=== PATIENT | female | born 1965 | race Caucasian/White ===

== ENCOUNTER 2021-04-25 18:04 | Inpatient (IN) | payer MEDICARE, MEDICAID, SELFPAY ==
[2021-04-25] VITALS (8 sets, daily range): BP systolic 109–137; BP diastolic 58–84; PULSE 91–102; RESP 16–22; TEMP 36.6; O2SAT 91–99; BMI 26.5
--- NOTE | ~2021-04-25 | CT_ITS ---
EXAMINATION: CT CHEST, ABDOMEN AND PELVIS WITHOUT CONTRAST. CLINICAL INFORMATION: Distended abdomen COMPARISON: None TECHNIQUE: 5 mm thin axial and reformatted 3 mm thin sagittal coronal images of chest, abdomen and pelvis were obtained without contrast. DLP 299 FINDINGS: CHEST: There is breathing artifact throughout the lungs. Otherwise the lungs are well-expanded with patchy density left lower lobe lateral basal segment and dependent atelectasis superior segment right lower lobe likely atelectasis. There is groundglass attenuation in the anterior and lateral segments of the left upper lobe. There is no pleural effusion, thickening or pneumothorax. The thyroid lobes are symmetrical and normal. The central trachea and the bronchi are widely patent. The heart size is borderline normal. No pericardial effusion seen. Central trachea and bronchi are widely patent. No abnormal size mediastinal lymph nodes or mass seen. The axilla and chest wall appears unremarkable. ABDOMEN AND PELVIS: The liver is diffusely attenuated with a lobulated contour and moderate enlargement. Liver measures 21 seen in craniocaudad length. No intrahepatic ductal dilatation seen. No focal mass or mass effect. The spleen is unremarkable. The small perisplenic fluid collection. Visualized pancreas and bilateral adrenal glands are unremarkable. The gallbladder is contracted but appears unremarkable. Both kidneys are normal size, shape and position. No radiopaque renal calculi or hydronephrosis seen. There is scattered stool and gas seen in colon without distention. There is moderate ascites. No free air seen. The abdominal wall appears unremarkable. Imaging of pelvis reveals unremarkable nondistended urinary bladder. The uterus is anteverted and appears unremarkable. The abdominal aorta is normal caliber. No retroperitoneal lymph nodes or mass seen. Visualized bones are grossly unremarkable. CT/CT abdomen pelvis wo con IMPRESSION: Groundglass attenuation left upper lobe suspicious for infiltrative or inflammatory process. There is dependent right upper lobe superior segment and left lower lobe posterior basal segment atelectasis. Moderate cardiomegaly with diffuse hepatic steatosis and likely cirrhosis with underlying artery ascites. There is no bowel distention. No free air.
--- NOTE | ~2021-04-25 | US_ITS ---
EXAMINATION: US VENOUS ULTRASOUND WITH DOPPLER LOWER EXTREMITY, BILATERAL CLINICAL INFORMATION: Short of breath with lower extremity edema COMPARISON: None TECHNIQUE: Ultrasound of the deep veins is performed from the hip to the calf with compression sonography and color and pulse Doppler assessment. Spectral analysis with color-flow imaging is performed. FINDINGS: RIGHT: There is normal venous compression and respiratory variation and augmented flow. The visualized common femoral vein, superficial femoral vein, profunda femoral vein, popliteal vein, and the trifurcation region shows no evidence of deep venous thrombosis. There is no significant popliteal fossa cyst. LEFT: There is normal venous compression and respiratory variation and augmented flow. The visualized common femoral vein, superficial femoral vein, profunda femoral vein, popliteal vein, and the trifurcation region shows no evidence of deep venous thrombosis. There is no significant popliteal fossa cyst. If the patient's symptoms persist, followup ultrasound in 5 days 7 days might be of value to exclude proximal propagation from a non-visualized calf vein. US/US venous duplex LE BI IMPRESSION: No DVT demonstrated in the bilateral lower extremity.
--- NOTE | ~2021-04-25 | XR_ITS ---
EXAMINATION: CHEST 2 VIEWS CLINICAL INFORMATION: Chest pain . COMPARISON: 05/08/2016. TECHNIQUE: AP frontal and lateral views of the chest obtained FINDINGS: Patient is hypoexpanded and rotated to the right. Central vascular prominence likely related to the degree of hypoexpansion. No superimposed focal infiltrate, effusion, edema, or pneumothorax. Cardiac and mediastinal silhouette within normal limits for the degree of hypoexpansion and rotation. No acute bony abnormality. XR/XR chest 2V IMPRESSION: Hypoexpanded. No acute process otherwise.
--- NOTE | ~2021-04-25 | XR_ITS ---
EXAMINATION: BILATERAL ANKLE. CLINICAL INFORMATION: Trauma. Pain. COMPARISON: None TECHNIQUE: 3 views each ankle. FINDINGS: Left ankle: There is moderate bimalleolar soft tissue swelling. No visible acute fracture or dislocation seen. The ankle mortise and subtalar joints are normal. There is a small calcaneal heel enthesophyte. Right ankle: There is bimalleolar soft tissue swelling. No visible acute fracture or dislocation seen. The ankle mortise and subtalar joints are normal. There is a small calcaneal heel enthesophyte. XR/XR ankle LT min 3V IMPRESSION: Bimalleolar soft tissue swelling in both ankles. No visible acute fracture, dislocation or lytic process seen. There is a moderate size calcaneal heel enthesophytes in both ankles.
--- NOTE | ~2021-04-25 | US_ITS ---
EXAMINATION: ULTRASOUND-GUIDED PARACENTESIS. CLINICAL INFORMATION: New ascites. COMPARISON: CT chest, abdomen and pelvis without contrast 04/25/2021. TECHNIQUE: Following explaining ultrasound-guided paracentesis procedure, benefits and risk, a written consent was obtained. Patient was placed supine on ultrasound stretcher and preliminary ultrasound imaging was obtained through the abdomen. An optimal site with maximum fluid collection was selected along the right lower quadrant and marked. The marked site was cleaned and draped in usual sterile manner. 1% lidocaine was injected at puncture site. Through a small skin incision a 4 [place] Branch[employer]uteh catheter was advanced into right peritoneal space. After observing fluid return, stylet was withdrawn and catheter connected to vacuum bottle. After obtaining all fluid and observing no more fluid return, catheter was withdrawn and complete hemostasis achieved at puncture site. Sterile dressing applied postprocedure. Patient tolerated procedure extremely well. FINDINGS: On preliminary ultrasound imaging there is moderate fluid seen in the right lower quadrant. Approximately 800 mL of clear yellowish fluid was drained from the right lower quadrant. Part of this fluid was sent to lab as per referring physician's orders. US/US paracentesis abd w/image IMPRESSION: Successful ultrasound-guided diagnostic paracentesis performed from the right lower quadrant.
--- NOTE | ~2021-04-25 | XR_ITS ---
EXAMINATION: BILATERAL ANKLE. CLINICAL INFORMATION: Trauma. Pain. COMPARISON: None TECHNIQUE: 3 views each ankle. FINDINGS: Left ankle: There is moderate bimalleolar soft tissue swelling. No visible acute fracture or dislocation seen. The ankle mortise and subtalar joints are normal. There is a small calcaneal heel enthesophyte. Right ankle: There is bimalleolar soft tissue swelling. No visible acute fracture or dislocation seen. The ankle mortise and subtalar joints are normal. There is a small calcaneal heel enthesophyte. XR/XR ankle RT min 3V IMPRESSION: Bimalleolar soft tissue swelling in both ankles. No visible acute fracture, dislocation or lytic process seen. There is a moderate size calcaneal heel enthesophytes in both ankles.
--- NOTE | ~2021-04-25 | CT_ITS ---
EXAMINATION: CT HEAD WITHOUT CONTRAST CT CERVICAL SPINE WITHOUT CONTRAST CLINICAL INFORMATION: Trauma COMPARISON: None. TECHNIQUE: Imaging was performed from the skull base to vertex without intravenous administration of contrast. In addition, helical noncontrast CT imaging was acquired through the cervical spine and source images were reviewed along with axial reconstructions and sagittal and coronal MPRs. [This CT examination was performed using dose optimization techniques as appropriate, variously including the following: *Automated exposure control *Adjustment of mA and/or kV according to patient size (this includes techniques or standardized protocols for targeted exams where dose is matched to indication/reason for exam; i.e. extremities or head) *Use of iterative reconstruction technique] DLP: 1683 mGy-cm FINDINGS: Exam limited by motion. HEAD: No gross evidence of intracranial abnormality. No intracranial mass, hemorrhage, or midline shift is visualized. The ventricles and sulci are proportional. No extra-axial collections are identified. The paranasal sinuses and mastoid air cells are well aerated. CERVICAL SPINE: No gross evidence of an acute cervical spine abnormality. Vertebral bodies remain normal in height. Cervical vertebrae have normal alignment. There is mild multilevel degenerative spondylosis of the cervical spine with disc height narrowing and endplate spurs and facet joint arthrosis No pre- or paravertebral soft tissue abnormality is identified. Limited assessment of the lung apices is unremarkable. CT/CT head/brain wo con IMPRESSION: 1. Exam limited by motion. 1. No gross evidence of acute intracranial pathology. 2. No gross evidence of acute cervical spine fracture or traumatic subluxation
--- NOTE | ~2021-04-25 | US_ITS ---
EXAMINATION: ULTRASOUND-GUIDED PARACENTESIS CLINICAL INFORMATION: Ascites COMPARISON: Previous abdominal ultrasound and paracentesis 04/27/2021 TECHNIQUE: Procedure and risks and benefits including bleeding, infection and low blood pressure were discussed with the patient and informed consent was obtained. The right lower quadrant was prepped and draped in the usual sterile fashion. The skin and soft tissues were anesthetized percent lidocaine plain. Using ultrasound guidance and 5 Serbian rapid centesis catheter, access to the ascitic fluid was obtained. 1.8 L of clear yellow fluid was removed. No diagnostic specimen was sent. FINDINGS: There is a small to moderate amount of ascites. US/US paracentesis abd w/image IMPRESSION: Ultrasound-guided paracentesis.
--- NOTE | ~2021-04-25 | CT_ITS ---
EXAMINATION: CT HEAD WITHOUT CONTRAST CT CERVICAL SPINE WITHOUT CONTRAST CLINICAL INFORMATION: Trauma COMPARISON: None. TECHNIQUE: Imaging was performed from the skull base to vertex without intravenous administration of contrast. In addition, helical noncontrast CT imaging was acquired through the cervical spine and source images were reviewed along with axial reconstructions and sagittal and coronal MPRs. [This CT examination was performed using dose optimization techniques as appropriate, variously including the following: *Automated exposure control *Adjustment of mA and/or kV according to patient size (this includes techniques or standardized protocols for targeted exams where dose is matched to indication/reason for exam; i.e. extremities or head) *Use of iterative reconstruction technique] DLP: 1683 mGy-cm FINDINGS: Exam limited by motion. HEAD: No gross evidence of intracranial abnormality. No intracranial mass, hemorrhage, or midline shift is visualized. The ventricles and sulci are proportional. No extra-axial collections are identified. The paranasal sinuses and mastoid air cells are well aerated. CERVICAL SPINE: No gross evidence of an acute cervical spine abnormality. Vertebral bodies remain normal in height. Cervical vertebrae have normal alignment. There is mild multilevel degenerative spondylosis of the cervical spine with disc height narrowing and endplate spurs and facet joint arthrosis No pre- or paravertebral soft tissue abnormality is identified. Limited assessment of the lung apices is unremarkable. CT/CT cervical spine wo con IMPRESSION: 1. Exam limited by motion. 1. No gross evidence of acute intracranial pathology. 2. No gross evidence of acute cervical spine fracture or traumatic subluxation
--- NOTE | ~2021-04-25 | US_ITS ---
EXAMINATION: US ABDOMEN COMPLETE CLINICAL INFORMATION: Ascites. Rule out portal venous thrombosis.. COMPARISON: None TECHNIQUE: Real-time imaging of the abdominal viscera. Vascular Doppler of the upper abdomen was performed. FINDINGS: PANCREAS: The pancreas is obscured by overlying gas. ABDOMINAL AORTA: The proximal, mid, and distal segments are normal in caliber. INFERIOR VENA CAVA: Visualized portions are normal. LIVER: Normal. The liver is normal in size. The liver contour is normal. Parenchymal echogenicity is normal. No focal hepatic lesion. There is no intrahepatic biliary duct dilatation seen. GALLBLADDER: The gallbladder wall thickness measures 0.9 cm. The gallbladder is physiologically distended without evidence of stones, sludge, polyps, wall thickening. There is minimal fluid within the wall. COMMON BILE DUCT: Normal in caliber measuring 0.9 cm in diameter. RIGHT KIDNEY: Normal. No hydronephrosis. No renal calculi or focal parenchymal lesions. The kidney measures 10.6 cm in maximum dimension. LEFT KIDNEY: Normal. No hydronephrosis. No renal calculi or focal parenchymal lesions. The kidney measures 9.9 cm in maximum dimension. SPLEEN: Normal. The spleen measures 10.3 cm in maximum dimension. FREE FLUID: None. On Doppler imaging there is normal hepatopedal flow seen in the main and extrahepatic portal vein. There is hepatofugal flow seen in the right hepatic vein. The left hepatic vein has hepatopedal flow. The splenic vein is patent. There is retrograde flow within main hepatic artery. There is normal antegrade flow seen in the main hepatic vein, right hepatic vein and left hepatic vein. US/US duplex arterial venous comp IMPRESSION: Unremarkable complete abdomen ultrasound except for gallbladder wall thickening with fluid within the wall.. No echogenic gallstone seen. There is retrograde flow seen in the main hepatic artery. Normal hepatopedal flow seen in the extrahepatic and intrahepatic right and main portal vein. There is hepatofugal flow in the left portal vein.
--- NOTE | ~2021-04-25 | US_ITS ---
EXAMINATION: US ABDOMEN COMPLETE CLINICAL INFORMATION: Ascites. Rule out portal venous thrombosis.. COMPARISON: None TECHNIQUE: Real-time imaging of the abdominal viscera. Vascular Doppler of the upper abdomen was performed. FINDINGS: PANCREAS: The pancreas is obscured by overlying gas. ABDOMINAL AORTA: The proximal, mid, and distal segments are normal in caliber. INFERIOR VENA CAVA: Visualized portions are normal. LIVER: Normal. The liver is normal in size. The liver contour is normal. Parenchymal echogenicity is normal. No focal hepatic lesion. There is no intrahepatic biliary duct dilatation seen. GALLBLADDER: The gallbladder wall thickness measures 0.9 cm. The gallbladder is physiologically distended without evidence of stones, sludge, polyps, wall thickening. There is minimal fluid within the wall. COMMON BILE DUCT: Normal in caliber measuring 0.9 cm in diameter. RIGHT KIDNEY: Normal. No hydronephrosis. No renal calculi or focal parenchymal lesions. The kidney measures 10.6 cm in maximum dimension. LEFT KIDNEY: Normal. No hydronephrosis. No renal calculi or focal parenchymal lesions. The kidney measures 9.9 cm in maximum dimension. SPLEEN: Normal. The spleen measures 10.3 cm in maximum dimension. FREE FLUID: None. On Doppler imaging there is normal hepatopedal flow seen in the main and extrahepatic portal vein. There is hepatofugal flow seen in the right hepatic vein. The left hepatic vein has hepatopedal flow. The splenic vein is patent. There is retrograde flow within main hepatic artery. There is normal antegrade flow seen in the main hepatic vein, right hepatic vein and left hepatic vein. US/US abdomen complete IMPRESSION: Unremarkable complete abdomen ultrasound except for gallbladder wall thickening with fluid within the wall.. No echogenic gallstone seen. There is retrograde flow seen in the main hepatic artery. Normal hepatopedal flow seen in the extrahepatic and intrahepatic right and main portal vein. There is hepatofugal flow in the left portal vein.
--- NOTE | 2021-04-25 18:06 | ECG_ITS ---
Test Reason : CHEST PAIN Blood Pressure : / mmHG Vent. Rate : 096 BPM Atrial Rate : 096 BPM P-R Int : 128 ms QRS Dur : 078 ms QT Int : 384 ms P-R-T Axes : 041 -08 094 degrees QTc Int : 485 ms Normal sinus rhythm Left ventricular hypertrophy with repolarization abnormality Abnormal ECG When compared with ECG of 01-MAY-2016 19:40, T wave inversion now evident in Lateral leads QT has lengthened Referred By: Faith Conley Electronically Signed By:STUART CHICAS
--- NOTE | 2021-04-25 18:12 | ED_ITS ---
HPI - Weakness General Chief complaint: Chest Pain Stated complaint: Chest pain/Leg weakness Time Seen by Provider: 04/25/21 18:06 Related Data Home Medications Medication Instructions Recorded Confirmed amlodipine 5 mg tablet 1 tab PO DAILY 04/26/21 04/26/21 atorvastatin 40 mg tablet 1 tab PO BEDTIME 04/26/21 04/26/21 bupropion HCl 150 mg 24 hr tablet, 1 tab PO QAM 04/26/21 04/26/21 extended release duloxetine 60 mg capsule,delayed 1 cap PO BID 04/26/21 04/26/21 release gabapentin 600 mg tablet 2 tab PO TID 04/26/21 04/26/21 glipizide 5 mg tablet 1 tab PO DAILY 04/26/21 04/26/21 hydroxyzine HCl 25 mg tablet 1 tab PO DAILY 04/26/21 04/26/21 hydroxyzine HCl 50 mg tablet 2 tab PO BEDTIME 04/26/21 04/26/21 ibuprofen 600 mg tablet 1 tab PO TID 04/26/21 04/26/21 metformin 500 mg tablet,extended 2 tab PO BID 04/26/21 04/26/21 release 24 hr olanzapine 5 mg tablet 1 tab PO BEDTIME 04/26/21 04/26/21 pantoprazole 40 mg tablet,delayed 1 tab PO BID 04/26/21 04/26/21 release potassium chloride 10 mEq 1 tab PO DAILY 04/26/21 04/26/21 tablet,extended release prazosin 1 mg capsule 1 cap PO BID 04/26/21 04/26/21 Allergies Allergy/AdvReac Type Severity Reaction Status Date / Time No Known Allergies Allergy Verified 04/25/21 15:07 [No Known Allergies*] FOR[facility]LY [facility] Past Medical History Medical History (Updated 04/26/21 @ 16:36 by Keri Washington CNP) Alcoholic Surgical History History of renal stent Family History Family History (Updated 04/25/21 @ 15:08 by Jessenia Stapleton CMA) Mother Substance abuse Brother Substance abuse Social History Social History (Updated 04/25/21 @ 15:09 by Jessenia Stapleton CMA) Household Members: Other Household Members Other:: mother Housing: Apartment Do you presently have visiting nurse or other home services: No Alcohol intake: current Alcohol intake frequency: 3 or more drinks per day Patient Tobacco Use Status: Current everyday Tobacco user Tobacco use type: Cigarette Cigarettes Per Day: 7 Years Smoked: 54 Smoked in Last 30 Days: Yes e-Cigarette/Vaping Use: Never Used Patient Interested in Nicotine Replacement: Yes Patient Given Instructions on How to Stop Smoking: Yes Date Education Initiated: 04/26/21 Second Hand Smoke Exposure: Yes Use of substances other than those prescribed or required for medical reasons: No Currently Displaying Signs/Symptoms of Drug Intoxication Withdrawal: No Have you been hit, kicked, punched, or otherwise hurt by someone within the past year? If so, by whom?: No Do you feel safe in your current relationship?: No Current Relationship Is there a partner from a previous relationship who is making you feel unsafe now?: No Are you made to feel afraid or neglected: No Advance Directives: No Do you have thoughts of harming others: None Do you have a plan to hurt others: No Plan Recently lost weight without trying: No Eating poorly because of decreased appetite: No Nutrition Risks: No Nutritional Risk Patient : No : No Poor oral hygiene: No service: No Current occupational status: employed and disabled Physical Exam Vital Signs: Vital Signs: Last Vital Signs Temp 97.4 F 04/26/21 15:22 Pulse 93 04/26/21 15:22 Resp 16 04/26/21 15:22 BP 128/72 04/26/21 15:22 Pulse Ox 97 04/26/21 15:22 Body Mass Index 26.5 Course Course Course Narrative: 18pm - 56-year-old female with a past medical history of diabetes and bilateral lower extremity edema, PTSD anxiety presenting to the ED with complaints of weakness over the past 2-3 days or she feels like she can not get up from her chair without any assistance. She also reports 1 day of chest pain mid sternal/left- sided with associated shortness of breath nausea/vomiting and whole-body numbness/tingling. She denies recent travel or sick contacts. She is up-to-date on COVID vaccine. On exam patient is alert and oriented x3. Not in any acute distress. Vital signs are stable within normal limits. No focal neural deficits are noted. Patient was sent back to the waiting room for further evaluation and treatment and to the main ED. Labs, EKG and chest x-ray along with an pinedo swab and bilateral venous duplex ultrasound of lower extremity ordered as patient has pitting edema. MDM - Weakness Lab Data Result diagrams: 04/26/21 07:09 04/26/21 07:09 Labs: Lab Results 04/25/21 04/25/21 04/25/21 Range/Units 19:50 19:50 19:50 WBC 19.4 H (4.8-10.8) X10*3/uL RBC 3.61 L (4.20-5.50) X10*6/uL Hgb 12.4 (12.0-16.0) g/dl Hct 35.9 L (37-47) % MCV 99.4 H (80-98) fL MCH 34.3 H (27.0-33.0) pg MCHC 34.5 (31.0-35.0) g/dl RDW 14.0 (11.0-16.0) % Plt Count 365 (160-400) X10*3/uL MPV 9.7 (9.4-12.3) fL Immature Gran % (Auto) 1.3 H (0.0-0.4) % Neut % (Auto) 80.5 H (45-73) % Lymph % (Auto) 10.3 L (20-40) % [place] % (Auto) 6.9 (2-11) % Eos % (Auto) 0.7 (0-4) % Baso % (Auto) 0.3 (0-2) % Lymph # (Auto) 2.0 (1.2-4.9) X10*3/uL [place] # (Auto) 1.3 H (0.1-1.2) X10*3/uL Eos # (Auto) 0.1 (0.0-0.4) X10*3/uL Baso # (Auto) 0.1 (0.0-0.2) X10*3/uL Abs Immat Gran (auto) 0.26 H (0.00-0.03) X10*3/uL Absolute Neuts (auto) 15.6 H (2.0-8.3) X10*3/uL Absolute Nucleated RBC 0.000 (0.0-0.012) X10*3/uL Nucleated RBC % (auto) 0.0 (0.0-0.2) /100WBC Sodium (135-145) mmol/L Potassium (3.3-5.1) mmol/L Chloride (96-108) mmol/L Carbon Dioxide (22-29) mmol/L Anion Gap (12-20) BUN (9-16) mg/dL Creatinine (0.5-1.4) mg/dL Estim Creat Clear Calc Estimated GFR POC Glucose (60-115) mg/dL Random Glucose (60-115) mg/dL Calcium (8.4-10.2) mg/dL Magnesium (1.6-2.6) mg/dL Total Bilirubin (0.0-1.0) mg/dL AST (5-31) U/L ALT (0-31) U/L Alkaline Phosphatase (39-117) U/L Troponin I High Sens < 3.5 (<3.5-17.0) ng/L B-Natriuretic Peptide (<100) pg/mL Total Protein (6.5-8.0) g/dL Albumin (3.5-5.0) g/dL Ethyl Alcohol mg/dL COVID-19 (ENA) Negative (Negative) COVID-19 Clin Com See Note 04/25/21 04/25/21 04/25/21 Range/Units 19:50 19:50 20:19 WBC (4.8-10.8) X10*3/uL RBC (4.20-5.50) X10*6/uL Hgb (12.0-16.0) g/dl Hct (37-47) % MCV (80-98) fL MCH (27.0-33.0) pg MCHC (31.0-35.0) g/dl RDW (11.0-16.0) % Plt Count (160-400) X10*3/uL MPV (9.4-12.3) fL Immature Gran % (Auto) (0.0-0.4) % Neut % (Auto) (45-73) % Lymph % (Auto) (20-40) % [place] % (Auto) (2-11) % Eos % (Auto) (0-4) % Baso % (Auto) (0-2) % Lymph # (Auto) (1.2-4.9) X10*3/uL [place] # (Auto) (0.1-1.2) X10*3/uL Eos # (Auto) (0.0-0.4) X10*3/uL Baso # (Auto) (0.0-0.2) X10*3/uL Abs Immat Gran (auto) (0.00-0.03) X10*3/uL Absolute Neuts (auto) (2.0-8.3) X10*3/uL Absolute Nucleated RBC (0.0-0.012) X10*3/uL Nucleated RBC % (auto) (0.0-0.2) /100WBC Sodium 137 (135-145) mmol/L Potassium 3.5 (3.3-5.1) mmol/L Chloride 103 (96-108) mmol/L Carbon Dioxide 23 (22-29) mmol/L Anion Gap 15 (12-20) BUN 9 (9-16) mg/dL Creatinine 0.73 (0.5-1.4) mg/dL Estim Creat Clear Calc 77.8 Estimated GFR > 60 POC Glucose (60-115) mg/dL Random Glucose 10 L* (60-115) mg/dL Calcium 8.5 (8.4-10.2) mg/dL Magnesium 1.3 L* (1.6-2.6) mg/dL Total Bilirubin 0.8 (0.0-1.0) mg/dL AST 105 H (5-31) U/L ALT 57 H (0-31) U/L Alkaline Phosphatase 331 H (39-117) U/L Troponin I High Sens (<3.5-17.0) ng/L B-Natriuretic Peptide 23 (<100) pg/mL Total Protein 5.5 L (6.5-8.0) g/dL Albumin 2.8 L (3.5-5.0) g/dL Ethyl Alcohol 52 mg/dL COVID-19 (ENA) (Negative) COVID-19 Clin Com 04/25/21 Range/Units 21:15 WBC (4.8-10.8) X10*3/uL RBC (4.20-5.50) X10*6/uL Hgb (12.0-16.0) g/dl Hct (37-47) % MCV (80-98) fL MCH (27.0-33.0) pg MCHC (31.0-35.0) g/dl RDW (11.0-16.0) % Plt Count (160-400) X10*3/uL MPV (9.4-12.3) fL Immature Gran % (Auto) (0.0-0.4) % Neut % (Auto) (45-73) % Lymph % (Auto) (20-40) % [place] % (Auto) (2-11) % Eos % (Auto) (0-4) % Baso % (Auto) (0-2) % Lymph # (Auto) (1.2-4.9) X10*3/uL [place] # (Auto) (0.1-1.2) X10*3/uL Eos # (Auto) (0.0-0.4) X10*3/uL Baso # (Auto) (0.0-0.2) X10*3/uL Abs Immat Gran (auto) (0.00-0.03) X10*3/uL Absolute Neuts (auto) (2.0-8.3) X10*3/uL Absolute Nucleated RBC (0.0-0.012) X10*3/uL Nucleated RBC % (auto) (0.0-0.2) /100WBC Sodium (135-145) mmol/L Potassium (3.3-5.1) mmol/L Chloride (96-108) mmol/L Carbon Dioxide (22-29) mmol/L Anion Gap (12-20) BUN (9-16) mg/dL Creatinine (0.5-1.4) mg/dL Estim Creat Clear Calc Estimated GFR POC Glucose 165 H (60-115) mg/dL Random Glucose (60-115) mg/dL Calcium (8.4-10.2) mg/dL Magnesium (1.6-2.6) mg/dL Total Bilirubin (0.0-1.0) mg/dL AST (5-31) U/L ALT (0-31) U/L Alkaline Phosphatase (39-117) U/L Troponin I High Sens (<3.5-17.0) ng/L B-Natriuretic Peptide (<100) pg/mL Total Protein (6.5-8.0) g/dL Albumin (3.5-5.0) g/dL Ethyl Alcohol mg/dL COVID-19 (ENA) (Negative) COVID-19 Clin Com Discharge Plan Discharge Clinical Impression: Hypoglycemia, Pneumonia, Hypomagnesemia, Withdrawal symptoms, alcohol Patient Disposition: Admitted As Inpatient Interventions: Admission Worksheet (ED) Last Done: 04/26/21 10:41 Discharge Date/Time: 04/26/21 10:43
--- NOTE | 2021-04-25 19:34 | ED_ITS ---
HPI - General Adult General Chief complaint: Chest Pain Stated complaint: Chest pain/Leg weakness Time Seen by Provider: 04/25/21 18:06 Source: patient Limitations: no limitations History of Present Illness HPI narrative: This is 56 yo female sent to the Ed by her PCP DR Pilo Ronquillo for evaluation of weakness,increase edema lower extremities,multiple falls. Pt has hx of alcohol abuse,she fell Yesterday also at home Onset (ago): day(s) (1) Location: lower extremity Radiation: non-radiation Severity: moderate Quality: burning Pain Consistency: constant Related Data Allergies Allergy/AdvReac Type Severity Reaction Status Date / Time No Known Allergies Allergy Verified 04/25/21 15:07 [No Known Allergies*] Review of Systems Review of Systems: Yes all other systems are reviewed and are negative Constitutional: Constitutional: Reports fatigue, Denies fever(s) and Reports frequent falls Cardiovascular: Cardiovascular: Reports edema Respiratory: Respiratory: Reports no additional respiratory complaints Gastrointestinal: Gastrointestinal: Denies abdominal pain and Reports bloating Musculoskeletal: Musculoskeletal: Reports abnormal gait Neurologic: Reports abnormal gait and Reports frequent falls Psychiatric: Psychiatric: Reports anxiety Endocrine: Endocrine: Reports fatigue PMFSH Past Medical History [facility] Narrative: Alcohol abuse,hx of lytes abnormalities Medical History (Updated 04/25/21 @ 21:54 by Naren Loredo MD) Alcoholic Surgical History History of renal stent Family History Family History (Updated 04/25/21 @ 15:08 by Jessenia Stapleton CMA) Mother Substance abuse Brother Substance abuse Social History Social History (Updated 04/25/21 @ 15:09 by Jessenia Stapleton CMA) Alcohol intake: current Alcohol intake frequency: 3 or more drinks per day Patient Tobacco Use Status: Current everyday Tobacco user Cigarettes Per Day: 8 Use of substances other than those prescribed or required for medical reasons: No Advance Directives: No Physical Exam Vital Signs: Vital Signs: Last Vital Signs Temp 97.8 F 04/25/21 18:18 Pulse 91 04/25/21 23:47 Resp 20 04/25/21 23:47 BP 115/62 04/25/21 23:47 Pulse Ox 97 04/25/21 23:47 Body Mass Index 26.5 Const: General: cooperative and anxious Nutritional Appearance: average body habitus Orientation/consciousness: patient oriented x3 HENMT: Other: wnl Face and sinus: Yes normal facial exam Mouth: Normal oral and palatal mucosa present Neck: Neck: Yes normal visual inspection Chest: Chest palpation & inspection: normal inspection of the chest Resp: Effort & Inspection: normal respiratory effort Auscultation: clear to auscultation bilaterally Cardio: Jugular venous distension: no JVD Palpation: normal PMI Rate: regular rate GI: Inspection: Yes normal to inspection Palpation (GI): Soft to palpation, not firm, nontender, no guarding, not rigid and Other GI palpation findings present (Ascites) Neuro: General: patient oriented x3 Cranial nerves: Yes CN's II-XII intact bilaterally Extrem: Other: Swelling both ankles with deformity rt ankle Course Reevaluation(s) Reevaluation #1: pt became more restless,agitated requiring Benzo,most likely alcohol withdrawal syndrome,will start phenobarbital protocol,Blood sugar 10 given Dextrose D50 Time: 21:58 Reevaluation #2: remain hemodinamically stable ,sedate with ativan and phenobarbital,by ct left upper lobe infiltrate,02 sat 99 % in 2 liter at this time will admit the [place] [facility] ,antibiotic ordered, report give to hospitalist DR Escobedo Medical Decision Making Lab Data Result diagrams: 04/25/21 19:50 04/25/21 20:19 Labs: Lab Results 04/25/21 04/25/21 04/25/21 Range/Units 19:50 19:50 19:50 WBC 19.4 H (4.8-10.8) X10*3/uL RBC 3.61 L (4.20-5.50) X10*6/uL Hgb 12.4 (12.0-16.0) g/dl Hct 35.9 L (37-47) % MCV 99.4 H (80-98) fL MCH 34.3 H (27.0-33.0) pg MCHC 34.5 (31.0-35.0) g/dl RDW 14.0 (11.0-16.0) % Plt Count 365 (160-400) X10*3/uL MPV 9.7 (9.4-12.3) fL Immature Gran % (Auto) 1.3 H (0.0-0.4) % Neut % (Auto) 80.5 H (45-73) % Lymph % (Auto) 10.3 L (20-40) % [place] % (Auto) 6.9 (2-11) % Eos % (Auto) 0.7 (0-4) % Baso % (Auto) 0.3 (0-2) % Lymph # (Auto) 2.0 (1.2-4.9) X10*3/uL [place] # (Auto) 1.3 H (0.1-1.2) X10*3/uL Eos # (Auto) 0.1 (0.0-0.4) X10*3/uL Baso # (Auto) 0.1 (0.0-0.2) X10*3/uL Abs Immat Gran (auto) 0.26 H (0.00-0.03) X10*3/uL Absolute Neuts (auto) 15.6 H (2.0-8.3) X10*3/uL Absolute Nucleated RBC 0.000 (0.0-0.012) X10*3/uL Nucleated RBC % (auto) 0.0 (0.0-0.2) /100WBC Sodium (135-145) mmol/L Potassium (3.3-5.1) mmol/L Chloride (96-108) mmol/L Carbon Dioxide (22-29) mmol/L Anion Gap (12-20) BUN (9-16) mg/dL Creatinine (0.5-1.4) mg/dL Estim Creat Clear Calc Estimated GFR POC Glucose (60-115) mg/dL Random Glucose (60-115) mg/dL Calcium (8.4-10.2) mg/dL Magnesium (1.6-2.6) mg/dL Total Bilirubin (0.0-1.0) mg/dL AST (5-31) U/L ALT (0-31) U/L Alkaline Phosphatase (39-117) U/L Troponin I High Sens < 3.5 (<3.5-17.0) ng/L B-Natriuretic Peptide (<100) pg/mL Total Protein (6.5-8.0) g/dL Albumin (3.5-5.0) g/dL Ethyl Alcohol mg/dL COVID-19 (ENA) Negative (Negative) COVID-19 Clin Com See Note 09/13/21 09/13/21 09/13/21 Range/Units 19:50 19:50 20:19 WBC (4.8-10.8) X10*3/uL RBC (4.20-5.50) X10*6/uL Hgb (12.0-16.0) g/dl Hct (37-47) % MCV (80-98) fL MCH (27.0-33.0) pg MCHC (31.0-35.0) g/dl RDW (11.0-16.0) % Plt Count (160-400) X10*3/uL MPV (9.4-12.3) fL Immature Gran % (Auto) (0.0-0.4) % Neut % (Auto) (45-73) % Lymph % (Auto) (20-40) % [place] % (Auto) (2-11) % Eos % (Auto) (0-4) % Baso % (Auto) (0-2) % Lymph # (Auto) (1.2-4.9) X10*3/uL [place] # (Auto) (0.1-1.2) X10*3/uL Eos # (Auto) (0.0-0.4) X10*3/uL Baso # (Auto) (0.0-0.2) X10*3/uL Abs Immat Gran (auto) (0.00-0.03) X10*3/uL Absolute Neuts (auto) (2.0-8.3) X10*3/uL Absolute Nucleated RBC (0.0-0.012) X10*3/uL Nucleated RBC % (auto) (0.0-0.2) /100WBC Sodium 137 (135-145) mmol/L Potassium 3.5 (3.3-5.1) mmol/L Chloride 103 (96-108) mmol/L Carbon Dioxide 23 (22-29) mmol/L Anion Gap 15 (12-20) BUN 9 (9-16) mg/dL Creatinine 0.73 (0.5-1.4) mg/dL Estim Creat Clear Calc 77.8 Estimated GFR > 60 POC Glucose (60-115) mg/dL Random Glucose 10 L* (60-115) mg/dL Calcium 8.5 (8.4-10.2) mg/dL Magnesium 1.3 L* (1.6-2.6) mg/dL Total Bilirubin 0.8 (0.0-1.0) mg/dL AST 105 H (5-31) U/L ALT 57 H (0-31) U/L Alkaline Phosphatase 331 H (39-117) U/L Troponin I High Sens (<3.5-17.0) ng/L B-Natriuretic Peptide 23 (<100) pg/mL Total Protein 5.5 L (6.5-8.0) g/dL Albumin 2.8 L (3.5-5.0) g/dL Ethyl Alcohol 52 mg/dL COVID-19 (ENA) (Negative) COVID-19 Clin Com 04/25/21 Range/Units 21:15 WBC (4.8-10.8) X10*3/uL RBC (4.20-5.50) X10*6/uL Hgb (12.0-16.0) g/dl Hct (37-47) % MCV (80-98) fL MCH (27.0-33.0) pg MCHC (31.0-35.0) g/dl RDW (11.0-16.0) % Plt Count (160-400) X10*3/uL MPV (9.4-12.3) fL Immature Gran % (Auto) (0.0-0.4) % Neut % (Auto) (45-73) % Lymph % (Auto) (20-40) % [place] % (Auto) (2-11) % Eos % (Auto) (0-4) % Baso % (Auto) (0-2) % Lymph # (Auto) (1.2-4.9) X10*3/uL [place] # (Auto) (0.1-1.2) X10*3/uL Eos # (Auto) (0.0-0.4) X10*3/uL Baso # (Auto) (0.0-0.2) X10*3/uL Abs Immat Gran (auto) (0.00-0.03) X10*3/uL Absolute Neuts (auto) (2.0-8.3) X10*3/uL Absolute Nucleated RBC (0.0-0.012) X10*3/uL Nucleated RBC % (auto) (0.0-0.2) /100WBC Sodium (135-145) mmol/L Potassium (3.3-5.1) mmol/L Chloride (96-108) mmol/L Carbon Dioxide (22-29) mmol/L Anion Gap (12-20) BUN (9-16) mg/dL Creatinine (0.5-1.4) mg/dL Estim Creat Clear Calc Estimated GFR POC Glucose 165 H (60-115) mg/dL Random Glucose (60-115) mg/dL Calcium (8.4-10.2) mg/dL Magnesium (1.6-2.6) mg/dL Total Bilirubin (0.0-1.0) mg/dL AST (5-31) U/L ALT (0-31) U/L Alkaline Phosphatase (39-117) U/L Troponin I High Sens (<3.5-17.0) ng/L B-Natriuretic Peptide (<100) pg/mL Total Protein (6.5-8.0) g/dL Albumin (3.5-5.0) g/dL Ethyl Alcohol mg/dL COVID-19 (ENA) (Negative) COVID-19 Clin Com Imaging Data CT scan - abdomen: Radiologist's impression: t contrast. DLP 299? FINDINGS: CHEST: There is breathing artifact throughout the lungs. Otherwise the lungs are well-expanded with patchy density left lower lobe lateral basal segment and dependent atelectasis superior segment right lower lobe likely atelectasis. There is groundglass attenuation in the anterior and lateral segments of the left upper lobe. There is no pleural effusion, thickening or pneumothorax. The thyroid lobes are symmetrical and normal. The central trachea and the bronchi are widely patent. The heart size is borderline normal. No pericardial effusion seen. Central trachea and bronchi are widely patent. No abnormal size mediastinal lymph nodes or mass seen. The axilla and chest wall appears unremarkable. ABDOMEN AND PELVIS: The liver is diffusely attenuated with a lobulated contour and moderate enlargement. Liver measures 21 seen in craniocaudad length. No intrahepatic ductal dilatation seen. No focal mass or mass effect. The spleen is unremarkable. The small perisplenic fluid collection. Visualized pancreas and bilateral adrenal glands are unremarkable. The gallbladder is contracted but appears unremarkable. Both kidneys are normal size, shape and position. No radiopaque renal calculi or hydronephrosis seen. There is scattered stool and gas seen in colon without distention. There is moderate ascites. No free air seen. The abdominal wall appears unremarkable. Imaging of pelvis reveals unremarkable nondistended urinary bladder. The uterus is anteverted and appears unremarkable. The abdominal aorta is normal caliber. No retroperitoneal lymph nodes or mass seen. ECG Data Attestation: I personally reviewed and interpreted this ECG as follows: Pacemaker model: NSR 96 artifact no ischemic changes Critical Care Time Critical Care Time Critical Care Time: Yes Total Critical Care Time: 60 Attestation: IV dextrose/multiple reevaluation/ discussion with hospitalist/bed side care Discharge Plan Discharge Clinical Impression: Hypoglycemia, Pneumonia, Hypomagnesemia, Withdrawal symptoms, alcohol
[2021-04-25 20:05] LABS: MANUAL DIFF FLAG NO
[2021-04-25 20:12] LABS: Basophils Absolute Auto 0.1 X10*3/uL (0.0-0.2); Basophils Percent Auto 0.3 % (0-2); Eosinophils Absolute Auto 0.1 X10*3/uL (0.0-0.4); Eosinophils Percent Auto 0.7 % (0-4); Hematocrit 35.9 % (37-47); Hemoglobin 12.4 g/dl (12.0-16.0); Imm Gran Abs Auto 0.26 X10*3/uL (0.00-0.03); Imm Gran Pct Auto 1.3 % (0.0-0.4); Lymphocytes Percent Auto 10.3 % (20-40); Mean Corpuscular HGB Conc 34.5 g/dl (31.0-35.0); Mean Corpuscular Hemoglobin 34.3 pg (27.0-33.0); Mean Corpuscular Volume 99.4 fL (80-98); Mean Platelet Volume 9.7 fL (9.4-12.3); Monocytes Absolute Auto 1.3 X10*3/uL (0.1-1.2); Monocytes Percent Auto 6.9 % (2-11); Neutrophils Absolute Auto 15.6 X10*3/uL (2.0-8.3); Neutrophils Percent Auto 80.5 % (45-73); Platelet Count 365 X10*3/uL (160-400); Red Blood Count 3.61 X10*6/uL (4.20-5.50); White Blood Count 19.4 X10*3/uL (4.8-10.8)
[2021-04-25] MEDS: LORazepam 1 MG TABLET PO (20:15)
[2021-04-25 20:20] LABS: Ethanol 52 mg/dL
[2021-04-25 20:22] LABS: COVID-19 Test Negative (Negative); IDNOW Serial# 9DD0AD1C
[2021-04-25 20:27] LABS: Troponin-I High Sensitivity < 3.5 ng/L (<3.5-17.0)
[2021-04-25 20:28] LABS: B Type Natriuretic Peptide 23 pg/mL (<100)
[2021-04-25] MEDS: LORazepam 2 MG/ML VIAL 1 MG IVPUSH (20:40)
--- NOTE | 2021-04-25 20:43 | PC.NURSE ---
Pt is incontinent urine. complete bed change and red care. Provider aware. Pt is placed on monitor.
--- NOTE | 2021-04-25 20:45 | PC.NURSE ---
pt medicated for withdrawls, pt is figity, large abd, sat 91% pt placed on 2l nc. sat improved to 95% pt is purse lip breathing dr sood at bedside.
[2021-04-25 21:00] LABS: Alanine Aminotransferase 57 U/L (0-31); Albumin Level 2.8 g/dL (3.5-5.0); Alkaline Phosphatase 331 U/L (39-117); Anion Gap 15 (12-20); Aspartate Amino Transferase 105 U/L (5-31); Bilirubin Total 0.8 mg/dL (0.0-1.0); Blood Urea Nitrogen 9 mg/dL (9-16); Calcium 8.5 mg/dL (8.4-10.2); Carbon Dioxide 23 mmol/L (22-29); Chloride 103 mmol/L (96-108); Creatinine Clr Calc Pharmacy 77.8; Estimated Glomerular Filt Rate > 60; Glucose Random 10 mg/dL (60-115); Magnesium 1.3 mg/dL (1.6-2.6); Potassium 3.5 mmol/L (3.3-5.1); Sodium 137 mmol/L (135-145); Total Protein 5.5 g/dL (6.5-8.0)
--- NOTE | 2021-04-25 21:16 | PC.NURSE ---
during the ct pt was not arrousable poc 10 dextrose given and now poc 165. pt is talking with slurred speach.
[2021-04-25 21:21] LABS: Glucose, Whole Blood 165 mg/dL (60-115)
[2021-04-25] MEDS: PHENobarbitaL sodium 130 MG/ML VIAL 210 MG IM (21:26)
[2021-04-25] MEDS: Dextrose 5 % and 0.9 % NaCl 1,000 ML 100 ML IVCONT (21:37)
[2021-04-25 22:31] LABS: ABG Base Excess -4.7 mmol/L; ABG HCO3 19 mmol/L (22-26); ABG pCO2 31 mmHg (32-45); ABG pCO2 TC 31 mmHg (32-45); ABG pH 7.38 (7.35-7.45); ABG pH TC 7.39 (7.35-7.45); ABG pO2 99 mmHg (83-108); ABG pO2 TC 97 (83-108)
--- NOTE | 2021-04-25 22:31 | PM.IMHP ---
History of Present Illness Date of Service: 04/25/21 Chief Complaint: Fall 56 F HTN, HLD, DM, COPD, Etoh abuse; presented to the hospital with a chief complaint of fall/confusion. Patient received Ativan/fall number call in the ER for alcohol withdrawal; patient drowsy/lethargic secondary to medication effect; unable to obtain history from the patient. History is limited. Spoke to the patient's friends Mona-who mentioned that she did the healthcare proxy forms with the PCP today. Mona mentions that patient has been living with her mother who is terminally ill lately; and has been drinking alcohol heavy on a daily basis about 20 need sub 100 proof daily; sleeps in a recliner; does not move much; mentions that she probably had falls; patient mom's MANAGER [employer]ROLOG[employer] mentioned to start that patient was unable to get up today and was extremely weak; has not been eating good. Mentioned that patient reported pain in the legs and body aches; ER team reported that patient reportedly had multiple falls and has seen PCP today who sent her to the hospital for evaluation. ER course: That patient on presentation noted to be shaky; given her falls due to CT head and CT neck which showed no acute findings; patient's abdomen was distended-CT abdomen showed hepatic steatosis/cirrhosis otherwise no acute changes; patient legs are swollen-venous duplex negative for DVT; patient had ankle tenderness; excess negative for any fracture; CT of the chest showed upper lobe pneumonia-given antibiotics. Patient was noted to be shaky and possibly withdrawing-patient was given phenobarbital and Ativan. Admitted to the hospital for further management. ER team mentioned that patient's glucose was 10 on presentation. Given D50 with improvement sugar to 165 and subsequently dropped to 67. Started on dextrose infusion Home meds: Lipitor Duloxetine Olanzepine Amlodipine Hydroxyzine glipizide gabapentin metformin Review of Systems Review of Systems: Unable to obtain [facility] Medical History (Updated 04/25/21 @ 21:54 by Naren Loredo MD) Alcoholic Family History (Updated 04/25/21 @ 15:08 by Jessenia Stapleton CMA) Mother Substance abuse Brother Substance abuse Surgical History History of renal stent Social History (Updated 04/25/21 @ 15:09 by Jessenia Stapleton CMA) Alcohol intake: current Alcohol intake frequency: 3 or more drinks per day Patient Tobacco Use Status: Current everyday Tobacco user Cigarettes Per Day: 8 Use of substances other than those prescribed or required for medical reasons: No Advance Directives: No Meds Allergies Allergy/AdvReac Type Severity Reaction Status Date / Time No Known Allergies Allergy Verified 04/25/21 15:07 [No Known Allergies*] Active Medications: Current Medications Generic Name Dose Route Start Last Admin Trade Name Freq PRN Reason Stop Dose Admin Heparin Sodium (Porcine) 5,000 unit 04/25/21 22:30 Heparin Sodium,Porcine 5,000 Unit/Ml Vial SUBCUT Q8H NANDA Dextrose/Sodium Chloride 1,000 mls @ 100 mls/hr 04/25/21 21:15 04/25/21 21:37 D5ns IVCONT 100 mls/hr .Q10H NANDA Administration Magnesium Sulfate/Dextrose 1 gm in 100 mls @ 100 mls/hr 04/25/21 21:49 Magnesium Sulfate/D5w IV 04/25/21 22:48 ONCE ONE Vancomycin HCl 1,000 mg/ 270 mls @ 270 mls/hr 04/25/21 21:49 Sodium Chloride IV 04/25/21 22:48 ONCE ONE Vancomycin HCl 1,000 mg/ 270 mls @ 270 mls/hr 04/25/21 22:30 Sodium Chloride IV Q12H NANDA Piperacillin Sod/Tazobactam 50 mls @ 100 mls/hr 04/25/21 22:30 Sod 3.375 gm/ Sodium Chloride IV Q6H NANDA Medication 1 each 04/25/21 09:00 No Benzodiazepines MISCELLANE DAILY NANDA Melatonin 6 mg 04/25/21 22:21 Melatonin 3 Mg Tablet PO BEDTIME PRN Insomnia Pharmacy Consult 1 each 04/25/21 20:33 Consult Rx Etoh Phenob Dosing MISCELLANE ONCE PRN Consult order Protocol Pharmacy Consult 1 each 04/25/21 21:49 Consult Rx Vancomycin Dosing MISCELLANE DAILY PRN Consult order Pharmacy Consult 1 each 04/25/21 22:21 Consult Rx Vancomycin Dosing MISCELLANE DAILY PRN Consult order Phenobarbital 45 mg 04/26/21 09:00 Phenobarbital 15 Mg Tablet PO 04/27/21 21:01 BID NANDA Phenobarbital 15 mg 04/28/21 09:00 Phenobarbital 15 Mg Tablet PO 04/29/21 21:01 BID NANDA Phenobarbital 15 mg 04/30/21 09:00 Phenobarbital 15 Mg Tablet PO 05/01/21 09:01 DAILY [facility] Phenobarbital Sodium 157 mg 04/26/21 00:00 Phenobarbital Sodium 130 Mg/Ml Vial IM 04/26/21 03:01 Q3H [facility] Senna 17.2 mg 04/25/21 22:21 Sennosides 8.6 Mg Tablet PO BEDTIME PRN Constipation Sodium Chloride 3 ml 04/26/21 00:00 0.9 % Sodium Chloride Flush 3 Ml Syringe IVFLUSH QSHIFT [facility] Physical Exam Vital Signs and Narrative: Vital Signs: Last Vital Signs Temp 97.8 F 04/25/21 18:18 Pulse 97 04/25/21 21:42 Resp 16 04/25/21 21:42 BP 123/58 L 04/25/21 21:42 Pulse Ox 99 04/25/21 21:42 Body Mass Index 26.5 Gen: Appears be in no acute distress; sleeping secondary to medication effect HEENT: NCAT, Moist mucosa. Pulmonary: Coarse breath sounds; saturating 99% on 2 L of supplemental oxygen CVS: Normal S1-S2 Abdomen: BS+, Soft, Nontender Extremities: Warm well perfused Neuro: Drowsy and lethargic; unable to assess neurological exam Results Labs CBC and Chem 7: 04/25/21 19:50 04/25/21 20:19 Labs: Laboratory Results - last 24 hr 04/25/21 04/25/21 04/25/21 19:50 19:50 19:50 MCV 99.4 H MCH 34.3 H MCHC 34.5 RDW 14.0 Plt Count 365 MPV 9.7 Immature Gran % (Auto) 1.3 H Neut % (Auto) 80.5 H Lymph % (Auto) 10.3 L Dubois % (Auto) 6.9 Eos % (Auto) 0.7 Baso % (Auto) 0.3 Lymph # (Auto) 2.0 Dubois # (Auto) 1.3 H Eos # (Auto) 0.1 Baso # (Auto) 0.1 Abs Immat Gran (auto) 0.26 H Absolute Neuts (auto) 15.6 H Absolute Nucleated RBC 0.000 Nucleated RBC % (auto) 0.0 O2 Saturation ABG pH at Pt Temp ABG pH (Temp Correct) ABG pCO2 at Pt Temp ABG pCO2 (Temp Corrct ABG pO2 at Pt Temp ABG pO2 (Temp Correct ABG HCO3 ABG Base Excess (Actual) Anion Gap Estim Creat Clear Calc Estimated GFR POC Glucose Random Glucose Calcium Magnesium Total Bilirubin AST ALT Alkaline Phosphatase Troponin I High Sens < 3.5 B-Natriuretic Peptide Total Protein Albumin Ethyl Alcohol COVID-19 (ENA) Negative COVID-19 Clin Com See Note 04/25/21 04/25/21 04/25/21 19:50 19:50 20:19 MCV MCH MCHC RDW Plt Count MPV Immature Gran % (Auto) Neut % (Auto) Lymph % (Auto) Dubois % (Auto) Eos % (Auto) Baso % (Auto) Lymph # (Auto) Dubois # (Auto) Eos # (Auto) Baso # (Auto) Abs Immat Gran (auto) Absolute Neuts (auto) Absolute Nucleated RBC Nucleated RBC % (auto) O2 Saturation ABG pH at Pt Temp ABG pH (Temp Correct) ABG pCO2 at Pt Temp ABG pCO2 (Temp Corrct ABG pO2 at Pt Temp ABG pO2 (Temp Correct ABG HCO3 ABG Base Excess (Actual) Anion Gap 15 Estim Creat Clear Calc 77.8 Estimated GFR > 60 POC Glucose Random Glucose 10 L* Calcium 8.5 Magnesium 1.3 L* Total Bilirubin 0.8 AST 105 H ALT 57 H Alkaline Phosphatase 331 H Troponin I High Sens B-Natriuretic Peptide 23 Total Protein 5.5 L Albumin 2.8 L Ethyl Alcohol 52 COVID-19 (ENA) COVID-19 [employer] 04/25/21 04/25/21 21:15 22:26 MCV MCH MCHC RDW Plt Count MPV Immature Gran % (Auto) Neut % (Auto) Lymph % (Auto) Dubois % (Auto) Eos % (Auto) Baso % (Auto) Lymph # (Auto) Dubois # (Auto) Eos # (Auto) Baso # (Auto) Abs Immat Gran (auto) Absolute Neuts (auto) Absolute Nucleated RBC Nucleated RBC % (auto) O2 Saturation 96.0 ABG pH at Pt Temp 7.38 ABG pH (Temp Correct) 7.39 ABG pCO2 at Pt Temp 31 L ABG pCO2 (Temp Corrct 31 L ABG pO2 at Pt Temp 99 ABG pO2 (Temp Correct 97 ABG HCO3 19 L ABG Base Excess (Actual) -4.7 Anion Gap Estim Creat Clear Calc Estimated GFR POC Glucose 165 H Random Glucose Calcium Magnesium Total Bilirubin AST ALT Alkaline Phosphatase Troponin I High Sens B-Natriuretic Peptide Total Protein Albumin Ethyl Alcohol COVID-19 (ENA) COVID-19 Clin Com Imaging Radiologist's Impressions: Impressions Chest X-Ray 04/25/21 18:06 IMPRESSION: Hypoexpanded. No acute process otherwise. Venous Duplex 04/25/21 18:10 IMPRESSION: No DVT demonstrated in the bilateral lower extremity. Ankle X-Ray 04/25/21 19:27 IMPRESSION: Bimalleolar soft tissue swelling in both ankles. No visible acute fracture, dislocation or lytic process seen. There is a moderate size calcaneal heel enthesophytes in both ankles. Ankle X-Ray 04/25/21 19:27 IMPRESSION: Bimalleolar soft tissue swelling in both ankles. No visible acute fracture, dislocation or lytic process seen. There is a moderate size calcaneal heel enthesophytes in both ankles. Head CT 04/25/21 19:40 IMPRESSION: 1. Exam limited by motion. 1. No gross evidence of acute intracranial pathology. 2. No gross evidence of acute cervical spine fracture or traumatic subluxation Cervical Spine CT 04/25/21 19:41 IMPRESSION: 1. Exam limited by motion. 1. No gross evidence of acute intracranial pathology. 2. No gross evidence of acute cervical spine fracture or traumatic subluxation Abdomen/Pelvis CT 04/25/21 20:48 IMPRESSION: Groundglass attenuation left upper lobe suspicious for infiltrative or inflammatory process. There is dependent right upper lobe superior segment and left lower lobe posterior basal segment atelectasis. Moderate cardiomegaly with diffuse hepatic steatosis and likely cirrhosis with underlying artery ascites. There is no bowel distention. No free air. Chest CT 04/25/21 20:55 IMPRESSION: Groundglass attenuation left upper lobe suspicious for infiltrative or inflammatory process. There is dependent right upper lobe superior segment and left lower lobe posterior basal segment atelectasis. Moderate cardiomegaly with diffuse hepatic steatosis and likely cirrhosis with underlying artery ascites. There is no bowel distention. No free air. Assessment and Plan (1) Alcoholism: Status: Acute (2) Hypoglycemia: Status: Acute (3) Pneumonia: Status: Acute (4) Hypomagnesemia: Status: Acute (5) Pitting edema: Status: Acute 56 F HTN, HLD, DM, COPD, Etoh abuse; presented to the hospital with a chief complaint of fall/confusion. Noted to have following conditions Alcohol withdrawal: Continue phenobarb protocol. Thiamine, folate, multivitamins. 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 Will hold phenobarb if pt continued to be drowsy /lethrgic. Multiple falls: History is limited. Unclear if she had any history of seizures or fall with head strikes. Unable to assess neurological exam as the patient is drowsy lethargic secondary to medications she received in the ER. Likely attributed to her severe alcohol abuse. CT head and CT C-spine showed no acute findings Ankle x-ray showed no evidence of fracture. PT/OT eventually Altered mental status: Reportedly patient has been more confused lately. Multifacorial. Also complained of bilateral lower extremity weakness and unable to get up from the chair. Will consult Neurology for further recommendations. Transaminitis/liver cirrhosis: New onset. GI consult. Trend liver enzymes. Pneumonia: Suspected aspiration. Continue IV vancomycin and Zosyn. Id consult. Speech and swallow eval. P.r.n. COVID negative. Vitals stable. Severe hypoglycemia: Patient has a glucose level of 10 on presentation; a D50 given in the ER glucose improved to 165 and subsequently dropped to 67. Seizure precautions Will keep the patient on D10 for now and will titrate as needed. Patient on glipizide at home, may need to be discontinued. However it is unclear the patient is complaining with her home medications. AM team to follow up with endocrinilogy. DVT prophylaxis: Subcu heparin Code status: Full code Patient's friends are mentions that the field in the healthcare proxy falls with the PCP today; also mentioned the patient is confused lately; will defer to the case management in the morning for confirmation of the healthcare proxy forms Quality Stroke Does the patient have a stroke diagnosis?: No VTE Prior VTE?: No VTE Risk Level:: Medical - moderate - high VTE Device Contraindication: Treatment Not Indicated VTE Drug Contraindication: N/A - Med Ordered
[2021-04-25 22:37] LABS: ABG Refer to POC result
[2021-04-25] MEDS: cefEPime HCl 2 GM in 0.9 % Sodium Chloride 50 ML IV (22:45)
--- NOTE | 2021-04-25 22:46 | PHA.PROG ---
Admission Date/Time: April 25, 2021 22:21 Indication: Weight in k.039 kg Adjusted body weight in K.656 Brush body weight in K.4 Serum Creatinine - Last 168 Hours 04/25/21 20:19 Creatinine 0.73 Estimated CrCl and GFR - Last 168 Hours 04/25/21 20:19 Estim Creat Clear Calc 77.8 Estimated GFR > 60 Current Vancomycin Dosing Regimen: 1000 Q 12H Vancomycin Monitoring using AUC goal of 400 - 600 range with trough as surrogate marker: 540 Date and Time for next Vancomycin Level to be drawn: 04/27 @ 1000 Pharmacist Comments on Vancomycin Plan: Based of insight Rx predicted trough of 16.8 and Auc of 540. Vancomycin dosing will take advantage of InsightRX as a clinical decision support tool that uses Bayesian modeling to calculate individual patient's pharmacokinetic parameters and forecast the patient's drug concentration time course with the target goal AUC 24 range of 400 - 600 mg/L/hr.
--- NOTE | 2021-04-25 22:51 | PC.NURSE ---
pt is sleeping arrousable poc 67 provider made aware. pt was incont of a large amount of urine.
[2021-04-25 22:52] LABS: Glucose, Whole Blood 67 mg/dL (60-115)
[2021-04-25] MEDS: Dextrose 10 % 1,000 ML 75 ML IVCONT (23:22)
[2021-04-25] MEDS: Magnesium Sulfate/D5W 1 GM/100 ML PIGGYBACK IV (23:23)
[2021-04-25 23:35] LABS: INTERNATIONAL NORM RATIO 1.1 (0.9-1.1); Prothrombin Time 12.6 SEC (9.9-13.0)
[2021-04-25] MEDS: Heparin Sodium,Porcine 5,000 UNIT/ML VIAL 5000 UNIT SUBCUT (23:37)
[2021-04-25] MEDS: vancomycin HCL 1,000 MG in 0.9 % Sodium Chloride 250 ML 270 MG IV (23:43)
[2021-04-26] VITALS (7 sets, daily range): BP systolic 95–160; BP diastolic 60–88; PULSE 85–98; RESP 15–23; TEMP 36.3–36.8; O2SAT 94–99
[2021-04-26] MEDS: Piperacillin Sodium/Tazobactam 3.375 GM in 0.9 % Sodium Chloride 50 ML IV ×3 (00:49→20:00)
[2021-04-26 02:15] LABS: Glucose, Whole Blood 124 mg/dL (60-115)
--- NOTE | 2021-04-26 03:19 | PC.NURSE ---
hospitalist called and report the last two poc and to address the D10 infusing. order to keep the D10 infusing and hold this dose of phenobarbital due to pt is sedated.
[2021-04-26 03:20] LABS: Glucose, Whole Blood 121 mg/dL (60-115)
--- NOTE | 2021-04-26 04:33 | PC.NURSE ---
pt sleeping unable to obtain med rec at this time.
--- NOTE | 2021-04-26 05:10 | PC.NURSE ---
patient was reposition by myself and colton galvez
[2021-04-26 05:50] LABS: Appearance Urine HAZY; Color Urine YELLOW; Glucose Urine UA NEG (NEG); Leukocyte Esterase Urine 3+ (NEG); Nitrite Urine POS (NEG); Specific Gravity - Urine 1.015 (1.005-1.025); UACC Culture Trigger YES; Urine Blood TRACE (NEG); Urine Ketones NEG (NEG); Urine Protein TRACE MG/DL (NEG-TRACE)
[2021-04-26 05:57] LABS: Bacteria Urine 2+ /LPF; Hyaline Casts Urine 0-2 /LPF; RBC Urine 0 /HPF (0); Squamous Epithelial Cell Urine 1+ /LPF; WBC Clumps Urine NOTED
[2021-04-26 07:18] LABS: MANUAL DIFF FLAG NO
[2021-04-26 07:32] LABS: Basophils Percent Auto 0.2 % (0-2); Eosinophils Absolute Auto 0.2 X10*3/uL (0.0-0.4); Eosinophils Percent Auto 1.2 % (0-4); Hematocrit 33.2 % (37-47); Hemoglobin 11.2 g/dl (12.0-16.0); Imm Gran Abs Auto 0.14 X10*3/uL (0.00-0.03); Lymphocytes Absolute Auto 1.3 X10*3/uL (1.2-4.9); Lymphocytes Percent Auto 9.7 % (20-40); Mean Corpuscular HGB Conc 33.7 g/dl (31.0-35.0); Mean Corpuscular Hemoglobin 33.7 pg (27.0-33.0); Mean Platelet Volume 9.4 fL (9.4-12.3); Monocytes Percent Auto 7.2 % (2-11); Neutrophils Absolute Auto 11.2 X10*3/uL (2.0-8.3); Neutrophils Percent Auto 80.7 % (45-73); Platelet Count 223 X10*3/uL (160-400); Red Blood Count 3.32 X10*6/uL (4.20-5.50); Red Cell Distribution Width 13.7 % (11.0-16.0); White Blood Count 13.8 X10*3/uL (4.8-10.8)
[2021-04-26 07:40] LABS: Anion Gap 12 (12-20); Blood Urea Nitrogen 9 mg/dL (9-16); Calcium 7.8 mg/dL (8.4-10.2); Carbon Dioxide 25 mmol/L (22-29); Chloride 102 mmol/L (96-108); Creatinine Clr Calc Pharmacy 88.7; Estimated Glomerular Filt Rate > 60; Glucose Random 92 mg/dL (60-115); Potassium 3.8 mmol/L (3.3-5.1); Sodium 135 mmol/L (135-145)
--- NOTE | 2021-04-26 08:32 | PHA.MEDREC ---
Pharmacy Consult ? Medication Reconciliation Pharmacy has completed the medication reconciliation. The patient states she takes some medications differently then they are prescribed. For example, she takes 100 mg of Hydroxyzine at bedtime and 25 mg of Hydroxyzine in the morning, when the prescription states 50 mg BID and 25 mg BID. Just an FYI for prescribing on discharge. Mariya Herrera, PharmD [phone]
[2021-04-26 08:50] LABS: Magnesium 1.5 mg/dL (1.6-2.6)
[2021-04-26 08:54] LABS: Procalcitonin 0.18 ng/mL
[2021-04-26 09:13] LABS: Folate 3.9 ng/mL (> or = 4.0); Vitamin B12 788 pg/mL (200-900)
[2021-04-26 09:53] LABS: Glucose, Whole Blood 81 mg/dL (60-115)
--- NOTE | 2021-04-26 09:56 | MHC.CM.PN ---
Addendum entered by Perla Lamb 04/26/21 10:06: Patient received 1 Pfizer vaccine on 12/23. No documentation of additional vaccine is available at this time. Original Note: Attempted to meet with patient in regards to discharge planning. Patient currently sleeping. Spoke with patient's friend, Mona via telephone at [phone]. Patient currently lives with her mother. Patient's mother is terminally ill and has [employer]'s at home. When patient's mother passes away, patient will not have a place to live. Patient ambulates independently. PCP verified. IMM explained and left bedside. Patient signed a HCP on 04/25 at her PCP's office. Mona will email HCP to T/W. Continue to monitor for d/c needs.
[2021-04-26] MEDS: PHENobarbitaL 15 MG TABLET 45 MG PO ×2 (10:16→20:01)
[2021-04-26] MEDS: Heparin Sodium,Porcine 5,000 UNIT/ML VIAL 5000 UNIT SUBCUT ×2 (10:17→16:20)
[2021-04-26] MEDS: 0.9 % Sodium Chloride Flush 3 ML SYRINGE IVFLUSH ×2 (10:18→20:02)
--- NOTE | 2021-04-26 10:26 | P.CDIC_ITS ---
CDI Concurrent Query Documentation Clarification: PHYSICIAN'S DOCUMENTATION REQUEST Date of Query: 04/26/21 1026 Patient Name: Peace Saleh Admit Date: 04/25/21 Dear Doctor, A review of the medical record indicates additional documentation may be needed. Please review below and update the documentation accordingly. Risk Factors/Clinical Indicators/Treatments Confused, unable to give history, AMS, not eating good, lethargy 2nd to medication effect. ? withdrawal from phenbarbital, ativan, multiple falls and shaky. Drinking alcohol alot daily. Based on the above, could you clarify in the Progress Notes which, if any of the following, is the most likely etiology of the confusion/altered mental status? * Encephalopathy - indicate type such as metabolic, toxic, septic, alcoholic, hypertensive, etc. * * Other etiology (please specify) * Unable to determine Use of terms such as suspected, likely, concern for, or probable (associated with a specific diagnosis that is being evaluated, monitored, or treated as if it exists) are acceptable and can be coded in the inpatient setting, when documented at the time of discharge. Thank you, Bryanna Pino [facility], CDIS Extension: [phone] Please use your independent medical judgment in providing your response. THIS QUERY IS PART OF THE PERMANENT MEDICAL RECORD Provider Response: Toxic Encephalopathy
--- NOTE | 2021-04-26 10:39 | PC.NURSE ---
report given to viridiana rivera) pt transfered to observation unit.
--- NOTE | 2021-04-26 10:53 | MHC.SL.SWA ---
Speech Pathologist Impression: Within Functional Limits Dysphasia Diet Status: Upgrade Liquid Consistency and Strategies for Safe Swallow: Liquid Intake Recommendation: Thin Liquid Intake Strategies: Small Sips Solid Food Consistency: Dietary Recommendations: Regular Oral Medication Intake: Whole with Liquid Compensatory Strategies and Precautions to be Taken for Safe Swallow: Sitting Upright (90 deg) Small Bites and Sips Alternate Liquids/Solids Rate of Ingestion Change Supervision While Eating and Drinking for Safe Swallow: None Needed Recommendation for Speech: NA:Typical Evaluation Comment: Patient passed bedside swallow evaluation. Some anterior loss when drinking from cup, but no overt s/s of aspiration. Good oral clearance. Further ST intervention not warranted. Please re-refer if there are any changes. [employer] Clinican/Clinical Fellow: No Supervisory Statement: I have reviewed and agree with the student/clinical fellow's documentation: N/A Speech Language Pathologist: Rose Mary Menezes M.A., CCC-BRIM GREASER OPERATOR
[2021-04-26 11:09] LABS: Ammonia 57 umol/L (13-55)
[2021-04-26] MEDS: Glucose Gel 15 GM GEL..GRAM. PO (11:32)
[2021-04-26] MEDS: Magnesium Sulfate/H2O 2 GM/50 ML PIGGYBACK IV (11:32)
[2021-04-26] MEDS: Folic Acid 1 MG TABLET PO (11:33)
[2021-04-26 11:51] LABS: Glucose, Whole Blood 84 mg/dL (60-115)
[2021-04-26 12:31] LABS: Adenovirus PCR Not Detected (Not Detect.); Bordetella parapertussis PCR Not Detected (Not Detect.); Bordetella pertussis PCR Not Detected (Not Detect.); Chlamydia pneumoniae PCR Not Detected (Not Detect.); Coronavirus 229E PCR Not Detected (Not Detect.); Coronavirus HKU1 PCR Not Detected (Not Detect.); Coronavirus NL63 PCR Not Detected (Not Detect.); Coronavirus OC43 PCR Not Detected (Not Detect.); Human metapneumovirus PCR Not Detected (Not Detect.); Influenza A PCR Not Detected (Not Detect.); Influenza B PCR Not Detected (Not Detect.); Mycoplasma pneumoniae PCR Not Detected (Not Detect.); Parainfluenza 1 PCR Not Detected (Not Detect.); Parainfluenza 2 PCR Not Detected (Not Detect.); Parainfluenza 3 PCR Not Detected (Not Detect.); Parainfluenza 4 PCR Not Detected (Not Detect.); RSV PCR Not Detected (Not Detect.); Rhino/Enterovirus PCR Not Detected (Not Detect.); SARS-CoV-2 PCR Not Detected (Not Detect.)
--- NOTE | 2021-04-26 15:04 | P.PNIM_ITS ---
Subjective Subjective Date of Service: 04/26/21 Interval History: tremulous eating well interested in sobriety Review of Systems Review of Systems: Yes all other systems are reviewed and are negative Physical Exam Vital Signs: Vital Signs: Last Vital Signs Temp 98.0 F 04/26/21 12:00 Pulse 94 04/26/21 12:00 Resp 19 04/26/21 12:00 BP 160/78 H 04/26/21 12:00 Pulse Ox 98 04/26/21 12:00 Body Mass Index 26.5 Gen: tremulous HEENT: sclera anicteric, moist mucus membranes Neck: supple Lungs: diminished bilaterally Heart: regular rate and rhythm, no murmurs Abd: soft, non-tender, non-distended Ext: no edema Skin: warm/well-perfused Neuro: alert and oriented x3, no focal findings Psych: appropriate affect Objective Data Active Medications Albuterol Sulfate (Albuterol Sulfate 90 Mcg 8 Gm Inhaler) 2 puff INHALE RQ4H PRN PRN Reason: shortness of breath/wheeze Folic Acid (Folic Acid 1 Mg Tablet) 1 mg PO DAILY [facility] Last Admin: 04/26/21 11:33 Dose: 1 mg Documented by: JAK Heparin Sodium (Porcine) (Heparin Sodium,Porcine 5,000 Unit/Ml Vial) 5,000 unit SUBCUT Q8H [facility] Last Admin: 04/26/21 10:17 Dose: 5,000 unit Documented by: EMA Vancomycin HCl 1,000 mg/ (Sodium Chloride) 270 mls @ 270 mls/hr IV Q12H [facility] Last Admin: 04/26/21 00:37 Dose: Not Given Documented by: MARTHAA Non-Admin Reason: Previously Administered Piperacillin Sod/Tazobactam (Sod 3.375 gm/ Sodium Chloride) 50 mls @ 100 mls/hr IV Q6H [facility] Last Admin: 04/26/21 14:43 Dose: 100 mls/hr Documented by: JONATHAN Dextrose (D10) 1,000 mls @ 75 mls/hr IVCONT .[id number] [facility] Last Admin: 04/26/21 11:25 Dose: Not Given Documented by: JAK Non-Admin Reason: IV Running Medication (No Benzodiazepines) 1 each MISCELLANE DAILY [facility] Melatonin (Melatonin 3 Mg Tablet) 6 mg PO BEDTIME PRN PRN Reason: Insomnia Pharmacy Consult (Consult Rx Etoh Phenob Dosing) 1 each MISCELLANE ONCE PRN; Protocol PRN Reason: Consult order Pharmacy Consult (Consult Rx Vancomycin Dosing) 1 each MISCELLANE DAILY PRN PRN Reason: Consult order Pharmacy Consult (Consult Rx Vancomycin Dosing) 1 each MISCELLANE DAILY PRN PRN Reason: Consult order Phenobarbital (Phenobarbital 15 Mg Tablet) 45 mg PO BID [facility] Stop: 04/27/21 21:01 Last Admin: 04/26/21 10:16 Dose: 45 mg Documented by: MEA Phenobarbital (Phenobarbital 15 Mg Tablet) 15 mg PO BID [facility] Stop: 04/29/21 21:01 Phenobarbital (Phenobarbital 15 Mg Tablet) 15 mg PO DAILY [facility] Stop: 05/01/21 09:01 Senna (Sennosides 8.6 Mg Tablet) 17.2 mg PO BEDTIME PRN PRN Reason: Constipation Sodium Chloride (0.9 % Sodium Chloride Flush 3 Ml Syringe) 3 ml IVFLUSH QSHIFT [facility] Last Admin: 04/26/21 10:18 Dose: 3 ml Documented by: EMA Labs CBC & Chem 7: 04/26/21 07:09 04/26/21 07:09 Labs: Laboratory Results - last 24 hr 04/25/21 04/25/21 04/25/21 19:50 19:50 19:50 MCV 99.4 H MCH 34.3 H MCHC 34.5 RDW 14.0 Plt Count 365 MPV 9.7 Immature Gran % (Auto) 1.3 H Neut % (Auto) 80.5 H Lymph % (Auto) 10.3 L [place] % (Auto) 6.9 Eos % (Auto) 0.7 Baso % (Auto) 0.3 Lymph # (Auto) 2.0 [place] # (Auto) 1.3 H Eos # (Auto) 0.1 Baso # (Auto) 0.1 Abs Immat Gran (auto) 0.26 H Absolute Neuts (auto) 15.6 H Absolute Nucleated RBC 0.000 Nucleated RBC % (auto) 0.0 PT INR O2 Saturation ABG pH at Pt Temp ABG pH (Temp Correct) ABG pCO2 at Pt Temp ABG pCO2 (Temp Corrct ABG pO2 at Pt Temp ABG pO2 (Temp Correct ABG HCO3 ABG Base Excess (Actual) Anion Gap Estim Creat Clear Calc Estimated GFR POC Glucose Random Glucose Calcium Magnesium Total Bilirubin AST ALT Alkaline Phosphatase Ammonia Troponin I High Sens < 3.5 B-Natriuretic Peptide Total Protein Albumin Vitamin B12 Folate Procalcitonin Urine Color Urine Appearance Urine pH Ur Specific [place] Urine Protein Urine Glucose (UA) Urine Ketones Urine Blood Urine Nitrite Ur Leukocyte Esterase Urine RBC Urine WBC Urine WBC Clumps Ur Squamous Epith Cells Urine Bacteria Hyaline Casts Phenobarbital Ethyl Alcohol Respiratory Panel Sam Adenovirus (Rapid PCR) B.pert (TEM-PCR) B.parapertussis DNA PCR C. pneumoniae DNA (PCR) Coronavirus OC43 (PCR) Coronavirus HKU1 (PCR) Coronavirus 229E (PCR) COVID-19 (ENA) Negative COVID-19 Clin Com See Note Coronavirus NL63 (PCR) Human Metapneumovir PCR Influenza A (RT-PCR) Influenza B (RT-PCR) M. pneumoniae (PCR) Parainfluenza 1 (PCR) Parainfluenza 2 (PCR) Parainfluenza 3 (PCR) Parainfluenza 4 (PCR) RSV (PCR) Entero/Rhino (PCR) SARS-CoV-2 RNA (RT-PCR) 04/25/21 04/25/21 04/25/21 19:50 19:50 20:19 MCV MCH MCHC RDW Plt Count MPV Immature Gran % (Auto) Neut % (Auto) Lymph % (Auto) [place] % (Auto) Eos % (Auto) Baso % (Auto) Lymph # (Auto) [place] # (Auto) Eos # (Auto) Baso # (Auto) Abs Immat Gran (auto) Absolute Neuts (auto) Absolute Nucleated RBC Nucleated RBC % (auto) PT INR O2 Saturation ABG pH at Pt Temp ABG pH (Temp Correct) ABG pCO2 at Pt Temp ABG pCO2 (Temp Corrct ABG pO2 at Pt Temp ABG pO2 (Temp Correct ABG HCO3 ABG Base Excess (Actual) Anion Gap 15 Estim Creat Clear Calc 77.8 Estimated GFR > 60 POC Glucose Random Glucose 10 L* Calcium 8.5 Magnesium 1.3 L* Total Bilirubin 0.8 AST 105 H ALT 57 H Alkaline Phosphatase 331 H Ammonia Troponin I High Sens B-Natriuretic Peptide 23 Total Protein 5.5 L Albumin 2.8 L Vitamin B12 Folate Procalcitonin Urine Color Urine Appearance Urine pH Ur Specific [place] Urine Protein Urine Glucose (UA) Urine Ketones Urine Blood Urine Nitrite Ur Leukocyte Esterase Urine RBC Urine WBC Urine WBC Clumps Ur Squamous Epith Cells Urine Bacteria Hyaline Casts Phenobarbital Ethyl Alcohol 52 Respiratory Panel Sam Adenovirus (Rapid PCR) B.pert (TEM-PCR) B.parapertussis DNA PCR C. pneumoniae DNA (PCR) Coronavirus OC43 (PCR) Coronavirus HKU1 (PCR) Coronavirus 229E (PCR) COVID-19 (ENA) COVID-19 Clin Com Coronavirus NL63 (PCR) Human Metapneumovir PCR Influenza A (RT-PCR) Influenza B (RT-PCR) M. pneumoniae (PCR) Parainfluenza 1 (PCR) Parainfluenza 2 (PCR) Parainfluenza 3 (PCR) Parainfluenza 4 (PCR) RSV (PCR) Entero/Rhino (PCR) SARS-CoV-2 RNA (RT-PCR) 04/25/21 04/25/21 04/25/21 21:15 22:26 22:48 MCV MCH MCHC RDW Plt Count MPV Immature Gran % (Auto) Neut % (Auto) Lymph % (Auto) [place] % (Auto) Eos % (Auto) Baso % (Auto) Lymph # (Auto) [place] # (Auto) Eos # (Auto) Baso # (Auto) Abs Immat Gran (auto) Absolute Neuts (auto) Absolute Nucleated RBC Nucleated RBC % (auto) PT INR O2 Saturation 96.0 ABG pH at Pt Temp 7.38 ABG pH (Temp Correct) 7.39 ABG pCO2 at Pt Temp 31 L ABG pCO2 (Temp Corrct 31 L ABG pO2 at Pt Temp 99 ABG pO2 (Temp Correct 97 ABG HCO3 19 L ABG Base Excess (Actual) -4.7 Anion Gap Estim Creat Clear Calc Estimated GFR POC Glucose 165 H 67 Random Glucose Calcium Magnesium Total Bilirubin AST ALT Alkaline Phosphatase Ammonia Troponin I High Sens B-Natriuretic Peptide Total Protein Albumin Vitamin B12 Folate Procalcitonin Urine Color Urine Appearance Urine pH Ur Specific [place] Urine Protein Urine Glucose (UA) Urine Ketones Urine Blood Urine Nitrite Ur Leukocyte Esterase Urine RBC Urine WBC Urine WBC Clumps Ur Squamous Epith Cells Urine Bacteria Hyaline Casts Phenobarbital Ethyl Alcohol Respiratory Panel Sam Adenovirus (Rapid PCR) B.pert (TEM-PCR) B.parapertussis DNA PCR C. pneumoniae DNA (PCR) Coronavirus OC43 (PCR) Coronavirus HKU1 (PCR) Coronavirus 229E (PCR) COVID-19 (ENA) COVID-19 Clin Com Coronavirus NL63 (PCR) Human Metapneumovir PCR Influenza A (RT-PCR) Influenza B (RT-PCR) M. pneumoniae (PCR) Parainfluenza 1 (PCR) Parainfluenza 2 (PCR) Parainfluenza 3 (PCR) Parainfluenza 4 (PCR) RSV (PCR) Entero/Rhino (PCR) SARS-CoV-2 RNA (RT-PCR) 04/25/21 04/25/21 04/26/21 23:21 23:21 02:08 MCV MCH MCHC RDW Plt Count MPV Immature Gran % (Auto) Neut % (Auto) Lymph % (Auto) [place] % (Auto) Eos % (Auto) Baso % (Auto) Lymph # (Auto) [place] # (Auto) Eos # (Auto) Baso # (Auto) Abs Immat Gran (auto) Absolute Neuts (auto) Absolute Nucleated RBC Nucleated RBC % (auto) PT 12.6 INR 1.1 O2 Saturation ABG pH at Pt Temp ABG pH (Temp Correct) ABG pCO2 at Pt Temp ABG pCO2 (Temp Corrct ABG pO2 at Pt Temp ABG pO2 (Temp Correct ABG HCO3 ABG Base Excess (Actual) Anion Gap Estim Creat Clear Calc Estimated GFR POC Glucose 124 H Random Glucose Calcium Magnesium Total Bilirubin AST ALT Alkaline Phosphatase Ammonia Troponin I High Sens B-Natriuretic Peptide Total Protein Albumin Vitamin B12 Folate Procalcitonin Urine Color Urine Appearance Urine pH Ur Specific [place] Urine Protein Urine Glucose (UA) Urine Ketones Urine Blood Urine Nitrite Ur Leukocyte Esterase Urine RBC Urine WBC Urine WBC Clumps Ur Squamous Epith Cells Urine Bacteria Hyaline Casts Phenobarbital 4.8 L Ethyl Alcohol Respiratory Panel Sam Adenovirus (Rapid PCR) B.pert (TEM-PCR) B.parapertussis DNA PCR C. pneumoniae DNA (PCR) Coronavirus OC43 (PCR) Coronavirus HKU1 (PCR) Coronavirus 229E (PCR) COVID-19 (ENA) COVID-19 Clin Com Coronavirus NL63 (PCR) Human Metapneumovir PCR Influenza A (RT-PCR) Influenza B (RT-PCR) M. pneumoniae (PCR) Parainfluenza 1 (PCR) Parainfluenza 2 (PCR) Parainfluenza 3 (PCR) Parainfluenza 4 (PCR) RSV (PCR) Entero/Rhino (PCR) SARS-CoV-2 RNA (RT-PCR) 04/26/21 04/26/21 04/26/21 03:16 05:45 07:09 MCV 100.0 H MCH 33.7 H MCHC 33.7 RDW 13.7 Plt Count 223 D MPV 9.4 Immature Gran % (Auto) 1.0 H Neut % (Auto) 80.7 H Lymph % (Auto) 9.7 L [place] % (Auto) 7.2 Eos % (Auto) 1.2 Baso % (Auto) 0.2 Lymph # (Auto) 1.3 [place] # (Auto) 1.0 Eos # (Auto) 0.2 Baso # (Auto) 0.0 Abs Immat Gran (auto) 0.14 H Absolute Neuts (auto) 11.2 H Absolute Nucleated RBC 0.000 Nucleated RBC % (auto) 0.0 PT INR O2 Saturation ABG pH at Pt Temp ABG pH (Temp Correct) ABG pCO2 at Pt Temp ABG pCO2 (Temp Corrct ABG pO2 at Pt Temp ABG pO2 (Temp Correct ABG HCO3 ABG Base Excess (Actual) Anion Gap Estim Creat Clear Calc Estimated GFR POC Glucose 121 H Random Glucose Calcium Magnesium Total Bilirubin AST ALT Alkaline Phosphatase Ammonia Troponin I High Sens B-Natriuretic Peptide Total Protein Albumin Vitamin B12 Folate Procalcitonin Urine Color YELLOW Urine Appearance HAZY Urine pH 6.0 Ur Specific [place] 1.015 Urine Protein TRACE Urine Glucose (UA) NEG Urine Ketones NEG Urine Blood TRACE Urine Nitrite POS H Ur Leukocyte Esterase 3+ H Urine RBC 0 Urine WBC 76-150 H Urine WBC Clumps NOTED Ur Squamous Epith Cells 1+ Urine Bacteria 2+ Hyaline Casts 0-2 Phenobarbital Ethyl Alcohol Respiratory Panel Sam Adenovirus (Rapid PCR) B.pert (TEM-PCR) B.parapertussis DNA PCR C. pneumoniae DNA (PCR) Coronavirus OC43 (PCR) Coronavirus HKU1 (PCR) Coronavirus 229E (PCR) COVID-19 (ENA) COVID-19 Clin Com Coronavirus NL63 (PCR) Human Metapneumovir PCR Influenza A (RT-PCR) Influenza B (RT-PCR) M. pneumoniae (PCR) Parainfluenza 1 (PCR) Parainfluenza 2 (PCR) Parainfluenza 3 (PCR) Parainfluenza 4 (PCR) RSV (PCR) Entero/Rhino (PCR) SARS-CoV-2 RNA (RT-PCR) 04/26/21 04/26/21 04/26/21 07:09 07:09 07:09 MCV MCH MCHC RDW Plt Count MPV Immature Gran % (Auto) Neut % (Auto) Lymph % (Auto) [place] % (Auto) Eos % (Auto) Baso % (Auto) Lymph # (Auto) [place] # (Auto) Eos # (Auto) Baso # (Auto) Abs Immat Gran (auto) Absolute Neuts (auto) Absolute Nucleated RBC Nucleated RBC % (auto) PT INR O2 Saturation ABG pH at Pt Temp ABG pH (Temp Correct) ABG pCO2 at Pt Temp ABG pCO2 (Temp Corrct ABG pO2 at Pt Temp ABG pO2 (Temp Correct ABG HCO3 ABG Base Excess (Actual) Anion Gap 12 Estim Creat Clear Calc 88.7 Estimated GFR > 60 POC Glucose Random Glucose 92 Calcium 7.8 L D Magnesium 1.5 L Total Bilirubin AST ALT Alkaline Phosphatase Ammonia Troponin I High Sens B-Natriuretic Peptide Total Protein Albumin Vitamin B12 788 Folate 3.9 L Procalcitonin 0.18 Urine Color Urine Appearance Urine pH Ur Specific [place] Urine Protein Urine Glucose (UA) Urine Ketones Urine Blood Urine Nitrite Ur Leukocyte Esterase Urine RBC Urine WBC Urine WBC Clumps Ur Squamous Epith Cells Urine Bacteria Hyaline Casts Phenobarbital Ethyl Alcohol Respiratory Panel Sam Adenovirus (Rapid PCR) B.pert (TEM-PCR) B.parapertussis DNA PCR C. pneumoniae DNA (PCR) Coronavirus OC43 (PCR) Coronavirus HKU1 (PCR) Coronavirus 229E (PCR) COVID-19 (ENA) COVID-19 Clin Com Coronavirus NL63 (PCR) Human Metapneumovir PCR Influenza A (RT-PCR) Influenza B (RT-PCR) M. pneumoniae (PCR) Parainfluenza 1 (PCR) Parainfluenza 2 (PCR) Parainfluenza 3 (PCR) Parainfluenza 4 (PCR) RSV (PCR) Entero/Rhino (PCR) SARS-CoV-2 RNA (RT-PCR) 04/26/21 04/26/21 04/26/21 09:49 10:53 11:27 MCV MCH MCHC RDW Plt Count MPV Immature Gran % (Auto) Neut % (Auto) Lymph % (Auto) [place] % (Auto) Eos % (Auto) Baso % (Auto) Lymph # (Auto) [place] # (Auto) Eos # (Auto) Baso # (Auto) Abs Immat Gran (auto) Absolute Neuts (auto) Absolute Nucleated RBC Nucleated RBC % (auto) PT INR O2 Saturation ABG pH at Pt Temp ABG pH (Temp Correct) ABG pCO2 at Pt Temp ABG pCO2 (Temp Corrct ABG pO2 at Pt Temp ABG pO2 (Temp Correct ABG HCO3 ABG Base Excess (Actual) Anion Gap Estim Creat Clear Calc Estimated GFR POC Glucose 81 84 Random Glucose Calcium Magnesium Total Bilirubin AST ALT Alkaline Phosphatase Ammonia 57 H Troponin I High Sens B-Natriuretic Peptide Total Protein Albumin Vitamin B12 Folate Procalcitonin Urine Color Urine Appearance Urine pH Ur Specific [place] Urine Protein Urine Glucose (UA) Urine Ketones Urine Blood Urine Nitrite Ur Leukocyte Esterase Urine RBC Urine WBC Urine WBC Clumps Ur Squamous Epith Cells Urine Bacteria Hyaline Casts Phenobarbital Ethyl Alcohol Respiratory Panel Sam Adenovirus (Rapid PCR) B.pert (TEM-PCR) B.parapertussis DNA PCR C. pneumoniae DNA (PCR) Coronavirus OC43 (PCR) Coronavirus HKU1 (PCR) Coronavirus 229E (PCR) COVID-19 (ENA) COVID-19 Clin Com Coronavirus NL63 (PCR) Human Metapneumovir PCR Influenza A (RT-PCR) Influenza B (RT-PCR) M. pneumoniae (PCR) Parainfluenza 1 (PCR) Parainfluenza 2 (PCR) Parainfluenza 3 (PCR) Parainfluenza 4 (PCR) RSV (PCR) Entero/Rhino (PCR) SARS-CoV-2 RNA (RT-PCR) 04/26/21 12:21 MCV MCH MCHC RDW Plt Count MPV Immature Gran % (Auto) Neut % (Auto) Lymph % (Auto) [place] % (Auto) Eos % (Auto) Baso % (Auto) Lymph # (Auto) [place] # (Auto) Eos # (Auto) Baso # (Auto) Abs Immat Gran (auto) Absolute Neuts (auto) Absolute Nucleated RBC Nucleated RBC % (auto) PT INR O2 Saturation ABG pH at Pt Temp ABG pH (Temp Correct) ABG pCO2 at Pt Temp ABG pCO2 (Temp Corrct ABG pO2 at Pt Temp ABG pO2 (Temp Correct ABG HCO3 ABG Base Excess (Actual) Anion Gap Estim Creat Clear Calc Estimated GFR POC Glucose Random Glucose Calcium Magnesium Total Bilirubin AST ALT Alkaline Phosphatase Ammonia Troponin I High Sens B-Natriuretic Peptide Total Protein Albumin Vitamin B12 Folate Procalcitonin Urine Color Urine Appearance Urine pH Ur Specific [place] Urine Protein Urine Glucose (UA) Urine Ketones Urine Blood Urine Nitrite Ur Leukocyte Esterase Urine RBC Urine WBC Urine WBC Clumps Ur Squamous Epith Cells Urine Bacteria Hyaline Casts Phenobarbital Ethyl Alcohol Respiratory Panel Sam See Note Adenovirus (Rapid PCR) Not Detected B.pert (TEM-PCR) Not Detected B.parapertussis DNA PCR Not Detected C. pneumoniae DNA (PCR) Not Detected Coronavirus OC43 (PCR) Not Detected Coronavirus HKU1 (PCR) Not Detected Coronavirus 229E (PCR) Not Detected COVID-19 (ENA) COVID-19 Clin Com Coronavirus NL63 (PCR) Not Detected Human Metapneumovir PCR Not Detected Influenza A (RT-PCR) Not Detected Influenza B (RT-PCR) Not Detected M. pneumoniae (PCR) Not Detected Parainfluenza 1 (PCR) Not Detected Parainfluenza 2 (PCR) Not Detected Parainfluenza 3 (PCR) Not Detected Parainfluenza 4 (PCR) Not Detected RSV (PCR) Not Detected Entero/Rhino (PCR) Not Detected SARS-CoV-2 RNA (RT-PCR) Not Detected ITS Impressions Chest X-Ray 04/25/21 18:06 IMPRESSION: Hypoexpanded. No acute process otherwise. Venous Duplex 04/25/21 18:10 IMPRESSION: No DVT demonstrated in the bilateral lower extremity. Ankle X-Ray 04/25/21 19:27 IMPRESSION: Bimalleolar soft tissue swelling in both ankles. No visible acute fracture, dislocation or lytic process seen. There is a moderate size calcaneal heel enthesophytes in both ankles. Ankle X-Ray 04/25/21 19:27 IMPRESSION: Bimalleolar soft tissue swelling in both ankles. No visible acute fracture, dislocation or lytic process seen. There is a moderate size calcaneal heel enthesophytes in both ankles. Head CT 04/25/21 19:40 IMPRESSION: 1. Exam limited by motion. 1. No gross evidence of acute intracranial pathology. 2. No gross evidence of acute cervical spine fracture or traumatic subluxation Cervical Spine CT 04/25/21 19:41 IMPRESSION: 1. Exam limited by motion. 1. No gross evidence of acute intracranial pathology. 2. No gross evidence of acute cervical spine fracture or traumatic subluxation Abdomen/Pelvis CT 04/25/21 20:48 IMPRESSION: Groundglass attenuation left upper lobe suspicious for infiltrative or inflammatory process. There is dependent right upper lobe superior segment and left lower lobe posterior basal segment atelectasis. Moderate cardiomegaly with diffuse hepatic steatosis and likely cirrhosis with underlying artery ascites. There is no bowel distention. No free air. Chest CT 04/25/21 20:55 IMPRESSION: Groundglass attenuation left upper lobe suspicious for infiltrative or inflammatory process. There is dependent right upper lobe superior segment and left lower lobe posterior basal segment atelectasis. Moderate cardiomegaly with diffuse hepatic steatosis and likely cirrhosis with underlying artery ascites. There is no bowel distention. No free air. Assessment and Plan (1) Withdrawal symptoms, alcohol: Status: Acute (2) Alcoholism: Status: Acute Assessment and Plan: hospital d#2 56yo F with HTN, HLD, DM2, COPD, EtOH abuse presented to hospital after fall, noted to be confused and withdrawing from EtOH # EtOH withdrawal - continue phenobarbital taper, thiamine, folate, vitamins; Addiction Medicine consultation; CARE Team consultation # hypoglycemia - due to glipizide us with ongoing EtOH abuse. d/c'ed glipizide, maintain on D10 # toxic/metabolic encephalopathy - due to hypoglycemia + EtOH/withdrawal, treating as above, Neuro consult pending # cirrhosis - likely due to EtOH. GI consulted # pneumonia - d#2 vanco + pip/joseph, follow BCx, trend PCT # multiple falls - no evidence of fracture/bleed - PT/OT # HTN - continue amlodipine # mood disorder - continue bupropion, prazosin, hydroxyzine, duloxetine, olanzapine # DM2 - hold MTF + GPZ due to alcoholism + hypoglycemia # HLD - continue statin # VTE ppx - UFH Quality Stroke Does the patient have a stroke diagnosis?: No VTE Prior VTE?: No VTE Risk Level:: Medical - moderate - high VTE Device Contraindication: Treatment Not Indicated VTE Drug Contraindication: N/A - Med Ordered
[2021-04-26 15:19] LABS: Glucose, Whole Blood 125 mg/dL (60-115)
[2021-04-26 15:19] LABS: Glucose, Whole Blood 130 mg/dL (60-115)
[2021-04-26 15:19] LABS: Glucose, Whole Blood 128 mg/dL (60-115)
--- NOTE | 2021-04-26 15:21 | HO.ADDICTCON ---
History of Present Illness Date of Service: 04/26/2021 Chief Complaint: PNA Reason for Consult: Alcohol use disorder Requesting physician: Bharat Alvarez Discussed with referring provider: Yes Sources of Information: patient interviewed and chart reviewed HPI Narrative: Patient is a 56 year old female currently medically admitted with alcohol withdrawal and pneumonia. Consult requested to address AUD. Patient seen in room 370, she was awake, alert, pleasant and engaged in interview. She reports drinking approximately 20 nips daily for the past two years. Prior to that she had been in recovery for 4 years. She identified stress of moving in with her mother, who has AUD, as well as being her caregiver as being contributing factors to start drinking again. She is visibly tremulous. Denies nausea or vomiting. Denies history of seizures. Past Psychiatric History: one psychiatric admission in 2016 Personal & Social History: Lives with her mother Review of Systems Review of Systems reporting SOB, generalized weakness, tremulous denies nausea, vomiting, lose stools Diagnostics Vital Signs (24Hr): Vital Signs - 24 hr 04/25/21 18:18 04/25/21 19:25 04/25/21 20:00 Temperature 97.8 F Pulse Rate 95 102 H 101 H Respiratory Rate 16 20 20 Blood Pressure 114/65 137/77 128/77 Pulse Oximetry 98 97 91 L 04/25/21 21:42 04/25/21 22:21 04/25/21 23:40 Temperature Pulse Rate 97 91 91 Respiratory Rate 16 22 H Blood Pressure 123/58 L 121/63 109/84 Pulse Oximetry 99 99 98 04/25/21 23:47 04/26/21 05:10 04/26/21 07:57 Temperature 97.7 F 97.8 F Pulse Rate 91 85 98 Respiratory Rate 20 16 23 H Blood Pressure 115/62 124/88 119/79 Pulse Oximetry 97 96 99 04/26/21 12:00 Temperature 98.0 F Pulse Rate 94 Respiratory Rate 19 Blood Pressure 160/78 H Pulse Oximetry 98 Body Mass Index 26.5 Labs Results: 04/26/21 07:09 04/26/21 07:09 Labs: Laboratory Results - last 48 hr 04/25/21 04/25/21 04/25/21 19:50 19:50 19:50 WBC 19.4 H RBC 3.61 L Hgb 12.4 Hct 35.9 L MCV 99.4 H MCH 34.3 H MCHC 34.5 RDW 14.0 Plt Count 365 MPV 9.7 Immature Gran % (Auto) 1.3 H Neut % (Auto) 80.5 H Lymph % (Auto) 10.3 L Faulk % (Auto) 6.9 Eos % (Auto) 0.7 Baso % (Auto) 0.3 Lymph # (Auto) 2.0 Faulk # (Auto) 1.3 H Eos # (Auto) 0.1 Baso # (Auto) 0.1 Abs Immat Gran (auto) 0.26 H Absolute Neuts (auto) 15.6 H Absolute Nucleated RBC 0.000 Nucleated RBC % (auto) 0.0 PT INR O2 Saturation ABG pH at Pt Temp ABG pH (Temp Correct) ABG pCO2 at Pt Temp ABG pCO2 (Temp Corrct ABG pO2 at Pt Temp ABG pO2 (Temp Correct ABG HCO3 ABG Base Excess (Actual) Sodium Potassium Chloride Carbon Dioxide Anion Gap BUN Creatinine Estim Creat Clear Calc Estimated GFR POC Glucose Random Glucose Calcium Magnesium Total Bilirubin AST ALT Alkaline Phosphatase Ammonia Troponin I High Sens < 3.5 B-Natriuretic Peptide Total Protein Albumin Vitamin B12 Folate Procalcitonin Urine Color Urine Appearance Urine pH Ur Specific Kyle Urine Protein Urine Glucose (UA) Urine Ketones Urine Blood Urine Nitrite Ur Leukocyte Esterase Urine RBC Urine WBC Urine WBC Clumps Ur Squamous Epith Cells Urine Bacteria Hyaline Casts Phenobarbital Ethyl Alcohol Respiratory Panel Sam Adenovirus (Rapid PCR) B.pert (TEM-PCR) B.parapertussis DNA PCR C. pneumoniae DNA (PCR) Coronavirus OC43 (PCR) Coronavirus HKU1 (PCR) Coronavirus 229E (PCR) COVID-19 (ENA) Negative COVID-19 Clin Com See Note Coronavirus NL63 (PCR) Human Metapneumovir PCR Influenza A (RT-PCR) Influenza B (RT-PCR) M. pneumoniae (PCR) Parainfluenza 1 (PCR) Parainfluenza 2 (PCR) Parainfluenza 3 (PCR) Parainfluenza 4 (PCR) RSV (PCR) Entero/Rhino (PCR) SARS-CoV-2 RNA (RT-PCR) 04/25/21 04/25/21 04/25/21 19:50 19:50 20:19 WBC RBC Hgb Hct MCV MCH MCHC RDW Plt Count MPV Immature Gran % (Auto) Neut % (Auto) Lymph % (Auto) Faulk % (Auto) Eos % (Auto) Baso % (Auto) Lymph # (Auto) Faulk # (Auto) Eos # (Auto) Baso # (Auto) Abs Immat Gran (auto) Absolute Neuts (auto) Absolute Nucleated RBC Nucleated RBC % (auto) PT INR O2 Saturation ABG pH at Pt Temp ABG pH (Temp Correct) ABG pCO2 at Pt Temp ABG pCO2 (Temp Corrct ABG pO2 at Pt Temp ABG pO2 (Temp Correct ABG HCO3 ABG Base Excess (Actual) Sodium 137 Potassium 3.5 Chloride 103 Carbon Dioxide 23 Anion Gap 15 BUN 9 Creatinine 0.73 Estim Creat Clear Calc 77.8 Estimated GFR > 60 POC Glucose Random Glucose 10 L* Calcium 8.5 Magnesium 1.3 L* Total Bilirubin 0.8 AST 105 H ALT 57 H Alkaline Phosphatase 331 H Ammonia Troponin I High Sens B-Natriuretic Peptide 23 Total Protein 5.5 L Albumin 2.8 L Vitamin B12 Folate Procalcitonin Urine Color Urine Appearance Urine pH Ur Specific Kyle Urine Protein Urine Glucose (UA) Urine Ketones Urine Blood Urine Nitrite Ur Leukocyte Esterase Urine RBC Urine WBC Urine WBC Clumps Ur Squamous Epith Cells Urine Bacteria Hyaline Casts Phenobarbital Ethyl Alcohol 52 Respiratory Panel Sam Adenovirus (Rapid PCR) B.pert (TEM-PCR) B.parapertussis DNA PCR C. pneumoniae DNA (PCR) Coronavirus OC43 (PCR) Coronavirus HKU1 (PCR) Coronavirus 229E (PCR) COVID-19 (ENA) COVID-19 Clin Com Coronavirus NL63 (PCR) Human Metapneumovir PCR Influenza A (RT-PCR) Influenza B (RT-PCR) M. pneumoniae (PCR) Parainfluenza 1 (PCR) Parainfluenza 2 (PCR) Parainfluenza 3 (PCR) Parainfluenza 4 (PCR) RSV (PCR) Entero/Rhino (PCR) SARS-CoV-2 RNA (RT-PCR) 04/25/21 04/25/21 04/25/21 21:15 22:26 22:48 WBC RBC Hgb Hct MCV MCH MCHC RDW Plt Count MPV Immature Gran % (Auto) Neut % (Auto) Lymph % (Auto) Faulk % (Auto) Eos % (Auto) Baso % (Auto) Lymph # (Auto) Faulk # (Auto) Eos # (Auto) Baso # (Auto) Abs Immat Gran (auto) Absolute Neuts (auto) Absolute Nucleated RBC Nucleated RBC % (auto) PT INR O2 Saturation 96.0 ABG pH at Pt Temp 7.38 ABG pH (Temp Correct) 7.39 ABG pCO2 at Pt Temp 31 L ABG pCO2 (Temp Corrct 31 L ABG pO2 at Pt Temp 99 ABG pO2 (Temp Correct 97 ABG HCO3 19 L ABG Base Excess (Actual) -4.7 Sodium Potassium Chloride Carbon Dioxide Anion Gap BUN Creatinine Estim Creat Clear Calc Estimated GFR POC Glucose 165 H 67 Random Glucose Calcium Magnesium Total Bilirubin AST ALT Alkaline Phosphatase Ammonia Troponin I High Sens B-Natriuretic Peptide Total Protein Albumin Vitamin B12 Folate Procalcitonin Urine Color Urine Appearance Urine pH Ur Specific Kyle Urine Protein Urine Glucose (UA) Urine Ketones Urine Blood Urine Nitrite Ur Leukocyte Esterase Urine RBC Urine WBC Urine WBC Clumps Ur Squamous Epith Cells Urine Bacteria Hyaline Casts Phenobarbital Ethyl Alcohol Respiratory Panel Sam Adenovirus (Rapid PCR) B.pert (TEM-PCR) B.parapertussis DNA PCR C. pneumoniae DNA (PCR) Coronavirus OC43 (PCR) Coronavirus HKU1 (PCR) Coronavirus 229E (PCR) COVID-19 (ENA) COVID-19 Clin Com Coronavirus NL63 (PCR) Human Metapneumovir PCR Influenza A (RT-PCR) Influenza B (RT-PCR) M. pneumoniae (PCR) Parainfluenza 1 (PCR) Parainfluenza 2 (PCR) Parainfluenza 3 (PCR) Parainfluenza 4 (PCR) RSV (PCR) Entero/Rhino (PCR) SARS-CoV-2 RNA (RT-PCR) 04/25/21 04/25/21 04/26/21 23:21 23:21 02:08 WBC RBC Hgb Hct MCV MCH MCHC RDW Plt Count MPV Immature Gran % (Auto) Neut % (Auto) Lymph % (Auto) Faulk % (Auto) Eos % (Auto) Baso % (Auto) Lymph # (Auto) Faulk # (Auto) Eos # (Auto) Baso # (Auto) Abs Immat Gran (auto) Absolute Neuts (auto) Absolute Nucleated RBC Nucleated RBC % (auto) PT 12.6 INR 1.1 O2 Saturation ABG pH at Pt Temp ABG pH (Temp Correct) ABG pCO2 at Pt Temp ABG pCO2 (Temp Corrct ABG pO2 at Pt Temp ABG pO2 (Temp Correct ABG HCO3 ABG Base Excess (Actual) Sodium Potassium Chloride Carbon Dioxide Anion Gap BUN Creatinine Estim Creat Clear Calc Estimated GFR POC Glucose 124 H Random Glucose Calcium Magnesium Total Bilirubin AST ALT Alkaline Phosphatase Ammonia Troponin I High Sens B-Natriuretic Peptide Total Protein Albumin Vitamin B12 Folate Procalcitonin Urine Color Urine Appearance Urine pH Ur Specific Kyle Urine Protein Urine Glucose (UA) Urine Ketones Urine Blood Urine Nitrite Ur Leukocyte Esterase Urine RBC Urine WBC Urine WBC Clumps Ur Squamous Epith Cells Urine Bacteria Hyaline Casts Phenobarbital 4.8 L Ethyl Alcohol Respiratory Panel Sam Adenovirus (Rapid PCR) B.pert (TEM-PCR) B.parapertussis DNA PCR C. pneumoniae DNA (PCR) Coronavirus OC43 (PCR) Coronavirus HKU1 (PCR) Coronavirus 229E (PCR) COVID-19 (ENA) COVID-19 Clin Com Coronavirus NL63 (PCR) Human Metapneumovir PCR Influenza A (RT-PCR) Influenza B (RT-PCR) M. pneumoniae (PCR) Parainfluenza 1 (PCR) Parainfluenza 2 (PCR) Parainfluenza 3 (PCR) Parainfluenza 4 (PCR) RSV (PCR) Entero/Rhino (PCR) SARS-CoV-2 RNA (RT-PCR) 04/26/21 04/26/21 04/26/21 03:16 05:45 07:09 WBC 13.8 H RBC 3.32 L Hgb 11.2 L Hct 33.2 L MCV 100.0 H MCH 33.7 H MCHC 33.7 RDW 13.7 Plt Count 223 D MPV 9.4 Immature Gran % (Auto) 1.0 H Neut % (Auto) 80.7 H Lymph % (Auto) 9.7 L Faulk % (Auto) 7.2 Eos % (Auto) 1.2 Baso % (Auto) 0.2 Lymph # (Auto) 1.3 Faulk # (Auto) 1.0 Eos # (Auto) 0.2 Baso # (Auto) 0.0 Abs Immat Gran (auto) 0.14 H Absolute Neuts (auto) 11.2 H Absolute Nucleated RBC 0.000 Nucleated RBC % (auto) 0.0 PT INR O2 Saturation ABG pH at Pt Temp ABG pH (Temp Correct) ABG pCO2 at Pt Temp ABG pCO2 (Temp Corrct ABG pO2 at Pt Temp ABG pO2 (Temp Correct ABG HCO3 ABG Base Excess (Actual) Sodium Potassium Chloride Carbon Dioxide Anion Gap BUN Creatinine Estim Creat Clear Calc Estimated GFR POC Glucose 121 H Random Glucose Calcium Magnesium Total Bilirubin AST ALT Alkaline Phosphatase Ammonia Troponin I High Sens B-Natriuretic Peptide Total Protein Albumin Vitamin B12 Folate Procalcitonin Urine Color YELLOW Urine Appearance HAZY Urine pH 6.0 Ur Specific Kyle 1.015 Urine Protein TRACE Urine Glucose (UA) NEG Urine Ketones NEG Urine Blood TRACE Urine Nitrite POS H Ur Leukocyte Esterase 3+ H Urine RBC 0 Urine WBC 76-150 H Urine WBC Clumps NOTED Ur Squamous Epith Cells 1+ Urine Bacteria 2+ Hyaline Casts 0-2 Phenobarbital Ethyl Alcohol Respiratory Panel Sam Adenovirus (Rapid PCR) B.pert (TEM-PCR) B.parapertussis DNA PCR C. pneumoniae DNA (PCR) Coronavirus OC43 (PCR) Coronavirus HKU1 (PCR) Coronavirus 229E (PCR) COVID-19 (ENA) COVID-19 Clin Com Coronavirus NL63 (PCR) Human Metapneumovir PCR Influenza A (RT-PCR) Influenza B (RT-PCR) M. pneumoniae (PCR) Parainfluenza 1 (PCR) Parainfluenza 2 (PCR) Parainfluenza 3 (PCR) Parainfluenza 4 (PCR) RSV (PCR) Entero/Rhino (PCR) SARS-CoV-2 RNA (RT-PCR) 04/26/21 04/26/21 04/26/21 07:09 07:09 07:09 WBC RBC Hgb Hct MCV MCH MCHC RDW Plt Count MPV Immature Gran % (Auto) Neut % (Auto) Lymph % (Auto) Faulk % (Auto) Eos % (Auto) Baso % (Auto) Lymph # (Auto) Faulk # (Auto) Eos # (Auto) Baso # (Auto) Abs Immat Gran (auto) Absolute Neuts (auto) Absolute Nucleated RBC Nucleated RBC % (auto) PT INR O2 Saturation ABG pH at Pt Temp ABG pH (Temp Correct) ABG pCO2 at Pt Temp ABG pCO2 (Temp Corrct ABG pO2 at Pt Temp ABG pO2 (Temp Correct ABG HCO3 ABG Base Excess (Actual) Sodium 135 Potassium 3.8 Chloride 102 Carbon Dioxide 25 Anion Gap 12 BUN 9 Creatinine 0.64 Estim Creat Clear Calc 88.7 Estimated GFR > 60 POC Glucose Random Glucose 92 Calcium 7.8 L D Magnesium 1.5 L Total Bilirubin AST ALT Alkaline Phosphatase Ammonia Troponin I High Sens B-Natriuretic Peptide Total Protein Albumin Vitamin B12 788 Folate 3.9 L Procalcitonin 0.18 Urine Color Urine Appearance Urine pH Ur Specific Kyle Urine Protein Urine Glucose (UA) Urine Ketones Urine Blood Urine Nitrite Ur Leukocyte Esterase Urine RBC Urine WBC Urine WBC Clumps Ur Squamous Epith Cells Urine Bacteria Hyaline Casts Phenobarbital Ethyl Alcohol Respiratory Panel Sam Adenovirus (Rapid PCR) B.pert (TEM-PCR) B.parapertussis DNA PCR C. pneumoniae DNA (PCR) Coronavirus OC43 (PCR) Coronavirus HKU1 (PCR) Coronavirus 229E (PCR) COVID-19 (ENA) COVID-19 Clin Com Coronavirus NL63 (PCR) Human Metapneumovir PCR Influenza A (RT-PCR) Influenza B (RT-PCR) M. pneumoniae (PCR) Parainfluenza 1 (PCR) Parainfluenza 2 (PCR) Parainfluenza 3 (PCR) Parainfluenza 4 (PCR) RSV (PCR) Entero/Rhino (PCR) SARS-CoV-2 RNA (RT-PCR) 04/26/21 04/26/21 04/26/21 09:49 10:53 11:27 WBC RBC Hgb Hct MCV MCH MCHC RDW Plt Count MPV Immature Gran % (Auto) Neut % (Auto) Lymph % (Auto) Faulk % (Auto) Eos % (Auto) Baso % (Auto) Lymph # (Auto) Faulk # (Auto) Eos # (Auto) Baso # (Auto) Abs Immat Gran (auto) Absolute Neuts (auto) Absolute Nucleated RBC Nucleated RBC % (auto) PT INR O2 Saturation ABG pH at Pt Temp ABG pH (Temp Correct) ABG pCO2 at Pt Temp ABG pCO2 (Temp Corrct ABG pO2 at Pt Temp ABG pO2 (Temp Correct ABG HCO3 ABG Base Excess (Actual) Sodium Potassium Chloride Carbon Dioxide Anion Gap BUN Creatinine Estim Creat Clear Calc Estimated GFR POC Glucose 81 84 Random Glucose Calcium Magnesium Total Bilirubin AST ALT Alkaline Phosphatase Ammonia 57 H Troponin I High Sens B-Natriuretic Peptide Total Protein Albumin Vitamin B12 Folate Procalcitonin Urine Color Urine Appearance Urine pH Ur Specific Kyle Urine Protein Urine Glucose (UA) Urine Ketones Urine Blood Urine Nitrite Ur Leukocyte Esterase Urine RBC Urine WBC Urine WBC Clumps Ur Squamous Epith Cells Urine Bacteria Hyaline Casts Phenobarbital Ethyl Alcohol Respiratory Panel Sam Adenovirus (Rapid PCR) B.pert (TEM-PCR) B.parapertussis DNA PCR C. pneumoniae DNA (PCR) Coronavirus OC43 (PCR) Coronavirus HKU1 (PCR) Coronavirus 229E (PCR) COVID-19 (ENA) COVID-19 Clin Com Coronavirus NL63 (PCR) Human Metapneumovir PCR Influenza A (RT-PCR) Influenza B (RT-PCR) M. pneumoniae (PCR) Parainfluenza 1 (PCR) Parainfluenza 2 (PCR) Parainfluenza 3 (PCR) Parainfluenza 4 (PCR) RSV (PCR) Entero/Rhino (PCR) SARS-CoV-2 RNA (RT-PCR) 04/26/21 04/26/21 04/26/21 12:18 12:21 14:41 WBC RBC Hgb Hct MCV MCH MCHC RDW Plt Count MPV Immature Gran % (Auto) Neut % (Auto) Lymph % (Auto) Faulk % (Auto) Eos % (Auto) Baso % (Auto) Lymph # (Auto) Faulk # (Auto) Eos # (Auto) Baso # (Auto) Abs Immat Gran (auto) Absolute Neuts (auto) Absolute Nucleated RBC Nucleated RBC % (auto) PT INR O2 Saturation ABG pH at Pt Temp ABG pH (Temp Correct) ABG pCO2 at Pt Temp ABG pCO2 (Temp Corrct ABG pO2 at Pt Temp ABG pO2 (Temp Correct ABG HCO3 ABG Base Excess (Actual) Sodium Potassium Chloride Carbon Dioxide Anion Gap BUN Creatinine Estim Creat Clear Calc Estimated GFR POC Glucose 125 H 130 H Random Glucose Calcium Magnesium Total Bilirubin AST ALT Alkaline Phosphatase Ammonia Troponin I High Sens B-Natriuretic Peptide Total Protein Albumin Vitamin B12 Folate Procalcitonin Urine Color Urine Appearance Urine pH Ur Specific Kyle Urine Protein Urine Glucose (UA) Urine Ketones Urine Blood Urine Nitrite Ur Leukocyte Esterase Urine RBC Urine WBC Urine WBC Clumps Ur Squamous Epith Cells Urine Bacteria Hyaline Casts Phenobarbital Ethyl Alcohol Respiratory Panel Sam See Note Adenovirus (Rapid PCR) Not Detected B.pert (TEM-PCR) Not Detected B.parapertussis DNA PCR Not Detected C. pneumoniae DNA (PCR) Not Detected Coronavirus OC43 (PCR) Not Detected Coronavirus HKU1 (PCR) Not Detected Coronavirus 229E (PCR) Not Detected COVID-19 (ENA) COVID-19 Clin Com Coronavirus NL63 (PCR) Not Detected Human Metapneumovir PCR Not Detected Influenza A (RT-PCR) Not Detected Influenza B (RT-PCR) Not Detected M. pneumoniae (PCR) Not Detected Parainfluenza 1 (PCR) Not Detected Parainfluenza 2 (PCR) Not Detected Parainfluenza 3 (PCR) Not Detected Parainfluenza 4 (PCR) Not Detected RSV (PCR) Not Detected Entero/Rhino (PCR) Not Detected SARS-CoV-2 RNA (RT-PCR) Not Detected 04/26/21 15:14 WBC RBC Hgb Hct MCV MCH MCHC RDW Plt Count MPV Immature Gran % (Auto) Neut % (Auto) Lymph % (Auto) Faulk % (Auto) Eos % (Auto) Baso % (Auto) Lymph # (Auto) Faulk # (Auto) Eos # (Auto) Baso # (Auto) Abs Immat Gran (auto) Absolute Neuts (auto) Absolute Nucleated RBC Nucleated RBC % (auto) PT INR O2 Saturation ABG pH at Pt Temp ABG pH (Temp Correct) ABG pCO2 at Pt Temp ABG pCO2 (Temp Corrct ABG pO2 at Pt Temp ABG pO2 (Temp Correct ABG HCO3 ABG Base Excess (Actual) Sodium Potassium Chloride Carbon Dioxide Anion Gap BUN Creatinine Estim Creat Clear Calc Estimated GFR POC Glucose 128 H Random Glucose Calcium Magnesium Total Bilirubin AST ALT Alkaline Phosphatase Ammonia Troponin I High Sens B-Natriuretic Peptide Total Protein Albumin Vitamin B12 Folate Procalcitonin Urine Color Urine Appearance Urine pH Ur Specific Kyle Urine Protein Urine Glucose (UA) Urine Ketones Urine Blood Urine Nitrite Ur Leukocyte Esterase Urine RBC Urine WBC Urine WBC Clumps Ur Squamous Epith Cells Urine Bacteria Hyaline Casts Phenobarbital Ethyl Alcohol Respiratory Panel Sam Adenovirus (Rapid PCR) B.pert (TEM-PCR) B.parapertussis DNA PCR C. pneumoniae DNA (PCR) Coronavirus OC43 (PCR) Coronavirus HKU1 (PCR) Coronavirus 229E (PCR) COVID-19 (ENA) COVID-19 Clin Com Coronavirus NL63 (PCR) Human Metapneumovir PCR Influenza A (RT-PCR) Influenza B (RT-PCR) M. pneumoniae (PCR) Parainfluenza 1 (PCR) Parainfluenza 2 (PCR) Parainfluenza 3 (PCR) Parainfluenza 4 (PCR) RSV (PCR) Entero/Rhino (PCR) SARS-CoV-2 RNA (RT-PCR) Imaging Radiology Impressions: ITS Impressions Chest X-Ray 04/25/21 18:06 IMPRESSION: Hypoexpanded. No acute process otherwise. Venous Duplex 04/25/21 18:10 IMPRESSION: No DVT demonstrated in the bilateral lower extremity. Ankle X-Ray 04/25/21 19:27 IMPRESSION: Bimalleolar soft tissue swelling in both ankles. No visible acute fracture, dislocation or lytic process seen. There is a moderate size calcaneal heel enthesophytes in both ankles. Ankle X-Ray 04/25/21 19:27 IMPRESSION: Bimalleolar soft tissue swelling in both ankles. No visible acute fracture, dislocation or lytic process seen. There is a moderate size calcaneal heel enthesophytes in both ankles. Head CT 04/25/21 19:40 IMPRESSION: 1. Exam limited by motion. 1. No gross evidence of acute intracranial pathology. 2. No gross evidence of acute cervical spine fracture or traumatic subluxation Cervical Spine CT 04/25/21 19:41 IMPRESSION: 1. Exam limited by motion. 1. No gross evidence of acute intracranial pathology. 2. No gross evidence of acute cervical spine fracture or traumatic subluxation Abdomen/Pelvis CT 04/25/21 20:48 IMPRESSION: Groundglass attenuation left upper lobe suspicious for infiltrative or inflammatory process. There is dependent right upper lobe superior segment and left lower lobe posterior basal segment atelectasis. Moderate cardiomegaly with diffuse hepatic steatosis and likely cirrhosis with underlying artery ascites. There is no bowel distention. No free air. Chest CT 04/25/21 20:55 IMPRESSION: Groundglass attenuation left upper lobe suspicious for infiltrative or inflammatory process. There is dependent right upper lobe superior segment and left lower lobe posterior basal segment atelectasis. Moderate cardiomegaly with diffuse hepatic steatosis and likely cirrhosis with underlying artery ascites. There is no bowel distention. No free air. Mental Status Exam Mental Status Exam Narrative: awake, alert, oriented pleasant affect clear speech linear, goal oriented thought process Medications Medications Current Medications Generic Name Dose Route Start Last Admin Trade Name Freq PRN Reason Stop Dose Admin Albuterol Sulfate 2 puff 04/26/21 10:55 Albuterol Sulfate 90 Mcg 8 Gm Inhaler INHALE RQ4H PRN shortness of breath/wheeze Amlodipine Besylate 5 mg 04/27/21 09:00 Amlodipine Besylate 5 Mg Tablet PO DAILY [facility] Protocol Atorvastatin Calcium 40 mg 04/26/21 21:00 Atorvastatin Calcium 40 Mg Tablet PO BEDTIME NANDA Bupropion HCl 150 mg 04/26/21 15:15 Bupropion Hcl Xl 150 Mg Tab.Er.24h PO DAILY [facility] Duloxetine HCl 60 mg 04/26/21 21:00 Duloxetine Hcl 60 Mg Capsule.Dr PO BID NANDA Folic Acid 1 mg 04/26/21 10:15 04/26/21 11:33 Folic Acid 1 Mg Tablet PO 1 mg DAILY [facility] Administration Heparin Sodium (Porcine) 5,000 unit 04/26/21 00:00 04/26/21 10:17 Heparin Sodium,Porcine 5,000 Unit/Ml Vial SUBCUT 5,000 unit Q8H NANDA Administration Hydroxyzine HCl 100 mg 04/26/21 21:00 Hydroxyzine Hcl 50 Mg Tablet PO BEDTIME NANDA Hydroxyzine HCl 25 mg 04/27/21 09:00 Hydroxyzine Hcl 25 Mg Tablet PO DAILY NANDA Vancomycin HCl 1,000 mg/ 270 mls @ 270 mls/hr 04/25/21 23:00 04/26/21 00:37 Sodium Chloride IV Not Given Q12H NANDA Piperacillin Sod/Tazobactam 50 mls @ 100 mls/hr 04/26/21 01:00 04/26/21 14:43 Sod 3.375 gm/ Sodium Chloride IV 100 mls/hr Q6H NANDA Administration Dextrose 1,000 mls @ 75 mls/hr 04/26/21 10:15 04/26/21 11:25 D10 IVCONT Not Given .[id number] [facility] Medication 1 each 04/25/21 09:00 No Benzodiazepines MISCELLANE DAILY [facility] Melatonin 6 mg 04/25/21 22:21 Melatonin 3 Mg Tablet PO BEDTIME PRN Insomnia Olanzapine 5 mg 04/26/21 21:00 Olanzapine 5 Mg Tablet PO BEDTIME NANDA Omeprazole 20 mg 04/26/21 21:00 Omeprazole 20 Mg Capsule.Dr PO BID [facility] Pharmacy Consult 1 each 04/25/21 20:33 Consult Rx Etoh Phenob Dosing MISCELLANE ONCE PRN Consult order Protocol Pharmacy Consult 1 each 04/25/21 21:49 Consult Rx Vancomycin Dosing MISCELLANE DAILY PRN Consult order Pharmacy Consult 1 each 04/25/21 22:21 Consult Rx Vancomycin Dosing MISCELLANE DAILY PRN Consult order Phenobarbital 45 mg 04/26/21 09:00 04/26/21 10:16 Phenobarbital 15 Mg Tablet PO 04/27/21 21:01 45 mg BID NANDA Administration Phenobarbital 15 mg 04/28/21 09:00 Phenobarbital 15 Mg Tablet PO 04/29/21 21:01 BID NANDA Phenobarbital 15 mg 04/30/21 09:00 Phenobarbital 15 Mg Tablet PO 05/01/21 09:01 DAILY [facility] Potassium Chloride 10 meq 04/27/21 09:00 Potassium Chloride Er 10 Meq Capsule.Er PO DAILY [facility] Prazosin HCl 1 mg 04/26/21 21:00 Prazosin Hcl 1 Mg Capsule PO BID [facility] Protocol Senna 17.2 mg 04/25/21 22:21 Sennosides 8.6 Mg Tablet PO BEDTIME PRN Constipation Sodium Chloride 3 ml 04/26/21 00:00 04/26/21 10:18 0.9 % Sodium Chloride Flush 3 Ml Syringe IVFLUSH 3 ml QSHIFT [facility] Administration Allergies Allergies Allergy/AdvReac Type Severity Reaction Status Date / Time No Known Allergies Allergy Verified 04/25/21 15:07 [No Known Allergies*] Assessment & Plan Assessment & Plan (1) Alcohol use disorder, severe, dependence: Status: Acute Code(s): F10.20 - Alcohol dependence, uncomplicated Assessment and Plan: currently on phenobarb protocol to address withdrawal sx expressed desire to stop drinking --will revisit options once less symptomatic follow up in AM. Discussed with covering provider Greater than 50% of the session was spent on counseling and/or coordination of care PMFSH Past Medical History Medical History (Updated 04/26/21 @ 16:36 by Keri Washington CNP) Alcoholic Family History Family History (Updated 04/25/21 @ 15:08 by Jessenia Stapleton CMA) Mother Substance abuse Brother Substance abuse Surgical History Surgical History History of renal stent Social History Social History (Updated 04/25/21 @ 15:09 by Jessenia Stapleton CMA) Household Members: Other Household Members Other:: mother Housing: Apartment Do you presently have visiting nurse or other home services: No Alcohol intake: current Alcohol intake frequency: 3 or more drinks per day Patient Tobacco Use Status: Current everyday Tobacco user Tobacco use type: Cigarette Cigarettes Per Day: 7 Years Smoked: 54 Smoked in Last 30 Days: Yes e-Cigarette/Vaping Use: Never Used Patient Interested in Nicotine Replacement: Yes Patient Given Instructions on How to Stop Smoking: Yes Date Education Initiated: 04/26/21 Second Hand Smoke Exposure: Yes Use of substances other than those prescribed or required for medical reasons: No Have you been hit, kicked, punched, or otherwise hurt by someone within the past year? If so, by whom?: No Do you feel safe in your current relationship?: No Current Relationship Is there a partner from a previous relationship who is making you feel unsafe now?: No Are you made to feel afraid or neglected: No Advance Directives: No Do you have thoughts of harming others: None Do you have a plan to hurt others: No Plan Recently lost weight without trying: No Eating poorly because of decreased appetite: No Nutrition Risks: No Nutritional Risk Patient : No : No Poor oral hygiene: No service: No Current occupational status: employed and disabled
[2021-04-26] MEDS: vancomycin HCL 1,000 MG in 0.9 % Sodium Chloride 250 ML 270 MG IV ×2 (15:36→23:39)
[2021-04-26 16:17] LABS: Glucose, Whole Blood 161 mg/dL (60-115)
[2021-04-26] MEDS: buPROPion HCl XL 150 MG TAB.ER.24H PO (16:20)
[2021-04-26 17:12] LABS: Glucose, Whole Blood 145 mg/dL (60-115)
--- NOTE | 2021-04-26 17:55 | PM.NEUROCN ---
History of Present Illness Data of Consult Service Date: 04/26/21 Primary Care Provider: Edel Barron NP HPI Reason for consult: Altered mental status, ataxia and falls This is a 56-year-old woman with history of COPD and alcohol abuse who admits to drinking 21 ounce naps of 100% W every day and not eating well says that she has had terrible balance for 3 months and fell and became weak and unable to get up and was therefore brought to the hospital. She is somewhat confused but oriented to place, month and year. Some of the details of her drinking were confirmed by her friend Mona. Review of Systems Review of Systems: reporting SOB, generalized weakness, tremulous denies nausea, vomiting, lose stools Yes all other systems are reviewed and are negative Constitutional: Constitutional: Reports fatigue, Denies fever(s) and Reports frequent falls Cardiovascular: Cardiovascular: Reports edema Respiratory: Respiratory: Reports no additional respiratory complaints Gastrointestinal: Gastrointestinal: Denies abdominal pain and Reports bloating Musculoskeletal: Musculoskeletal: Reports abnormal gait Neurologic: Reports abnormal gait and Reports frequent falls Psychiatric: Psychiatric: Reports anxiety Endocrine: Endocrine: Reports fatigue PMFSH Past Medical History Medical History (Updated 04/26/21 @ 16:36 by Keri Washington CNP) Alcoholic Family History Family History (Updated 04/25/21 @ 15:08 by Jessenia Stapleton CMA) Mother Substance abuse Brother Substance abuse Surgical History Surgical History History of renal stent Social History Social History (Updated 04/25/21 @ 15:09 by Jessenia Stapleton CMA) Household Members: Other Household Members Other:: mother Housing: Apartment Do you presently have visiting nurse or other home services: No Alcohol intake: current Alcohol intake frequency: 3 or more drinks per day Patient Tobacco Use Status: Current everyday Tobacco user Tobacco use type: Cigarette Cigarettes Per Day: 7 Years Smoked: 54 Smoked in Last 30 Days: Yes e-Cigarette/Vaping Use: Never Used Patient Interested in Nicotine Replacement: Yes Patient Given Instructions on How to Stop Smoking: Yes Date Education Initiated: 04/26/21 Second Hand Smoke Exposure: Yes Use of substances other than those prescribed or required for medical reasons: No Currently Displaying Signs/Symptoms of Drug Intoxication Withdrawal: No Have you been hit, kicked, punched, or otherwise hurt by someone within the past year? If so, by whom?: No Do you feel safe in your current relationship?: No Current Relationship Is there a partner from a previous relationship who is making you feel unsafe now?: No Are you made to feel afraid or neglected: No Advance Directives: No Do you have thoughts of harming others: None Do you have a plan to hurt others: No Plan Recently lost weight without trying: No Eating poorly because of decreased appetite: No Nutrition Risks: No Nutritional Risk Patient : No : No Poor oral hygiene: No service: No Current occupational status: employed and disabled Meds Allergies Allergy/AdvReac Type Severity Reaction Status Date / Time No Known Allergies Allergy Verified 04/25/21 15:07 [No Known Allergies*] Active Medications: Current Medications Generic Name Dose Route Start Last Admin Trade Name Freq PRN Reason Stop Dose Admin Albuterol Sulfate 2 puff 04/26/21 10:55 Albuterol Sulfate 90 Mcg 8 Gm Inhaler INHALE RQ4H PRN shortness of breath/wheeze Amlodipine Besylate 5 mg 04/27/21 09:00 Amlodipine Besylate 5 Mg Tablet PO DAILY [facility] Protocol Atorvastatin Calcium 40 mg 04/26/21 21:00 Atorvastatin Calcium 40 Mg Tablet PO BEDTIME [facility] Bupropion HCl 150 mg 04/26/21 15:15 04/26/21 16:20 Bupropion Hcl Xl 150 Mg Tab.Er.24h PO 150 mg DAILY [facility] Administration Duloxetine HCl 60 mg 04/26/21 21:00 Duloxetine Hcl 60 Mg Capsule.Dr PO BID [facility] Folic Acid 1 mg 04/26/21 10:15 04/26/21 11:33 Folic Acid 1 Mg Tablet PO 1 mg DAILY [facility] Administration Heparin Sodium (Porcine) 5,000 unit 04/26/21 00:00 04/26/21 16:20 Heparin Sodium,Porcine 5,000 Unit/Ml Vial SUBCUT 5,000 unit Q8H [facility] Administration Hydroxyzine HCl 100 mg 04/26/21 21:00 Hydroxyzine Hcl 50 Mg Tablet PO BEDTIME [facility] Hydroxyzine HCl 25 mg 04/27/21 09:00 Hydroxyzine Hcl 25 Mg Tablet PO DAILY [facility] Vancomycin HCl 1,000 mg/ 270 mls @ 270 mls/hr 04/25/21 23:00 04/26/21 17:18 Sodium Chloride IV Infused Q12H [facility] Infusion Piperacillin Sod/Tazobactam 50 mls @ 100 mls/hr 04/26/21 01:00 04/26/21 15:44 Sod 3.375 gm/ Sodium Chloride IV Infused Q6H [facility] Infusion Dextrose 1,000 mls @ 75 mls/hr 04/26/21 10:15 04/26/21 11:25 D10 IVCONT Not Given .[id number] [facility] Medication 1 each 04/25/21 09:00 No Benzodiazepines MISCELLANE DAILY [facility] Melatonin 6 mg 04/25/21 22:21 Melatonin 3 Mg Tablet PO BEDTIME PRN Insomnia Olanzapine 5 mg 04/26/21 21:00 Olanzapine 5 Mg Tablet PO BEDTIME [facility] Omeprazole 20 mg 04/26/21 21:00 Omeprazole 20 Mg Capsule.Dr PO BID [facility] Pharmacy Consult 1 each 04/25/21 20:33 Consult Rx Etoh Phenob Dosing MISCELLANE ONCE PRN Consult order Protocol Pharmacy Consult 1 each 04/25/21 21:49 Consult Rx Vancomycin Dosing MISCELLANE DAILY PRN Consult order Pharmacy Consult 1 each 04/25/21 22:21 Consult Rx Vancomycin Dosing MISCELLANE DAILY PRN Consult order Phenobarbital 45 mg 04/26/21 09:00 04/26/21 10:16 Phenobarbital 15 Mg Tablet PO 04/27/21 21:01 45 mg BID [facility] Administration Phenobarbital 15 mg 04/28/21 09:00 Phenobarbital 15 Mg Tablet PO 04/29/21 21:01 BID [facility] Phenobarbital 15 mg 04/30/21 09:00 Phenobarbital 15 Mg Tablet PO 05/01/21 09:01 DAILY [facility] Potassium Chloride 10 meq 04/27/21 09:00 Potassium Chloride Er 10 Meq Capsule.Er PO DAILY [facility] Prazosin HCl 1 mg 04/26/21 21:00 Prazosin Hcl 1 Mg Capsule PO BID [facility] Protocol Senna 17.2 mg 04/25/21 22:21 Sennosides 8.6 Mg Tablet PO BEDTIME PRN Constipation Sodium Chloride 3 ml 04/26/21 00:00 04/26/21 16:26 0.9 % Sodium Chloride Flush 3 Ml Syringe IVFLUSH Not Given QSHIFT [facility] Home Medications Medication Instructions Recorded Confirmed Last Taken Type amlodipine 5 mg tablet 1 tab PO DAILY 04/26/21 04/26/21 04/25/21 History atorvastatin 40 mg tablet 1 tab PO BEDTIME 04/26/21 04/26/21 04/25/21 History bupropion HCl 150 mg 24 hr tablet, 1 tab PO QAM 04/26/21 04/26/21 Unknown History extended release duloxetine 60 mg capsule,delayed 1 cap PO BID 04/26/21 04/26/21 Unknown History release gabapentin 600 mg tablet 2 tab PO TID 04/26/21 04/26/21 Unknown History glipizide 5 mg tablet 1 tab PO DAILY 04/26/21 04/26/21 Unknown History hydroxyzine HCl 25 mg tablet 1 tab PO DAILY 04/26/21 04/26/21 Unknown History hydroxyzine HCl 50 mg tablet 2 tab PO BEDTIME 04/26/21 04/26/21 Unknown History ibuprofen 600 mg tablet 1 tab PO TID 04/26/21 04/26/21 Unknown History metformin 500 mg tablet,extended 2 tab PO BID 04/26/21 04/26/21 Unknown History release 24 hr olanzapine 5 mg tablet 1 tab PO BEDTIME 04/26/21 04/26/21 04/24/21 History pantoprazole 40 mg tablet,delayed 1 tab PO BID 04/26/21 04/26/21 Unknown History release potassium chloride 10 mEq 1 tab PO DAILY 04/26/21 04/26/21 Unknown History tablet,extended release prazosin 1 mg capsule 1 cap PO BID 04/26/21 04/26/21 Unknown History Physical Exam Vital Signs: Vital Signs: Last Vital Signs Temp 97.4 F 04/26/21 15:22 Pulse 93 04/26/21 15:22 Resp 16 04/26/21 15:22 BP 128/72 04/26/21 15:22 Pulse Ox 97 04/26/21 15:22 Body Mass Index 26.5 Const: General: cooperative and anxious Nutritional Appearance: average body habitus Orientation/consciousness: oriented to person and oriented to place HENMT: Other: wnl Face and sinus: Yes normal facial exam Mouth: Normal oral and palatal mucosa present Neck: Neck: Yes normal visual inspection Chest: Chest palpation & inspection: normal inspection of the chest Resp: Effort & Inspection: normal respiratory effort Auscultation: clear to auscultation bilaterally Cardio: Jugular venous distension: no JVD Palpation: normal PMI Rate: regular rate GI: Inspection: Yes normal to inspection Palpation (GI): Soft to palpation, not firm, nontender, no guarding, not rigid and Other GI palpation findings present (Ascites) Neuro: Other: She is alert, slightly confused, oriented to the fact that she is in a hospital. Knows the month and the year but not the day or date in. Tells me that she has been drinking excessively, but is not sure why she is mentally foggy. She is not known to have had any seizures or head trauma. Neurological examination is nonfocal. Neck is supple General: oriented to person and oriented to place Cranial nerves: Yes CN's II-XII intact bilaterally Extrem: Other: Swelling both ankles with deformity rt ankle Results Labs CBC & Chem 7: 04/26/21 07:09 04/26/21 07:09 Labs: Short CBC 04/25/21 04/26/21 Range/Units 19:50 07:09 WBC 19.4 H 13.8 H (4.8-10.8) X10*3/uL Hgb 12.4 11.2 L (12.0-16.0) g/dl Hct 35.9 L 33.2 L (37-47) % Plt Count 365 223 D (160-400) X10*3/uL BMP 04/25/21 04/26/21 20:19 07:09 Sodium 137 135 Potassium 3.5 3.8 Chloride 103 102 Carbon Dioxide 23 25 BUN 9 9 Creatinine 0.73 0.64 Calcium 8.5 7.8 L D Liver Function 04/25/21 Range/Units 20:19 Total Bilirubin 0.8 (0.0-1.0) mg/dL AST 105 H (5-31) U/L ALT 57 H (0-31) U/L Alkaline Phosphatase 331 H (39-117) U/L Albumin 2.8 L (3.5-5.0) g/dL Urine 04/26/21 Range/Units 05:45 Urine Color YELLOW Urine Appearance HAZY Urine pH 6.0 (5.0-8.0) Ur Specific [place] 1.015 (1.005-1.025) Urine Protein TRACE (NEG-TRACE) MG/DL Urine Glucose (UA) NEG (NEG) MG/DL Assessment and Plan (1) Alcohol use disorder, severe, dependence: Status: Acute currently on phenobarb protocol to address withdrawal sx Check serum ammonia. EEG. IV thiamine 100 mg daily while in the hospital followed by 100 mg By mouth Procedures Date of Service Date of Service: 04/26/21
[2021-04-26 18:31] LABS: Glucose, Whole Blood 185 mg/dL (60-115)
[2021-04-26] MEDS: Prazosin HCL 1 MG CAPSULE PO (20:00)
[2021-04-26] MEDS: hydrOXYzine HCL 50 MG TABLET 100 MG PO (20:01)
[2021-04-26] MEDS: Atorvastatin Calcium 40 MG TABLET PO (20:01)
[2021-04-26] MEDS: DULoxetine HCl 60 MG CAPSULE.DR PO (20:01)
[2021-04-26] MEDS: Omeprazole 20 MG CAPSULE.DR PO (20:01)
[2021-04-26] MEDS: OLANZapine 5 MG TABLET PO (20:01)
[2021-04-26 21:00] LABS: Glucose, Whole Blood 250 mg/dL (60-115)
--- NOTE | 2021-04-26 21:38 | PM.GICN ---
History of Present Illness Data of Consult Service Date: 04/26/21 Requesting physician: Shahzad Escobedo Primary Care Provider: Edel Barron NP HPI Reason for consult: new dx of cirrhosis 56 F HTN, HLD, DM, COPD, Etoh abuse who I am seeing for assessment for new dx of cirrhosis. She presented to the hospital with a chief complaint of recurrent falls with weakness and general deterioration. She also noted increasing abdominal swelling with 1-2 weeks of recurret nausea and non bloody emesis. She denies abdominal pain. Appetite is poor, no fever chills. Not known to have liver dz before this admission. She has been drinking alcohol daily for 40 years. Labs :Borderline HGB, low albumin, mild raised LFT, INR nml Imaging: cardiomegaly, groundglass appearance left upper lobe w atelectasis, lobulated liver, moderate ascites Review of Systems Review of Systems: Yes all other systems are reviewed and are negative Constitutional: Constitutional: Reports fatigue, Denies fever(s) and Reports frequent falls Cardiovascular: Cardiovascular: Reports edema Respiratory: Respiratory: Reports no additional respiratory complaints Gastrointestinal: Gastrointestinal: Denies abdominal pain and Reports bloating Genitourinary: Genitourinary: Reports no additional female genitourinary complaints Musculoskeletal: Musculoskeletal: Reports abnormal gait Neurologic: Reports abnormal gait and Reports frequent falls Psychiatric: Psychiatric: Reports anxiety Endocrine: Endocrine: Reports fatigue Hematologic/Lymphatic: Hematologic/Lymphatic: Reports no additional hematologic/lymphatic complaints Allergic/Immunologic: Allergic/Immunologic: Reports no additional allergic/immunologic complaints [facility] Past Medical History Medical History (Updated 04/26/21 @ 21:52 by Rafael Hsu MD) Alcoholic Family History Family History (Updated 04/25/21 @ 15:08 by Jessenia Stapleton CMA) Mother Substance abuse Brother Substance abuse Surgical History Surgical History History of renal stent Social History Social History (Updated 04/25/21 @ 15:09 by Jessenia Stapleton CMA) Household Members: Other Household Members Other:: mother Housing: Apartment Do you presently have visiting nurse or other home services: No Alcohol intake: current Alcohol intake frequency: 3 or more drinks per day Patient Tobacco Use Status: Current everyday Tobacco user Tobacco use type: Cigarette Cigarettes Per Day: 7 Years Smoked: 54 Smoked in Last 30 Days: Yes e-Cigarette/Vaping Use: Never Used Patient Interested in Nicotine Replacement: Yes Patient Given Instructions on How to Stop Smoking: Yes Date Education Initiated: 04/26/21 Second Hand Smoke Exposure: Yes Use of substances other than those prescribed or required for medical reasons: No Currently Displaying Signs/Symptoms of Drug Intoxication Withdrawal: No Have you been hit, kicked, punched, or otherwise hurt by someone within the past year? If so, by whom?: No Do you feel safe in your current relationship?: No Current Relationship Is there a partner from a previous relationship who is making you feel unsafe now?: No Are you made to feel afraid or neglected: No Advance Directives: No Do you have thoughts of harming others: None Do you have a plan to hurt others: No Plan Recently lost weight without trying: No Eating poorly because of decreased appetite: No Nutrition Risks: No Nutritional Risk Patient : No : No Poor oral hygiene: No service: No Current occupational status: employed and disabled Meds Allergies Allergy/AdvReac Type Severity Reaction Status Date / Time No Known Allergies Allergy Verified 04/25/21 15:07 [No Known Allergies*] Active Medications: Current Medications Generic Name Dose Route Start Last Admin Trade Name Freq PRN Reason Stop Dose Admin Albuterol Sulfate 2 puff 04/26/21 10:55 Albuterol Sulfate 90 Mcg 8 Gm Inhaler INHALE RQ4H PRN shortness of breath/wheeze Amlodipine Besylate 5 mg 04/27/21 09:00 Amlodipine Besylate 5 Mg Tablet PO DAILY [facility] Protocol Atorvastatin Calcium 40 mg 04/26/21 21:00 04/26/21 20:01 Atorvastatin Calcium 40 Mg Tablet PO 40 mg BEDTIME [facility] Administration Bupropion HCl 150 mg 04/26/21 15:15 04/26/21 16:20 Bupropion Hcl Xl 150 Mg Tab.Er.24h PO 150 mg DAILY [facility] Administration Duloxetine HCl 60 mg 04/26/21 21:00 04/26/21 20:01 Duloxetine Hcl 60 Mg Capsule.Dr PO 60 mg BID [facility] Administration Folic Acid 1 mg 04/26/21 10:15 04/26/21 11:33 Folic Acid 1 Mg Tablet PO 1 mg DAILY [facility] Administration Heparin Sodium (Porcine) 5,000 unit 04/26/21 00:00 04/26/21 16:20 Heparin Sodium,Porcine 5,000 Unit/Ml Vial SUBCUT 5,000 unit Q8H [facility] Administration Hydroxyzine HCl 100 mg 04/26/21 21:00 04/26/21 20:01 Hydroxyzine Hcl 50 Mg Tablet PO 100 mg BEDTIME [facility] Administration Hydroxyzine HCl 25 mg 04/27/21 09:00 Hydroxyzine Hcl 25 Mg Tablet PO DAILY [facility] Vancomycin HCl 1,000 mg/ 270 mls @ 270 mls/hr 04/25/21 23:00 04/26/21 17:18 Sodium Chloride IV Infused Q12H [facility] Infusion Piperacillin Sod/Tazobactam 50 mls @ 100 mls/hr 04/26/21 01:00 04/26/21 20:00 Sod 3.375 gm/ Sodium Chloride IV 100 mls/hr Q6H [facility] Administration Medication 1 each 04/25/21 09:00 No Benzodiazepines MISCELLANE DAILY [facility] Melatonin 6 mg 04/25/21 22:21 Melatonin 3 Mg Tablet PO BEDTIME PRN Insomnia Olanzapine 5 mg 04/26/21 21:00 04/26/21 20:01 Olanzapine 5 Mg Tablet PO 5 mg BEDTIME [facility] Administration Omeprazole 20 mg 04/26/21 21:00 04/26/21 20:01 Omeprazole 20 Mg Capsule. PO 20 mg BID [facility] Administration Pharmacy Consult 1 each 04/25/21 20:33 Consult Rx Etoh Phenob Dosing MISCELLANE ONCE PRN Consult order Protocol Pharmacy Consult 1 each 04/25/21 21:49 Consult Rx Vancomycin Dosing MISCELLANE DAILY PRN Consult order Pharmacy Consult 1 each 04/25/21 22:21 Consult Rx Vancomycin Dosing MISCELLANE DAILY PRN Consult order Phenobarbital 45 mg 04/26/21 09:00 04/26/21 20:01 Phenobarbital 15 Mg Tablet PO 04/27/21 21:01 45 mg BID [facility] Administration Phenobarbital 15 mg 04/28/21 09:00 Phenobarbital 15 Mg Tablet PO 04/29/21 21:01 BID [facility] Phenobarbital 15 mg 04/30/21 09:00 Phenobarbital 15 Mg Tablet PO 05/01/21 09:01 DAILY [facility] Potassium Chloride 10 meq 04/27/21 09:00 Potassium Chloride Er 10 Meq Capsule.Er PO DAILY [facility] Prazosin HCl 1 mg 04/26/21 21:00 04/26/21 20:00 Prazosin Hcl 1 Mg Capsule PO 1 mg BID [facility] Administration Protocol Senna 17.2 mg 04/25/21 22:21 Sennosides 8.6 Mg Tablet PO BEDTIME PRN Constipation Sodium Chloride 3 ml 04/26/21 00:00 04/26/21 20:02 0.9 % Sodium Chloride Flush 3 Ml Syringe IVFLUSH 3 ml QSHIFT [facility] Administration Home Medications Medication Instructions Recorded Confirmed Last Taken Type amlodipine 5 mg tablet 1 tab PO DAILY 04/26/21 04/26/21 04/25/21 History atorvastatin 40 mg tablet 1 tab PO BEDTIME 04/26/21 04/26/21 04/25/21 History bupropion HCl 150 mg 24 hr tablet, 1 tab PO QAM 04/26/21 04/26/21 Unknown History extended release duloxetine 60 mg capsule,delayed 1 cap PO BID 04/26/21 04/26/21 Unknown History release gabapentin 600 mg tablet 2 tab PO TID 04/26/21 04/26/21 Unknown History glipizide 5 mg tablet 1 tab PO DAILY 04/26/21 04/26/21 Unknown History hydroxyzine HCl 25 mg tablet 1 tab PO DAILY 04/26/21 04/26/21 Unknown History hydroxyzine HCl 50 mg tablet 2 tab PO BEDTIME 04/26/21 04/26/21 Unknown History ibuprofen 600 mg tablet 1 tab PO TID 04/26/21 04/26/21 Unknown History metformin 500 mg tablet,extended 2 tab PO BID 04/26/21 04/26/21 Unknown History release 24 hr olanzapine 5 mg tablet 1 tab PO BEDTIME 04/26/21 04/26/21 04/24/21 History pantoprazole 40 mg tablet,delayed 1 tab PO BID 04/26/21 04/26/21 Unknown History release potassium chloride 10 mEq 1 tab PO DAILY 04/26/21 04/26/21 Unknown History tablet,extended release prazosin 1 mg capsule 1 cap PO BID 04/26/21 04/26/21 Unknown History Physical Exam Vital Signs: Vital Signs: Last Vital Signs Temp 97.8 F 04/26/21 19:20 Pulse 91 04/26/21 20:00 Resp 15 04/26/21 19:20 BP 114/67 04/26/21 20:00 Pulse Ox 95 04/26/21 19:20 Body Mass Index 26.5 Const: General: cooperative and anxious Nutritional Appearance: average body habitus Orientation/consciousness: oriented to person, oriented to place and patient oriented x3 HENMT: Other: wnl Face and sinus: Yes normal facial exam Mouth: Normal oral and palatal mucosa present Neck: Neck: Yes normal visual inspection Chest: Chest palpation & inspection: normal inspection of the chest Resp: Effort & Inspection: normal respiratory effort Auscultation: clear to auscultation bilaterally Cardio: Jugular venous distension: no JVD Palpation: normal PMI Rate: regular rate GI: Inspection: Yes normal to inspection Palpation (GI): Soft to palpation, not firm, nontender, no guarding, not rigid and Other GI palpation findings present (Ascites) Neuro: General: oriented to person, oriented to place and patient oriented x3 Cranial nerves: Yes CN's II-XII intact bilaterally Motor exam (neuro): Tremors during motor activity present Extrem: Other: Swelling both ankles with deformity rt ankle General: Yes normal to inspection Psych: Appearance: disheveled Mental Status: mental status grossly normal Results Labs CBC & Chem 7: 04/26/21 07:09 04/26/21 07:09 Labs: Short CBC 04/26/21 Range/Units 07:09 WBC 13.8 H (4.8-10.8) X10*3/uL Hgb 11.2 L (12.0-16.0) g/dl Hct 33.2 L (37-47) % Plt Count 223 D (160-400) X10*3/uL BMP 04/26/21 07:09 Sodium 135 Potassium 3.8 Chloride 102 Carbon Dioxide 25 BUN 9 Creatinine 0.64 Calcium 7.8 L D Urine 04/26/21 Range/Units 05:45 Urine Color YELLOW Urine Appearance HAZY Urine pH 6.0 (5.0-8.0) Ur Specific [place] 1.015 (1.005-1.025) Urine Protein TRACE (NEG-TRACE) MG/DL Urine Glucose (UA) NEG (NEG) MG/DL Assessment and Plan (1) Alcohol use disorder, severe, dependence: Status: Acute (2) Ascites due to alcoholic hepatitis: Status: Acute (3) Neuropathy: Status: Acute 1/ Alcoholic hepatitis with ascites 2/ falls probably due to myopathy and neuropathy, 3/ malnutrition 2/2 poor diet, malabsorption and liver disease PLAN: 1/ Ascites--recommend tap and send for cell counts to r/o [facility], cytology and [facility]. Low salt diet, low dose diuretics with lasix 10 mg and aldactone 25 mg. Check portal doppler to r/o [facility] 2/ Abn LFT--prob from alcohol use, should check hep serologies and iron studies, A1AT, TRIP, SMA< SLA, IgG, celiac panel 3/ varices--will need o/p eval with EGD 4/ alcohol abuse, thiamine and MV, check other nutrients such as zinc and fat oz vits, b12/folate and replace 5/ watch out for encephalopathy, avodi constipation and limit sedatives as possible Procedures Date of Service Date of Service: 04/26/21
[2021-04-27] VITALS (8 sets, daily range): BP systolic 110–150; BP diastolic 57–75; PULSE 74–99; RESP 14–18; TEMP 36.5–37.1; O2SAT 95–98; BMI 26.5
--- NOTE | 2021-04-27 | EEG_ITS ---
The waking background activity consists of a diffuse 7 hertz theta, intermixed with low voltage fast frequencies anteriorly. Photic stimulation is without activation. Hyperventilation was omitted. No paroxysmal features identified. IMPRESSION: This is an abnormal EEG due to mild generalized background slowing consistent with a diffuse encephalopathic process. No seizure discharges are identified. MD PETE Sosa/BEE / [id number]
[2021-04-27] MEDS: Piperacillin Sodium/Tazobactam 3.375 GM in 0.9 % Sodium Chloride 50 ML IV ×3 (00:55→21:44)
[2021-04-27] MEDS: Heparin Sodium,Porcine 5,000 UNIT/ML VIAL 5000 UNIT SUBCUT ×3 (00:56→23:02)
[2021-04-27 05:53] LABS: Hematocrit 30.6 % (37-47); Hemoglobin 10.3 g/dl (12.0-16.0); Mean Corpuscular HGB Conc 33.7 g/dl (31.0-35.0); Mean Corpuscular Hemoglobin 33.4 pg (27.0-33.0); Mean Corpuscular Volume 99.4 fL (80-98); Mean Platelet Volume 9.7 fL (9.4-12.3); Platelet Count 189 X10*3/uL (160-400); Red Blood Count 3.08 X10*6/uL (4.20-5.50); Red Cell Distribution Width 13.7 % (11.0-16.0); White Blood Count 9.9 X10*3/uL (4.8-10.8)
[2021-04-27 06:28] LABS: Alanine Aminotransferase 46 U/L (0-31); Albumin Level 2.2 g/dL (3.5-5.0); Alkaline Phosphatase 283 U/L (39-117); Anion Gap 13 (12-20); Aspartate Amino Transferase 68 U/L (5-31); Bilirubin Total 1.2 mg/dL (0.0-1.0); Blood Urea Nitrogen 7 mg/dL (9-16); Calcium 7.7 mg/dL (8.4-10.2); Carbon Dioxide 24 mmol/L (22-29); Chloride 103 mmol/L (96-108); Creatinine Clr Calc Pharmacy 90.1; Estimated Glomerular Filt Rate > 60; Glucose Random 126 mg/dL (60-115); Magnesium 1.7 mg/dL (1.6-2.6); Potassium 3.8 mmol/L (3.3-5.1); Sodium 136 mmol/L (135-145); Total Protein 4.5 g/dL (6.5-8.0)
--- NOTE | 2021-04-27 07:30 | CA_ITS ---
Transthoracic Echocardiogram Patient (Last, First, Middle): Peace Saleh, Gender: Female Date of : 1965 Age: 56 Procedure Date: 04/27/2021 Procedure Type: Transthoracic Echocardiogram Location: S3E Height: 160.02 cm Weight: 68.04 kg BSA: 1.71 m2 Heart Rate: bpm BP: 124 / 88 mmHg Chief Supply Chain Officer: DEBORA Frias MD: Shahzad Escobedo MD Symptoms: chf Study Quality: Fair Conclusions: - Normal left ventricular size, thickness, and systolic function. - Normal right ventricular cavity size and systolic function. - No significant valvular or pericardial pathology. Findings Left Ventricle Normal left ventricular size, thickness, and systolic function. The visually estimated ejection fraction is between 55-60%. There is no evidence of regional wall motion abnormalities. Diastolic function is normal for age. Right Ventricle Normal right ventricular cavity size and systolic function. Atria Both atria are normal in size. Aortic Valve There is a normal trileaflet aortic valve. There is no aortic valve stenosis. There is trace (trivial) aortic valve regurgitation. Mitral Valve Normal mitral valve structure and function. There is no mitral valve regurgitation. There is no mitral valve stenosis. Pulmonic Valve The pulmonic valve is likely normal. Tricuspid Valve Normal tricuspid valve structure. There is trace tricuspid valve regurgitation. Normal right atrial pressure. There is no evidence of pulmonary hypertension. Great Vessels All visible segments of the aorta are normal in size. The visualized portions of the pulmonary artery and branches are normal. Venous The inferior vena cava is normal in size and collapses greater than 50% with inspiration. Pericardium/Pleural There is no evidence of pericardial effusion. Prior Study Comparison No prior study available for comparison. Measurements 2D Linear Measurements IVSd: 0.89 0.6-0.9/0.6-1.0 cm LVIDd: 4.22 3.9-5.3/4.2-5.9 cm LVIDd Index: 2.47 2.4-3.2/2.2-3.1 cm/m2 LVIDs: 2.55 2.0-3.6 cm LVPWd: 0.94 0.7-1.1 cm Ao Root: 3.20 2.1-3.5 cm LA Diam: 3.10 2.7-3.8/3.0-4.0 cm LAIDs Index: 1.81 1.5-2.3 cm/m2 LV Mass: 152.26 67-162/88-224 g LV Mass Index: 89.04 43-95/49-115 g/m2 LVOT Diam: 2.00 3.0+(-)1.3 cm 2D Systolic Function EF 4C: 54.70 >55% EF 2C: 63.60 >55% EF BiP: 58.30 >55% Mitral Valve MV Pk E: 0.68 MV PK A: 1.03 MV Decel Time: 147.00 E/A: 0.70 E'Lateral: 9.03 E'Medial: 7.62 E/E' Med: 8.90 E/E' Lat: 7.50 PHT: 43.00 MVA PHT: 5.12 Decel Hardy: 4.62 Aortic Valve AoV Pk Junior: 1.58 AoV Mn Junior: 1.15 AoV VTI: 0.29 AoV Pk Grad: 10.00 Aov Mn Grad: 6.00 MELVA Cont.VTI: 2.11 LVOT LVOT Pk Junior: 1.21 LVOT Mn Junior: 0.74 LVOT VTI: 0.19 LVOT Pk Grad: 6.00 LVOT Mn Grad: 3.00 LVOT Diam: 2.00 LVOT Area: 3.14 Diastolic Function MV Pk E: 0.68 MV Pk A: 1.03 E/A: 0.70 E'Medial: 7.62 E/E' Med: 8.90 E' Laterial: 9.03 E/E' Lat: 7.50 Right Ventricle TAPSE (mm): 2.17 TVS' Junior: 16.20 Tricuspid Valve TR Pk Junior: 2.42 TR Pk Grad: 23.00 RA Press: 3.00 RVSP: 26.00 Great Vessels Aorta Ao Root-2D: 3.20 2.0-3.7 cm Ao Asc: 2.80 2.1-3.4 cm Ao Arch: 2.60 Updated in Other Vendor System with Status of Final Cornell Peterson MD electronically signed on 04/28/2021 3:44:01 PM with status of Final
[2021-04-27 07:42] LABS: Glucose, Whole Blood 104 mg/dL (60-115)
[2021-04-27 08:26] LABS: Estimated Average Glucose 77 mg/dL; Hemoglobin A1c % 4.3 %
[2021-04-27] MEDS: 0.9 % Sodium Chloride Flush 3 ML SYRINGE IVFLUSH ×3 (08:52→19:53)
[2021-04-27] MEDS: Thiamine HCL 250 MG in 0.9 % Sodium Chloride 100 ML 202 MG IV ×3 (08:53→23:02)
[2021-04-27] MEDS: Furosemide 20 MG TABLET 10 MG PO (08:55)
[2021-04-27] MEDS: PHENobarbitaL 15 MG TABLET 45 MG PO ×2 (08:55→19:52)
[2021-04-27] MEDS: buPROPion HCl XL 150 MG TAB.ER.24H PO (08:56)
[2021-04-27] MEDS: hydrOXYzine HCL 25 MG TABLET PO (08:56)
[2021-04-27] MEDS: amLODIPine Besylate 5 MG TABLET PO (08:56)
[2021-04-27] MEDS: Spironolactone 25 MG TABLET PO (08:56)
[2021-04-27] MEDS: Folic Acid 1 MG TABLET PO (08:56)
[2021-04-27] MEDS: Omeprazole 20 MG CAPSULE.DR PO ×2 (08:56→19:52)
[2021-04-27] MEDS: DULoxetine HCl 60 MG CAPSULE.DR PO ×2 (08:56→19:52)
[2021-04-27] MEDS: Multivitamin TABLET 1 TAB PO (08:56)
[2021-04-27] MEDS: Prazosin HCL 1 MG CAPSULE PO ×2 (08:56→19:52)
[2021-04-27] MEDS: vancomycin HCL 1,000 MG in 0.9 % Sodium Chloride 250 ML 270 MG IV (10:56)
[2021-04-27 11:44] LABS: Glucose, Whole Blood 141 mg/dL (60-115)
--- NOTE | 2021-04-27 11:59 | HE.PHANOTE ---
Pharmacy Note- Vancomycin Dosing Addendum BRITANY Mcbride called because 04/27 @1000 trough not drawn because patient was not on floor and 1100 dose given. Adjusted time of Vancomycin trough to be drawn before evening dose.
--- NOTE | 2021-04-27 12:48 | W.PM.IDCN ---
History of Present Illness Data of Consult Service Date: 04/27/21 Requesting physician: Bharat Alvarez Primary Care Provider: Edel Barron NP HPI Reason for consult: leukocytosis,weakness She presents to hospital with falls and weakness lower extremities. She has no fever or chills. She has heavy alcohol use defined as four or more alcoholic drinks daily She has SHAKEEL infiltrate Review of Systems Review of Systems: Yes all other systems are reviewed and are negative PMFSH Past Medical History Medical History (Updated 05/03/21 @ 00:02 by Savannah Mary) Alcohol use disorder Alcoholic Cirrhosis of liver with ascites Neuropathy Pneumonia Toxic metabolic encephalopathy Family History Family History Mother Substance abuse Brother Substance abuse Family history: reviewed and not pertinent Surgical History Surgical History History of renal stent Social History Social History Household Members: Other Household Members Other:: mother Housing: Apartment Do you presently have visiting nurse or other home services: No Alcohol intake: current Alcohol intake frequency: 3 or more drinks per day Patient Tobacco Use Status: Current everyday Tobacco user Tobacco use type: Cigarette Cigarettes Per Day: 7 Years Smoked: 54 e-Cigarette/Vaping Use: Never Used Second Hand Smoke Exposure: Yes service: No Current occupational status: employed and disabled Meds Allergies Allergy/AdvReac Type Severity Reaction Status Date / Time No Known Allergies Allergy Verified 04/25/21 15:07 [No Known Allergies*] Active Medications: Current Medications Generic Name Dose Route Start Last Admin Trade Name Freq PRN Reason Stop Dose Admin Albuterol Sulfate 2 puff 04/26/21 10:55 Albuterol Sulfate 90 Mcg 8 Gm Inhaler INHALE RQ4H PRN shortness of breath/wheeze Amlodipine Besylate 5 mg 04/27/21 09:00 04/27/21 08:56 Amlodipine Besylate 5 Mg Tablet PO 5 mg DAILY NANDA Administration Protocol Atorvastatin Calcium 40 mg 04/26/21 21:00 04/26/21 20:01 Atorvastatin Calcium 40 Mg Tablet PO 40 mg BEDTIME NANDA Administration Bupropion HCl 150 mg 04/26/21 15:15 04/27/21 08:56 Bupropion Hcl Xl 150 Mg Tab.Er.24h PO 150 mg DAILY NANDA Administration Duloxetine HCl 60 mg 04/26/21 21:00 04/27/21 08:56 Duloxetine Hcl 60 Mg Capsule. PO 60 mg BID NANDA Administration Folic Acid 1 mg 04/26/21 10:15 04/27/21 08:56 Folic Acid 1 Mg Tablet PO 1 mg DAILY NANDA Administration Furosemide 10 mg 04/27/21 09:00 04/27/21 08:55 Furosemide 20 Mg Tablet PO 10 mg DAILY NANDA Administration Protocol Heparin Sodium (Porcine) 5,000 unit 04/26/21 00:00 04/27/21 08:51 Heparin Sodium,Porcine 5,000 Unit/Ml Vial SUBCUT Not Given Q8H NANDA Hydroxyzine HCl 100 mg 04/26/21 21:00 04/26/21 20:01 Hydroxyzine Hcl 50 Mg Tablet PO 100 mg BEDTIME NANDA Administration Hydroxyzine HCl 25 mg 04/27/21 09:00 04/27/21 08:56 Hydroxyzine Hcl 25 Mg Tablet PO 25 mg DAILY NANDA Administration Vancomycin HCl 1,000 mg/ 270 mls @ 270 mls/hr 04/25/21 23:00 04/27/21 12:38 Sodium Chloride IV Infused Q12H NANDA Infusion Piperacillin Sod/Tazobactam 50 mls @ 100 mls/hr 04/26/21 01:00 04/27/21 07:35 Sod 3.375 gm/ Sodium Chloride IV Infused Q6H NANDA Infusion Thiamine HCl 250 mg/ Sodium 102.5 mls @ 202 mls/hr 04/27/21 08:00 04/27/21 09:28 Chloride IV 04/29/21 00:31 Infused Q8H NANDA Infusion Medication 1 each 04/25/21 09:00 No Benzodiazepines MISCELLANE DAILY NANDA Melatonin 6 mg 04/25/21 22:21 Melatonin 3 Mg Tablet PO BEDTIME PRN Insomnia Multivitamins/Vitamin C 1 tab 04/27/21 09:00 04/27/21 08:56 Multivitamin Tablet PO 1 tab DAILY NANDA Administration Olanzapine 5 mg 04/26/21 21:00 04/26/21 20:01 Olanzapine 5 Mg Tablet PO 5 mg BEDTIME NANDA Administration Omeprazole 20 mg 04/26/21 21:00 04/27/21 08:56 Omeprazole 20 Mg Capsule. PO 20 mg BID NANDA Administration Pharmacy Consult 1 each 04/25/21 20:33 Consult Rx Etoh Phenob Dosing MISCELLANE ONCE PRN Consult order Protocol Pharmacy Consult 1 each 04/25/21 21:49 Consult Rx Vancomycin Dosing MISCELLANE DAILY PRN Consult order Pharmacy Consult 1 each 04/25/21 22:21 Consult Rx Vancomycin Dosing MISCELLANE DAILY PRN Consult order Phenobarbital 45 mg 04/26/21 09:00 04/27/21 08:55 Phenobarbital 15 Mg Tablet PO 04/27/21 21:01 45 mg BID NANDA Administration Phenobarbital 15 mg 04/28/21 09:00 Phenobarbital 15 Mg Tablet PO 04/29/21 21:01 BID [facility] Phenobarbital 15 mg 04/30/21 09:00 Phenobarbital 15 Mg Tablet PO 05/01/21 09:01 DAILY [facility] Prazosin HCl 1 mg 04/26/21 21:00 04/27/21 08:56 Prazosin Hcl 1 Mg Capsule PO 1 mg BID [facility] Administration Protocol Senna 17.2 mg 04/25/21 22:21 Sennosides 8.6 Mg Tablet PO BEDTIME PRN Constipation Sodium Chloride 3 ml 04/26/21 00:00 04/27/21 08:52 0.9 % Sodium Chloride Flush 3 Ml Syringe IVFLUSH 3 ml QSHIFT [facility] Administration Spironolactone 25 mg 04/27/21 09:00 04/27/21 08:56 Spironolactone 25 Mg Tablet PO 25 mg DAILY [facility] Administration Protocol Thiamine HCl 100 mg 04/29/21 09:00 Thiamine Hcl 100 Mg Tablet PO DAILY [facility] Home Medications Medication Instructions Recorded Confirmed Last Taken Type amlodipine 5 mg tablet 1 tab PO DAILY 04/26/21 04/26/21 04/25/21 History atorvastatin 40 mg tablet 1 tab PO BEDTIME 04/26/21 04/26/21 04/25/21 History bupropion HCl 150 mg 24 hr tablet, 1 tab PO QAM 04/26/21 04/26/21 Unknown History extended release duloxetine 60 mg capsule,delayed 1 cap PO BID 04/26/21 04/26/21 Unknown History release hydroxyzine HCl 25 mg tablet 1 tab PO DAILY 04/26/21 04/26/21 Unknown History hydroxyzine HCl 50 mg tablet 2 tab PO BEDTIME 04/26/21 04/26/21 Unknown History olanzapine 5 mg tablet 1 tab PO BEDTIME 04/26/21 04/26/21 04/24/21 History pantoprazole 40 mg tablet,delayed 1 tab PO BID 04/26/21 04/26/21 Unknown History release prazosin 1 mg capsule 1 cap PO BID 04/26/21 04/26/21 Unknown History Physical Exam Vital Signs: Vital Signs: Last Vital Signs Temp 97.7 F 04/27/21 11:37 Pulse 96 04/27/21 11:37 Resp 18 04/27/21 11:37 BP 131/73 04/27/21 11:37 Pulse Ox 95 04/27/21 11:37 Body Mass Index 26.5 Const: General: cooperative HENMT: Head: Yes normal to inspection Mouth: Normal oral and palatal mucosa present Eyes: General: appearance normal, both eyes and all related structures Resp: Effort & Inspection: normal respiratory effort Cardio: Rate: regular rate Rhythm: regular rhythm GI: Palpation (GI): Soft to palpation and nontender Skin: General skin exam: no rashes or lesions noted Extrem: General: Yes normal to inspection Results Labs CBC & Chem 7: 04/30/21 04:57 05/02/21 04:47 Labs: Short CBC 04/27/21 Range/Units 05:26 WBC 9.9 (4.8-10.8) X10*3/uL Hgb 10.3 L (12.0-16.0) g/dl Hct 30.6 L (37-47) % Plt Count 189 (160-400) X10*3/uL BMP 04/27/21 05:26 Sodium 136 Potassium 3.8 Chloride 103 Carbon Dioxide 24 BUN 7 L Creatinine 0.63 Calcium 7.7 L Liver Function 04/27/21 Range/Units 05:26 Total Bilirubin 1.2 H (0.0-1.0) mg/dL AST 68 H (5-31) U/L ALT 46 H (0-31) U/L Alkaline Phosphatase 283 H (39-117) U/L Albumin 2.2 L D (3.5-5.0) g/dL Microbiology Microbiology Results: Microbiology 04/26/21 Unknown Urine Catheterized - Benoit Catheter Urine Culture - Final No growth. 04/25/21 23:15 Blood - Venous Blood Culture - Preliminary No growth after 24 hours. 04/25/21 23:20 Blood - Venous Blood Culture - Preliminary No growth after 24 hours. Assessment and Plan (1) Pneumonia: Evidence of pneumonia by PORT criteria include leukocytosis and infiltrate on CXR. She has no sputum production ,fever or hypoxia She is negative for COVID Possibilities include Legionella,strep pneumonia,Hflu,Klebsiella in alcohol use disorder patients Aspiration pneumonia is arce probability (2) Alcohol use disorder, severe, dependence: Status: Acute Would continue Zosyn Stop Vancomycin Doxycycline 100 mg bid cover above Check nares MRSA Check urine Legionella Possible 3-4 d IV and then po Augmentin and Doxycycline if swallowing well for 10 d Make sure UTD Pneumovax/Prevnar as outpatient
--- NOTE | 2021-04-27 15:02 | MHC.CM.PN ---
PATIENT AWARE THAT RECOMMENDATIONS ARE HOME WITH [facility] AND P[facility]T. SERVICES. REFERRAL PLACED TO [facility] PER PATIENT CHOICE. CM FOLLOWING.
--- NOTE | 2021-04-27 15:22 | P.PNIM_ITS ---
Subjective Subjective Date of Service: 04/27/21 Interval History: less tremulous abd distended Review of Systems Review of Systems: Yes all other systems are reviewed and are negative Physical Exam Vital Signs: Vital Signs: Last Vital Signs Temp 97.7 F 04/27/21 11:37 Pulse 96 04/27/21 11:37 Resp 18 04/27/21 11:37 BP 131/73 04/27/21 11:37 Pulse Ox 95 04/27/21 11:37 Body Mass Index 26.5 Gen: tremulous HEENT: sclera anicteric, moist mucus membranes Neck: supple Lungs: diminished bilaterally Heart: regular rate and rhythm, no murmurs Abd: soft, non-tender, ascites present Ext: no edema Skin: warm/well-perfused Neuro: alert and oriented x3, no focal findings Psych: appropriate affect Objective Data Active Medications Albuterol Sulfate (Albuterol Sulfate 90 Mcg 8 Gm Inhaler) 2 puff INHALE RQ4H PRN PRN Reason: shortness of breath/wheeze Amlodipine Besylate (Amlodipine Besylate 5 Mg Tablet) 5 mg PO DAILY [facility]; Protocol Last Admin: 04/27/21 08:56 Dose: 5 mg Documented by: DEE Atorvastatin Calcium (Atorvastatin Calcium 40 Mg Tablet) 40 mg PO BEDTIME [facility] Last Admin: 04/26/21 20:01 Dose: 40 mg Documented by: KENISHA Bupropion HCl (Bupropion Hcl Xl 150 Mg Tab.Er.24h) 150 mg PO DAILY [facility] Last Admin: 04/27/21 08:56 Dose: 150 mg Documented by: DEE Duloxetine HCl (Duloxetine Hcl 60 Mg Capsule.Dr) 60 mg PO BID [facility] Last Admin: 04/27/21 08:56 Dose: 60 mg Documented by: DEE Folic Acid (Folic Acid 1 Mg Tablet) 1 mg PO DAILY [facility] Last Admin: 04/27/21 08:56 Dose: 1 mg Documented by: DEE Furosemide (Furosemide 20 Mg Tablet) 10 mg PO DAILY [facility]; Protocol Last Admin: 04/27/21 08:55 Dose: 10 mg Documented by: DEE Heparin Sodium (Porcine) (Heparin Sodium,Porcine 5,000 Unit/Ml Vial) 5,000 unit SUBCUT Q8H [facility] Last Admin: 04/27/21 08:51 Dose: Not Given Documented by: DEE Non-Admin Reason: paracentesis today Hydroxyzine HCl (Hydroxyzine Hcl 50 Mg Tablet) 100 mg PO BEDTIME [facility] Last Admin: 04/26/21 20:01 Dose: 100 mg Documented by: KENISHA Hydroxyzine HCl (Hydroxyzine Hcl 25 Mg Tablet) 25 mg PO DAILY [facility] Last Admin: 04/27/21 08:56 Dose: 25 mg Documented by: DEE Piperacillin Sod/Tazobactam (Sod 3.375 gm/ Sodium Chloride) 50 mls @ 100 mls/hr IV Q6H [facility] Last Admin: 04/27/21 13:21 Dose: Not Given Documented by: DEE Non-Admin Reason: Off Unit: Surgery Thiamine HCl 250 mg/ Sodium (Chloride) 102.5 mls @ 202 mls/hr IV Q8H [facility] Stop: 04/29/21 00:31 Last Infusion: 04/27/21 09:28 Dose: 202 mls/hr Documented by: DEE Doxycycline Hyclate 100 mg/ (Sodium Chloride) 250 mls @ 166.67 mls/hr IV Q12H [facility] Medication (No Benzodiazepines) 1 each MISCELLANE DAILY [facility] Melatonin (Melatonin 3 Mg Tablet) 6 mg PO BEDTIME PRN PRN Reason: Insomnia Multivitamins/Vitamin C (Multivitamin Tablet) 1 tab PO DAILY [facility] Last Admin: 04/27/21 08:56 Dose: 1 tab Documented by: DEE Olanzapine (Olanzapine 5 Mg Tablet) 5 mg PO BEDTIME [facility] Last Admin: 04/26/21 20:01 Dose: 5 mg Documented by: KENISHA Omeprazole (Omeprazole 20 Mg Capsule.Dr) 20 mg PO BID [facility] Last Admin: 04/27/21 08:56 Dose: 20 mg Documented by: DEE Pharmacy Consult (Consult Rx Etoh Phenob Dosing) 1 each MISCELLANE ONCE PRN; Protocol PRN Reason: Consult order Pharmacy Consult (Consult Rx Vancomycin Dosing) 1 each MISCELLANE DAILY PRN PRN Reason: Consult order Pharmacy Consult (Consult Rx Vancomycin Dosing) 1 each MISCELLANE DAILY PRN PRN Reason: Consult order Phenobarbital (Phenobarbital 15 Mg Tablet) 45 mg PO BID [facility] Stop: 04/27/21 21:01 Last Admin: 04/27/21 08:55 Dose: 45 mg Documented by: DEE Phenobarbital (Phenobarbital 15 Mg Tablet) 15 mg PO BID [facility] Stop: 04/29/21 21:01 Phenobarbital (Phenobarbital 15 Mg Tablet) 15 mg PO DAILY [facility] Stop: 05/01/21 09:01 Prazosin HCl (Prazosin Hcl 1 Mg Capsule) 1 mg PO BID [facility]; Protocol Last Admin: 04/27/21 08:56 Dose: 1 mg Documented by: DEE Senna (Sennosides 8.6 Mg Tablet) 17.2 mg PO BEDTIME PRN PRN Reason: Constipation Sodium Chloride (0.9 % Sodium Chloride Flush 3 Ml Syringe) 3 ml IVFLUSH QSHIFT [facility] Last Admin: 04/27/21 08:52 Dose: 3 ml Documented by: DEE Spironolactone (Spironolactone 25 Mg Tablet) 25 mg PO DAILY [facility]; Protocol Last Admin: 04/27/21 08:56 Dose: 25 mg Documented by: DEE Thiamine HCl (Thiamine Hcl 100 Mg Tablet) 100 mg PO DAILY [facility] Labs CBC & Chem 7: 04/27/21 05:26 04/27/21 05:26 Labs: Laboratory Results - last 24 hr 04/26/21 04/26/21 04/26/21 16:04 17:08 18:25 MCV MCH MCHC RDW Plt Count MPV Absolute Nucleated RBC Nucleated RBC % (auto) Anion Gap Estim Creat Clear Calc Estimated GFR POC Glucose 161 H 145 H 185 H Random Glucose Estimat Average Glucose Hemoglobin A1c % Calcium Magnesium Total Bilirubin AST ALT Alkaline Phosphatase Total Protein Albumin Vancomycin Trough 04/26/21 04/27/21 04/27/21 20:21 05:26 05:26 MCV 99.4 H MCH 33.4 H MCHC 33.7 RDW 13.7 Plt Count 189 MPV 9.7 Absolute Nucleated RBC 0.000 Nucleated RBC % (auto) 0.0 Anion Gap 13 Estim Creat Clear Calc 90.1 Estimated GFR > 60 POC Glucose 250 H Random Glucose 126 H Estimat Average Glucose Hemoglobin A1c % Calcium 7.7 L Magnesium 1.7 Total Bilirubin 1.2 H AST 68 H ALT 46 H Alkaline Phosphatase 283 H Total Protein 4.5 L Albumin 2.2 L D Vancomycin Trough 04/27/21 04/27/21 04/27/21 05:26 07:27 11:20 MCV MCH MCHC RDW Plt Count MPV Absolute Nucleated RBC Nucleated RBC % (auto) Anion Gap Estim Creat Clear Calc Estimated GFR POC Glucose 104 Random Glucose Estimat Average Glucose 77 Hemoglobin A1c % 4.3 Calcium Magnesium Total Bilirubin AST ALT Alkaline Phosphatase Total Protein Albumin Vancomycin Trough Cancelled 04/27/21 11:31 MCV MCH MCHC RDW Plt Count MPV Absolute Nucleated RBC Nucleated RBC % (auto) Anion Gap Estim Creat Clear Calc Estimated GFR POC Glucose 141 H Random Glucose Estimat Average Glucose Hemoglobin A1c % Calcium Magnesium Total Bilirubin AST ALT Alkaline Phosphatase Total Protein Albumin Vancomycin Trough Microbiology Microbiology Results: Microbiology 04/26/21 Unknown Urine Culture - Final Urine Catheterized - Benoit Catheter No growth. 04/25/21 23:15 Blood Culture - Preliminary Blood - Venous No growth after 24 hours. 04/25/21 23:20 Blood Culture - Preliminary Blood - Venous No growth after 24 hours. Assessment and Plan (1) Withdrawal symptoms, alcohol: Status: Acute (2) Alcoholism: Status: Acute Assessment and Plan: hospital d#3 56yo F with HTN, HLD, DM2, COPD, EtOH abuse presented to hospital after fall, noted to be confused and withdrawing from EtOH new-onset cirrhosis with ascites # EtOH withdrawal - continue phenobarbital taper, thiamine, folate, vitamins; Addiction Medicine consultation; CARE Team consultation # hypoglycemia - due to glipizide use with ongoing EtOH abuse. d/c'ed glipizide and now off D10. A1c only 4.3- does not need glipizide or any other DM med # toxic/metabolic encephalopathy - improving; due to hypoglycemia + EtOH/withdrawal, treating as above, Neuro con sulted, EEG ordered. will give IV thiamine for concern of Wernicke encephalopathy # cirrhosis with ascites - likely due to EtOH. GI consulted. serologic workup ordered. diagnostic paracentesis ordered. # pneumonia - continue pip/joseph d#3, vanco changed to doxy, BCx NGTD, pending Legionella UAg + nasal MRSA swab, ID consulted, trend PCT # multiple falls - no evidence of fracture/bleed - PT consulted, home PT recommended # HTN - continue amlodipine # mood disorder - continue bupropion, prazosin, hydroxyzine, duloxetine, olanzapine # DM2, not - A1c only 4.3- d/c all OHGs [was on MTF + GPZ]- not needed - hold MTF + GPZ due to alcoholism + hypoglycemia # HLD - continue statin # VTE ppx - UFH Quality Stroke Does the patient have a stroke diagnosis?: No VTE Prior VTE?: No VTE Risk Level:: Medical - moderate - high VTE Device Contraindication: Treatment Not Indicated VTE Drug Contraindication: N/A - Med Ordered
[2021-04-27] MEDS: Lidocaine HCl 1 % MPF 5 ML VIAL SUBCUT (16:50)
[2021-04-27 17:31] LABS: MN% 65.9 %; PMN% 34.1 %; WBC Peritoneal Fluid 0.288 X10*3/uL
[2021-04-27 17:33] LABS: Glucose, Whole Blood 181 mg/dL (60-115)
[2021-04-27 17:44] LABS: Glucose, Whole Blood 162 mg/dL (60-115)
[2021-04-27 18:02] LABS: RBC Peritoneal Fluid < 0.002 X10*6/uL
[2021-04-27 18:03] LABS: Lymphocyte Peritoneal Fl 33 %; Monocytes Peritoneal Fl 27 %; Neutrophils Peritoneal Fluid 33 %
[2021-04-27 18:04] LABS: BF Shift QC OK YES; Other Peritioneal Fl 7 %
[2021-04-27] MEDS: Doxycycline Hyclate 100 MG in 0.9 % Sodium Chloride 250 ML 166.67 MG IV (18:26)
[2021-04-27] MEDS: hydrOXYzine HCL 50 MG TABLET 100 MG PO (19:52)
[2021-04-27] MEDS: Atorvastatin Calcium 40 MG TABLET PO (19:52)
[2021-04-27] MEDS: OLANZapine 5 MG TABLET PO (19:52)
[2021-04-27 21:07] LABS: Glucose, Whole Blood 155 mg/dL (60-115)
[2021-04-27 22:27] LABS: Vancomycin Trough 19.3 mcg/mL (10.0-20.0)
[2021-04-28] VITALS (7 sets, daily range): BP systolic 119–143; BP diastolic 60–75; PULSE 90–97; RESP 14–19; TEMP 36–36.8; O2SAT 94–98
[2021-04-28] MEDS: Piperacillin Sodium/Tazobactam 3.375 GM in 0.9 % Sodium Chloride 50 ML IV ×4 (03:26→22:14)
[2021-04-28 05:49] LABS: Hematocrit 30.5 % (37-47); Hemoglobin 10.2 g/dl (12.0-16.0); Mean Corpuscular HGB Conc 33.4 g/dl (31.0-35.0); Mean Corpuscular Hemoglobin 33.3 pg (27.0-33.0); Mean Corpuscular Volume 99.7 fL (80-98); Mean Platelet Volume 9.6 fL (9.4-12.3); Platelet Count 185 X10*3/uL (160-400); Red Blood Count 3.06 X10*6/uL (4.20-5.50); Red Cell Distribution Width 13.5 % (11.0-16.0); White Blood Count 8.8 X10*3/uL (4.8-10.8)
[2021-04-28 06:07] LABS: Anion Gap 13 (12-20); Blood Urea Nitrogen 6 mg/dL (9-16); Calcium 7.8 mg/dL (8.4-10.2); Carbon Dioxide 24 mmol/L (22-29); Chloride 108 mmol/L (96-108); Estimated Glomerular Filt Rate > 60; Glucose Random 92 mg/dL (60-115); Iron 52 mcg/dL (30-160); Magnesium 1.5 mg/dL (1.6-2.6); Percent Iron Saturation 32 % (15-50); Potassium 3.8 mmol/L (3.3-5.1); Sodium 141 mmol/L (135-145); Total Iron Binding Capacity 161 mcg/dL (228-428); Unsaturated Iron Binding 109 ug/dL
[2021-04-28 06:34] LABS: Ferritin 80 ng/mL (10-250)
[2021-04-28 07:18] LABS: Procalcitonin 0.19 ng/mL
[2021-04-28] MEDS: Thiamine HCL 250 MG in 0.9 % Sodium Chloride 100 ML 202 MG IV ×3 (07:32→23:28)
[2021-04-28] MEDS: 0.9 % Sodium Chloride Flush 3 ML SYRINGE IVFLUSH ×3 (07:33→20:26)
[2021-04-28 07:47] LABS: Albumin Peritoneal Fluid 0.3
[2021-04-28 07:57] LABS: Glucose, Whole Blood 81 mg/dL (60-115)
[2021-04-28] MEDS: Furosemide 20 MG TABLET 10 MG PO (08:36)
[2021-04-28] MEDS: Folic Acid 1 MG TABLET PO (08:37)
[2021-04-28] MEDS: hydrOXYzine HCL 25 MG TABLET PO (08:37)
[2021-04-28] MEDS: Spironolactone 25 MG TABLET PO (08:37)
[2021-04-28] MEDS: Prazosin HCL 1 MG CAPSULE PO ×2 (08:37→20:26)
[2021-04-28] MEDS: PHENobarbitaL 15 MG TABLET PO ×2 (08:37→20:25)
[2021-04-28] MEDS: Multivitamin TABLET 1 TAB PO (08:37)
[2021-04-28] MEDS: amLODIPine Besylate 5 MG TABLET PO (08:37)
[2021-04-28] MEDS: buPROPion HCl XL 150 MG TAB.ER.24H PO (08:37)
[2021-04-28] MEDS: Omeprazole 20 MG CAPSULE.DR PO ×2 (08:38→20:25)
[2021-04-28] MEDS: Heparin Sodium,Porcine 5,000 UNIT/ML VIAL 5000 UNIT SUBCUT ×3 (08:38→23:28)
[2021-04-28] MEDS: Doxycycline Hyclate 100 MG in 0.9 % Sodium Chloride 250 ML 166.67 MG IV ×2 (08:38→20:25)
[2021-04-28] MEDS: DULoxetine HCl 60 MG CAPSULE.DR PO ×2 (08:38→20:25)
[2021-04-28 09:05] LABS: MRSA Nasal PCR NEGATIVE (Negative); SA Nasal PCR NEGATIVE (Negative)
--- NOTE | 2021-04-28 09:05 | P.PNIM_ITS ---
Subjective Subjective Date of Service: 04/28/21 Interval History: less tremulous cough improved no dyspnea underwent paracentesis yesterday does not want to return home- takes care of mother with alcoholism Review of Systems Review of Systems: Yes all other systems are reviewed and are negative Physical Exam Vital Signs: Vital Signs: Last Vital Signs Temp 97.5 F 04/28/21 08:00 Pulse 97 04/28/21 08:00 Resp 16 04/28/21 08:00 BP 143/75 H 04/28/21 08:00 Pulse Ox 98 04/28/21 08:00 Body Mass Index 26.5 Gen: mildly tremulous HEENT: sclera anicteric, moist mucus membranes Neck: supple Lungs: diminished bilaterally Heart: regular rate and rhythm, no murmurs Abd: soft, non-tender, ascites present, paracentesis site without fluid leak or bleeding Ext: 1+ lower extremity Skin: warm/well-perfused Neuro: alert and oriented x3, no focal findings Psych: appropriate affect Objective Data Active Medications Albuterol Sulfate (Albuterol Sulfate 90 Mcg 8 Gm Inhaler) 2 puff INHALE RQ4H PRN PRN Reason: shortness of breath/wheeze Amlodipine Besylate (Amlodipine Besylate 5 Mg Tablet) 5 mg PO DAILY [facility]; Protocol Last Admin: 04/28/21 08:37 Dose: 5 mg Documented by: MONA Atorvastatin Calcium (Atorvastatin Calcium 40 Mg Tablet) 40 mg PO BEDTIME [facility] Last Admin: 04/27/21 19:52 Dose: 40 mg Documented by: BECKIE Bupropion HCl (Bupropion Hcl Xl 150 Mg Tab.Er.24h) 150 mg PO DAILY [facility] Last Admin: 04/28/21 08:37 Dose: 150 mg Documented by: MONA Duloxetine HCl (Duloxetine Hcl 60 Mg Capsule.Dr) 60 mg PO BID [facility] Last Admin: 04/28/21 08:38 Dose: 60 mg Documented by: MONA Folic Acid (Folic Acid 1 Mg Tablet) 1 mg PO DAILY [facility] Last Admin: 04/28/21 08:37 Dose: 1 mg Documented by: MONA Furosemide (Furosemide 20 Mg Tablet) 10 mg PO DAILY [facility]; Protocol Last Admin: 04/28/21 08:36 Dose: 10 mg Documented by: MONA Heparin Sodium (Porcine) (Heparin Sodium,Porcine 5,000 Unit/Ml Vial) 5,000 unit SUBCUT Q8H [facility] Last Admin: 04/28/21 08:38 Dose: 5,000 unit Documented by: MONA Hydroxyzine HCl (Hydroxyzine Hcl 50 Mg Tablet) 100 mg PO BEDTIME [facility] Last Admin: 04/27/21 19:52 Dose: 100 mg Documented by: BECKIE Hydroxyzine HCl (Hydroxyzine Hcl 25 Mg Tablet) 25 mg PO DAILY [facility] Last Admin: 04/28/21 08:37 Dose: 25 mg Documented by: MONA Thiamine HCl 250 mg/ Sodium (Chloride) 102.5 mls @ 202 mls/hr IV Q8H [facility] Stop: 04/29/21 00:31 Last Infusion: 04/28/21 08:07 Dose: 0 mls/hr Documented by: MONA Doxycycline Hyclate 100 mg/ (Sodium Chloride) 250 mls @ 166.67 mls/hr IV Q12H [facility] Last Admin: 04/28/21 08:38 Dose: 166.67 mls/hr Documented by: MONA Piperacillin Sod/Tazobactam (Sod 3.375 gm/ Sodium Chloride) 50 mls @ 100 mls/hr IV Q6H [facility] Last Infusion: 04/28/21 04:34 Dose: 0 mls/hr Documented by: BECKIE Medication (No Benzodiazepines) 1 each MISCELLANE DAILY [facility] Melatonin (Melatonin 3 Mg Tablet) 6 mg PO BEDTIME PRN PRN Reason: Insomnia Multivitamins/Vitamin C (Multivitamin Tablet) 1 tab PO DAILY [facility] Last Admin: 04/28/21 08:37 Dose: 1 tab Documented by: MONA Olanzapine (Olanzapine 5 Mg Tablet) 5 mg PO BEDTIME [facility] Last Admin: 04/27/21 19:52 Dose: 5 mg Documented by: BECKIE Omeprazole (Omeprazole 20 Mg Capsule.) 20 mg PO BID [facility] Last Admin: 04/28/21 08:38 Dose: 20 mg Documented by: MONA Pharmacy Consult (Consult Rx Etoh Phenob Dosing) 1 each MISCELLANE ONCE PRN; Protocol PRN Reason: Consult order Pharmacy Consult (Consult Rx Vancomycin Dosing) 1 each MISCELLANE DAILY PRN PRN Reason: Consult order Pharmacy Consult (Consult Rx Vancomycin Dosing) 1 each MISCELLANE DAILY PRN PRN Reason: Consult order Phenobarbital (Phenobarbital 15 Mg Tablet) 15 mg PO BID [facility] Stop: 04/29/21 21:01 Last Admin: 04/28/21 08:37 Dose: 15 mg Documented by: MONA Phenobarbital (Phenobarbital 15 Mg Tablet) 15 mg PO DAILY [facility] Stop: 05/01/21 09:01 Prazosin HCl (Prazosin Hcl 1 Mg Capsule) 1 mg PO BID [facility]; Protocol Last Admin: 04/28/21 08:37 Dose: 1 mg Documented by: MONA Senna (Sennosides 8.6 Mg Tablet) 17.2 mg PO BEDTIME PRN PRN Reason: Constipation Sodium Chloride (0.9 % Sodium Chloride Flush 3 Ml Syringe) 3 ml IVFLUSH QSHIFT [facility] Last Admin: 04/28/21 07:33 Dose: 3 ml Documented by: MONA Spironolactone (Spironolactone 25 Mg Tablet) 25 mg PO DAILY [facility]; Protocol Last Admin: 04/28/21 08:37 Dose: 25 mg Documented by: MONA Thiamine HCl (Thiamine Hcl 100 Mg Tablet) 100 mg PO DAILY [facility] Labs CBC & Chem 7: 04/28/21 05:25 04/28/21 05:25 Labs: Laboratory Results - last 24 hr 04/27/21 04/27/21 04/27/21 11:20 11:31 15:43 MCV MCH MCHC RDW Plt Count MPV Absolute Nucleated RBC Nucleated RBC % (auto) Anion Gap Estim Creat Clear Calc Estimated GFR POC Glucose 141 H 181 H Random Glucose Calcium Magnesium Iron TIBC % Saturation Unsat Iron Binding Ferritin Procalcitonin Peritoneal WBC Peritoneal RBC Periton Neutrophils Periton Lymphocytes Peritoneal Monocytes Peritoneal Other Cells Peritoneal Albumin Vancomycin Trough Cancelled 04/27/21 04/27/21 04/27/21 16:10 16:10 17:30 MCV MCH MCHC RDW Plt Count MPV Absolute Nucleated RBC Nucleated RBC % (auto) Anion Gap Estim Creat Clear Calc Estimated GFR POC Glucose 162 H Random Glucose Calcium Magnesium Iron TIBC % Saturation Unsat Iron Binding Ferritin Procalcitonin Peritoneal WBC 0.288 Peritoneal RBC < 0.002 Periton Neutrophils 33 Periton Lymphocytes 33 Peritoneal Monocytes 27 Peritoneal Other Cells 7 Peritoneal Albumin 0.3 Vancomycin Trough 04/27/21 04/27/21 04/28/21 20:43 21:56 05:25 MCV MCH MCHC RDW Plt Count MPV Absolute Nucleated RBC Nucleated RBC % (auto) Anion Gap 13 Estim Creat Clear Calc 86.0 Estimated GFR > 60 POC Glucose 155 H Random Glucose 92 Calcium 7.8 L Magnesium 1.5 L Iron 52 TIBC 161 L % Saturation 32 Unsat Iron Binding 109 Ferritin 80 Procalcitonin Peritoneal WBC Peritoneal RBC Periton Neutrophils Periton Lymphocytes Peritoneal Monocytes Peritoneal Other Cells Peritoneal Albumin Vancomycin Trough 19.3 04/28/21 04/28/21 04/28/21 05:25 05:25 07:26 MCV 99.7 H MCH 33.3 H MCHC 33.4 RDW 13.5 Plt Count 185 MPV 9.6 Absolute Nucleated RBC 0.000 Nucleated RBC % (auto) 0.0 Anion Gap Estim Creat Clear Calc Estimated GFR POC Glucose 81 Random Glucose Calcium Magnesium Iron TIBC % Saturation Unsat Iron Binding Ferritin Procalcitonin 0.19 Peritoneal WBC Peritoneal RBC Periton Neutrophils Periton Lymphocytes Peritoneal Monocytes Peritoneal Other Cells Peritoneal Albumin Vancomycin Trough Impressions Paracentesis Ultrasound 04/27/21 16:44 IMPRESSION: Successful ultrasound-guided diagnostic paracentesis performed from the right lower quadrant. Abdomen Ultrasound 04/27/21 17:13 IMPRESSION: Unremarkable complete abdomen ultrasound except for gallbladder wall thickening with fluid within the wall.. No echogenic gallstone seen. There is retrograde flow seen in the main hepatic artery. Normal hepatopedal flow seen in the extrahepatic and intrahepatic right and main portal vein. There is hepatofugal flow in the left portal vein. Doppler Study Ultrasound 04/27/21 17:13 IMPRESSION: Unremarkable complete abdomen ultrasound except for gallbladder wall thickening with fluid within the wall.. No echogenic gallstone seen. There is retrograde flow seen in the main hepatic artery. Normal hepatopedal flow seen in the extrahepatic and intrahepatic right and main portal vein. There is hepatofugal flow in the left portal vein. Microbiology Microbiology Results: Microbiology 04/25/21 23:15 Blood Culture - Preliminary Blood - Venous No growth after 48 hours. 04/25/21 23:20 Blood Culture - Preliminary Blood - Venous No growth after 48 hours. 04/26/21 Unknown Urine Culture - Final Urine Catheterized - Benoit Catheter No growth. Assessment and Plan (1) Withdrawal symptoms, alcohol: Status: Acute (2) Alcoholism: Status: Acute Assessment and Plan: hospital d#4 56yo F with HTN, HLD, DM2, COPD, EtOH abuse presented to hospital after fall, noted to be confused and withdrawing from EtOH new-onset cirrhosis with ascites # EtOH withdrawal - continue phenobarbital taper, thiamine, folate, vitamins; Addiction Medicine consultation; CARE Team consultation # hypoglycemia - due to glipizide use with ongoing EtOH abuse. d/c'ed glipizide and now off D10. A1c only 4.3- does not need glipizide or any other DM med # toxic/metabolic encephalopathy - improving; due to hypoglycemia + EtOH/withdrawal, treating as above, Neuro consulted, EEG ordered. giving IV thiamine for concern of Wernicke encephalopathy # cirrhosis with ascites - likely due to EtOH. GI consulted. serologic workup ordered. diagnostic paracentesis done yesterday; 800 mL ascites removed, SAAG 1.9 consistent with portal HTN, no evidence of SBP. started low-dose diuretics- spironolactone + furosemide- increase doses. needs outpt GI f/u and outpt EGD to screen for varices # pneumonia - continue pip/joseph d#4, vanco changed to doxy d#2, BCx NGTD, pending Legionella UAg, nasal MRSA swab negative, ID consulted, trend PCT # hypoMg - replete, recheck in AM, likely needs PO maintenance # HTN - continue amlodipine # mood disorder - continue bupropion, prazosin, hydroxyzine, duloxetine, olanzapine # DM2, not - A1c only 4.3- d/c all OHGs [was on MTF + GPZ]- not needed - hold MTF + GPZ due to alcoholism + hypoglycemia # HLD - continue statin # malnutrition, protein-calorie, moderate - supplements # multiple falls - no evidence of fracture/bleed - PT consulted, home PT recommended but pt does not feel safe to go home given mother's uncontrolled alcohol abuse # VTE ppx - UFH Quality Stroke Does the patient have a stroke diagnosis?: No VTE Prior VTE?: No VTE Risk Level:: Medical - moderate - high VTE Device Contraindication: Treatment Not Indicated VTE Drug Contraindication: N/A - Med Ordered
[2021-04-28 09:27] LABS: HBS Num1 1.65 mIU/mL (0-7.99); HBc Num1 0.06 S/CO (0.00-0.79); HBsAGNum1 0.15 S/CO (0.00-0.99); Hepatitis B Core Antibody Nonreactive (Nonreactive); Hepatitis B Surface Antigen Negative (Negative); ~HepC Num1 0.09 S/CO (0.00-0.79); ~Hepatitis B Surface Antibody NONREACTIVE (Nonreactive); ~Hepatitis C Antibody Nonreactive (Nonreactive)
[2021-04-28] MEDS: oxyCODONE HCl Immed Release 5 MG TABLET PO (10:05)
[2021-04-28] MEDS: Lidocaine 4 % Patch ADH..PATCH 1 PATCH TRANSDERMA (10:06)
[2021-04-28 11:50] LABS: Glucose, Whole Blood 108 mg/dL (60-115)
--- NOTE | 2021-04-28 14:05 | MHC.RECOVRN ---
T/w met with pt to f/u regarding AUD. Upon entering pts room, pt sitting in recliner, reports feeling better. Pt awake, alert, does not appear to be experiencing any withdrawal symptoms. Pt is hoping to go to [facility] prior to returning home as she is concerned about the alcohol in the house due to her mother continuing to drink. However, pt is motivated to abstain. Pt declines medications for alcohol use disorder at this time. Pt states I have tried campral before and it kind of worked but I want to see how the cards lay before I take it again. Pt reports having a therapist through [facility] as well as friends in recovery. Pt encouraged to contact t/w if questions or concerns arise. T/w available if needed. Discussed with Keri Washington APRN.
[2021-04-28 17:29] LABS: Glucose, Whole Blood 115 mg/dL (60-115)
[2021-04-28] MEDS: Magnesium Oxide 400 MG TABLET PO (17:46)
[2021-04-28] MEDS: OLANZapine 5 MG TABLET PO (20:25)
[2021-04-28] MEDS: hydrOXYzine HCL 50 MG TABLET 100 MG PO (20:25)
[2021-04-28] MEDS: Atorvastatin Calcium 40 MG TABLET PO (20:25)
[2021-04-28 20:53] LABS: Glucose, Whole Blood 118 mg/dL (60-115)
[2021-04-29] VITALS (9 sets, daily range): BP systolic 126–138; BP diastolic 60–74; PULSE 86–90; RESP 16–18; TEMP 36.1–36.5; O2SAT 95–98
[2021-04-29] MEDS: Piperacillin Sodium/Tazobactam 3.375 GM in 0.9 % Sodium Chloride 50 ML IV ×4 (05:02→21:49)
[2021-04-29 06:49] LABS: Anion Gap 9 (12-20); Blood Urea Nitrogen 5 mg/dL (9-16); Calcium 7.5 mg/dL (8.4-10.2); Carbon Dioxide 25 mmol/L (22-29); Chloride 107 mmol/L (96-108); Creatinine Clr Calc Pharmacy 83.5; Estimated Glomerular Filt Rate > 60; Glucose Random 77 mg/dL (60-115); Magnesium 1.3 mg/dL (1.6-2.6); Potassium 3.1 mmol/L (3.3-5.1); Sodium 138 mmol/L (135-145)
[2021-04-29 07:22] LABS: Glucose, Whole Blood 85 mg/dL (60-115)
[2021-04-29] MEDS: Magnesium Sulfate/H2O 2 GM/50 ML PIGGYBACK IV ×2 (07:59→19:58)
[2021-04-29] MEDS: Omeprazole 20 MG CAPSULE.DR PO ×2 (08:03→21:03)
[2021-04-29] MEDS: 0.9 % Sodium Chloride Flush 3 ML SYRINGE IVFLUSH ×3 (08:03→21:49)
[2021-04-29] MEDS: Folic Acid 1 MG TABLET PO (08:04)
[2021-04-29] MEDS: buPROPion HCl XL 150 MG TAB.ER.24H PO (08:04)
[2021-04-29] MEDS: DULoxetine HCl 60 MG CAPSULE.DR PO ×2 (08:04→21:02)
[2021-04-29] MEDS: Prazosin HCL 1 MG CAPSULE PO ×2 (08:04→21:13)
[2021-04-29] MEDS: Multivitamin TABLET 1 TAB PO (08:04)
[2021-04-29] MEDS: Magnesium Oxide 400 MG TABLET PO ×2 (08:05→16:41)
[2021-04-29] MEDS: Furosemide 20 MG TABLET PO (08:05)
[2021-04-29] MEDS: hydrOXYzine HCL 25 MG TABLET PO (08:05)
[2021-04-29] MEDS: Thiamine HCL 100 MG TABLET PO (08:05)
[2021-04-29] MEDS: amLODIPine Besylate 5 MG TABLET PO (08:05)
[2021-04-29] MEDS: Spironolactone 25 MG TABLET 50 MG PO (08:06)
[2021-04-29] MEDS: Heparin Sodium,Porcine 5,000 UNIT/ML VIAL 5000 UNIT SUBCUT ×2 (08:06→16:41)
[2021-04-29] MEDS: PHENobarbitaL 15 MG TABLET PO ×2 (08:06→21:03)
[2021-04-29] MEDS: Lidocaine 4 % Patch ADH..PATCH 1 PATCH TRANSDERMA (08:09)
--- NOTE | 2021-04-29 08:20 | HO.PM.IMPN ---
Subjective Subjective Date of Service: 04/29/21 Interval History: Tremor improved K/Mg low Committed to sobriety Review of Systems Review of Systems: Yes all other systems are reviewed and are negative Physical Exam Vital Signs: Vital Signs: Last Vital Signs Temp 97.3 F 04/29/21 07:27 Pulse 90 04/29/21 07:27 Resp 18 04/29/21 07:27 BP 129/74 04/29/21 07:27 Pulse Ox 97 04/29/21 07:27 Body Mass Index 26.5 Gen: NAD HEENT: sclera anicteric, moist mucus membranes Neck: supple Lungs: diminished bilaterally Heart: regular rate and rhythm, no murmurs Abd: soft, non-tender, ascites present, paracentesis site without fluid leak or bleeding Ext: 1+ lower extremity edema bilaterally Skin: warm/well-perfused Neuro: alert and oriented x3, no focal findings Psych: appropriate affect Objective Data Active Medications Albuterol Sulfate (Albuterol Sulfate 90 Mcg 8 Gm Inhaler) 2 puff INHALE RQ4H PRN PRN Reason: shortness of breath/wheeze Amlodipine Besylate (Amlodipine Besylate 5 Mg Tablet) 5 mg PO DAILY [facility]; Protocol Last Admin: 04/29/21 08:05 Dose: 5 mg Documented by: GREG Atorvastatin Calcium (Atorvastatin Calcium 40 Mg Tablet) 40 mg PO BEDTIME [facility] Last Admin: 04/28/21 20:25 Dose: 40 mg Documented by: BECKIE Bupropion HCl (Bupropion Hcl Xl 150 Mg Tab.Er.24h) 150 mg PO DAILY [facility] Last Admin: 04/29/21 08:04 Dose: 150 mg Documented by: GREG Duloxetine HCl (Duloxetine Hcl 60 Mg Capsule.Dr) 60 mg PO BID [facility] Last Admin: 04/29/21 08:04 Dose: 60 mg Documented by: GREG Folic Acid (Folic Acid 1 Mg Tablet) 1 mg PO DAILY [facility] Last Admin: 04/29/21 08:04 Dose: 1 mg Documented by: GREG Furosemide (Furosemide 20 Mg Tablet) 20 mg PO DAILY [facility]; Protocol Last Admin: 04/29/21 08:05 Dose: 20 mg Documented by: GREG Heparin Sodium (Porcine) (Heparin Sodium,Porcine 5,000 Unit/Ml Vial) 5,000 unit SUBCUT Q8H [facility] Last Admin: 04/29/21 08:06 Dose: 5,000 unit Documented by: GREG Hydroxyzine HCl (Hydroxyzine Hcl 50 Mg Tablet) 100 mg PO BEDTIME [facility] Last Admin: 04/28/21 20:25 Dose: 100 mg Documented by: BECKIE Hydroxyzine HCl (Hydroxyzine Hcl 25 Mg Tablet) 25 mg PO DAILY [facility] Last Admin: 04/29/21 08:05 Dose: 25 mg Documented by: GREG Doxycycline Hyclate 100 mg/ (Sodium Chloride) 250 mls @ 166.67 mls/hr IV Q12H [facility] Last Infusion: 04/28/21 22:17 Dose: 0 mls/hr Documented by: BECKIE Piperacillin Sod/Tazobactam (Sod 3.375 gm/ Sodium Chloride) 50 mls @ 100 mls/hr IV Q6H [facility] Last Infusion: 04/29/21 06:28 Dose: 0 mls/hr Documented by: BECKIE Magnesium Sulfate (Magnesium Sulfate/H2o) 2 gm in 50 mls @ 25 mls/hr IV Q12H [facility] Stop: 04/29/21 21:44 Last Admin: 04/29/21 07:59 Dose: 25 mls/hr Documented by: GREG Lidocaine (Lidocaine 4 % Patch Adh..Patch) 1 patch TRANSDERMA DAILY [facility]; Protocol Last Admin: 04/29/21 08:09 Dose: 1 patch Documented by: GREG Magnesium Oxide (Magnesium Oxide 400 Mg Tablet) 400 mg PO BIDPC [facility] Last Admin: 04/29/21 08:05 Dose: 400 mg Documented by: GREG Medication (No Benzodiazepines) 1 each MISCELLANE DAILY [facility] Melatonin (Melatonin 3 Mg Tablet) 6 mg PO BEDTIME PRN PRN Reason: Insomnia Multivitamins/Vitamin C (Multivitamin Tablet) 1 tab PO DAILY [facility] Last Admin: 04/29/21 08:04 Dose: 1 tab Documented by: GREG Olanzapine (Olanzapine 5 Mg Tablet) 5 mg PO BEDTIME [facility] Last Admin: 04/28/21 20:25 Dose: 5 mg Documented by: BECKIE Omeprazole (Omeprazole 20 Mg Capsule.Dr) 20 mg PO BID [facility] Last Admin: 04/29/21 08:03 Dose: 20 mg Documented by: GREG Oxycodone HCl (Oxycodone Hcl Immed Release 5 Mg Tablet) 5 mg PO Q4H PRN PRN Reason: severe pain Last Admin: 04/28/21 10:05 Dose: 5 mg Documented by: MONA Pharmacy Consult (Consult Rx Etoh Phenob Dosing) 1 each MISCELLANE ONCE PRN; Protocol PRN Reason: Consult order Pharmacy Consult (Consult Rx Vancomycin Dosing) 1 each MISCELLANE DAILY PRN PRN Reason: Consult order Pharmacy Consult (Consult Rx Vancomycin Dosing) 1 each MISCELLANE DAILY PRN PRN Reason: Consult order Phenobarbital (Phenobarbital 15 Mg Tablet) 15 mg PO BID [facility] Stop: 04/29/21 21:01 Last Admin: 04/29/21 08:06 Dose: 15 mg Documented by: GREG Phenobarbital (Phenobarbital 15 Mg Tablet) 15 mg PO DAILY [facility] Stop: 05/01/21 09:01 Prazosin HCl (Prazosin Hcl 1 Mg Capsule) 1 mg PO BID [facility]; Protocol Last Admin: 04/29/21 08:04 Dose: 1 mg Documented by: GREG Senna (Sennosides 8.6 Mg Tablet) 17.2 mg PO BEDTIME PRN PRN Reason: Constipation Sodium Chloride (0.9 % Sodium Chloride Flush 3 Ml Syringe) 3 ml IVFLUSH QSHIFT [facility] Last Admin: 04/29/21 08:03 Dose: 3 ml Documented by: GREG Spironolactone (Spironolactone 25 Mg Tablet) 50 mg PO DAILY [facility]; Protocol Last Admin: 04/29/21 08:06 Dose: 50 mg Documented by: GREG Thiamine HCl (Thiamine Hcl 100 Mg Tablet) 100 mg PO DAILY [facility] Last Admin: 04/29/21 08:05 Dose: 100 mg Documented by: GREG Labs CBC & Chem 7: 04/28/21 05:25 04/29/21 06:14 Labs: Laboratory Results - last 24 hr 04/27/21 04/28/21 04/28/21 23:15 05:25 11:41 Anion Gap Estim Creat Clear Calc Estimated GFR POC Glucose 108 Random Glucose Calcium Magnesium Nasal Screen MRSA (PCR) NEGATIVE Nasal S. aureus Screen NEGATIVE Nasal MRSA/S.aureus Interp SEE NOTE Hep Bs Antigen Negative Hep Bs Antibody NONREACTIVE Hep B Core Total Ab Nonreactive Hepatitis C Ab (EIA) Nonreactive 04/28/21 04/28/21 04/29/21 17:04 20:47 06:14 Anion Gap 9 L Estim Creat Clear Calc 83.5 Estimated GFR > 60 POC Glucose 115 118 H Random Glucose 77 Calcium 7.5 L Magnesium 1.3 L* Nasal Screen MRSA (PCR) Nasal S. aureus Screen Nasal MRSA/S.aureus Interp Hep Bs Antigen Hep Bs Antibody Hep B Core Total Ab Hepatitis C Ab (EIA) 04/29/21 07:13 Anion Gap Estim Creat Clear Calc Estimated GFR POC Glucose 85 Random Glucose Calcium Magnesium Nasal Screen MRSA (PCR) Nasal S. aureus Screen Nasal MRSA/S.aureus Interp Hep Bs Antigen Hep Bs Antibody Hep B Core Total Ab Hepatitis C Ab (EIA) Laboratory Results WBC 8.8 X10*3/uL (4.8-10.8) 04/28/21 05:25 RBC 3.06 X10*6/uL (4.20-5.50) L 04/28/21 05:25 Hgb 10.2 g/dl (12.0-16.0) L 04/28/21 05:25 Hct 30.5 % (37-47) L 04/28/21 05:25 MCV 99.7 fL (80-98) H 04/28/21 05:25 MCH 33.3 pg (27.0-33.0) H 04/28/21 05:25 MCHC 33.4 g/dl (31.0-35.0) 04/28/21 05:25 RDW 13.5 % (11.0-16.0) 04/28/21 05:25 Plt Count 185 X10*3/uL (160-400) 04/28/21 05:25 MPV 9.6 fL (9.4-12.3) 04/28/21 05:25 Immature Gran % (Auto) 1.0 % (0.0-0.4) H 04/26/21 07:09 Neut % (Auto) 80.7 % (45-73) H 04/26/21 07:09 Lymph % (Auto) 9.7 % (20-40) L 04/26/21 07:09 [place] % (Auto) 7.2 % (2-11) 04/26/21 07:09 Eos % (Auto) 1.2 % (0-4) 04/26/21 07:09 Baso % (Auto) 0.2 % (0-2) 04/26/21 07:09 Lymph # (Auto) 1.3 X10*3/uL (1.2-4.9) 04/26/21 07:09 [place] # (Auto) 1.0 X10*3/uL (0.1-1.2) 04/26/21 07:09 Eos # (Auto) 0.2 X10*3/uL (0.0-0.4) 04/26/21 07:09 Baso # (Auto) 0.0 X10*3/uL (0.0-0.2) 04/26/21 07:09 Abs Immat Gran (auto) 0.14 X10*3/uL (0.00-0.03) H 04/26/21 07:09 Absolute Neuts (auto) 11.2 X10*3/uL (2.0-8.3) H 04/26/21 07:09 Absolute Nucleated RBC 0.000 X10*3/uL (0.0-0.012) 04/28/21 05:25 Nucleated RBC % (auto) 0.0 /100WBC (0.0-0.2) 04/28/21 05:25 PT 12.6 SEC (9.9-13.0) 04/25/21 23:21 INR 1.1 (0.9-1.1) 04/25/21 23:21 O2 Saturation 96.0 % 04/25/21 22:26 ABG pH at Pt Temp 7.38 (7.35-7.45) 04/25/21 22: ABG pH (Temp Correct) 7.39 (7.35-7.45) 04/25/21 22: ABG pCO2 at Pt Temp 31 mmHg (32-45) L 04/25/21 22: ABG pCO2 (Temp Corrct 31 mmHg (32-45) L 04/25/21 22: ABG pO2 at Pt Temp 99 mmHg (83-108) 04/25/21 22: ABG pO2 (Temp Correct 97 (83-108) 04/25/21 22: ABG HCO3 19 mmol/L (22-26) L 04/25/21 22:26 ABG Base Excess (Actual) -4.7 mmol/L 04/25/21 22:26 Sodium 138 mmol/L (135-145) 04/29/21 06:14 Potassium 3.1 mmol/L (3.3-5.1) L 04/29/21 06:14 Chloride 107 mmol/L (96-108) 04/29/21 06:14 Carbon Dioxide 25 mmol/L (22-29) 04/29/21 06:14 Anion Gap 9 (12-20) L 04/29/21 06:14 BUN 5 mg/dL (9-16) L 04/29/21 06:14 Creatinine 0.68 mg/dL (0.5-1.4) 04/29/21 06:14 Estim Creat Clear Calc 83.5 04/29/21 06:14 Estimated GFR > 60 04/29/21 06:14 POC Glucose 85 mg/dL (60-115) 04/29/21 07:13 Random Glucose 77 mg/dL (60-115) 04/29/21 06:14 Estimat Average Glucose 77 mg/dL 04/27/21 05:26 Hemoglobin A1c % 4.3 % 04/27/21 05:26 Calcium 7.5 mg/dL (8.4-10.2) L 04/29/21 06:14 Magnesium 1.3 mg/dL (1.6-2.6) L* 04/29/21 06:14 Iron 52 mcg/dL (30-160) 04/28/21 05:25 TIBC 161 mcg/dL (228-428) L 04/28/21 05:25 % Saturation 32 % (15-50) 04/28/21 05:25 Unsat Iron Binding 109 ug/dL 04/28/21 05:25 Ferritin 80 ng/mL (10-250) 04/28/21 05:25 Total Bilirubin 1.2 mg/dL (0.0-1.0) H 04/27/21 05:26 AST 68 U/L (5-31) H 04/27/21 05:26 ALT 46 U/L (0-31) H 04/27/21 05:26 Alkaline Phosphatase 283 U/L (39-117) H 04/27/21 05:26 Ammonia 57 umol/L (13-55) H 04/26/21 10:53 Troponin I High Sens < 3.5 ng/L (<3.5-17.0) 04/25/21 19:50 B-Natriuretic Peptide 23 pg/mL (<100) 04/25/21 19:50 Total Protein 4.5 g/dL (6.5-8.0) L 04/27/21 05:26 Albumin 2.2 g/dL (3.5-5.0) L D 04/27/21 05:26 Vitamin B12 788 pg/mL (200-900) 04/26/21 07:09 Folate 3.9 ng/mL (> or = 4.0) L 04/26/21 07:09 Procalcitonin 0.19 ng/mL 04/28/21 05:25 Urine Color YELLOW 04/26/21 05:45 Urine Appearance HAZY 04/26/21 05:45 Urine pH 6.0 (5.0-8.0) 04/26/21 05:45 Ur Specific [place] 1.015 (1.005-1.025) 04/26/21 05:45 Urine Protein TRACE MG/DL (NEG-TRACE) 04/26/21 05:45 Urine Glucose (UA) NEG MG/DL (NEG) 04/26/21 05:45 Urine Ketones NEG MG/DL (NEG) 04/26/21 05:45 Urine Blood TRACE (NEG) 04/26/21 05:45 Urine Nitrite POS (NEG) H 04/26/21 05:45 Ur Leukocyte Esterase 3+ (NEG) H 04/26/21 05:45 Urine RBC 0 /HPF (0) 04/26/21 05:45 Urine WBC 76-150 /HPF (0-4) H 04/26/21 05:45 Urine WBC Clumps NOTED 04/26/21 05:45 Ur Squamous Epith Cells 1+ /LPF 04/26/21 05:45 Urine Bacteria 2+ /LPF 04/26/21 05:45 Hyaline Casts 0-2 /LPF 04/26/21 05:45 Peritoneal WBC 0.288 X10*3/uL 04/27/21 16:10 Peritoneal RBC < 0.002 X10*6/uL 04/27/21 16:10 Periton Neutrophils 33 % 04/27/21 16:10 Periton Lymphocytes 33 % 04/27/21 16:10 Peritoneal Monocytes 27 % 04/27/21 16:10 Peritoneal Other Cells 7 % 04/27/21 16:10 Peritoneal Albumin 0.3 04/27/21 16:10 Nasal Screen MRSA (PCR) NEGATIVE (Negative) 04/27/21 23:15 Nasal S. aureus Screen NEGATIVE (Negative) 04/27/21 23:15 Nasal MRSA/S.aureus Interp SEE NOTE 04/27/21 23:15 Vancomycin Trough 19.3 mcg/mL (10.0-20.0) 04/27/21 21:56 Phenobarbital 4.8 mcg/mL (10.0-40.0) L 04/25/21 23:21 Ethyl Alcohol 52 mg/dL 04/25/21 19:50 Respiratory Panel Sam See Note 04/26/21 12:21 Adenovirus (Rapid PCR) Not Detected (Not Detect.) 04/26/21 12:21 B.pert (TEM-PCR) Not Detected (Not Detect.) 04/26/21 12:21 B.parapertussis DNA PCR Not Detected (Not Detect.) 04/26/21 12:21 C. pneumoniae DNA (PCR) Not Detected (Not Detect.) 04/26/21 12:21 Coronavirus OC43 (PCR) Not Detected (Not Detect.) 04/26/21 12:21 Coronavirus HKU1 (PCR) Not Detected (Not Detect.) 04/26/21 12:21 Coronavirus 229E (PCR) Not Detected (Not Detect.) 04/26/21 12:21 COVID-19 (ENA) Negative (Negative) 04/25/21 19:50 COVID-19 Clin Com See Note 04/25/21 19:50 Coronavirus NL63 (PCR) Not Detected (Not Detect.) 04/26/21 12:21 Hep Bs Antigen Negative (Negative) 04/28/21 05:25 Hep Bs Antibody NONREACTIVE (Nonreactive) 04/28/21 05:25 Hep B Core Total Ab Nonreactive (Nonreactive) 04/28/21 05:25 Hepatitis C Ab (EIA) Nonreactive (Nonreactive) 04/28/21 05:25 Human Metapneumovir PCR Not Detected (Not Detect.) 04/26/21 12:21 Influenza A (RT-PCR) Not Detected (Not Detect.) 04/26/21 12:21 Influenza B (RT-PCR) Not Detected (Not Detect.) 04/26/21 12:21 M. pneumoniae (PCR) Not Detected (Not Detect.) 04/26/21 12:21 Parainfluenza 1 (PCR) Not Detected (Not Detect.) 04/26/21 12:21 Parainfluenza 2 (PCR) Not Detected (Not Detect.) 04/26/21 12:21 Parainfluenza 3 (PCR) Not Detected (Not Detect.) 04/26/21 12:21 Parainfluenza 4 (PCR) Not Detected (Not Detect.) 04/26/21 12:21 RSV (PCR) Not Detected (Not Detect.) 04/26/21 12:21 Entero/Rhino (PCR) Not Detected (Not Detect.) 04/26/21 12:21 SARS-CoV-2 RNA (RT-PCR) Not Detected (Not Detect.) 04/26/21 12:21 Impressions Chest X-Ray 04/25/21 18:06 IMPRESSION: Hypoexpanded. No acute process otherwise. Venous Duplex 04/25/21 18:10 IMPRESSION: No DVT demonstrated in the bilateral lower extremity. Ankle X-Ray 04/25/21 19:27 IMPRESSION: Bimalleolar soft tissue swelling in both ankles. No visible acute fracture, dislocation or lytic process seen. There is a moderate size calcaneal heel enthesophytes in both ankles. Head CT 04/25/21 19:40 IMPRESSION: 1. Exam limited by motion. 1. No gross evidence of acute intracranial pathology. 2. No gross evidence of acute cervical spine fracture or traumatic subluxation Cervical Spine CT 04/25/21 19:41 IMPRESSION: 1. Exam limited by motion. 1. No gross evidence of acute intracranial pathology. 2. No gross evidence of acute cervical spine fracture or traumatic subluxation Abdomen/Pelvis CT 04/25/21 20:48 IMPRESSION: Groundglass attenuation left upper lobe suspicious for infiltrative or inflammatory process. There is dependent right upper lobe superior segment and left lower lobe posterior basal segment atelectasis. Moderate cardiomegaly with diffuse hepatic steatosis and likely cirrhosis with underlying artery ascites. There is no bowel distention. No free air. Chest CT 04/25/21 20:55 IMPRESSION: Groundglass attenuation left upper lobe suspicious for infiltrative or inflammatory process. There is dependent right upper lobe superior segment and left lower lobe posterior basal segment atelectasis. Moderate cardiomegaly with diffuse hepatic steatosis and likely cirrhosis with underlying artery ascites. There is no bowel distention. No free air. Paracentesis Ultrasound 04/27/21 16:44 IMPRESSION: Successful ultrasound-guided diagnostic paracentesis performed from the right lower quadrant. Abdomen Ultrasound 04/27/21 17:13 IMPRESSION: Unremarkable complete abdomen ultrasound except for gallbladder wall thickening with fluid within the wall.. No echogenic gallstone seen. There is retrograde flow seen in the main hepatic artery. Normal hepatopedal flow seen in the extrahepatic and intrahepatic right and main portal vein. There is hepatofugal flow in the left portal vein. Doppler Study Ultrasound 04/27/21 17:13 IMPRESSION: Unremarkable complete abdomen ultrasound except for gallbladder wall thickening with fluid within the wall.. No echogenic gallstone seen. There is retrograde flow seen in the main hepatic artery. Normal hepatopedal flow seen in the extrahepatic and intrahepatic right and main portal vein. There is hepatofugal flow in the left portal vein. EEG 04/27/21 IMPRESSION: This is an abnormal EEG due to mild generalized background slowing consistent with a diffuse encephalopathic process.? No seizure discharges are identified. Microbiology Microbiology Results: Microbiology 04/27/21 16:10 Gram Stain - Final Ascites Fluid Routine Culture - Preliminary No growth to date. Anaerobic Culture - Preliminary No growth to date. Assessment and Plan (1) Withdrawal symptoms, alcohol: Status: Acute (2) Alcoholism: Status: Acute Assessment and Plan: hospital d#5 56yo F with HTN, HLD, DM2, COPD, EtOH abuse presented to hospital after fall, noted to be confused and withdrawing from EtOH new-onset cirrhosis with ascites pneumonia # EtOH withdrawal - continue phenobarbital taper, thiamine, folate, vitamins; Addiction Medicine consultation; CARE Team consultation # hypoglycemia - due to glipizide use with ongoing EtOH abuse. d/c'ed glipizide and now off D10. A1c only 4.3- does not need glipizide or any other DM med # toxic/metabolic encephalopathy - improving; due to hypoglycemia + EtOH/withdrawal, treating as above, Neuro consulted, EEG with diffuse encephalopathic process. IV->PO thiamine # cirrhosis with ascites - likely due to EtOH. GI consulted. serologic workup ordered. diagnostic paracentesis done 04/27; 800 mL ascites removed, SAAG 1.9 consistent with portal HTN, no evidence of SBP. started low-dose diuretics- spironolactone + furosemide- increased doses. needs outpt GI f/u and outpt EGD to screen for varices # pneumonia - continue pip/joseph d#5, vanco changed to doxy d#3, BCx NGTD, pending Legionella UAg, nasal MRSA swab negative, ID consulted, trend PCT # hypoMg - give IV, continue PO, recheck in am # hypoK - replete PO, recheck in am # HTN - continue amlodipine # mood disorder - continue bupropion, prazosin, hydroxyzine, duloxetine, olanzapine # DM2, not - A1c only 4.3- d/c all OHGs [was on MTF + GPZ]- not needed - hold MTF + GPZ due to alcoholism + hypoglycemia # HLD - continue statin # malnutrition, protein-calorie, moderate - supplements # multiple falls - no evidence of fracture/bleed - PT consulted, home PT recommended # VTE ppx - UFH Quality Stroke Does the patient have a stroke diagnosis?: No VTE Prior VTE?: No VTE Risk Level:: Medical - moderate - high VTE Device Contraindication: Treatment Not Indicated VTE Drug Contraindication: N/A - Med Ordered
[2021-04-29] MEDS: Doxycycline Hyclate 100 MG in 0.9 % Sodium Chloride 250 ML 166.67 MG IV ×2 (10:05→22:23)
[2021-04-29] MEDS: Potassium Chloride Packet 20 MEQ PACKET 40 MEQ PO (10:08)
[2021-04-29 11:26] LABS: Glucose, Whole Blood 120 mg/dL (60-115)
--- NOTE | 2021-04-29 11:49 | MHC.CLN ---
F/U INTAKE PER DOCUMENTATION VARIABLE, WITH MOST MEALS 50-100%. CONTINUE REGULAR DIET WITH ENSURE SUPPLEMENT 240 ML TID (1050 KCAL, 60 G PROTEIN).
[2021-04-29 16:05] LABS: Glucose, Whole Blood 122 mg/dL (60-115)
[2021-04-29] MEDS: hydrOXYzine HCL 50 MG TABLET 100 MG PO (21:02)
[2021-04-29] MEDS: OLANZapine 5 MG TABLET PO (21:02)
[2021-04-29] MEDS: Atorvastatin Calcium 40 MG TABLET PO (21:02)
[2021-04-29 21:42] LABS: Glucose, Whole Blood 114 mg/dL (60-115)
[2021-04-30] VITALS (7 sets, daily range): BP systolic 114–156; BP diastolic 57–72; PULSE 84–89; RESP 16–18; TEMP 36.2–36.4; O2SAT 94–98
[2021-04-30] MEDS: Heparin Sodium,Porcine 5,000 UNIT/ML VIAL 5000 UNIT SUBCUT ×3 (00:04→16:41)
[2021-04-30] MEDS: Piperacillin Sodium/Tazobactam 3.375 GM in 0.9 % Sodium Chloride 50 ML IV ×4 (03:48→21:37)
[2021-04-30 05:47] LABS: Hematocrit 30.2 % (37-47); Hemoglobin 10.3 g/dl (12.0-16.0); Mean Corpuscular HGB Conc 34.1 g/dl (31.0-35.0); Mean Corpuscular Hemoglobin 33.6 pg (27.0-33.0); Mean Corpuscular Volume 98.4 fL (80-98); Mean Platelet Volume 9.9 fL (9.4-12.3); Platelet Count 174 X10*3/uL (160-400); Red Blood Count 3.07 X10*6/uL (4.20-5.50); Red Cell Distribution Width 13.5 % (11.0-16.0); White Blood Count 8.8 X10*3/uL (4.8-10.8)
[2021-04-30 06:20] LABS: Alanine Aminotransferase 45 U/L (0-31); Albumin Level 2.2 g/dL (3.5-5.0); Alkaline Phosphatase 266 U/L (39-117); Anion Gap 12 (12-20); Aspartate Amino Transferase 56 U/L (5-31); Bilirubin Total 0.7 mg/dL (0.0-1.0); Blood Urea Nitrogen 5 mg/dL (9-16); Calcium 7.7 mg/dL (8.4-10.2); Carbon Dioxide 23 mmol/L (22-29); Chloride 105 mmol/L (96-108); Creatinine Clr Calc Pharmacy 82.3; Estimated Glomerular Filt Rate > 60; Glucose Random 75 mg/dL (60-115); Magnesium 1.9 mg/dL (1.6-2.6); Sodium 137 mmol/L (135-145); Total Protein 4.3 g/dL (6.5-8.0)
[2021-04-30 07:09] LABS: Procalcitonin 0.16 ng/mL
[2021-04-30 07:38] LABS: Glucose, Whole Blood 66 mg/dL (60-115)
--- NOTE | 2021-04-30 09:11 | P.PNIM_ITS ---
Subjective Subjective Date of Service: 04/30/21 Interval History: Feeling better; less tremulous Still c/o extremity numbness No dyspnea. Cough improved Abd very swollen. Leg edema slightly better K low Review of Systems Review of Systems: Yes all other systems are reviewed and are negative Physical Exam Vital Signs: Vital Signs: Last Vital Signs Temp 97.5 F 04/30/21 07:37 Pulse 87 04/30/21 07:37 Resp 17 04/30/21 07:37 BP 154/69 H 04/30/21 07:37 Pulse Ox 98 04/30/21 07:37 Body Mass Index 26.5 Gen: mildly tremulous HEENT: sclera anicteric, moist mucus membranes Neck: supple Lungs: clear bilaterally Heart: regular rate and rhythm, no murmurs Abd: soft, distended with tense ascites, prior paracentesis site without fluid leak or bleeding Ext: 1+ lower extremity edema bilaterally Skin: warm/well-perfused Neuro: alert and oriented x3, no focal findings, mild tremor Psych: appropriate affect Objective Data Active Medications Albuterol Sulfate (Albuterol Sulfate 90 Mcg 8 Gm Inhaler) 2 puff INHALE RQ4H PRN PRN Reason: shortness of breath/wheeze Amlodipine Besylate (Amlodipine Besylate 5 Mg Tablet) 5 mg PO DAILY [facility]; Protocol Last Admin: 04/29/21 08:05 Dose: 5 mg Documented by: GREG Atorvastatin Calcium (Atorvastatin Calcium 40 Mg Tablet) 40 mg PO BEDTIME [facility] Last Admin: 04/29/21 21:02 Dose: 40 mg Documented by: OPAL Bupropion HCl (Bupropion Hcl Xl 150 Mg Tab.Er.24h) 150 mg PO DAILY [facility] Last Admin: 04/29/21 08:04 Dose: 150 mg Documented by: GREG Duloxetine HCl (Duloxetine Hcl 60 Mg Capsule.Dr) 60 mg PO BID [facility] Last Admin: 04/29/21 21:02 Dose: 60 mg Documented by: OPAL Folic Acid (Folic Acid 1 Mg Tablet) 1 mg PO DAILY [facility] Last Admin: 04/29/21 08:04 Dose: 1 mg Documented by: GREG Furosemide (Furosemide 20 Mg Tablet) 20 mg PO DAILY [facility]; Protocol Last Admin: 04/29/21 08:05 Dose: 20 mg Documented by: GREG Heparin Sodium (Porcine) (Heparin Sodium,Porcine 5,000 Unit/Ml Vial) 5,000 unit SUBCUT Q8H [facility] Last Admin: 04/30/21 00:04 Dose: 5,000 unit Documented by: OPAL Hydroxyzine HCl (Hydroxyzine Hcl 50 Mg Tablet) 100 mg PO BEDTIME [facility] Last Admin: 04/29/21 21:02 Dose: 100 mg Documented by: OPAL Hydroxyzine HCl (Hydroxyzine Hcl 25 Mg Tablet) 25 mg PO DAILY [facility] Last Admin: 04/29/21 08:05 Dose: 25 mg Documented by: GREG Doxycycline Hyclate 100 mg/ (Sodium Chloride) 250 mls @ 166.67 mls/hr IV Q12H [facility] Last Infusion: 04/30/21 00:05 Dose: 0 mls/hr Documented by: OPAL Piperacillin Sod/Tazobactam (Sod 3.375 gm/ Sodium Chloride) 50 mls @ 100 mls/hr IV Q6H [facility] Last Infusion: 04/30/21 04:39 Dose: 0 mls/hr Documented by: OPAL Lidocaine (Lidocaine 4 % Patch Adh..Patch) 1 patch TRANSDERMA DAILY [facility]; Protocol Last Admin: 04/29/21 08:09 Dose: 1 patch Documented by: GREG Magnesium Oxide (Magnesium Oxide 400 Mg Tablet) 400 mg PO BIDPC [facility] Last Admin: 04/29/21 16:41 Dose: 400 mg Documented by: GREG Medication (No Benzodiazepines) 1 each MISCELLANE DAILY [facility] Melatonin (Melatonin 3 Mg Tablet) 6 mg PO BEDTIME PRN PRN Reason: Insomnia Multivitamins/Vitamin C (Multivitamin Tablet) 1 tab PO DAILY [facility] Last Admin: 04/29/21 08:04 Dose: 1 tab Documented by: GREG Olanzapine (Olanzapine 5 Mg Tablet) 5 mg PO BEDTIME [facility] Last Admin: 04/29/21 21:02 Dose: 5 mg Documented by: OPAL Omeprazole (Omeprazole 20 Mg Capsule.) 20 mg PO BID [facility] Last Admin: 04/29/21 21:03 Dose: 20 mg Documented by: OPAL Oxycodone HCl (Oxycodone Hcl Immed Release 5 Mg Tablet) 5 mg PO Q4H PRN PRN Reason: severe pain Last Admin: 04/28/21 10:05 Dose: 5 mg Documented by: MONA Pharmacy Consult (Consult Rx Etoh Phenob Dosing) 1 each MISCELLANE ONCE PRN; Protocol PRN Reason: Consult order Pharmacy Consult (Consult Rx Vancomycin Dosing) 1 each MISCELLANE DAILY PRN PRN Reason: Consult order Pharmacy Consult (Consult Rx Vancomycin Dosing) 1 each MISCELLANE DAILY PRN PRN Reason: Consult order Phenobarbital (Phenobarbital 15 Mg Tablet) 15 mg PO DAILY [facility] Stop: 05/01/21 09:01 Prazosin HCl (Prazosin Hcl 1 Mg Capsule) 1 mg PO BID [facility]; Protocol Last Admin: 04/29/21 21:13 Dose: 1 mg Documented by: OPAL Senna (Sennosides 8.6 Mg Tablet) 17.2 mg PO BEDTIME PRN PRN Reason: Constipation Sodium Chloride (0.9 % Sodium Chloride Flush 3 Ml Syringe) 3 ml IVFLUSH QSHIFT [facility] Last Admin: 04/29/21 21:49 Dose: 3 ml Documented by: OPAL Spironolactone (Spironolactone 25 Mg Tablet) 50 mg PO DAILY [facility]; Protocol Last Admin: 04/29/21 08:06 Dose: 50 mg Documented by: GREG Thiamine HCl (Thiamine Hcl 100 Mg Tablet) 100 mg PO DAILY [facility] Last Admin: 04/29/21 08:05 Dose: 100 mg Documented by: GREG Labs CBC & Chem 7: 04/30/21 04:57 04/30/21 04:57 Labs: Laboratory Results - last 24 hr 04/29/21 04/29/21 04/29/21 11:07 15:58 21:38 MCV MCH MCHC RDW Plt Count MPV Absolute Nucleated RBC Nucleated RBC % (auto) Anion Gap Estim Creat Clear Calc Estimated GFR POC Glucose 120 H 122 H 114 Random Glucose Calcium Magnesium Total Bilirubin AST ALT Alkaline Phosphatase Total Protein Albumin Procalcitonin 04/30/21 04/30/21 04/30/21 04:57 04:57 04:57 MCV 98.4 H MCH 33.6 H MCHC 34.1 RDW 13.5 Plt Count 174 MPV 9.9 Absolute Nucleated RBC 0.000 Nucleated RBC % (auto) 0.0 Anion Gap 12 Estim Creat Clear Calc 82.3 Estimated GFR > 60 POC Glucose Random Glucose 75 Calcium 7.7 L Magnesium 1.9 Total Bilirubin 0.7 AST 56 H ALT 45 H Alkaline Phosphatase 266 H Total Protein 4.3 L Albumin 2.2 L Procalcitonin 0.16 04/30/21 07:23 MCV MCH MCHC RDW Plt Count MPV Absolute Nucleated RBC Nucleated RBC % (auto) Anion Gap Estim Creat Clear Calc Estimated GFR POC Glucose 66 Random Glucose Calcium Magnesium Total Bilirubin AST ALT Alkaline Phosphatase Total Protein Albumin Procalcitonin Microbiology Microbiology Results: Microbiology 04/27/21 16:10 Gram Stain - Final Ascites Fluid Routine Culture - Final No growth after 2 days Anaerobic Culture - Preliminary No growth to date. Assessment and Plan (1) Withdrawal symptoms, alcohol: Status: Acute (2) Alcoholism: Status: Acute Assessment and Plan: hospital d#6 56yo F with HTN, HLD, DM2, COPD, EtOH abuse presented to hospital after fall, noted to be confused and withdrawing from EtOH new-onset cirrhosis with ascites, likely due to EtOH pneumonia # EtOH withdrawal - continue phenobarbital taper, thiamine, folate, vitamins; Addiction Medicine consulted # hypoglycemia - due to glipizide use with ongoing EtOH abuse and chronic liver disease. d/c'ed glipizide and now off D10. A1c only 4.3- does not need glipizide or any other DM med # toxic/metabolic encephalopathy - resolved; due to hypoglycemia + EtOH/withdrawal, treating as above - Neuro consulted; EEG with diffuse encephalopathic process - IV->PO thiamine # cirrhosis with ascites - GI consulted. HBV/HCV negative, Dopplers negative. autoimmune/serologic workup pending but likely due to EtOH. diagnostic paracentesis done 04/27; 800 mL ascites removed, SAAG 1.9 consistent with portal HTN, no evidence of SBP and culture negative. started low-dose diuretics- spironolactone + furosemide- monitor electrolytes periodically. needs outpt GI f/u and outpt EGD to screen for varices - will order therapeutic paracentesis, next available 05/02/21 # pneumonia - continue pip/joseph d#6/7, vanco changed to doxy d#4/5, BCx NGTD, pending Legionella UAg, nasal MRSA swab negative, ID consulted, trend PCT # hypoMg - continue PO maintenance # hypoK - replete PO, recheck in am # HTN - continue amlodipine # mood disorder - continue bupropion, prazosin, hydroxyzine, duloxetine, olanzapine # DM2, not - A1c only 4.3- d/c all OHGs [was on MTF + GPZ]- not needed - hold MTF + GPZ due to alcoholism + hypoglycemia # HLD - continue statin # malnutrition, protein-calorie, moderate - supplements # multiple falls - no evidence of fracture/bleed - PT consulted, home PT recommended, probably d/c 05/02 after therapeutic tap # VTE ppx - UFH Quality Stroke Does the patient have a stroke diagnosis?: No VTE Prior VTE?: No VTE Risk Level:: Medical - moderate - high VTE Device Contraindication: Treatment Not Indicated VTE Drug Contraindication: N/A - Med Ordered
[2021-04-30] MEDS: Thiamine HCL 100 MG TABLET PO (09:34)
[2021-04-30] MEDS: Folic Acid 1 MG TABLET PO (09:34)
[2021-04-30] MEDS: buPROPion HCl XL 150 MG TAB.ER.24H PO (09:34)
[2021-04-30] MEDS: Omeprazole 20 MG CAPSULE.DR PO ×2 (09:34→21:35)
[2021-04-30] MEDS: PHENobarbitaL 15 MG TABLET PO (09:34)
[2021-04-30] MEDS: Multivitamin TABLET 1 TAB PO (09:34)
[2021-04-30] MEDS: hydrOXYzine HCL 25 MG TABLET PO (09:35)
[2021-04-30] MEDS: Magnesium Oxide 400 MG TABLET PO ×2 (09:35→17:37)
[2021-04-30] MEDS: Spironolactone 25 MG TABLET 50 MG PO (09:35)
[2021-04-30] MEDS: amLODIPine Besylate 5 MG TABLET PO (09:35)
[2021-04-30] MEDS: Prazosin HCL 1 MG CAPSULE PO ×2 (09:35→21:46)
[2021-04-30] MEDS: DULoxetine HCl 60 MG CAPSULE.DR PO ×2 (09:36→21:35)
[2021-04-30] MEDS: Furosemide 20 MG TABLET PO (09:36)
[2021-04-30] MEDS: Lidocaine 4 % Patch ADH..PATCH 1 PATCH TRANSDERMA (09:37)
[2021-04-30] MEDS: Doxycycline Hyclate 100 MG in 0.9 % Sodium Chloride 250 ML 166.67 MG IV ×2 (09:38→19:47)
[2021-04-30] MEDS: 0.9 % Sodium Chloride Flush 3 ML SYRINGE IVFLUSH ×3 (10:25→21:35)
[2021-04-30] MEDS: Potassium Chloride ER 20 MEQ TAB.ER.PRT 40 MEQ PO (11:11)
[2021-04-30 11:29] LABS: Glucose, Whole Blood 81 mg/dL (60-115)
[2021-04-30 11:36] LABS: Alpha 1 Anti-trypsin 199 mg/dL (83-199)
[2021-04-30 16:18] LABS: Glucose, Whole Blood 90 mg/dL (60-115)
[2021-04-30 20:20] LABS: Glucose, Whole Blood 97 mg/dL (60-115)
[2021-04-30] MEDS: Atorvastatin Calcium 40 MG TABLET PO (21:35)
[2021-04-30] MEDS: hydrOXYzine HCL 50 MG TABLET 100 MG PO (21:35)
[2021-04-30] MEDS: OLANZapine 5 MG TABLET PO (21:35)
[2021-05-01] VITALS (12 sets, daily range): BP systolic 123–165; BP diastolic 58–79; PULSE 85–91; RESP 14–18; TEMP 36.3–37.1; O2SAT 95–98
[2021-05-01] MEDS: Heparin Sodium,Porcine 5,000 UNIT/ML VIAL 5000 UNIT SUBCUT ×4 (00:07→23:39)
[2021-05-01] MEDS: Piperacillin Sodium/Tazobactam 3.375 GM in 0.9 % Sodium Chloride 50 ML IV (04:16)
[2021-05-01 06:45] LABS: Anion Gap 12 (12-20); Blood Urea Nitrogen 5 mg/dL (9-16); Calcium 7.5 mg/dL (8.4-10.2); Carbon Dioxide 23 mmol/L (22-29); Chloride 107 mmol/L (96-108); Creatinine Clr Calc Pharmacy 82.3; Estimated Glomerular Filt Rate > 60; Glucose Random 68 mg/dL (60-115); Magnesium 1.5 mg/dL (1.6-2.6); Sodium 139 mmol/L (135-145)
[2021-05-01 07:32] LABS: Glucose, Whole Blood 66 mg/dL (60-115)
[2021-05-01] MEDS: Spironolactone 25 MG TABLET 50 MG PO ×2 (07:51→17:31)
[2021-05-01] MEDS: Magnesium Oxide 400 MG TABLET PO (07:52)
[2021-05-01] MEDS: hydrOXYzine HCL 25 MG TABLET PO (07:52)
[2021-05-01] MEDS: Multivitamin TABLET 1 TAB PO (07:52)
[2021-05-01] MEDS: Prazosin HCL 1 MG CAPSULE PO ×2 (07:53→21:07)
[2021-05-01] MEDS: buPROPion HCl XL 150 MG TAB.ER.24H PO (07:54)
[2021-05-01] MEDS: PHENobarbitaL 15 MG TABLET PO (07:55)
[2021-05-01] MEDS: Furosemide 20 MG TABLET PO ×2 (07:56→17:34)
[2021-05-01] MEDS: DULoxetine HCl 60 MG CAPSULE.DR PO ×2 (07:56→21:08)
[2021-05-01] MEDS: amLODIPine Besylate 5 MG TABLET PO (07:56)
[2021-05-01] MEDS: Omeprazole 20 MG CAPSULE.DR PO ×2 (07:56→21:08)
[2021-05-01] MEDS: Thiamine HCL 100 MG TABLET PO (07:57)
[2021-05-01] MEDS: Folic Acid 1 MG TABLET PO (07:57)
[2021-05-01] MEDS: Lidocaine 4 % Patch ADH..PATCH 1 PATCH TRANSDERMA (07:58)
[2021-05-01] MEDS: Doxycycline Hyclate 100 MG in 0.9 % Sodium Chloride 250 ML 166.67 MG IV (07:59)
[2021-05-01] MEDS: 0.9 % Sodium Chloride Flush 3 ML SYRINGE IVFLUSH ×2 (08:15→21:08)
--- NOTE | 2021-05-01 09:39 | HO.PM.IMPN ---
Subjective Subjective Date of Service: 05/01/21 Interval History: Cough resolved No dyspnea Worsening abd distension + leg edema Review of Systems Review of Systems: Yes all other systems are reviewed and are negative Physical Exam Vital Signs: Vital Signs: Last Vital Signs Temp 97.6 F 05/01/21 07:38 Pulse 85 05/01/21 07:56 Resp 16 05/01/21 07:38 BP 123/58 L 05/01/21 07:56 Pulse Ox 96 05/01/21 07:38 Body Mass Index 26.5 Gen: chronically ill-appearing HEENT: sclera anicteric, moist mucus membranes Neck: supple Lungs: clear bilaterally Heart: regular rate and rhythm, no murmurs Abd: distended with tense ascites, prior paracentesis site without fluid leak or bleeding Ext: 2+ lower extremity edema bilaterally Skin: warm/well-perfused Neuro: alert and oriented x3, no focal findings, mild tremor Psych: appropriate affect Objective Data Active Medications Albuterol Sulfate (Albuterol Sulfate 90 Mcg 8 Gm Inhaler) 2 puff INHALE RQ4H PRN PRN Reason: shortness of breath/wheeze Amlodipine Besylate (Amlodipine Besylate 5 Mg Tablet) 5 mg PO DAILY [facility]; Protocol Last Admin: 05/01/21 07:56 Dose: 5 mg Documented by: JONATHAN Atorvastatin Calcium (Atorvastatin Calcium 40 Mg Tablet) 40 mg PO BEDTIME [facility] Last Admin: 04/30/21 21:35 Dose: 40 mg Documented by: ANARISVielka Bupropion HCl (Bupropion Hcl Xl 150 Mg Tab.Er.24h) 150 mg PO DAILY [facility] Last Admin: 05/01/21 07:54 Dose: 150 mg Documented by: JONATHAN Duloxetine HCl (Duloxetine Hcl 60 Mg Capsule.Dr) 60 mg PO BID [facility] Last Admin: 05/01/21 07:56 Dose: 60 mg Documented by: JONATHAN Folic Acid (Folic Acid 1 Mg Tablet) 1 mg PO DAILY [facility] Last Admin: 05/01/21 07:57 Dose: 1 mg Documented by: JONATHAN Furosemide (Furosemide 20 Mg Tablet) 20 mg PO BID@0900,1800 [facility]; Protocol Heparin Sodium (Porcine) (Heparin Sodium,Porcine 5,000 Unit/Ml Vial) 5,000 unit SUBCUT Q8H [facility] Last Admin: 05/01/21 07:57 Dose: 5,000 unit Documented by: JONATHAN Hydroxyzine HCl (Hydroxyzine Hcl 50 Mg Tablet) 100 mg PO BEDTIME [facility] Last Admin: 04/30/21 21:35 Dose: 100 mg Documented by: OPAL Hydroxyzine HCl (Hydroxyzine Hcl 25 Mg Tablet) 25 mg PO DAILY [facility] Last Admin: 05/01/21 07:52 Dose: 25 mg Documented by: JONATHAN Doxycycline Hyclate 100 mg/ (Sodium Chloride) 250 mls @ 166.67 mls/hr IV Q12H [facility] Last Admin: 05/01/21 07:59 Dose: 166.67 mls/hr Documented by: JONATHAN Piperacillin Sod/Tazobactam (Sod 3.375 gm/ Sodium Chloride) 50 mls @ 100 mls/hr IV Q6H [facility] Last Infusion: 05/01/21 09:32 Dose: 0 mls/hr Documented by: JONATHAN Lidocaine (Lidocaine 4 % Patch Adh..Patch) 1 patch TRANSDERMA DAILY [facility]; Protocol Last Admin: 05/01/21 07:58 Dose: 1 patch Documented by: JONATHAN Magnesium Oxide (Magnesium Oxide 400 Mg Tablet) 800 mg PO BIDPC [facility] Medication (No Benzodiazepines) 1 each MISCELLANE DAILY [facility] Melatonin (Melatonin 3 Mg Tablet) 6 mg PO BEDTIME PRN PRN Reason: Insomnia Multivitamins/Vitamin C (Multivitamin Tablet) 1 tab PO DAILY [facility] Last Admin: 05/01/21 07:52 Dose: 1 tab Documented by: JONATHAN Olanzapine (Olanzapine 5 Mg Tablet) 5 mg PO BEDTIME [facility] Last Admin: 04/30/21 21:35 Dose: 5 mg Documented by: OPAL Omeprazole (Omeprazole 20 Mg Capsule.) 20 mg PO BID [facility] Last Admin: 05/01/21 07:56 Dose: 20 mg Documented by: JONATHAN Oxycodone HCl (Oxycodone Hcl Immed Release 5 Mg Tablet) 5 mg PO Q4H PRN PRN Reason: severe pain Last Admin: 04/28/21 10:05 Dose: 5 mg Documented by: MONA Pharmacy Consult (Consult Rx Etoh Phenob Dosing) 1 each MISCELLANE ONCE PRN; Protocol PRN Reason: Consult order Pharmacy Consult (Consult Rx Vancomycin Dosing) 1 each MISCELLANE DAILY PRN PRN Reason: Consult order Pharmacy Consult (Consult Rx Vancomycin Dosing) 1 each MISCELLANE DAILY PRN PRN Reason: Consult order Potassium Chloride (Potassium Chloride Er 20 Meq Tab.Er.Prt) 40 meq PO BID [facility] Stop: 05/01/21 21:01 Prazosin HCl (Prazosin Hcl 1 Mg Capsule) 1 mg PO BID [facility]; Protocol Last Admin: 05/01/21 07:53 Dose: 1 mg Documented by: JONATHAN Senna (Sennosides 8.6 Mg Tablet) 17.2 mg PO BEDTIME PRN PRN Reason: Constipation Sodium Chloride (0.9 % Sodium Chloride Flush 3 Ml Syringe) 3 ml IVFLUSH QSHIFT [facility] Last Admin: 05/01/21 08:15 Dose: 3 ml Documented by: JONATHAN Spironolactone (Spironolactone 25 Mg Tablet) 50 mg PO BID@0900,1800 [facility]; Protocol Thiamine HCl (Thiamine Hcl 100 Mg Tablet) 100 mg PO DAILY [facility] Last Admin: 05/01/21 07:57 Dose: 100 mg Documented by: JONATHAN Labs CBC & Chem 7: 04/30/21 04:57 05/01/21 06:01 Labs: Laboratory Results - last 24 hr 04/25/21 04/26/21 04/27/21 20:19 07:09 05:26 Potassium 3.5 3.8 3.8 Anion Gap Estim Creat Clear Calc Estimated GFR POC Glucose Random Glucose Calcium Magnesium [id number]-[id number] 04/28/21 04/28/21 04/29/21 05:25 05:25 06:14 Potassium 3.8 3.1 L Anion Gap Estim Creat Clear Calc Estimated GFR POC Glucose Random Glucose Calcium Magnesium Ojree-1-Ejdhepsprsb 199 04/30/21 04/30/21 04/30/21 04:57 11:16 16:04 Potassium 3.0 L Anion Gap Estim Creat Clear Calc Estimated GFR POC Glucose 81 90 Random Glucose Calcium Magnesium Btxoa-1-Sxfogmpaibr 04/30/21 05/01/21 05/01/21 20:08 06:01 07:21 Potassium 3.0 L Anion Gap 12 Estim Creat Clear Calc 82.3 Estimated GFR > 60 POC Glucose 97 66 Random Glucose 68 Calcium 7.5 L Magnesium 1.5 L Gob[place]-3-Dvrtlkwscfv Microbiology Microbiology Results: Microbiology 04/27/21 16:10 Gram Stain - Final Ascites Fluid Routine Culture - Final No growth after 2 days Anaerobic Culture - Preliminary No growth to date. 04/25/21 23:15 Blood Culture - Final Blood - Venous No growth after 5 days. 04/25/21 23:20 Blood Culture - Final Blood - Venous No growth after 5 days. Assessment and Plan (1) Withdrawal symptoms, alcohol: Status: Acute (2) Alcoholism: Status: Acute Assessment and Plan: hospital d#7 56yo F with HTN, HLD, DM2, COPD, EtOH abuse presented to hospital after fall, noted to be confused and withdrawing from EtOH new-onset cirrhosis with ascites, likely due to EtOH pneumonia # EtOH withdrawal - continue phenobarbital taper, thiamine, folate, vitamins; Addiction Medicine consulted and will f/u tomorrow # hypoglycemia - due to glipizide use with ongoing EtOH abuse and chronic liver disease. d/c'ed glipizide and now off D10. A1c only 4.3- does not need glipizide or any other DM med # toxic/metabolic encephalopathy - resolved; due to hypoglycemia + EtOH/withdrawal, treating as above - Neuro consulted; EEG with diffuse encephalopathic process - IV->PO thiamine # cirrhosis with ascites - GI consulted. HBV/HCV negative, Dopplers negative. autoimmune/serologic workup pending but likely due to EtOH. diagnostic paracentesis done 04/27; 800 mL ascites removed, SAAG 1.9 consistent with portal HTN, no evidence of SBP and culture negative. started low-dose diuretics- spironolactone + furosemide; will increase doses to bid today. needs outpt GI f/u and outpt EGD to screen for varices - will order therapeutic paracentesis for tomorrow # pneumonia - complete pip/joseph d#02/16, vanco changed to doxy d#12/15, BCx NGTD, pending Legionella UAg, nasal MRSA swab negative # hypoMg - replete IV and increase PO maintenance dose # hypoK - replete PO, recheck in am # HTN - continue amlodipine # mood disorder - continue bupropion, prazosin, hydroxyzine, duloxetine, olanzapine # DM2, not - A1c only 4.3- d/c all OHGs [was on MTF + GPZ]- not needed - hold MTF + GPZ due to alcoholism + hypoglycemia # HLD - continue statin # malnutrition, protein-calorie, moderate - supplements # multiple falls - no evidence of fracture/bleed - PT consulted, home PT recommended, probably d/c 05/02 after therapeutic tap # VTE ppx - UFH Quality Stroke Does the patient have a stroke diagnosis?: No VTE Prior VTE?: No VTE Risk Level:: Medical - moderate - high VTE Device Contraindication: Treatment Not Indicated VTE Drug Contraindication: N/A - Med Ordered
[2021-05-01] MEDS: Magnesium Sulfate/H2O 2 GM/50 ML PIGGYBACK IV (11:02)
[2021-05-01] MEDS: Potassium Chloride ER 20 MEQ TAB.ER.PRT 40 MEQ PO ×2 (11:03→21:08)
[2021-05-01 11:31] LABS: Glucose, Whole Blood 84 mg/dL (60-115)
[2021-05-01 16:16] LABS: Glucose, Whole Blood 90 mg/dL (60-115)
[2021-05-01] MEDS: Magnesium Oxide 400 MG TABLET 800 MG PO (17:33)
[2021-05-01 20:33] LABS: Glucose, Whole Blood 117 mg/dL (60-115)
[2021-05-01] MEDS: hydrOXYzine HCL 50 MG TABLET 100 MG PO (21:07)
[2021-05-01] MEDS: OLANZapine 5 MG TABLET PO (21:08)
[2021-05-01] MEDS: Atorvastatin Calcium 40 MG TABLET PO (21:14)
[2021-05-02] VITALS (8 sets, daily range): BP systolic 113–145; BP diastolic 57–92; PULSE 84–95; RESP 15–20; TEMP 36.4–37.2; O2SAT 96–98
[2021-05-02 05:34] LABS: Anion Gap 14 (12-20); Blood Urea Nitrogen 4 mg/dL (9-16); Calcium 7.7 mg/dL (8.4-10.2); Carbon Dioxide 22 mmol/L (22-29); Chloride 106 mmol/L (96-108); Creatinine Clr Calc Pharmacy 88.7; Estimated Glomerular Filt Rate > 60; Glucose Random 75 mg/dL (60-115); Magnesium 1.6 mg/dL (1.6-2.6); Potassium 3.5 mmol/L (3.3-5.1); Sodium 138 mmol/L (135-145)
[2021-05-02 07:32] LABS: Glucose, Whole Blood 69 mg/dL (60-115)
[2021-05-02] MEDS: oxyCODONE HCl Immed Release 5 MG TABLET PO (09:11)
[2021-05-02] MEDS: hydrOXYzine HCL 25 MG TABLET PO (09:11)
[2021-05-02] MEDS: Folic Acid 1 MG TABLET PO (09:11)
[2021-05-02] MEDS: Multivitamin TABLET 1 TAB PO (09:11)
[2021-05-02] MEDS: Thiamine HCL 100 MG TABLET PO (09:11)
[2021-05-02] MEDS: Lidocaine 4 % Patch ADH..PATCH 1 PATCH TRANSDERMA (09:11)
[2021-05-02] MEDS: DULoxetine HCl 60 MG CAPSULE.DR PO (09:11)
[2021-05-02] MEDS: amLODIPine Besylate 5 MG TABLET PO (09:12)
[2021-05-02] MEDS: Magnesium Oxide 400 MG TABLET 800 MG PO (09:12)
[2021-05-02] MEDS: Omeprazole 20 MG CAPSULE.DR PO (09:12)
[2021-05-02] MEDS: Furosemide 20 MG TABLET PO (09:12)
[2021-05-02] MEDS: buPROPion HCl XL 150 MG TAB.ER.24H PO (09:12)
[2021-05-02] MEDS: Spironolactone 25 MG TABLET 50 MG PO (09:12)
[2021-05-02] MEDS: Prazosin HCL 1 MG CAPSULE PO (09:14)
[2021-05-02] MEDS: Lidocaine HCl 1 % MPF 5 ML VIAL SUBCUT (10:22)
--- NOTE | 2021-05-02 10:43 | HO.RADPN ---
RADIOLOGY Narrative Narrative: RLQ paracentesis performed using 5 Fr catheter. L clear yellow fluid removed. No specimen sent.
[2021-05-02 11:49] LABS: Glucose, Whole Blood 101 mg/dL (60-115)
--- NOTE | 2021-05-02 11:58 | MHC.CM.PN ---
Addendum entered by Dara Gordillo RN 05/02/21 14:11: PT UNABLE TO GET IN CONTACT W/BOTH FRIENDS WHO WOULD BE ABLE TO TRANSPORT, CM ATTEMPTED WELL WITH NO LUCK, PT WILL BE SET UP W/[facility]. Addendum entered by Dara Gordillo RN 05/02/21 12:13: Pt currently declining VNA and Home Health Services, [facility] and Hospitalist notified and [facility] removed from d/c plan. Pt aware if she changes her mind she will need to go through her PCP. Original Note: IMM 05/02/21, ANTICIPATE PT WILL D/C TODAY W/NEW [facility] AND RESUME THERAPY W/[facility] AND FRIENDS IN [place], PT HAS MET W/RECOVERY SUPPORT NURSE AND DECLINED MED ASSISTED [place] AND ADDITIONAL SERVICES, CM TO CLARIFY TRANPSORTATION.
--- NOTE | 2021-05-02 12:04 | MHC.CLN ---
F/U PATIENT REPORTS THAT SHE DOES NOT LIKE ENSURE AND DOES NOT DRINK SUPPLEMENT. ENSURE DISCONTINUED. RECENT INTAKE BITES TO 75%. CONTINUE TO FOLLOW.
--- NOTE | 2021-05-02 12:08 | P.F2F_ITS ---
Service Date Service Date: 05/02/21 Encounter Date of encounter: 05/02/21 Reasons for Services Reason for retirement: medication management, medication treatment and teach disease management Reason for physical therapy: home safety and mobility, therapeutic exercises, gait/transfer training, assess need for DME, ADL training and energy conservation Overseeing Care: Edel Barron Homebound: Leaving the home is medically contraindicated at this time without the asist of a device and/or another person due th the listed conditions above and below. Reason homebound: unsteady gait / fall risk, leg weakness, poor balance / fall risk, immunosuppression / infection risk and weakness related to hospital stay Homebound supporting statement: Pt was admitted to [facility] 04/25-05/02/21 for EtOH withdrawal, pneumonia, and new-onset cirrhosis with ascites. Will need home PT, VNA for medication management/teaching, periodic lab assessment. Certification: Based on the above findings, I certify that this patient is confined to the home and needs intermittent retirement care, physical therapy and/or speech therapy, or continues to need occupational therapy. The patient is under my care, and I have initiated the establishment of the plan of care. The patient will be followed by a physician who will periodically review the plan of care.
--- NOTE | 2021-05-02 12:19 | PM.DS ---
DS: Providers Provider Date of Service: 05/02/21 Date of admission: 04/25/21 22:21 Primary care physician: Edel Barron NP Consults: 04/25/21 22:26 Consult to Infectious Diseases Routine Consulting Provider: Kassy Rivera Reason for consultation: PNA 04/25/21 22:40 Consult to Gastroenterology Routine Consulting Provider: Rafael Hsu Reason for consultation: new cirrhosis Consult to Neurology Routine Consulting Provider: [facility] Reason for consultation: AMS; leg weakness; Etoh abuse; neuropathy 04/26/21 08:07 Addiction Medicine Routine Consulting Provider: Keri Washington Reason for consultation: etoh 04/26/21 15:08 Consult to Care Team Routine Comment: Reason for consultation: etoh DS: Diagnosis Discharge Diagnosis (1) Withdrawal symptoms, alcohol: Status: Acute (2) Cirrhosis of liver with ascites: Status: Acute (3) Pneumonia: Status: Acute (4) Toxic metabolic encephalopathy: Status: Acute (5) Hypoglycemia: Status: Acute (6) Hypomagnesemia: Status: Acute (7) Alcohol use disorder: Status: Acute DS: Summary Hospital Course Hospital Course: from admission history and physical by hospitalist Shahzad Escobedo, 04/25/21: 56 F HTN, HLD, DM, COPD, Etoh abuse; presented to the hospital with a chief complaint of fall/confusion. Patient received Ativan/fall number call in the ER for alcohol withdrawal; patient drowsy/lethargic secondary to medication effect; unable to obtain history from the patient. History is limited. Spoke to the patient's friends Mona-who mentioned that she did the healthcare proxy forms with the PCP today. Mona mentions that patient has been living with her mother who is terminally ill lately; and has been drinking alcohol heavy on a daily basis about 20 need sub 100 proof daily; sleeps in a recliner; does not move much; mentions that she probably had falls; patient mom's [employer] CONSULTANT mentioned to start that patient was unable to get up today and was extremely weak; has not been eating good. Mentioned that patient reported pain in the legs and body aches; ER team reported that patient reportedly had multiple falls and has seen PCP today who sent her to the hospital for evaluation. ER course:? That patient on presentation noted to be shaky; given her falls due to CT head and CT neck which showed no acute findings; patient's abdomen was distended-CT abdomen showed hepatic steatosis/cirrhosis otherwise no acute changes; patient legs are swollen-venous duplex negative for DVT; patient had ankle tenderness; excess negative for any fracture; CT of the chest showed upper lobe pneumonia-given antibiotics.? Patient was noted to be shaky and possibly withdrawing-patient was given phenobarbital and Ativan.? Admitted to the hospital for further management. ER team mentioned that patient's glucose was 10 on presentation.? Given D50 with improvement sugar to 165? and subsequently dropped to 67. Started on dextrose infusion The patient was admitted to the medical/surgical floor with pneumonia without hypoxia or sepsis, as well as encephalopathy due to hypoglycemia and alcohol withdrawal. By problem: 1. EtOH withdrawal 2. EtOH use disorder She was treated with phenobarbital taper and vitamins. Addiction Medicine was consulted. The patient declined MAT. Sobriety was counseled. 3. Hypoglycemia This was due to use of glipizide with ongoing alcohol abuse and impaired gluconeogenesis from cirrhosis. All oral hypoglycemics were stopped and her blood glucose normalized. She was weaned off IV dextrose. HbA1c is only 4.3, and glipizide and metformin should be discontinued. 4. Toxic/metabolic encephalopathy This was due to hypoglycemia and EtOH withdrawal. EEG showed diffuse encephalopathic process. 5. New-onset cirrhosis with ascites GI was consulted.? HBV/HCV were negative. Dopplers were negative.? Autoimmune/serologic workup is pending, but the cirrhosis is likely due to EtOH.? Diagnostic paracentesis was done on 04/27; 800 mL of ascites was removed, with SAAG 1.9 consistent with portal HTN. There was no evidence of SBP. She was started on spironolactone and furosemide and counseled to restrict sodium to 2000 mg/d. A second paracentesis was done on 05/02 for therapeutic purposes, with removal of 1.8L of ascites. She will need outpatient GI followup and an EGD to screen for varices. Future order for labs [CBCd, CMP, PT/INR, and magnesium] in 1 week was placed. 6. Pneumonia She completed 7 days of piperacillin/tazobactam and 5 days of doxycycline. Blood cultures were negative. She was not septic or hypoxic and her symptoms resolved. 7. Hypomagnesemia This required IV and oral repletion. She was discharged on maintenance magnesium oxide. Potassium was also replaced until she was started on spironolactone. She was discharged home with VNA services and should see her PCP in 1 week. Time Spent with Patient Time attestation: Total time spent providing and/or coordinating discharge services: Discharge coordination time: Greater than 30 minutes Quality: Stroke Does the patient have a stroke diagnosis?: No Physical Exam Vital Signs: Vital Signs: Last Vital Signs Temp 97.5 F 05/02/21 12:00 Pulse 92 05/02/21 12:00 Resp 16 05/02/21 12:00 BP 145/76 H 05/02/21 12:00 Pulse Ox 98 05/02/21 12:00 Body Mass Index 26.5 Gen: chronically ill-appearing HEENT: sclera anicteric, moist mucus membranes Neck: supple Lungs: clear bilaterally Heart: regular rate and rhythm, no murmurs Abd: small amount of non-tense ascites, prior paracentesis site without fluid leak or bleeding Ext: 2+ lower extremity edema bilaterally Skin: warm/well-perfused Neuro: alert and oriented x3, no focal findings, mild tremor Psych: appropriate affect DS: Data Data Completed and Pending Completed studies during hospitalization [Text1]: Laboratory Results WBC 8.8 X10*3/uL (4.8-10.8) 04/30/21 04:57 RBC 3.07 X10*6/uL (4.20-5.50) L 04/30/21 04:57 Hgb 10.3 g/dl (12.0-16.0) L 04/30/21 04:57 Hct 30.2 % (37-47) L 04/30/21 04:57 MCV 98.4 fL (80-98) H 04/30/21 04:57 MCH 33.6 pg (27.0-33.0) H 04/30/21 04:57 MCHC 34.1 g/dl (31.0-35.0) 04/30/21 04:57 RDW 13.5 % (11.0-16.0) 04/30/21 04:57 Plt Count 174 X10*3/uL (160-400) 04/30/21 04:57 MPV 9.9 fL (9.4-12.3) 04/30/21 04:57 Immature Gran % (Auto) 1.0 % (0.0-0.4) H 04/26/21 07:09 Neut % (Auto) 80.7 % (45-73) H 04/26/21 07:09 Lymph % (Auto) 9.7 % (20-40) L 04/26/21 07:09 [place] % (Auto) 7.2 % (2-11) 04/26/21 07:09 Eos % (Auto) 1.2 % (0-4) 04/26/21 07:09 Baso % (Auto) 0.2 % (0-2) 04/26/21 07:09 Lymph # (Auto) 1.3 X10*3/uL (1.2-4.9) 04/26/21 07:09 [place] # (Auto) 1.0 X10*3/uL (0.1-1.2) 04/26/21 07:09 Eos # (Auto) 0.2 X10*3/uL (0.0-0.4) 04/26/21 07:09 Baso # (Auto) 0.0 X10*3/uL (0.0-0.2) 04/26/21 07:09 Abs Immat Gran (auto) 0.14 X10*3/uL (0.00-0.03) H 04/26/21 07:09 Absolute Neuts (auto) 11.2 X10*3/uL (2.0-8.3) H 04/26/21 07:09 Absolute Nucleated RBC 0.000 X10*3/uL (0.0-0.012) 04/30/21 04:57 Nucleated RBC % (auto) 0.0 /100WBC (0.0-0.2) 04/30/21 04:57 PT 12.6 SEC (9.9-13.0) 04/25/21 23:21 INR 1.1 (0.9-1.1) 04/25/21 23:21 O2 Saturation 96.0 % 04/25/21 22:26 ABG pH at Pt Temp 7.38 (7.35-7.45) 04/25/21 22:26 ABG pH (Temp Correct) 7.39 (7.35-7.45) 04/25/21 22: ABG pCO2 at Pt Temp 31 mmHg (32-45) L 04/25/21 22:26 ABG pCO2 (Temp Corrct 31 mmHg (32-45) L 04/25/21 22:26 ABG pO2 at Pt Temp 99 mmHg (83-108) 04/25/21 22:26 ABG pO2 (Temp Correct 97 (83-108) 04/25/21 22:26 ABG HCO3 19 mmol/L (22-26) L 04/25/21 22:26 ABG Base Excess (Actual) -4.7 mmol/L 04/25/21 22:26 Sodium 138 mmol/L (135-145) 05/02/21 04:47 Potassium 3.5 mmol/L (3.3-5.1) 05/02/21 04:47 Chloride 106 mmol/L (96-108) 05/02/21 04:47 Carbon Dioxide 22 mmol/L (22-29) 05/02/21 04:47 Anion Gap 14 (12-20) 05/02/21 04:47 BUN 4 mg/dL (9-16) L 05/02/21 04:47 Creatinine 0.64 mg/dL (0.5-1.4) 05/02/21 04:47 Estim Creat Clear Calc 88.7 05/02/21 04:47 Estimated GFR > 60 05/02/21 04:47 POC Glucose 101 mg/dL (60-115) 05/02/21 11:44 Random Glucose 75 mg/dL (60-115) 05/02/21 04:47 Estimat Average Glucose 77 mg/dL 04/27/21 05:26 Hemoglobin A1c % 4.3 % 04/27/21 05:26 Calcium 7.7 mg/dL (8.4-10.2) L 05/02/21 04:47 Magnesium 1.6 mg/dL (1.6-2.6) 05/02/21 04:47 Iron 52 mcg/dL (30-160) 04/28/21 05:25 TIBC 161 mcg/dL (228-428) L 04/28/21 05:25 % Saturation 32 % (15-50) 04/28/21 05:25 Unsat Iron Binding 109 ug/dL 04/28/21 05:25 Ferritin 80 ng/mL (10-250) 04/28/21 05:25 Total Bilirubin 0.7 mg/dL (0.0-1.0) 04/30/21 04:57 AST 56 U/L (5-31) H 04/30/21 04:57 ALT 45 U/L (0-31) H 04/30/21 04:57 Alkaline Phosphatase 266 U/L (39-117) H 04/30/21 04:57 Ammonia 57 umol/L (13-55) H 04/26/21 10:53 Troponin I High Sens < 3.5 ng/L (<3.5-17.0) 04/25/21 19:50 B-Natriuretic Peptide 23 pg/mL (<100) 04/25/21 19:50 Total Protein 4.3 g/dL (6.5-8.0) L 04/30/21 04:57 Albumin 2.2 g/dL (3.5-5.0) L 04/30/21 04:57 Jyunq-2-Grtddisyoze 199 mg/dL (83-199) 04/28/21 05:25 Vitamin B12 788 pg/mL (200-900) 04/26/21 07:09 Folate 3.9 ng/mL (> or = 4.0) L 04/26/21 07:09 Procalcitonin 0.16 ng/mL 04/30/21 04:57 Urine Color YELLOW 04/26/21 05:45 Urine Appearance HAZY 04/26/21 05:45 Urine pH 6.0 (5.0-8.0) 04/26/21 05:45 Ur Specific [place] 1.015 (1.005-1.025) 04/26/21 05:45 Urine Protein TRACE MG/DL (NEG-TRACE) 04/26/21 05:45 Urine Glucose (UA) NEG MG/DL (NEG) 04/26/21 05:45 Urine Ketones NEG MG/DL (NEG) 04/26/21 05:45 Urine Blood TRACE (NEG) 04/26/21 05:45 Urine Nitrite POS (NEG) H 04/26/21 05:45 Ur Leukocyte Esterase 3+ (NEG) H 04/26/21 05:45 Urine RBC 0 /HPF (0) 04/26/21 05:45 Urine WBC 76-150 /HPF (0-4) H 04/26/21 05:45 Urine WBC Clumps NOTED 04/26/21 05:45 Ur Squamous Epith Cells 1+ /LPF 04/26/21 05:45 Urine Bacteria 2+ /LPF 04/26/21 05:45 Hyaline Casts 0-2 /LPF 04/26/21 05:45 Peritoneal WBC 0.288 X10*3/uL 04/27/21 16:10 Peritoneal RBC < 0.002 X10*6/uL 04/27/21 16:10 Periton Neutrophils 33 % 04/27/21 16:10 Periton Lymphocytes 33 % 04/27/21 16:10 Peritoneal Monocytes 27 % 04/27/21 16:10 Peritoneal Other Cells 7 % 04/27/21 16:10 Peritoneal Albumin 0.3 04/27/21 16:10 Nasal Screen MRSA (PCR) NEGATIVE (Negative) 04/27/21 23:15 Nasal S. aureus Screen NEGATIVE (Negative) 04/27/21 23:15 Nasal MRSA/S.aureus Interp SEE NOTE 04/27/21 23:15 Vancomycin Trough 19.3 mcg/mL (10.0-20.0) 04/27/21 21:56 Phenobarbital 4.8 mcg/mL (10.0-40.0) L 04/25/21 23:21 Ethyl Alcohol 52 mg/dL 04/25/21 19:50 Respiratory Panel Sam See Note 04/26/21 12:21 Adenovirus (Rapid PCR) Not Detected (Not Detect.) 04/26/21 12:21 B.pert (TEM-PCR) Not Detected (Not Detect.) 04/26/21 12:21 B.parapertussis DNA PCR Not Detected (Not Detect.) 04/26/21 12:21 C. pneumoniae DNA (PCR) Not Detected (Not Detect.) 04/26/21 12:21 Coronavirus OC43 (PCR) Not Detected (Not Detect.) 04/26/21 12:21 Coronavirus HKU1 (PCR) Not Detected (Not Detect.) 04/26/21 12:21 Coronavirus 229E (PCR) Not Detected (Not Detect.) 04/26/21 12:21 COVID-19 (ENA) Negative (Negative) 04/25/21 19:50 COVID-19 Clin Com See Note 04/25/21 19:50 Coronavirus NL63 (PCR) Not Detected (Not Detect.) 04/26/21 12:21 Hep Bs Antigen Negative (Negative) 04/28/21 05:25 Hep Bs Antibody NONREACTIVE (Nonreactive) 04/28/21 05:25 Hep B Core Total Ab Nonreactive (Nonreactive) 04/28/21 05:25 Hepatitis C Ab (EIA) Nonreactive (Nonreactive) 04/28/21 05:25 Human Metapneumovir PCR Not Detected (Not Detect.) 04/26/21 12:21 Influenza A (RT-PCR) Not Detected (Not Detect.) 04/26/21 12:21 Influenza B (RT-PCR) Not Detected (Not Detect.) 04/26/21 12:21 M. pneumoniae (PCR) Not Detected (Not Detect.) 04/26/21 12:21 Parainfluenza 1 (PCR) Not Detected (Not Detect.) 04/26/21 12:21 Parainfluenza 2 (PCR) Not Detected (Not Detect.) 04/26/21 12:21 Parainfluenza 3 (PCR) Not Detected (Not Detect.) 04/26/21 12:21 Parainfluenza 4 (PCR) Not Detected (Not Detect.) 04/26/21 12:21 RSV (PCR) Not Detected (Not Detect.) 04/26/21 12:21 Entero/Rhino (PCR) Not Detected (Not Detect.) 04/26/21 12:21 SARS-CoV-2 RNA (RT-PCR) Not Detected (Not Detect.) 04/26/21 12:21 Impressions Chest X-Ray 04/25/21 18:06 IMPRESSION: Hypoexpanded. No acute process otherwise. Venous Duplex 04/25/21 18:10 IMPRESSION: No DVT demonstrated in the bilateral lower extremity. Ankle X-Ray 04/25/21 19:27 IMPRESSION: Bimalleolar soft tissue swelling in both ankles. No visible acute fracture, dislocation or lytic process seen. There is a moderate size calcaneal heel enthesophytes in both ankles. Head CT 04/25/21 19:40 IMPRESSION: 1. Exam limited by motion. 1. No gross evidence of acute intracranial pathology. 2. No gross evidence of acute cervical spine fracture or traumatic subluxation Cervical Spine CT 04/25/21 19:41 IMPRESSION: 1. Exam limited by motion. 1. No gross evidence of acute intracranial pathology. 2. No gross evidence of acute cervical spine fracture or traumatic subluxation Abdomen/Pelvis CT 04/25/21 20:48 IMPRESSION: Groundglass attenuation left upper lobe suspicious for infiltrative or inflammatory process. There is dependent right upper lobe superior segment and left lower lobe posterior basal segment atelectasis. Moderate cardiomegaly with diffuse hepatic steatosis and likely cirrhosis with underlying artery ascites. There is no bowel distention. No free air. Chest CT 04/25/21 20:55 IMPRESSION: Groundglass attenuation left upper lobe suspicious for infiltrative or inflammatory process. There is dependent right upper lobe superior segment and left lower lobe posterior basal segment atelectasis. Moderate cardiomegaly with diffuse hepatic steatosis and likely cirrhosis with underlying artery ascites. There is no bowel distention. No free air. Abdomen Ultrasound 04/27/21 17:13 IMPRESSION: Unremarkable complete abdomen ultrasound except for gallbladder wall thickening with fluid within the wall.. No echogenic gallstone seen. There is retrograde flow seen in the main hepatic artery. Normal hepatopedal flow seen in the extrahepatic and intrahepatic right and main portal vein. There is hepatofugal flow in the left portal vein. Doppler Study Ultrasound 04/27/21 17:13 IMPRESSION: Unremarkable complete abdomen ultrasound except for gallbladder wall thickening with fluid within the wall.. No echogenic gallstone seen. There is retrograde flow seen in the main hepatic artery. Normal hepatopedal flow seen in the extrahepatic and intrahepatic right and main portal vein. There is hepatofugal flow in the left portal vein. Paracentesis Ultrasound 05/02/21 08:00 IMPRESSION: Ultrasound-guided paracentesis. Discharge Plan Discharge Patient Disposition: Home Health Service Discharge Diagnosis: alcohol withdrawal, alcohol use disorder, hypoglycemia, encephalopathy, cirrhosis with ascites, pneumonia, hypomagnesemia, tobacco abuse Referrals: Josefina FRANCOIS [Outside] - 1 Day (Please call above number if you have not heard from a nurse by noon on Sunday05/03/21. ) Edel Barron NP [Primary Care Provider] - 1 Week Rafael Hsu MD [Physician] - 1 Week Discharge Medications: New spironolactone 25 mg Tablet 50 mg PO BID@0900,1800 Qty: 60 RF: 0 magnesium oxide 400 mg (241.3 mg magnesium) Tablet 800 mg PO BIDPC Qty: 120 RF: 0 furosemide 20 mg Tablet 20 mg PO BID@0900,1800 Qty: 60 RF: 0 folic acid 1 mg Tablet 1 mg PO DAILY Qty: 30 RF: 0 multivitamin [Daily-Davidson] Tablet 1 tab PO DAILY Qty: 30 RF: 0 thiamine mononitrate (vit B1) 100 mg Tablet 100 mg PO DAILY Qty: 30 RF: 0 nicotine (polacrilex) 2 mg gum 2 mg buccal Q1H PRN (Reason: nicotine cravings) Qty: 100 RF: 0 Continued atorvastatin 40 mg tablet 1 tab PO BEDTIME RF: 0 prazosin 1 mg capsule 1 cap PO BID RF: 0 olanzapine 5 mg tablet 1 tab PO BEDTIME RF: 0 hydroxyzine HCl 50 mg tablet 2 tab PO BEDTIME RF: 0 amlodipine 5 mg tablet 1 tab PO DAILY RF: 0 pantoprazole 40 mg tablet,delayed release (DR/EC) 1 tab PO BID RF: 0 hydroxyzine HCl 25 mg tablet 1 tab PO DAILY RF: 0 bupropion HCl 150 mg tablet extended release 24 hr 1 tab PO QAM RF: 0 duloxetine 60 mg capsule,delayed release(DR/EC) 1 cap PO BID RF: 0 Discontinued gabapentin 600 mg tablet 2 tab PO TID RF: 0 potassium chloride 10 mEq tablet extended release 1 tab PO DAILY RF: 0 ibuprofen 600 mg tablet 1 tab PO TID RF: 0 metformin 500 mg tablet extended release 24 hr 2 tab PO BID RF: 0 glipizide 5 mg tablet 1 tab PO DAILY RF: 0 Discharge Orders: Discharge Order (Routine); Ordered 05/02/21 Ordered By: Bharat Alvarez Diet: low salt diet Activity on Discharge: As tolerated Stand Alone Forms: Patient Portal Discharge page Other Ambulatory Orders: Prothrombin Time INR (Routine) Timeframe: 1 Week Facility: [facility] - Location: Laboratory Ordered By: Bharat Alvarez Care Plan Goals: sobriety, liver health, smoking cessation Health Concerns: alcohol withdrawal, alcohol use disorder, hypoglycemia, encephalopathy, cirrhosis with ascites, pneumonia, hypomagnesemia, tobacco abuse Plan of Treatment: completed phenobarbital taper take vitamins: thiamine 100 mg, folate 1 mg, and multivitamin daily STOP glipizide and metformin- not needed avoid alcohol completely and follow up with gastroenterology in 2 weeks labs in 1 week: CBCd, CMP, magnesium, PT/INR take spironolactone 50 mg 2x a day and furosemide 20 mg 2x a day; restrict sodium to maximum 2000 mg/d take magnesium oxide 800mg 2x a day quit smoking; use nicotine gum to help see your primary care doctor in 1 week Assessment: see discharge summary Patient Instructions: Cirrhosis (DC), Abuse of Alcohol (DC), Ascites (DC)
[2021-05-02 14:46] LABS: Anti Nuclear Antibody Screen NEGATIVE (NEGATIVE)
[2021-05-02 19:42] LABS: Ceruloplasmin 22 mg/dL (18-53)
[2021-05-02 20:52] LABS: Smooth Muscle Antibody <20 U (<20)
[2021-05-03 13:42] LABS: Transglutaminase Ab IgG 1 U/mL; Transglutaminase IgA 1 U/mL
[2021-05-03 19:36] LABS: Immunoglobulin G Subclass 1 434 mg/dL (382-929); Immunoglobulin G Subclass 2 131 mg/dL (241-700); Immunoglobulin G Subclass 3 16 mg/dL (22-178); Immunoglobulin G Subclass 4 36.5 mg/dL (4-86); Immunoglobulin G Total 731 mg/dL (600-1640)
[2021-05-04 01:22] LABS: Liver Kidney Microsomal Ab <=20.0 U (<=20.0)
[2021-05-04 23:01] LABS: Legionella Ag Urine Not Detected (Not Detected)
== END 2021-05-02 14:41 | disposition home health service (06) | DRG 432 ==
LOC: HO.ED 19:42 → HO.EDOVER 22:45 → HO.S3 04-26 10:05
PROVIDERS: Internal Medicine; Physician Assistant Medical; Radiology Diagnostic Radiology; Admitting Provider Hospitalist; Emergency Provider Emergency Medicine; PCP Nurse Practitioner Family; Visit Provider Family Medicine
PROC: 0W9G3ZZ Drainage of Peritoneal Cavity, Percutaneous Approach (ICD-10-PCS; principal; 2021-05-02 09:30)
DX: K70.31 Alcoholic cirrhosis of liver with ascites (principal); J18.9 Pneumonia, unspecified organism; G92 Toxic encephalopathy; F10.239 Alcohol dependence with withdrawal, unspecified; E44.0 Moderate protein-calorie malnutrition; K70.11 Alcoholic hepatitis with ascites; Z20.822 Contact with and (suspected) exposure to COVID-19; E83.42 Hypomagnesemia; F43.10 Post-traumatic stress disorder, unspecified; I10 Essential (primary) hypertension; F39 Unspecified mood [affective] disorder; F41.9 Anxiety disorder, unspecified; R29.6 Repeated falls; E78.5 Hyperlipidemia, unspecified; J44.9 Chronic obstructive pulmonary disease, unspecified; T38.3X5A Adverse effect of insulin and oral hypoglycemic [antidiabetic] drugs, initial encounter; Y92.9 Unspecified place or not applicable; E16.0 Drug-induced hypoglycemia without coma; Z68.26 Body mass index [BMI] 26.0-26.9, adult; E87.6 Hypokalemia; Z91.81 History of falling; F17.210 Nicotine dependence, cigarettes, uncomplicated; Z71.6 Tobacco abuse counseling; Z79.899 Other long term (current) drug therapy
CPT/HCPCS: 36415; 49083; 70450; 71046; 71250; 72125; 73610; 74176; 76700; 80048; 80053; 80184; 80202; 81001; 82042; 82077; 82103; 82140; 82390; 82607; 82728; 82746; 82784; 82803; 82947; 83036; 83516; 83540; 83735; 83880; 84145; 84484; 85025; 85027; 85610; 86038; 86039; 86255; 86376; 86704; 86706; 86803; 87040; 87071; 87073; 87086; 87205; 87340; 87449; 87633; 87635; 87640; 87641; 89051; 92610; 93005; 93306; 93970; 93975; 95816; 96365; 96372; 96375; 97116; 97162; 99285; 99291; J0692; J2060; J2543; J2560; J3370; J3411; J3475

== ENCOUNTER 2021-05-21 14:27 | Emergency (ER) | payer MEDICARE, MEDICAID, SELFPAY ==
[2021-05-21 14:53] VITALS: BP 171/77; PULSE 100; RESP 18; TEMP 36.9; O2SAT 95; BMI 25.1
--- NOTE | 2021-05-21 15:04 | ED.GENADULT ---
HPI - General Adult General Chief complaint: Psychiatric Symptoms Stated complaint: CRISIS EVAL Time Seen by Provider: 05/21/21 14:49 Source: patient Mode of arrival: EMS Limitations: no limitations History of Present Illness HPI narrative: 56-year-old female who was brought to the emergency department by ambulance for evaluation of suicidal statement. The patient states that she is currently in a rehab facility for physical therapy. She states that she was living at home with her mother and her sister. She states that she took her mother's medications in order to ?mellow out ?. Because of this incident, her sister and mother were angry with her and insisted that she get into a rehab facility for physical therapy. Patient states she has been in this facility for approximately 12 days and she did not feel like she was getting any benefit and wanted to leave today. Apparently this upset the patient's sister. The patient and her sister got in argument on the phone and the sister told the patient that she wished that the patient had instead of their brother. Apparently the brother of complications of alcohol use disorder. The patient was upset by this statement and told her sister that ?I wish I had diet instead (of my brother) . After this statement, the patient's sister called the police the police went to the rehab center and interviewed the patient. She states that she told the police that she was not suicidal. The police then gave her the option to come to the emergency department voluntarily for evaluation and the patient agreed. Here in the emergency department, the patient denies being suicidal or homicidal. She states she does have a history of depression but she is taking medications for this. She states that in the remote past she did have an episode where she wanted to kill herself and she was hospitalized here on our psych facility. She states she has never attempted to harm herself in the past. She denied being ill in any way. Related Data Home Medications Medication Instructions Recorded Confirmed amlodipine 5 mg tablet 1 tab PO DAILY 04/26/21 04/26/21 atorvastatin 40 mg tablet 1 tab PO BEDTIME 04/26/21 04/26/21 bupropion HCl 150 mg 24 hr tablet, 1 tab PO QAM 04/26/21 04/26/21 extended release duloxetine 60 mg capsule,delayed 1 cap PO BID 04/26/21 04/26/21 release hydroxyzine HCl 25 mg tablet 1 tab PO DAILY 04/26/21 04/26/21 hydroxyzine HCl 50 mg tablet 2 tab PO BEDTIME 04/26/21 04/26/21 olanzapine 5 mg tablet 1 tab PO BEDTIME 04/26/21 04/26/21 pantoprazole 40 mg tablet,delayed 1 tab PO BID 04/26/21 04/26/21 release prazosin 1 mg capsule 1 cap PO BID 04/26/21 04/26/21 Previous Rx's Medication Instructions Recorded folic acid 1 mg tablet 1 mg PO DAILY #30 tab 05/02/21 furosemide 20 mg tablet 20 mg PO BID@0900,1800 #60 tab 05/02/21 magnesium oxide 400 mg (241.3 mg 800 mg PO BIDPC #120 tab 05/02/21 magnesium) tablet multivitamin (Daily-Davidson) 1 tab PO DAILY #30 tab 05/02/21 nicotine (polacrilex) 2 mg gum 2 mg BUCCAL Q1H PRN #100 ea 05/02/21 spironolactone 25 mg tablet 50 mg PO BID@0900,1800 #60 tab 05/02/21 thiamine mononitrate (vit B1) 100 100 mg PO DAILY #30 tab 05/02/21 mg tablet Allergies Allergy/AdvReac Type Severity Reaction Status Date / Time No Known Allergies Allergy Verified 05/21/21 14:53 [No Known Allergies*] Review of Systems Review of Systems: Yes all other systems are reviewed and are negative [facility] Past Medical History [facility] Narrative: Social history: She smokes 8 cigarettes per day x6 years. She drinks 3 beers and 5 nips per day. She denies drug use. Medical History Alcohol use disorder Alcoholic Cirrhosis of liver with ascites Neuropathy Pneumonia Toxic metabolic encephalopathy Surgical History History of renal stent Family History Family History Mother Substance abuse Brother Substance abuse Social History Social History Household Members: Other Household Members Other:: mother Housing: Apartment Do you presently have visiting nurse or other home services: No Alcohol intake: current Alcohol intake frequency: 3 or more drinks per day Patient Tobacco Use Status: Current everyday Tobacco user Tobacco use type: Cigarette Cigarettes Per Day: 7 Years Smoked: 54 e-Cigarette/Vaping Use: Never Used Second Hand Smoke Exposure: Yes Advance Directives: No Advance Directives Information Provided: No Patient : No service: No Current occupational status: employed and disabled Physical Exam Vital Signs: Vital Signs: Last Vital Signs Temp 98.4 F 05/21/21 14:53 Pulse 100 05/21/21 14:53 Resp 18 05/21/21 14:53 BP 171/77 H 05/21/21 14:53 Pulse Ox 95 05/21/21 14:53 Body Mass Index 25.1 Const: General: cooperative and no acute distress Orientation/consciousness: oriented to person and oriented to place Limitations: no limitations HENMT: Head: Yes normal to inspection, Yes normocephalic and Yes atraumatic Ears: external ears normal General nose exam: Normal external nose present Face and sinus: Yes normal facial exam Mouth: Normal oral and palatal mucosa present Throat: Yes posterior oropharynx normal Eyes: General: appearance normal, both eyes and all related structures Pupils: Equal, round and reactive pupils present Neck: Neck: Yes normal visual inspection, Yes no lymphadenopathy, Yes trachea midline and Yes supple Chest: Chest palpation & inspection: normal inspection of the chest and normal palpation of entire chest wall Resp: Effort & Inspection: normal respiratory effort and able to speak in complete sentences Auscultation: clear to auscultation bilaterally Cardio: Rate: regular rate Rhythm: regular rhythm Heart sounds: S1 normal heart sound present, S2 normal heart sound present and no murmurs GI: Inspection: Yes normal to inspection Palpation (GI): Soft to palpation, nontender and no guarding Auscultation: normal bowel sounds : General: Yes no CVA tenderness Back/Spine/Pelvis: Back: no CVA tenderness Skin: General skin exam: no rashes or lesions noted Neuro: General: oriented to person and oriented to place Cranial nerves: Yes CN's II-XII intact bilaterally and Yes Equal, round and reactive pupils present Cognition (Neuro): normal cognition Motor exam (neuro): 5/5 motor strength present throughout Extrem: General: Yes normal to inspection Psych: Appearance: grossly normal Speech and movement: Normal speech and movement present Affect: normal affect Attitude: cooperative Thought process: Normal thought process present Thought content: Normal thought content present Course Course Course Narrative: 56-year-old female who was brought to the emergency department by ambulance for evaluation of a suicidal statement that she made at her group home facility that she has been at for approximately 12 days for physical therapy rehab. The patient got in an argument with her sister and made a statement that she wished that she was that she was instead of her brother. This statement was made in response to his statement that the sister made 1st. Here in the emergency department, the patient denied being suicidal or homicidal. She denies being depressed. The patient does not want to talk to a crisis counselor and just wants to go home. She states that she is not getting any benefit from the group home facility and was going to check herself out and does stay with a friend. At this time, I do not think that the patient is acutely suicidal or homicidal therefore she will be discharged home. 1539: The patient's healthcare proxy called the emergency department and had a discussion with the ED nurse caring for the patient. Apparently the family wants to pursue a Section 35. At this time, the patient is not suicidal or homicidal and she cannot be Section 12. I did tell the patient that a Section 35 is a medical and not legal process and that it cannot be pursued on a weekend but her family may decide to pursue it during the week. I also told her that her healthcare proxy may or may not let her stay with her. The patient is aware of this and the patient does not want to go back to the group home facility and she wants to be discharged from the emergency department. Discharge Plan Discharge Clinical Impression: Depression Qualifiers: Depression Type: other depression Qualified Code(s): F32.89 - Other specified depressive episodes Patient Disposition: Home, Self-Care Additional Instructions: At this time, based on my interview with you and the statements that she made, I do not think that you are at risk for harming yourself. However if you start to feel sad, depressed or feel like you are going to hurt yourself or you are going to hurt anyone else, then please return to the emergency department and we can re-evaluate you and get you help. Follow-up with your doctor in 2 days. Please return to the emergency department if your symptoms get worse or if you develop any symptoms that are concerning to you. Prescriptions: No Action atorvastatin 40 mg tablet 1 tab PO BEDTIME RF: 0 prazosin 1 mg capsule 1 cap PO BID RF: 0 olanzapine 5 mg tablet 1 tab PO BEDTIME RF: 0 hydroxyzine HCl 50 mg tablet 2 tab PO BEDTIME RF: 0 amlodipine 5 mg tablet 1 tab PO DAILY RF: 0 pantoprazole 40 mg tablet,delayed release (DR/EC) 1 tab PO BID RF: 0 hydroxyzine HCl 25 mg tablet 1 tab PO DAILY RF: 0 bupropion HCl 150 mg tablet extended release 24 hr 1 tab PO QAM RF: 0 duloxetine 60 mg capsule,delayed release(DR/EC) 1 cap PO BID RF: 0 spironolactone 25 mg Tablet 50 mg PO BID@0900,1800 Qty: 60 RF: 0 magnesium oxide 400 mg (241.3 mg magnesium) Tablet 800 mg PO BIDPC Qty: 120 RF: 0 furosemide 20 mg Tablet 20 mg PO BID@0900,1800 Qty: 60 RF: 0 folic acid 1 mg Tablet 1 mg PO DAILY Qty: 30 RF: 0 multivitamin [Daily-Davidson] Tablet 1 tab PO DAILY Qty: 30 RF: 0 thiamine mononitrate (vit B1) 100 mg Tablet 100 mg PO DAILY Qty: 30 RF: 0 nicotine (polacrilex) 2 mg gum 2 mg buccal Q1H PRN (Reason: nicotine cravings) Qty: 100 RF: 0
[2021-05-21 16:00] VITALS: BP 163/84; PULSE 74; RESP 16; TEMP 36.9; O2SAT 97
== END 2021-05-21 16:37 | disposition home or self-care (01) ==
LOC: HO.ED 15:21
PROVIDERS: Emergency Provider Emergency Medicine Emergency Medical Services
DX: F33.1 Major depressive disorder, recurrent, moderate (principal); F17.210 Nicotine dependence, cigarettes, uncomplicated; Z71.6 Tobacco abuse counseling; Z79.899 Other long term (current) drug therapy
CPT/HCPCS: 99283

== ENCOUNTER 2021-12-09 09:21 | Emergency (ER) | payer MEDICARE, MEDICAID, SELFPAY ==
--- NOTE | ~2021-12-09 | XR_ITS ---
EXAMINATION: XR CHEST CLINICAL INFORMATION: Shortness of breath. Covid positive. COMPARISON: Previous chest x-ray most recent April 2021 TECHNIQUE: 2 views of the chest were obtained. FINDINGS: The cardiac and mediastinal contours are normal. The lungs are clear. There is no pleural effusion or pneumothorax. There are mild degenerative changes of the spine. XR/XR chest 2V IMPRESSION: No evidence for acute disease in the chest.
[2021-12-09 09:44] VITALS: BP 136/68; BP 149/74; PULSE 100; PULSE 101; RESP 16; TEMP 36.7; O2SAT 94; O2SAT 96; BMI 26.6
--- NOTE | 2021-12-09 09:49 | ED.GENADULT ---
HPI - General Adult General Chief complaint: Dyspnea Stated complaint: covid + Time Seen by Provider: 12/09/21 09:32 Source: patient Limitations: no limitations History of Present Illness HPI narrative: This is a 56-year-old female with a history of liver cirrhosis, COPD, who states she tested positive for COVID about 10 days ago, with a home test. She repeated yesterday at home and still had a positive test. Patient reports some increased dyspnea and wheezing. She was treated pre-hospital by EMS with a nebulizer treatment and Solu-Medrol IV. She denies any fever. She has had a productive cough, yellow phlegm. She denies any nausea vomiting, worsened swelling in her extremities, abdominal pain, or chest pain. Related Data Home Medications Medication Instructions Recorded Confirmed amlodipine 5 mg tablet 1 tab PO DAILY 04/26/21 04/26/21 atorvastatin 40 mg tablet 1 tab PO BEDTIME 04/26/21 04/26/21 bupropion HCl 150 mg 24 hr tablet, 1 tab PO QAM 04/26/21 04/26/21 extended release duloxetine 60 mg capsule,delayed 1 cap PO BID 04/26/21 04/26/21 release hydroxyzine HCl 25 mg tablet 1 tab PO DAILY 04/26/21 04/26/21 hydroxyzine HCl 50 mg tablet 2 tab PO BEDTIME 04/26/21 04/26/21 olanzapine 5 mg tablet 1 tab PO BEDTIME 04/26/21 04/26/21 pantoprazole 40 mg tablet,delayed 1 tab PO BID 04/26/21 04/26/21 release prazosin 1 mg capsule 1 cap PO BID 04/26/21 04/26/21 Previous Rx's Medication Instructions Recorded folic acid 1 mg tablet 1 mg PO DAILY #30 tab 05/02/21 furosemide 20 mg tablet 20 mg PO BID@0900,1800 #60 tab 05/02/21 magnesium oxide 400 mg (241.3 mg 800 mg PO BIDPC #120 tab 05/02/21 magnesium) tablet multivitamin (Daily-Davidson) 1 tab PO DAILY #30 tab 05/02/21 nicotine (polacrilex) 2 mg gum 2 mg BUCCAL Q1H PRN #100 ea 05/02/21 spironolactone 25 mg tablet 50 mg PO BID@0900,1800 #60 tab 05/02/21 thiamine mononitrate (vit B1) 100 100 mg PO DAILY #30 tab 05/02/21 mg tablet albuterol sulfate 90 mcg/actuation 2 inh INHALATION Q4H PRN #1 ea 12/09/21 breath activated powder inhaler doxycycline hyclate 100 mg capsule 100 mg PO BID #20 cap 12/09/21 inhalational spacing device #50 ea 12/09/21 (Aerochamber Plus Z Stat) prednisone 20 mg tablet 40 mg PO DAILY #10 tab 12/09/21 Allergies Allergy/AdvReac Type Severity Reaction Status Date / Time No Known Allergies Allergy Verified 05/21/21 14:53 [No Known Allergies*] Review of Systems Review of Systems: Yes all other systems are reviewed and are negative Constitutional: Constitutional: Reports as per HPI and Denies fever(s) Eyes: Eyes: Reports as per HPI and Reports no additional eye complaints ENT: Reports system reviewed and no additional complaints, except as documented, Reports as per HPI, Denies nasal congestion, Denies nasal discharge and Denies sore throat Cardiovascular: Cardiovascular: Reports as per HPI, Denies chest pain and Reports dyspnea Respiratory: Respiratory: Reports as per HPI, Reports cough, Reports dyspnea and Reports wheezing Gastrointestinal: Gastrointestinal: Reports as per HPI, Denies abdominal pain, Denies diarrhea and Denies vomiting Genitourinary: Genitourinary: Reports as per HPI, Denies hematuria, Denies urinary frequency and Denies dysuria Musculoskeletal: Musculoskeletal: Reports no additional musculoskeletal complaints and Denies numbness Integumentary/Breasts: Skin/Breast: Reports as per HPI and Denies rash Neurologic: Reports as per HPI, Denies focal weakness and Denies numbness Psychiatric: Psychiatric: Reports no additional psychiatric complaints and Reports as per HPI Endocrine: Endocrine: Reports no additional endocrine complaints and Reports as per HPI Hematologic/Lymphatic: Hematologic/Lymphatic: Reports no additional hematologic/lymphatic complaints, Reports as per HPI and Reports other (No peripheral edema) Allergic/Immunologic: Allergic/Immunologic: Reports wheezing PMFSH Past Medical History Medical History Alcohol use disorder Alcoholic Cirrhosis of liver with ascites Neuropathy Pneumonia Toxic metabolic encephalopathy Surgical History History of renal stent Family History Family History Mother Substance abuse Brother Substance abuse Social History Social History Household Members: Other Household Members Other:: mother Housing: Apartment Do you presently have visiting nurse or other home services: No Alcohol intake: former Patient Tobacco Use Status: Current everyday Tobacco user Tobacco use type: Cigarette Cigarettes Per Day: 7 Years Smoked: 54 e-Cigarette/Vaping Use: Never Used Second Hand Smoke Exposure: Yes Use of substances other than those prescribed or required for medical reasons: No Advance Directives: No Advance Directives Information Provided: No service: No Current occupational status: employed and disabled Physical Exam ED Vital Signs: Vital Signs - 24 hr 12/09/21 09:44 12/09/21 09:50 Temperature 98.0 F Pulse Rate 101 H Respiratory Rate 16 Blood Pressure 149/74 H Pulse Oximetry 94 96 BMI result Body Mass Index 26.6 Const General: no acute distress Orientation/consciousness: patient oriented x3 HENMT Head: Yes normal to inspection General nose exam: Normal external nose present Mouth: moist mucous membranes Throat: Yes posterior oropharynx normal, Yes tonsils normal and Yes uvula midline Eyes Eyelids: Yes eyelids normal Conjunctivae: conjunctivae normal Pupils: Equal, round and reactive pupils present Neck Neck: Yes supple Resp Auscultation: not clear to auscultation bilaterally and wheezes (Mild diffuse expiratory) Cardio Rate: regular rate Rhythm: regular rhythm Heart sounds: S1 normal heart sound present, S2 normal heart sound present, no gallops, no murmurs and no rubs GI Inspection: Yes distended ([id number], consistent with ascites from cirrhosis) Palpation (GI): Soft to palpation and nontender Auscultation: normal bowel sounds Skin General skin exam: other (Warm and dry) Neuro General: patient oriented x3 and CN's II-XI intact bilaterally Cranial nerves: Yes Equal, round and reactive pupils present Extrem Other: Trace pitting edema General: Yes no pedal edema Psych Affect: normal affect Attitude: cooperative Course Course Course Narrative: Patient who had a positive COVID test at home about 10 days ago, another repeat 1 yesterday was positive. Patient has experienced wheezing and dyspnea, does have a history of COPD. Chest x-ray is negative. Patient was given Solu-Medrol and DuoNeb pre-hospital. Patient has had Pfizer vaccine x2, no booster. COVID test was positive here today. Patient is out of the window for any antibody or antiviral treatment. Will treat with albuterol with spacer, prednisone, and doxycycline for COPD with bronchitis. Patient was improved, was speaking in full sentences prior to discharge Medical Decision Making Lab Data Lab results reviewed: Yes I reviewed the patient's lab results. Labs: Lab Results 12/09/21 Range/Units 10:06 COVID-19 (ENA) Positive A (Negative) COVID-19 Clin Com See Note Imaging Data Chest x-ray: Radiologist's impression: FINDINGS: The cardiac and mediastinal contours are normal. The lungs are clear. There is no pleural effusion or pneumothorax. There are mild degenerative changes of the spine. XR/XR chest 2V IMPRESSION: No evidence for acute disease in the chest. Discharge Plan Discharge Clinical Impression: COPD exacerbation, History of COVID-19 Patient Disposition: Home, Self-Care Instructions: COPD (Chronic Obstructive Pulmonary Disease) (ED), COVID-19 (Coronavirus Disease 2019) (ED) Additional Instructions: Use the prednisone as prescribed. Use the albuterol inhaler with a spacer device every 4-6 hours as needed. Use the doxycycline as prescribed. Return for any new or worsened symptoms. Follow up with primary care physician. Return for any worsened symptoms such as worse shortness of breath, high fever. Do not take the doxycycline within 6 hours of your magnesium supplement. Prescriptions: New prednisone 20 mg tablet 40 mg PO DAILY Qty: 10 0RF albuterol sulfate 90 mcg/actuation aerosol powdr breath activated 2 inh inhalation Q4H PRN (Reason: shortness of breath or wheezing) Qty: 1 1RF (DME) Aerochamber Plus Z Stat Spacer See Rx Instructions .Route Qty: 50 0RF Rx Instructions: As directed doxycycline hyclate 100 mg capsule 100 mg PO BID Qty: 20 0RF No Action atorvastatin 40 mg tablet 1 tab PO BEDTIME 0RF prazosin 1 mg capsule 1 cap PO BID 0RF olanzapine 5 mg tablet 1 tab PO BEDTIME 0RF hydroxyzine HCl 50 mg tablet 2 tab PO BEDTIME 0RF amlodipine 5 mg tablet 1 tab PO DAILY 0RF pantoprazole 40 mg tablet,delayed release (DR/EC) 1 tab PO BID 0RF hydroxyzine HCl 25 mg tablet 1 tab PO DAILY 0RF bupropion HCl 150 mg tablet extended release 24 hr 1 tab PO QAM 0RF duloxetine 60 mg capsule,delayed release(DR/EC) 1 cap PO BID 0RF spironolactone 25 mg Tablet 50 mg PO BID@0900,1800 Qty: 60 0RF Protocol: Hold for SBP< HOLD for SBP < : 90 magnesium oxide 400 mg (241.3 mg magnesium) Tablet 800 mg PO BIDPC Qty: 120 0RF furosemide 20 mg Tablet 20 mg PO BID@0900,1800 Qty: 60 0RF Protocol: Hold for SBP< HOLD for SBP < : 90 folic acid 1 mg Tablet 1 mg PO DAILY Qty: 30 0RF multivitamin [Daily-Davidson] Tablet 1 tab PO DAILY Qty: 30 0RF thiamine mononitrate (vit B1) 100 mg Tablet 100 mg PO DAILY Qty: 30 0RF nicotine (polacrilex) 2 mg gum 2 mg buccal Q1H PRN (Reason: nicotine cravings) Qty: 100 0RF
[2021-12-09 09:50] VITALS: O2SAT 96
[2021-12-09 10:19] LABS: COVID-19 Test Positive (Negative)
[2021-12-09 12:08] VITALS: PULSE 104; RESP 20; O2SAT 94
== END 2021-12-09 12:35 | disposition home or self-care (01) ==
PROVIDERS: Emergency Provider Emergency Medicine; PCP Nurse Practitioner Family
DX: U07.1 COVID-19 (principal); J44.1 Chronic obstructive pulmonary disease with (acute) exacerbation; R06.02 Shortness of breath; F17.210 Nicotine dependence, cigarettes, uncomplicated; Z71.6 Tobacco abuse counseling; Z79.899 Other long term (current) drug therapy
CPT/HCPCS: 71046; 87635; 99283; 99284

== ENCOUNTER 2022-03-24 18:27 | Inpatient (IN) | payer MEDICARE, MEDICAID, SELFPAY ==
--- NOTE | ~2022-03-24 | XR_ITS ---
EXAMINATION: XR CHEST CLINICAL INFORMATION: Shortness of breath, history of COPD COMPARISON: Chest x-ray 12/09/2021 TECHNIQUE: 2 views of the chest were obtained. FINDINGS: Patchy bilateral airspace opacities there appear to be primarily within the upper lobes, right middle lobe and lingula on the lateral view. No pleural effusion. No pneumothorax. Cardiomediastinal silhouette. No acute osseous injury. XR/XR chest 2V IMPRESSION: 1. Patchy bilateral airspace opacities, which may represent bilateral pneumonia in the appropriate clinical setting. 2. No pleural effusions.
[2022-03-24 18:42] VITALS: BP 174/80; PULSE 100; O2SAT 90
[2022-03-24 19:03] VITALS: TEMP 37.1; BMI 25.7
--- NOTE | 2022-03-24 19:06 | ECG_ITS ---
Test Reason : DIZZINESS Blood Pressure : / mmHG Vent. Rate : 100 BPM Atrial Rate : 100 BPM P-R Int : 134 ms QRS Dur : 080 ms QT Int : 342 ms P-R-T Axes : 067 005 061 degrees QTc Int : 441 ms Normal sinus rhythm Nonspecific ST abnormality Abnormal ECG When compared with ECG of 25-APR-2021 19:01, Nonspecific T wave abnormality has replaced inverted T waves in Anterolateral leads Referred By: Faith Conley Electronically Signed By:ABDIAS VALLADARES
[2022-03-24 19:16] LABS: Appearance Urine CLEAR; Color Urine YELLOW; Glucose Urine UA >=1000 MG/DL (NEG); Leukocyte Esterase Urine NEG (NEG); Nitrite Urine NEG (NEG); PH 6.5 (5.0-8.0); Specific Gravity - Urine <= 1.005 (1.005-1.025); Urine Blood NEG (NEG); Urine Ketones NEG (NEG); Urine Protein NEG (NEG-TRACE)
[2022-03-24 19:31] LABS: RBC Urine 0 /HPF (0); Squamous Epithelial Cell Urine 1+ /LPF; WBC Urine 0 /HPF (0-4)
[2022-03-24 19:42] LABS: Glucose, Whole Blood 426 mg/dL (60-115)
[2022-03-24] MEDS: 0.9 % Sodium Chloride 1,000 ML 999 ML IVCONT ×2 (19:54)
--- NOTE | 2022-03-24 20:01 | ED_ITS ---
HPI - Recheck/Abnormal Lab/Rx General Chief Complaint: Recheck/Abnormal Lab/Rx Stated Complaint: hyperglycemia Time Seen by Provider: 03/24/22 19:05 History of Present Illness HPI narrative: 57-year-old female with a past medical history of liver cirrhosis, COPD, diabetes, PTSD and anxiety disorder presenting to the ED from a substance abuse program via EMS after she was noted to be hyperglycemia with her blood sugar over 600 prior to arrival. Apparently EMS was called due to and they were taking her vitals they noticed that her oxygen was 88% on room air and she has some chest tightness/cough/shortness of breath although when EMS arrived they decided to take her blood sugar she reported that she denied any other symptoms. She reports she is a diabetic and she is currently on 1000 mg of metformin b.i.d. and she took her prescription medications this morning and she is also on Trulicity where she received an injection every Sunday and she had her injection on Sunday. Although she reports that she did have a cortisone injection to her right shoulder on Sunday. She denies any dizziness, headaches, neck pain/stiffness, sore throat, dyspnea on exertion, orthopnea, palpitations, paresthesias, abdominal pain, nausea/vomiting/diarrhea constipation, black or bloody stools, rashes, recent travel or sick contacts or any other symptoms complaints or concerns at this time. MD complaint: abnormal lab (Elevated glucose over 600) Initial visit (ago): hour(s) (Few minutes prior to arrival) Related Data Home Medications Medication Instructions Recorded Confirmed amlodipine 5 mg tablet 1 tab PO DAILY 04/26/21 04/26/21 atorvastatin 40 mg tablet 1 tab PO BEDTIME 04/26/21 04/26/21 bupropion HCl 150 mg 24 hr tablet, 1 tab PO QAM 04/26/21 04/26/21 extended release duloxetine 60 mg capsule,delayed 1 cap PO BID 04/26/21 04/26/21 release hydroxyzine HCl 25 mg tablet 1 tab PO DAILY 04/26/21 04/26/21 hydroxyzine HCl 50 mg tablet 2 tab PO BEDTIME 04/26/21 04/26/21 olanzapine 5 mg tablet 1 tab PO BEDTIME 04/26/21 04/26/21 pantoprazole 40 mg tablet,delayed 1 tab PO BID 04/26/21 04/26/21 release prazosin 1 mg capsule 1 cap PO BID 04/26/21 04/26/21 Previous Rx's Medication Instructions Recorded folic acid 1 mg tablet 1 mg PO DAILY #30 tabs 05/02/21 furosemide 20 mg tablet 20 mg PO BID@0900,1800 #60 tabs 05/02/21 magnesium oxide 400 mg (241.3 mg 800 mg PO BIDPC #120 tabs 05/02/21 magnesium) tablet multivitamin (Daily-Davidson tablet) 1 tab PO DAILY #30 tabs 05/02/21 nicotine (polacrilex) 2 mg gum 2 mg buccal Q1H PRN nicotine 05/02/21 cravings #100 ea spironolactone 25 mg tablet 50 mg PO BID@0900,1800 #60 tabs 05/02/21 thiamine mononitrate (vit B1) 100 100 mg PO DAILY #30 tabs 05/02/21 mg tablet albuterol sulfate 90 mcg/actuation 2 inh inhalation Q4H PRN shortness 12/09/21 breath activated powder inhaler of breath or wheezing #1 ea doxycycline hyclate 100 mg capsule 100 mg PO BID #20 caps 12/09/21 inhalational spacing device #50 ea 12/09/21 (Aerochamber Plus Z Stat spacer) prednisone 20 mg tablet 40 mg PO DAILY #10 tabs 12/09/21 Allergies Allergy/AdvReac Type Severity Reaction Status Date / Time No Known Allergies Allergy Verified 05/21/21 14:53 [No Known Allergies*] Review of Systems Review of Systems: Constitutional : No Weight loss, No Fever, No Chills, No Night Sweats, No Fatigue, No Malaise ENT/Mouth : No Hearing loss, No Ear Pain, No Nasal Congestion, No Sinus Pain, No Hoarseness, No sore throat, No Rhinorrhea, No Swallowing Difficulty Eyes: No Eye Pain, No Swelling, No Redness, No Foreign Body, No Discharge, No Vision Changes Cardiovascular : No Chest Pain, + SOB, No Dyspnea on Exertion, No Orthopnea, No Edema, No Palpitations Respiratory : + Cough, No Sputum, No Wheezing, No Smoke Exposure, No Dyspnea Gastrointestinal : No Nausea, No Vomiting, No Diarrhea, No Constipation, No abdominal Pain, No Hematochezia, No Melena Genitourinary : no irregular bleeding, No Dysuria, No Urinary Frequency, No Nawaf turia, No Urinary Incontinence, No Urgency, No Flank Pain, No Urinary Flow Changes, No Hesitancy Musculoskeletal : No joint pain, No Myalgias, No Joint Swelling Skin : No Skin Lesions, No rash Neuro : No Weakness, No Numbness, No Paresthesias, No Loss of Consciousness, No Dizziness, No Headache Psych : No Anxiety/Panic, No Depression, No SI/HI/AH/VH, No Social Issues, Heme/Lymph: No Bruising, No Bleeding,No Lymphadenopathy Endocrine : + elevated glucose with polyuria/polydipsia, No Temperature I ntolerance Yes all other systems are reviewed and are negative COUNT INCLUDES THE [facility] Past Medical History Attestation statement: The following information was validated with the patient. Source: old records reviewed and nursing notes reviewed Medical History Alcohol use disorder Alcoholic Cirrhosis of liver with ascites Neuropathy Pneumonia Toxic metabolic encephalopathy Surgical History History of renal stent Family History Family History Mother Substance abuse Brother Substance abuse Social History Social History Household Members: Other Household Members Other:: mother Housing: Apartment Do you presently have visiting nurse or other home services: No Alcohol intake: former Patient Tobacco Use Status: Current everyday Tobacco user Tobacco use type: Cigarette Cigarettes Per Day: 7 Years Smoked: 54 e-Cigarette/Vaping Use: Never Used Second Hand Smoke Exposure: Yes Advance Directives: Yes Advance Directives Information Provided: No Advance Directives on File: Yes Advance Directives Date on File: 04/16/21 service: No Current occupational status: employed and disabled Physical Exam Vital Signs: Vital Signs: Last Vital Signs Temp 98.7 F 03/24/22 22:48 Pulse 96 03/24/22 22:48 Resp 16 03/24/22 22:48 BP 144/75 H 03/24/22 22:48 Pulse Ox 92 03/24/22 22:48 O2 Del Method 03/24/22 22:48 O2 Flow Rate 2 03/24/22 22:48 BMI result Body Mass Index 25.7 vital signs have been reviewed as normal and appeared to be correct. Blood pressure normal. Heart rate normal. Respiration rate normal. Temperature normal. Oxygen saturation normal. Appearance: Alert. Oriented X3. No acute distress. Head: Normal external exam. Normocephalic. Atraumatic. Eyes: PERRLA. EOMI. Conjunctiva and sclera normal. Eyelids normal. ENT: Pharynx normal. Uvula midline. Moist mucous membranes. No lesions/ulcerations or masses noted on the tongue. Normal voice. No trismus noted. No drooling noted. No muffled voice noted. Neck: Normal inspection. Neck supple. FROM. No adenopathy. Thyroid Normal. No tracheal deviation noted. No crepitus is noted. No meningeal signs. No neck mass noted. CVS: Normal heart rate and rhythm. Heart sound normal. Pulses normal throughout. No murmurs/rales/gallops. Respiratory: No respiratory distress. Painless inspiration. Although patient does have some decreased breath sounds. No wheezes/rales/rhonchi noted. Chest nontender. No crepitus is noted. No signs of trauma noted. No accessory muscle usage noted or decreased air movement noted. No signs of trauma. Abdomen: Soft and nontender. Bowel sounds normal in all 4 quadrants. No distention noted. No organomegaly noted. No visible injury noted. Back: No CVA tenderness. Full range of motion noted. Nontender. No signs of trauma. Patient neuro intact bilaterally and distally on all 4 extremities. Patient's reflexes intact bilaterally and distally on all 4 extremities. No rashes/lesion/induration/fluctuance or signs of infection noted. Skin: Skin warm and dry. Normal skin color. Normal skin turgor. No rashes/lesions/lacerations noted. Extremities: No lower extremity edema. No calf tenderness is noted. Extremities exhibit normal range of motion and nontender. Neuro: Oriented X 3. No motor deficit. No sensory deficit. Reflexes normal. Normal steady gait. No focal neuro deficits noted. CN's II-XII intact bilaterally? Vascular: + radial pulses/+ 2 distal pedal pulses/+2 dorsalis pedis b/l. Normal cap refill. No cyanosis noted to upper extremity nails and lower extremity toes nails. Course Course Course Narrative: 18:33 - 57-year-old female with a past medical history of liver cirrhosis, COPD, diabetes, PTSD and anxiety disorder presenting to the ED from a substance abuse program via EMS after she was noted to be hyperglycemia with her blood sugar over 600 prior to arrival. Apparently EMS was called due to and they were taking her vitals they noticed that her oxygen was 88% on room air and she has some chest tightness/cough/shortness of breath although when EMS arrived they decided to take her blood sugar she reported that she denied any other symptoms. She reports she is a diabetic and she is currently on 1000 mg of metformin b.i.d. and she took her prescription medications this morning and she is also on Trulicity where she received an injection every Sunday and she had her injection on Sunday. Although she reports that she did have a cortisone injection to her right shoulder on Sunday. Will obtain labs, acetone level, chest x-ray, EKG, chest x-ray, COVID swab, blood cultures and lactic acid provide some fluids and re-evaluate. Reevaluation(s) Reevaluation #1: - chest x-ray revealed patchy bilateral airspace opacities which may represent bilateral pneumonia otherwise no other acute processes are noted. Therefore at this time patient will be given 1 g of Rocephin for possible pneumonia. - EKG is normal sinus rhythm with a ventricular rate of [address] abnormalities no acute ischemic change are noted. Time: 20:04 Reevaluation #2: - Sign out to Marielos GARCIA pending labs Time: 21:12 MDM - Recheck/Abnormal Lab/Rx Medical Records Attestation: I reviewed the patient's medical records. Lab Data Attestation: I reviewed the patient's lab results. Result diagrams: 03/24/22 21:39 03/24/22 21:39 Labs: Lab Results 03/24/22 03/24/22 03/24/22 Range/Units 19:08 19:18 21:30 WBC (4.8-10.8) X10*3/uL RBC (4.20-5.50) X10*6/uL Hgb (12.0-16.0) g/dl Hct (37.0-47.0) % MCV (80.0-98.0) fL MCH (27.0-33.0) pg MCHC (31.0-35.0) g/dl RDW (11.0-16.0) % Plt Count (160-400) X10*3/uL MPV (9.4-12.3) fL Immature Gran % (Auto) (0.0-0.4) % Neut % (Auto) (45-73) % Lymph % (Auto) (20-40) % [place] % (Auto) (2-11) % Eos % (Auto) (0-4) % Baso % (Auto) (0-2) % Lymph # (Auto) (1.2-4.9) X10*3/uL [place] # (Auto) (0.1-1.2) X10*3/uL Eos # (Auto) (0.0-0.4) X10*3/uL Baso # (Auto) (0.0-0.2) X10*3/uL Abs Immat Gran (auto) (0.00-0.03) X10*3/uL Absolute Neuts (auto) (2.0-8.3) x10*3/uL Absolute Nucleated RBC (0.0-0.012) X10*3/uL Nucleated RBC % (auto) (0.0-0.2) /100WBC Sodium (135-145) mmol/L Potassium (3.3-5.1) mmol/L Chloride (96-108) mmol/L Carbon Dioxide (22-29) mmol/L Anion Gap (12-20) BUN (9-16) mg/dL Creatinine (0.5-1.4) mg/dL Estim Creat Clear Calc Estimated GFR POC Glucose 426 H* (60-115) mg/dL Random Glucose (60-115) mg/dL Lactic Acid (0.5-2.0) mmol/L Calcium (8.4-10.2) mg/dL Magnesium (1.6-2.6) mg/dL Total Bilirubin (0.0-1.0) mg/dL AST (5-31) U/L ALT (0-31) U/L Alkaline Phosphatase (39-117) U/L Troponin I High Sens (<3.5-17.0) ng/L Total Protein (6.5-8.0) g/dL Albumin (3.5-5.0) g/dL Lipase (8-78) U/L Urine Color YELLOW Urine Appearance CLEAR Urine pH 6.5 (5.0-8.0) Ur Specific [place] <= 1.005 (1.005-1.025) Urine Protein NEG (NEG-TRACE) MG/DL Urine Glucose (UA) >=1000 H (NEG) MG/DL Urine Ketones NEG (NEG) MG/DL Urine Blood NEG (NEG) Urine Nitrite NEG (NEG) Ur Leukocyte Esterase NEG (NEG) Urine RBC 0 (0) /HPF Urine WBC 0 (0-4) /HPF Ur Squamous Epith Cells 1+ /LPF Urine Bacteria NONE /LPF Acetone, Qual (Negative) COVID-19 (ENA) Negative (Negative) COVID-19 Clin Com See Note 03/24/22 03/24/22 03/24/22 Range/Units 21:39 21:39 21:39 WBC 20.4 H (4.8-10.8) X10*3/uL RBC 4.44 (4.20-5.50) X10*6/uL Hgb 12.2 (12.0-16.0) g/dl Hct 35.8 L (37.0-47.0) % MCV 80.6 (80.0-98.0) fL MCH 27.5 (27.0-33.0) pg MCHC 34.1 (31.0-35.0) g/dl RDW 14.8 (11.0-16.0) % Plt Count 330 (160-400) X10*3/uL MPV 9.4 (9.4-12.3) fL Immature Gran % (Auto) 1.5 H (0.0-0.4) % Neut % (Auto) 87.4 H (45-73) % Lymph % (Auto) 6.6 L (20-40) % Candler % (Auto) 4.3 (2-11) % Eos % (Auto) 0.0 (0-4) % Baso % (Auto) 0.2 (0-2) % Lymph # (Auto) 1.4 (1.2-4.9) X10*3/uL Candler # (Auto) 0.9 (0.1-1.2) X10*3/uL Eos # (Auto) 0.0 (0.0-0.4) X10*3/uL Baso # (Auto) 0.0 (0.0-0.2) X10*3/uL Abs Immat Gran (auto) 0.31 H (0.00-0.03) X10*3/uL Absolute Neuts (auto) 17.9 H (2.0-8.3) x10*3/uL Absolute Nucleated RBC 0.000 (0.0-0.012) X10*3/uL Nucleated RBC % (auto) 0.0 (0.0-0.2) /100WBC Sodium 140 (135-145) mmol/L Potassium 2.9 L (3.3-5.1) mmol/L Chloride 96 (96-108) mmol/L Carbon Dioxide 27 (22-29) mmol/L Anion Gap 20 (12-20) BUN 13 (9-16) mg/dL Creatinine 0.89 (0.5-1.4) mg/dL Estim Creat Clear Calc 62.0 Estimated GFR > 60 POC Glucose (60-115) mg/dL Random Glucose 342 H (60-115) mg/dL Lactic Acid (0.5-2.0) mmol/L Calcium 9.5 D (8.4-10.2) mg/dL Magnesium 1.3 L* (1.6-2.6) mg/dL Total Bilirubin 0.5 (0.0-1.0) mg/dL AST 18 D (5-31) U/L ALT 23 (0-31) U/L Alkaline Phosphatase 133 H D (39-117) U/L Troponin I High Sens < 3.5 (<3.5-17.0) ng/L Total Protein 7.3 D (6.5-8.0) g/dL Albumin 4.5 D (3.5-5.0) g/dL Lipase 30 (8-78) U/L Urine Color Urine Appearance Urine pH (5.0-8.0) Ur Specific [place] (1.005-1.025) Urine Protein (NEG-TRACE) MG/DL Urine Glucose (UA) (NEG) MG/DL Urine Ketones (NEG) MG/DL Urine Blood (NEG) Urine Nitrite (NEG) Ur Leukocyte Esterase (NEG) Urine RBC (0) /HPF Urine WBC (0-4) /HPF Ur Squamous Epith Cells /LPF Urine Bacteria /LPF Acetone, Qual Negative (Negative) COVID-19 (ENA) (Negative) COVID-19 Clin Com 03/24/22 Range/Units 21:39 WBC (4.8-10.8) X10*3/uL RBC (4.20-5.50) X10*6/uL Hgb (12.0-16.0) g/dl Hct (37.0-47.0) % MCV (80.0-98.0) fL MCH (27.0-33.0) pg MCHC (31.0-35.0) g/dl RDW (11.0-16.0) % Plt Count (160-400) X10*3/uL MPV (9.4-12.3) fL Immature Gran % (Auto) (0.0-0.4) % Neut % (Auto) (45-73) % Lymph % (Auto) (20-40) % Candler % (Auto) (2-11) % Eos % (Auto) (0-4) % Baso % (Auto) (0-2) % Lymph # (Auto) (1.2-4.9) X10*3/uL [place] # (Auto) (0.1-1.2) X10*3/uL Eos # (Auto) (0.0-0.4) X10*3/uL Baso # (Auto) (0.0-0.2) X10*3/uL Abs Immat Gran (auto) (0.00-0.03) X10*3/uL Absolute Neuts (auto) (2.0-8.3) x10*3/uL Absolute Nucleated RBC (0.0-0.012) X10*3/uL Nucleated RBC % (auto) (0.0-0.2) /100WBC Sodium (135-145) mmol/L Potassium (3.3-5.1) mmol/L Chloride (96-108) mmol/L Carbon Dioxide (22-29) mmol/L Anion Gap (12-20) BUN (9-16) mg/dL Creatinine (0.5-1.4) mg/dL Estim Creat Clear Calc Estimated GFR POC Glucose (60-115) mg/dL Random Glucose (60-115) mg/dL Lactic Acid 2.3 H* (0.5-2.0) mmol/L Calcium (8.4-10.2) mg/dL Magnesium (1.6-2.6) mg/dL Total Bilirubin (0.0-1.0) mg/dL AST (5-31) U/L ALT (0-31) U/L Alkaline Phosphatase (39-117) U/L Troponin I High Sens (<3.5-17.0) ng/L Total Protein (6.5-8.0) g/dL Albumin (3.5-5.0) g/dL Lipase (8-78) U/L Urine Color Urine Appearance Urine pH (5.0-8.0) Ur Specific [place] (1.005-1.025) Urine Protein (NEG-TRACE) MG/DL Urine Glucose (UA) (NEG) MG/DL Urine Ketones (NEG) MG/DL Urine Blood (NEG) Urine Nitrite (NEG) Ur Leukocyte Esterase (NEG) Urine RBC (0) /HPF Urine WBC (0-4) /HPF Ur Squamous Epith Cells /LPF Urine Bacteria /LPF Acetone, Qual (Negative) COVID-19 (ENA) (Negative) COVID-19 Clin Com Imaging Data Chest x-ray: Attestation: I personally reviewed and interpreted this imaging study as follows: Radiologist's impression: FINDINGS: Patchy bilateral airspace opacities there appear to be primarily within the upper lobes, right middle lobe and lingula on the lateral view. No pleural effusion. No pneumothorax. Cardiomediastinal silhouette. No acute osseous injury. XR/XR chest 2V IMPRESSION: ? 1. Patchy bilateral airspace opacities, which may represent bilateral pneumonia in the appropriate clinical setting. 2. No pleural effusions. ECG Data Attestation: I personally reviewed and interpreted this ECG as follows: ECG interpretation date: 03/24/22 ECG interpretation time: 20:52 Interpretation: - EKG is normal sinus rhythm with a ventricular rate of [address] abnormalities no acute ischemic change are noted. Similar compared to prior EKG on 04/25/2021 Critical Care Time Critical Care Time Critical Care Time: Yes Total Critical Care Time: 60 Attestation: I personally attest to this time spent taking care of the patient Discharge Plan Discharge Clinical Impression: Acute hyperglycemia, Pneumonia Patient Disposition: Still a Patient Prescriptions: No Action atorvastatin 40 mg tablet 1 tab PO BEDTIME prazosin 1 mg capsule 1 cap PO BID olanzapine 5 mg tablet 1 tab PO BEDTIME hydroxyzine HCl 50 mg tablet 2 tab PO BEDTIME amlodipine 5 mg tablet 1 tab PO DAILY pantoprazole 40 mg tablet,delayed release (DR/EC) 1 tab PO BID hydroxyzine HCl 25 mg tablet 1 tab PO DAILY bupropion HCl 150 mg tablet extended release 24 hr 1 tab PO QAM duloxetine 60 mg capsule,delayed release(DR/EC) 1 cap PO BID spironolactone 25 mg Tablet 50 mg PO BID@0900,1800 Qty: 60 0RF Protocol: Hold for SBP< HOLD for SBP < : 90 magnesium oxide 400 mg (241.3 mg magnesium) Tablet 800 mg PO BIDPC Qty: 120 0RF furosemide 20 mg Tablet 20 mg PO BID@0900,1800 Qty: 60 0RF Protocol: Hold for SBP< HOLD for SBP < : 90 folic acid 1 mg Tablet 1 mg PO DAILY Qty: 30 0RF multivitamin [Daily-Davidson] Tablet 1 tab PO DAILY Qty: 30 0RF thiamine mononitrate (vit B1) 100 mg Tablet 100 mg PO DAILY Qty: 30 0RF nicotine (polacrilex) 2 mg gum 2 mg buccal Q1H PRN (Reason: nicotine cravings) Qty: 100 0RF prednisone 20 mg tablet 40 mg PO DAILY Qty: 10 0RF albuterol sulfate 90 mcg/actuation aerosol powdr breath activated 2 inh inhalation Q4H PRN (Reason: shortness of breath or wheezing) Qty: 1 1RF (DME) Aerochamber Plus Z Stat Spacer See Rx Instructions .Route Qty: 50 0RF Rx Instructions: As directed doxycycline hyclate 100 mg capsule 100 mg PO BID Qty: 20 0RF
[2022-03-24 21:47] LABS: MANUAL DIFF FLAG NO
[2022-03-24 21:49] LABS: Basophils Percent Auto 0.2 % (0-2); Hematocrit 35.8 % (37.0-47.0); Hemoglobin 12.2 g/dl (12.0-16.0); Imm Gran Abs Auto 0.31 X10*3/uL (0.00-0.03); Imm Gran Pct Auto 1.5 % (0.0-0.4); Lymphocytes Absolute Auto 1.4 X10*3/uL (1.2-4.9); Lymphocytes Percent Auto 6.6 % (20-40); Mean Corpuscular HGB Conc 34.1 g/dl (31.0-35.0); Mean Corpuscular Hemoglobin 27.5 pg (27.0-33.0); Mean Corpuscular Volume 80.6 fL (80.0-98.0); Mean Platelet Volume 9.4 fL (9.4-12.3); Monocytes Absolute Auto 0.9 X10*3/uL (0.1-1.2); Monocytes Percent Auto 4.3 % (2-11); Neutrophils Absolute Auto 17.9 x10*3/uL (2.0-8.3); Neutrophils Percent Auto 87.4 % (45-73); Platelet Count 330 X10*3/uL (160-400); Red Blood Count 4.44 X10*6/uL (4.20-5.50); Red Cell Distribution Width 14.8 % (11.0-16.0); White Blood Count 20.4 X10*3/uL (4.8-10.8)
[2022-03-24 22:03] LABS: COVID-19 Test Negative (Negative)
[2022-03-24 22:08] LABS: Lactic Acid 2.3 mmol/L (0.5-2.0)
[2022-03-24 22:11] LABS: Troponin-I High Sensitivity < 3.5 ng/L (<3.5-17.0)
[2022-03-24 22:23] LABS: Alanine Aminotransferase 23 U/L (0-31); Albumin Level 4.5 g/dL (3.5-5.0); Alkaline Phosphatase 133 U/L (39-117); Anion Gap 20 (12-20); Aspartate Amino Transferase 18 U/L (5-31); Bilirubin Total 0.5 mg/dL (0.0-1.0); Blood Urea Nitrogen 13 mg/dL (9-16); Calcium 9.5 mg/dL (8.4-10.2); Carbon Dioxide 27 mmol/L (22-29); Chloride 96 mmol/L (96-108); Estimated Glomerular Filt Rate > 60; Glucose Random 342 mg/dL (60-115); Lipase 30 U/L (8-78); Magnesium 1.3 mg/dL (1.6-2.6); Potassium 2.9 mmol/L (3.3-5.1); Sodium 140 mmol/L (135-145); Total Protein 7.3 g/dL (6.5-8.0)
[2022-03-24] MEDS: cefTRIAXone sodium 1 GM in 0.9 % Sodium Chloride 50 ML IV (22:28)
[2022-03-24 22:48] VITALS: BP 144/75; PULSE 96; RESP 16; TEMP 37.1; O2SAT 85; O2SAT 92
[2022-03-24 22:50] LABS: Acetone, serum QL Negative (Negative)
[2022-03-24] MEDS: Potassium Chloride ER 20 MEQ TAB.ER.PRT 40 MEQ PO (23:01)
[2022-03-24] MEDS: Magnesium Sulfate/H2O 2 GM/50 ML PIGGYBACK IV (23:02)
[2022-03-24 23:15] VITALS: BP 152/79; PULSE 100; O2SAT 94
--- NOTE | 2022-03-24 23:32 | P.HPHOSP_ITS ---
History of Present Illness Date of Service: 03/24/22 Chief Complaint: hyperglycemia, sob 57-year-old female with past medical history of liver cirrhosis, COPD, diabetes, PTSD and anxiety who presents to the hospital from a substance abuse rehab program with complaints of hyperglycemia and hypoxia. Patient reports that when EMS arrived to the facility she was found hypoxic satting in the 80s, and as well found her glucose to be in 600 and therefore would initially she had refused transfer to the ED she agreed due to hyperglycemia. When asked her about her breathing she does report that she has been having shortness of breath, as well as coughing for the past 1 day, she denies any phlegm. No chest pain, no abdominal pain nausea or vomiting, no diarrhea constipation, no urinary symptoms and no lower extremity edema. No Orthopnea or PND. No headache or change in vision no numbness tingling. On arrival to the ED patient found to be 85% on room air Labs are significant for WBC count of 20.4, lactic acid of 2.3, glucose of 426, magnesium of 1.3, UA negative, COVID-19 negative, Chest x-ray showed patchy bilateral opacities concerning for pneumonia. COVID- 19 negative Patient's electrolytes repleted, started on IV antibiotics and will be admitted Review of Systems Review of Systems: Yes all other systems are reviewed and are negative [facility] Medical History Alcohol use disorder Alcoholic Cirrhosis of liver with ascites Neuropathy Pneumonia Toxic metabolic encephalopathy Family History Mother Substance abuse Brother Substance abuse Surgical History History of renal stent Social History Household Members: None and Other Household Members Other:: PT currently lives in a sober living/rehab facility Housing: Other Housing Other:: sober living/rehab Do you presently have visiting nurse or other home services: No Alcohol intake: never Patient Tobacco Use Status: Current everyday Tobacco user Tobacco use type: Cigarette Cigarettes Per Day: 7 Years Smoked: 54 Smoked in Last 30 Days: Yes e-Cigarette/Vaping Use: Never Used Patient Interested in Nicotine Replacement: Yes Patient Given Instructions on How to Stop Smoking: Yes Date Education Initiated: 03/25/22 Second Hand Smoke Exposure: Yes Use of substances other than those prescribed or required for medical reasons: No Currently Displaying Signs/Symptoms of Drug Intoxication Withdrawal: No Any prior treatment program specific to substance use: No Have you been hit, kicked, punched, or otherwise hurt by someone within the past year? If so, by whom?: No Do you feel safe in your current relationship?: No Current Relationship Is there a partner from a previous relationship who is making you feel unsafe now?: No Are you made to feel afraid or neglected: No Advance Directives: Yes Advance Directives Information Provided: No Advance Directives on File: Yes Advance Directives Date on File: 04/16/21 Do you have thoughts of harming others: None Do you have a plan to hurt others: No Plan Recently lost weight without trying: No Eating poorly because of decreased appetite: No Nutrition Risks: No Nutritional Risk Patient : No : No Poor oral hygiene: No service: No Current occupational status: employed and disabled Meds Allergies Allergy/AdvReac Type Severity Reaction Status Date / Time No Known Allergies Allergy Verified 05/21/21 14:53 [No Known Allergies*] Active Medications: Current Medications Acetaminophen (Acetaminophen 325 Mg Tablet) 650 mg PO Q6H PRN PRN Reason: Pain, Mild (Pain Scale 1-3) Docusate Sodium (Docusate Sodium 100 Mg Capsule) 100 mg PO DAILY PRN PRN Reason: Constipation Enoxaparin Sodium (Enoxaparin Sodium 40 Mg/0.4 Ml Syringe) 40 mg SUBCUT Q24H NANDA Magnesium Sulfate (Magnesium Sulfate/H2o) 2 gm in 50 mls @ 25 mls/hr IV ONCE ONE Stop: 03/25/22 00:21 Last Admin: 03/24/22 23:02 Dose: 25 mls/hr Lactated Ringer's (Lr) 1,000 mls @ 100 mls/hr IVCONT .Q10H NANDA Ceftriaxone Sodium 1 gm/ (Sodium Chloride) 50 mls @ 100 mls/hr IV Q24H NANDA Azithromycin 500 mg/ Sodium (Chloride) 250 mls @ 125 mls/hr IV Q24H NANDA Ondansetron HCl (Ondansetron Hcl 4 Mg/2 Ml Vial) 4 mg IVPUSH Q8H PRN PRN Reason: Nausea and Vomiting Pharmacy Consult (Consult Rx Perform Med Rec) 1 each MISCELLANE ONCE PRN PRN Reason: Consult order Sodium Chloride (0.9 % Sodium Chloride Flush 3 Ml Syringe) 3 ml IVFLUSH [facility] Medications Medication Instructions Recorded Confirmed Last Taken Type amlodipine 5 mg tablet 1 tab PO DAILY 04/26/21 03/25/22 03/24/22 History atorvastatin 40 mg tablet 1 tab PO BEDTIME 04/26/21 03/25/22 03/23/22 History bupropion HCl 150 mg 24 hr tablet, 1 tab PO QAM 04/26/21 03/25/22 03/24/22 History extended release duloxetine 60 mg capsule,delayed 1 cap PO BID 04/26/21 03/25/22 03/24/22 History release hydroxyzine HCl 50 mg tablet 2 tab PO BEDTIME 04/26/21 03/25/22 03/23/22 History pantoprazole 40 mg tablet,delayed 1 tab PO BID 04/26/21 03/25/22 Unknown History release aripiprazole 2 mg tablet 1 tab PO DAILY 03/25/22 03/25/22 Unknown History dulaglutide 0.75 mg/0.5 mL 1 ea subcut QWEEK 03/25/22 03/25/22 03/20/22 History subcutaneous pen injector (Trulicity) gabapentin 300 mg capsule 1 cap PO TID 03/25/22 03/25/22 03/24/22 History gabapentin 600 mg tablet 1 tab PO TID 03/25/22 03/25/22 03/24/22 History olanzapine 10 mg tablet 1 tab PO BEDTIME 03/25/22 03/25/22 03/24/22 History prazosin 1 mg capsule 1 cap PO BID 03/25/22 03/25/22 Unknown History spironolactone 25 mg tablet 25 mg PO DAILY 03/25/22 03/25/22 03/24/22 History Physical Exam Vital Signs and Narrative: Vital Signs: Last Vital Signs Temp 98.7 F 03/24/22 22:48 Pulse 100 03/24/22 23:15 Resp 16 03/24/22 22:48 BP 152/79 H 03/24/22 23:15 Pulse Ox 94 03/24/22 23:15 O2 Del Method 03/24/22 23:15 O2 Flow Rate 3 03/24/22 23:15 BMI result Body Mass Index 25.7 Const: General: cooperative and no acute distress Orientation/consciousness: patient oriented x3 Eyes: General: appearance normal, both eyes and all related structures Resp: Other: Mild crackles is bilaterally Effort & Inspection: normal respiratory effort Cardio: Rate: regular rate Rhythm: regular rhythm GI: Palpation (GI): Soft to palpation Auscultation: normal bowel sounds Skin: General skin exam: no rashes or lesions noted Neuro: General: patient oriented x3 Cognition (Neuro): normal cognition Extrem: General: Yes normal to inspection and Yes no pedal edema Results Labs CBC and Chem 7: 03/24/22 21:39 03/24/22 21:39 Labs: Laboratory Results - last 24 hr 03/24/22 03/24/22 03/24/22 19:08 19:18 21:30 MCV MCH MCHC RDW Plt Count MPV Immature Gran % (Auto) Neut % (Auto) Lymph % (Auto) [place] % (Auto) Eos % (Auto) Baso % (Auto) Lymph # (Auto) [place] # (Auto) Eos # (Auto) Baso # (Auto) Abs Immat Gran (auto) Absolute Neuts (auto) Absolute Nucleated RBC Nucleated RBC % (auto) Anion Gap Estim Creat Clear Calc Estimated GFR POC Glucose 426 H* Random Glucose Lactic Acid Calcium Magnesium Total Bilirubin AST ALT Alkaline Phosphatase Total Protein Albumin Lipase Urine Color YELLOW Urine Appearance CLEAR Urine pH 6.5 Ur Specific [place] <= 1.005 Urine Protein NEG Urine Glucose (UA) >=1000 H Urine Ketones NEG Urine Blood NEG Urine Nitrite NEG Ur Leukocyte Esterase NEG Urine RBC 0 Urine WBC 0 Ur Squamous Epith Cells 1+ Urine Bacteria NONE Acetone, Qual COVID-19 (ENA) Negative COVID-19 Clin Com See Note 03/24/22 03/24/22 03/24/22 21:39 21:39 21:39 MCV 80.6 MCH 27.5 MCHC 34.1 RDW 14.8 Plt Count 330 MPV 9.4 Immature Gran % (Auto) 1.5 H Neut % (Auto) 87.4 H Lymph % (Auto) 6.6 L [place] % (Auto) 4.3 Eos % (Auto) 0.0 Baso % (Auto) 0.2 Lymph # (Auto) 1.4 [place] # (Auto) 0.9 Eos # (Auto) 0.0 Baso # (Auto) 0.0 Abs Immat Gran (auto) 0.31 H Absolute Neuts (auto) 17.9 H Absolute Nucleated RBC 0.000 Nucleated RBC % (auto) 0.0 Anion Gap 20 Estim Creat Clear Calc 62.0 Estimated GFR > 60 POC Glucose Random Glucose 342 H Lactic Acid 2.3 H* Calcium 9.5 D Magnesium 1.3 L* Total Bilirubin 0.5 AST 18 D ALT 23 Alkaline Phosphatase 133 H D Total Protein 7.3 D Albumin 4.5 D Lipase 30 Urine Color Urine Appearance Urine pH Ur Specific [place] Urine Protein Urine Glucose (UA) Urine Ketones Urine Blood Urine Nitrite Ur Leukocyte Esterase Urine RBC Urine WBC Ur Squamous Epith Cells Urine Bacteria Acetone, Qual Negative COVID-19 (ENA) COVID-19 Clin Com Imaging Radiologist's Impressions: Impressions Chest X-Ray 03/24/22 19:14 IMPRESSION: 1. Patchy bilateral airspace opacities, which may represent bilateral pneumonia in the appropriate clinical setting. 2. No pleural effusions. Assessment and Plan (1) Acute respiratory failure with hypoxia: Status: Acute (2) Pneumonia: Status: Acute (3) Hyperglycemia: Status: Acute (4) Hypomagnesemia: Status: Acute Plan 57-year-old female with past medical history of COPD who presents to the hospital with complaints of of her shortness of breath found to be hypoxic as well as have hyperglycemia # acute hypoxic respiratory failure - likely multifactorial in the setting of acute pneumonia as well as acute COPD exacerbation - will treat with IV antibiotics, oxygen supplement - wean oxygen office tolerated - monitor respiratory status # acute community-acquired pneumonia - has bilateral infiltrates on chest x-ray, patient is hypoxic - has leukocytosis with left shift - afebrile - COVID-19 negative - will treat with IV antibiotics, - follow cultures # COPD exacerbation - has dyspnea, cough, sputum production - secondary to above pneumonia - will treat with IV Solu-Medrol, DuoNeb - IV antibiotics as above # hyperglycemia - in the setting of diabetes probably poorly controlled - start low-dose sliding scale insulin - POC q.i.d. a.c.hs DVT prophylaxis: Lovenox Given patient's hypoxic respiratory failure with 3 need for oxygen, as well as pneumonia patient will require minimum 2 night hospital stay for further management and monitoring Quality Stroke Does the patient have a stroke diagnosis?: No VTE Prior VTE?: No VTE Risk Level:: Medical - moderate - high VTE Device Contraindication: Treatment Not Indicated VTE Drug Contraindication: N/A - Med Ordered
[2022-03-25] VITALS (8 sets, daily range): BP systolic 138–160; BP diastolic 62–92; PULSE 82–104; RESP 18–20; TEMP 36.4–37.1; O2SAT 88–94; BMI 26.2
[2022-03-25 00:23] LABS: Lactic Acid 1.9 mmol/L (0.5-2.0)
[2022-03-25 00:27] LABS: Magnesium 1.6 mg/dL (1.6-2.6)
[2022-03-25 00:31] LABS: B Type Natriuretic Peptide 70 pg/mL (<100)
[2022-03-25] MEDS: Azithromycin 500 MG in 0.9 % Sodium Chloride 250 ML 125 MG IV (01:13)
[2022-03-25] MEDS: 0.9 % Sodium Chloride Flush 3 ML SYRINGE IVFLUSH ×4 (01:18→19:52)
[2022-03-25] MEDS: Enoxaparin Sodium 40 MG/0.4 ML SYRINGE SUBCUT ×2 (01:18→20:58)
[2022-03-25] MEDS: Lactated Ringers 1,000 ML 100 ML IVCONT ×3 (03:36→19:53)
[2022-03-25] MEDS: Potassium Chloride/H20 10 MEQ/100 ML PIGGYBACK 100 MEQ IV ×2 (03:46→06:29)
[2022-03-25 07:25] LABS: MANUAL DIFF FLAG NO
[2022-03-25 07:33] LABS: Basophils Percent Auto 0.2 % (0-2); Eosinophils Percent Auto 0.1 % (0-4); Hematocrit 33.7 % (37.0-47.0); Hemoglobin 11.2 g/dl (12.0-16.0); Imm Gran Abs Auto 0.35 X10*3/uL (0.00-0.03); Lymphocytes Absolute Auto 1.2 X10*3/uL (1.2-4.9); Lymphocytes Percent Auto 7.2 % (20-40); Mean Corpuscular HGB Conc 33.2 g/dl (31.0-35.0); Mean Corpuscular Volume 81.2 fL (80.0-98.0); Mean Platelet Volume 9.6 fL (9.4-12.3); Monocytes Absolute Auto 0.6 X10*3/uL (0.1-1.2); Monocytes Percent Auto 3.7 % (2-11); Neutrophils Percent Auto 86.8 % (45-73); Platelet Count 290 X10*3/uL (160-400); Red Blood Count 4.15 X10*6/uL (4.20-5.50); Red Cell Distribution Width 14.8 % (11.0-16.0); White Blood Count 17.3 X10*3/uL (4.8-10.8)
[2022-03-25 08:09] LABS: Blood Urea Nitrogen 8 mg/dL (9-16); Creatinine Clr Calc Pharmacy 83.1; Estimated Glomerular Filt Rate > 60; Glucose Random 235 mg/dL (60-115)
[2022-03-25 08:38] LABS: Anion Gap 16 (12-20); Calcium 8.1 mg/dL (8.4-10.2); Carbon Dioxide 24 mmol/L (22-29); Chloride 103 mmol/L (96-108); Potassium 3.6 mmol/L (3.3-5.1); Sodium 139 mmol/L (135-145)
[2022-03-25] MEDS: DULoxetine HCl 60 MG CAPSULE.DR PO ×2 (09:05→19:52)
[2022-03-25] MEDS: amLODIPine Besylate 5 MG TABLET PO (09:05)
[2022-03-25] MEDS: buPROPion HCl XL 150 MG TAB.ER.24H PO (09:06)
[2022-03-25] MEDS: Folic Acid 1 MG TABLET PO (09:06)
[2022-03-25] MEDS: methylPREDNISolone Sod Succ 40 MG/ML VIAL IVPUSH ×2 (09:06→18:03)
[2022-03-25] MEDS: Gabapentin 300 MG CAPSULE PO ×3 (09:06→19:52)
[2022-03-25 09:36] LABS: Estimated Average Glucose 203 mg/dL; Hemoglobin A1c % 8.7 %
[2022-03-25 10:35] LABS: Procalcitonin 0.05 ng/mL
[2022-03-25] MEDS: Thiamine HCL 100 MG TABLET PO (11:04)
[2022-03-25] MEDS: Spironolactone 25 MG TABLET PO (11:04)
[2022-03-25] MEDS: Multivitamin TABLET 1 TAB PO (11:04)
--- NOTE | 2022-03-25 11:15 | MHC.CM.PN ---
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
[2022-03-25 11:41] LABS: Glucose, Whole Blood 268 mg/dL (60-115)
[2022-03-25] MEDS: Insulin Lispro 100 UNIT/ML 3 ML VIAL SUBCUT ×3 (12:24→20:00)
--- NOTE | 2022-03-25 12:54 | HO.PM.IMPN ---
Subjective Subjective Date of Service: 03/25/22 Interval History: coughing with wheezing dyspnea improved sober from EtOH x 1 yr Review of Systems Review of Systems: Yes all other systems are reviewed and are negative Physical Exam Vital Signs: Vital Signs: Last Vital Signs Temp 98.4 F 03/25/22 11:31 Pulse 97 03/25/22 11:31 Resp 18 03/25/22 11:31 BP 148/67 H 03/25/22 11:31 Pulse Ox 92 03/25/22 11:31 O2 Del Method 03/25/22 11:31 O2 Flow Rate 3 03/25/22 11:31 BMI result Body Mass Index 26.2 Gen: in no acute distress HEENT: sclera anicteric, moist mucus membranes Neck: supple Lungs: bilateral crackles on inspiration Heart: regular rate and rhythm, no murmurs Abd: soft, non-tender, non-distended Ext: no edema Skin: warm/well-perfused Neuro: alert and oriented x3, no focal findings Psych: appropriate affect Objective Data Active Medications Acetaminophen (Acetaminophen 325 Mg Tablet) 650 mg PO Q6H PRN PRN Reason: Pain, Mild (Pain Scale 1-3) Albuterol/Ipratropium (Albuterol/Iprat 2.5/0.5mg 3 Ml Ampul.Neb) 3 ml INHALE RQ4H PRN PRN Reason: Shortness of Breath/Wheezing Amlodipine Besylate (Amlodipine Besylate 5 Mg Tablet) 5 mg PO DAILY [facility]; Protocol Last Admin: 03/25/22 09:05 Dose: 5 mg Documented By: GREG Atorvastatin Calcium (Atorvastatin Calcium 40 Mg Tablet) 40 mg PO BEDTIME [facility] Bupropion HCl (Bupropion Hcl Xl 150 Mg Tab.Er.24h) 150 mg PO DAILY [facility] Last Admin: 03/25/22 09:06 Dose: 150 mg Documented By: GREG Dextrose (Dextrose 50 % 25 Gm/50 Ml Syringe) 25 gm IVPUSH Q15M PRN; Protocol PRN Reason: per Hypoglycemia Standing Ord. Docusate Sodium (Docusate Sodium 100 Mg Capsule) 100 mg PO DAILY PRN PRN Reason: Constipation Doxycycline Hyclate (Doxycycline Hyclate 100 Mg Tablet) 100 mg PO Q12H [facility] Last Admin: 03/25/22 11:04 Dose: 100 mg Documented By: GREG Duloxetine HCl (Duloxetine Hcl 60 Mg Capsule.) 60 mg PO BID [facility] Last Admin: 03/25/22 09:05 Dose: 60 mg Documented By: GREG Enoxaparin Sodium (Enoxaparin Sodium 40 Mg/0.4 Ml Syringe) 40 mg SUBCUT Q24H [facility] Last Admin: 03/25/22 01:18 Dose: 40 mg Documented By: LIZ Folic Acid (Folic Acid 1 Mg Tablet) 1 mg PO DAILY [facility] Last Admin: 03/25/22 09:06 Dose: 1 mg Documented By: GREG Gabapentin (Gabapentin 300 Mg Capsule) 300 mg PO TID [facility] Last Admin: 03/25/22 09:06 Dose: 300 mg Documented By: GREG Glucose (Glucose Gel 15 Gm Gel..Gram.) 15 gm PO Q15M PRN; Protocol PRN Reason: per Hypoglycemia Standing Ord. Hydroxyzine HCl (Hydroxyzine Hcl 50 Mg Tablet) 100 mg PO BEDTIME [facility] Lactated Ringer's (Lr) 1,000 mls @ 100 mls/hr IVCONT .Q10H [facility] Last Admin: 03/25/22 11:05 Dose: 100 mls/hr Documented By: GREG Ceftriaxone Sodium 1 gm/ (Sodium Chloride) 50 mls @ 100 mls/hr IV Q24H [facility] Insulin Human Lispro (Insulin Lispro 100 Unit/Ml 3 Ml Vial) 0 unit SUBCUT QIDACHS [facility]; Protocol Last Admin: 03/25/22 12:24 Dose: 6 unit Documented By: GREG Methylprednisolone Sodium Succinate (Methylprednisolone Sod Succ 40 Mg/Ml Vial) 40 mg IVPUSH Q12H [facility] Last Admin: 03/25/22 09:06 Dose: 40 mg Documented By: GREG Multivitamins/Vitamin C (Multivitamin Tablet) 1 tab PO DAILY [facility] Last Admin: 03/25/22 11:04 Dose: 1 tab Documented By: GREG Olanzapine (Olanzapine 10 Mg Tablet) 10 mg PO BEDTIME [facility] Omeprazole (Omeprazole 20 Mg Capsule.) 20 mg PO BIDAC [facility] Ondansetron HCl (Ondansetron Hcl 4 Mg/2 Ml Vial) 4 mg IVPUSH Q8H PRN PRN Reason: Nausea and Vomiting Pharmacy Consult (Consult Rx Perform Med Rec) 1 each MISCELLANE ONCE PRN PRN Reason: Consult order Prazosin HCl (Prazosin Hcl 1 Mg Capsule) 1 mg PO BID [facility]; Protocol Last Admin: 03/25/22 11:10 Dose: Not Given Documented By: GREG Non-Admin Reason: Med Not Available Sodium Chloride (0.9 % Sodium Chloride Flush 3 Ml Syringe) 3 ml IVFLUSH QSHIFT [facility] Last Admin: 03/25/22 09:06 Dose: 3 ml Documented By: GREG Spironolactone (Spironolactone 25 Mg Tablet) 25 mg PO DAILY [facility]AN[facility]; Protocol Last Admin: 03/25/22 11:04 Dose: 25 mg Documented By: GREG Thiamine HCl (Thiamine Hcl 100 Mg Tablet) 100 mg PO DAILY [facility] Last Admin: 03/25/22 11:04 Dose: 100 mg Documented By: GREG Labs CBC & Chem 7: 03/25/22 06:49 03/25/22 06:49 Labs: Laboratory Results - last 24 hr 03/24/22 03/24/22 03/24/22 19:08 19:18 21:30 MCV MCH MCHC RDW Plt Count MPV Immature Gran % (Auto) Neut % (Auto) Lymph % (Auto) [place] % (Auto) Eos % (Auto) Baso % (Auto) Lymph # (Auto) [place] # (Auto) Eos # (Auto) Baso # (Auto) Abs Immat Gran (auto) Absolute Neuts (auto) Absolute Nucleated RBC Nucleated RBC % (auto) Anion Gap Estim Creat Clear Calc Estimated GFR POC Glucose 426 H* Random Glucose Estimat Average Glucose Hemoglobin A1c % Lactic Acid Calcium Magnesium Total Bilirubin AST ALT Alkaline Phosphatase B-Natriuretic Peptide Total Protein Albumin Lipase Procalcitonin Urine Color YELLOW Urine Appearance CLEAR Urine pH 6.5 Ur Specific [place] <= 1.005 Urine Protein NEG Urine Glucose (UA) >=1000 H Urine Ketones NEG Urine Blood NEG Urine Nitrite NEG Ur Leukocyte Esterase NEG Urine RBC 0 Urine WBC 0 Ur Squamous Epith Cells 1+ Urine Bacteria NONE Acetone, Qual COVID-19 (ENA) Negative COVID-19 Clin Com See Note 03/24/22 03/24/22 03/24/22 21:39 21:39 21:39 MCV 80.6 MCH 27.5 MCHC 34.1 RDW 14.8 Plt Count 330 MPV 9.4 Immature Gran % (Auto) 1.5 H Neut % (Auto) 87.4 H Lymph % (Auto) 6.6 L [place] % (Auto) 4.3 Eos % (Auto) 0.0 Baso % (Auto) 0.2 Lymph # (Auto) 1.4 [place] # (Auto) 0.9 Eos # (Auto) 0.0 Baso # (Auto) 0.0 Abs Immat Gran (auto) 0.31 H Absolute Neuts (auto) 17.9 H Absolute Nucleated RBC 0.000 Nucleated RBC % (auto) 0.0 Anion Gap 20 Estim Creat Clear Calc 62.0 Estimated GFR > 60 POC Glucose Random Glucose 342 H Estimat Average Glucose Hemoglobin A1c % Lactic Acid 2.3 H* Calcium 9.5 D Magnesium 1.3 L* Total Bilirubin 0.5 AST 18 D ALT 23 Alkaline Phosphatase 133 H D B-Natriuretic Peptide Total Protein 7.3 D Albumin 4.5 D Lipase 30 Procalcitonin Urine Color Urine Appearance Urine pH Ur Specific [place] Urine Protein Urine Glucose (UA) Urine Ketones Urine Blood Urine Nitrite Ur Leukocyte Esterase Urine RBC Urine WBC Ur Squamous Epith Cells Urine Bacteria Acetone, Qual Negative COVID-19 (ENA) COVID-Yamli 03/24/22 03/24/22 03/24/22 23:52 23:52 23:52 MCV MCH MCHC RDW Plt Count MPV Immature Gran % (Auto) Neut % (Auto) Lymph % (Auto) [place] % (Auto) Eos % (Auto) Baso % (Auto) Lymph # (Auto) [place] # (Auto) Eos # (Auto) Baso # (Auto) Abs Immat Gran (auto) Absolute Neuts (auto) Absolute Nucleated RBC Nucleated RBC % (auto) Anion Gap Estim Creat Clear Calc Estimated GFR POC Glucose Random Glucose Estimat Average Glucose Hemoglobin A1c % Lactic Acid 1.9 Calcium Magnesium 1.6 Total Bilirubin AST ALT Alkaline Phosphatase B-Natriuretic Peptide 70 Total Protein Albumin Lipase Procalcitonin Urine Color Urine Appearance Urine pH Ur Specific [place] Urine Protein Urine Glucose (UA) Urine Ketones Urine Blood Urine Nitrite Ur Leukocyte Esterase Urine RBC Urine WBC Ur Squamous Epith Cells Urine Bacteria Acetone, Qual COVID-19 (ENA) COVID-19 [facility] 03/25/22 03/25/22 03/25/22 06:49 06:49 06:49 MCV 81.2 MCH 27.0 MCHC 33.2 RDW 14.8 Plt Count 290 MPV 9.6 Immature Gran % (Auto) 2.0 H Neut % (Auto) 86.8 H Lymph % (Auto) 7.2 L [place] % (Auto) 3.7 Eos % (Auto) 0.1 Baso % (Auto) 0.2 Lymph # (Auto) 1.2 [place] # (Auto) 0.6 Eos # (Auto) 0.0 Baso # (Auto) 0.0 Abs Immat Gran (auto) 0.35 H Absolute Neuts (auto) 15.0 H Absolute Nucleated RBC 0.000 Nucleated RBC % (auto) 0.0 Anion Gap 16 Estim Creat Clear Calc 83.1 Estimated GFR > 60 POC Glucose Random Glucose 235 H Estimat Average Glucose 203 Hemoglobin A1c % 8.7 Lactic Acid Calcium 8.1 L D Magnesium Total Bilirubin AST ALT Alkaline Phosphatase B-Natriuretic Peptide Total Protein Albumin Lipase Procalcitonin Urine Color Urine Appearance Urine pH Ur Specific [place] Urine Protein Urine Glucose (UA) Urine Ketones Urine Blood Urine Nitrite Ur Leukocyte Esterase Urine RBC Urine WBC Ur Squamous Epith Cells Urine Bacteria Acetone, Qual COVID-19 (ENA) COVID-19 [facility] 03/25/22 03/25/22 06:49 11:29 MCV MCH MCHC RDW Plt Count MPV Immature Gran % (Auto) Neut % (Auto) Lymph % (Auto) [place] % (Auto) Eos % (Auto) Baso % (Auto) Lymph # (Auto) [place] # (Auto) Eos # (Auto) Baso # (Auto) Abs Immat Gran (auto) Absolute Neuts (auto) Absolute Nucleated RBC Nucleated RBC % (auto) Anion Gap Estim Creat Clear Calc Estimated GFR POC Glucose 268 H Random Glucose Estimat Average Glucose Hemoglobin A1c % Lactic Acid Calcium Magnesium Total Bilirubin AST ALT Alkaline Phosphatase B-Natriuretic Peptide Total Protein Albumin Lipase Procalcitonin 0.05 Urine Color Urine Appearance Urine pH Ur Specific [place] Urine Protein Urine Glucose (UA) Urine Ketones Urine Blood Urine Nitrite Ur Leukocyte Esterase Urine RBC Urine WBC Ur Squamous Epith Cells Urine Bacteria Acetone, Qual COVID-19 (ENA) COVID-19 [facility] Assessment and Plan (1) Acute respiratory failure with hypoxia: Status: Acute (2) Hyperglycemia: Status: Acute (3) Pneumonia: Status: Acute (4) COPD (chronic obstructive pulmonary disease) with acute bronchitis: Status: Acute Plan 57yo F with HTN, HLD, DM2, COPD, EtOH cirrhosis [sober close to 1 yr] presented with dyspnea, admitted for hypoxia due to PNA + COPD exacerbation, hyperglycemia # CA-PNA - PSI 89, continue ceftriaxone + doxycycline d#2, follow PCT + BCx, check urinary antigens # COPD exacerbation - steroids, nebs # acute hypoxic resp failure - wean O2 as tolerated, no signs of CO2 retention, check VBG in AM # hypoMg - repleted # DM2 with hyperglycemia - A1c 8.7; also get steroid injection in shoulder last week. give correction-dose lispro, hold OHGs # cirrhosis - hx ascites. continue spironolactone + furosemide # HTN - conitnue amlodipine # mood disorder - continue bupropion, prazosin, hydroxyzine, duloxetine, olanzapine # VTE p[x: LMWH In my clinical judgment, the patient requires continued hospitalization for the following reasons: hypoxia, IV ABX Quality Stroke Does the patient have a stroke diagnosis?: No VTE Prior VTE?: No VTE Risk Level:: Medical - moderate - high VTE Device Contraindication: Treatment Not Indicated VTE Drug Contraindication: N/A - Med Ordered
[2022-03-25] MEDS: Omeprazole 20 MG CAPSULE.DR PO (15:43)
[2022-03-25 17:11] LABS: Glucose, Whole Blood 346 mg/dL (60-115)
[2022-03-25 19:52] LABS: Glucose, Whole Blood 423 mg/dL (60-115)
[2022-03-25] MEDS: hydrOXYzine HCL 50 MG TABLET 100 MG PO (19:52)
[2022-03-25] MEDS: Atorvastatin Calcium 40 MG TABLET PO (19:52)
[2022-03-25] MEDS: Prazosin HCL 1 MG CAPSULE PO (19:52)
[2022-03-25] MEDS: OLANZapine 10 MG TABLET PO (19:52)
[2022-03-25] MEDS: Insulin Lispro 100 UNIT/ML 3 ML VIAL 10 UNIT SUBCUT (20:00)
[2022-03-25] MEDS: cefTRIAXone sodium 1 GM in 0.9 % Sodium Chloride 50 ML IV (20:58)
[2022-03-26] VITALS (7 sets, daily range): BP systolic 126–145; BP diastolic 65–76; PULSE 87–101; RESP 16–18; TEMP 36.3–37.1; O2SAT 92–98
[2022-03-26] MEDS: Lactated Ringers 1,000 ML 100 ML IVCONT ×2 (06:03→14:35)
[2022-03-26 06:33] LABS: VBG Base Excess 1.5 mmol/L; VBG HCO3 24 mmol/L (22-26); VBG pCO2 34 mmHg; VBG pH 7.46 (7.32-7.43); VBG pO2 80 mmHg
[2022-03-26 06:38] LABS: Venous Blood Gas Refer to POC result
[2022-03-26 07:17] LABS: Glucose, Whole Blood 276 mg/dL (60-115)
[2022-03-26 08:55] LABS: Adenovirus PCR Not Detected (Not Detect.); Bordetella parapertussis PCR Not Detected (Not Detect.); Bordetella pertussis PCR Not Detected (Not Detect.); Chlamydia pneumoniae PCR Not Detected (Not Detect.); Coronavirus 229E PCR Not Detected (Not Detect.); Coronavirus HKU1 PCR Not Detected (Not Detect.); Coronavirus NL63 PCR Not Detected (Not Detect.); Coronavirus OC43 PCR Not Detected (Not Detect.); Human metapneumovirus PCR Not Detected (Not Detect.); Influenza A PCR Not Detected (Not Detect.); Influenza B PCR Not Detected (Not Detect.); Mycoplasma pneumoniae PCR Not Detected (Not Detect.); Parainfluenza 1 PCR Not Detected (Not Detect.); Parainfluenza 2 PCR Not Detected (Not Detect.); Parainfluenza 3 PCR Not Detected (Not Detect.); Parainfluenza 4 PCR Not Detected (Not Detect.); RSV PCR Not Detected (Not Detect.); Rhino/Enterovirus PCR Not Detected (Not Detect.); SARS-CoV-2 PCR Not Detected (Not Detect.)
[2022-03-26] MEDS: methylPREDNISolone Sod Succ 40 MG/ML VIAL IVPUSH ×2 (09:03→20:41)
[2022-03-26] MEDS: Folic Acid 1 MG TABLET PO (09:03)
[2022-03-26] MEDS: buPROPion HCl XL 150 MG TAB.ER.24H PO (09:03)
[2022-03-26] MEDS: Omeprazole 20 MG CAPSULE.DR PO ×2 (09:03→17:49)
[2022-03-26] MEDS: Spironolactone 25 MG TABLET PO (09:03)
[2022-03-26] MEDS: Thiamine HCL 100 MG TABLET PO (09:03)
[2022-03-26] MEDS: 0.9 % Sodium Chloride Flush 3 ML SYRINGE IVFLUSH ×3 (09:03→20:42)
[2022-03-26] MEDS: DULoxetine HCl 60 MG CAPSULE.DR PO ×2 (09:03→20:42)
[2022-03-26] MEDS: Multivitamin TABLET 1 TAB PO (09:03)
[2022-03-26] MEDS: amLODIPine Besylate 5 MG TABLET PO (09:03)
[2022-03-26] MEDS: Gabapentin 300 MG CAPSULE PO ×3 (09:03→20:42)
[2022-03-26] MEDS: Insulin Glargine,Hum.rec.anlog 100 UNIT/ML 10 ML VIAL 15 UNIT SUBCUT (09:04)
[2022-03-26] MEDS: Prazosin HCL 1 MG CAPSULE PO ×2 (09:04→20:41)
[2022-03-26] MEDS: Insulin Lispro 100 UNIT/ML 3 ML VIAL SUBCUT ×4 (09:04→20:42)
[2022-03-26 11:15] LABS: Glucose, Whole Blood 307 mg/dL (60-115)
--- NOTE | 2022-03-26 11:33 | P.PNIM_ITS ---
Subjective Subjective Date of Service: 03/26/22 Interval History: c/o cough + wheezing + dyspnea no fever no chest pain Review of Systems Review of Systems: Yes all other systems are reviewed and are negative Physical Exam Vital Signs: Vital Signs: Last Vital Signs Temp 98.4 F 03/26/22 07:25 Pulse 94 03/26/22 07:25 Resp 18 03/26/22 07:25 BP 126/67 03/26/22 07:25 Pulse Ox 96 03/26/22 07:25 O2 Del Method 03/26/22 07:25 O2 Flow Rate 3 03/26/22 07:25 BMI result Body Mass Index 26.2 Gen: in no acute distress HEENT: sclera anicteric, moist mucus membranes Neck: supple Lungs: bilateral crackles on inspiration Heart: regular rate and rhythm, no murmurs Abd: soft, non-tender, non-distended Ext: no edema Skin: warm/well-perfused Neuro: alert and oriented x3, no focal findings Psych: appropriate affect Objective Data Active Medications Acetaminophen (Acetaminophen 325 Mg Tablet) 650 mg PO Q6H PRN PRN Reason: Pain, Mild (Pain Scale 1-3) Albuterol/Ipratropium (Albuterol/Iprat 2.5/0.5mg 3 Ml Ampul.Neb) 3 ml INHALE RQ4H PRN PRN Reason: Shortness of Breath/Wheezing Amlodipine Besylate (Amlodipine Besylate 5 Mg Tablet) 5 mg PO DAILY [facility]; Protocol Last Admin: 03/26/22 09:03 Dose: 5 mg Documented By: JENNIFER Atorvastatin Calcium (Atorvastatin Calcium 40 Mg Tablet) 40 mg PO BEDTIME [facility] Last Admin: 03/25/22 19:52 Dose: 40 mg Documented By: ANTOIC Bupropion HCl (Bupropion Hcl Xl 150 Mg Tab.Er.24h) 150 mg PO DAILY [facility] Last Admin: 03/26/22 09:03 Dose: 150 mg Documented By: JENNIFER Dextrose (Dextrose 50 % 25 Gm/50 Ml Syringe) 25 gm IVPUSH Q15M PRN; Protocol PRN Reason: per Hypoglycemia Standing Ord. Docusate Sodium (Docusate Sodium 100 Mg Capsule) 100 mg PO DAILY PRN PRN Reason: Constipation Doxycycline Hyclate (Doxycycline Hyclate 100 Mg Tablet) 100 mg PO Q12H [facility] Last Admin: 03/26/22 09:03 Dose: 100 mg Documented By: JENNIFER Duloxetine HCl (Duloxetine Hcl 60 Mg Capsule.) 60 mg PO BID [facility] Last Admin: 03/26/22 09:03 Dose: 60 mg Documented By: JENNIFER Enoxaparin Sodium (Enoxaparin Sodium 40 Mg/0.4 Ml Syringe) 40 mg SUBCUT Q24H [facility] Last Admin: 03/25/22 20:58 Dose: 40 mg Documented By: DELIA Folic Acid (Folic Acid 1 Mg Tablet) 1 mg PO DAILY [facility] Last Admin: 03/26/22 09:03 Dose: 1 mg Documented By: JENNIFER Gabapentin (Gabapentin 300 Mg Capsule) 300 mg PO TID [facility] Last Admin: 03/26/22 09:03 Dose: 300 mg Documented By: JENNIFER Glucose (Glucose Gel 15 Gm Gel..Gram.) 15 gm PO Q15M PRN; Protocol PRN Reason: per Hypoglycemia Standing Ord. Hydroxyzine HCl (Hydroxyzine Hcl 50 Mg Tablet) 100 mg PO BEDTIME [facility] Last Admin: 03/25/22 19:52 Dose: 100 mg Documented By: DELIA Lactated Ringer's (Lr) 1,000 mls @ 100 mls/hr IVCONT .Q10H [facility] Last Admin: 03/26/22 06:03 Dose: 100 mls/hr Documented By: ELIZABETH Ceftriaxone Sodium 1 gm/ (Sodium Chloride) 50 mls @ 100 mls/hr IV Q24H [facility] Last Infusion: 03/25/22 21:32 Dose: 0 mls/hr Documented By: DELIA Insulin Glargine (Insulin Glargine,Hum.Rec.Anlog 100 Unit/Ml 10 Ml Vial) 15 unit SUBCUT DAILY [facility] Last Admin: 03/26/22 09:04 Dose: 15 unit Documented By: JENNIFER Insulin Human Lispro (Insulin Lispro 100 Unit/Ml 3 Ml Vial) 0 unit SUBCUT QIDACHS [facility]; Protocol Last Admin: 03/26/22 09:04 Dose: 6 unit Documented By: JENNIFER Methylprednisolone Sodium Succinate (Methylprednisolone Sod Succ 40 Mg/Ml Vial) 40 mg IVPUSH Q12H [facility] Last Admin: 03/26/22 09:03 Dose: 40 mg Documented By: JENNIFER Multivitamins/Vitamin C (Multivitamin Tablet) 1 tab PO DAILY [facility] Last Admin: 03/26/22 09:03 Dose: 1 tab Documented By: JENNIFER Olanzapine (Olanzapine 10 Mg Tablet) 10 mg PO BEDTIME [facility] Last Admin: 03/25/22 19:52 Dose: 10 mg Documented By: ANTOIC Omeprazole (Omeprazole 20 Mg Capsule.Dr) 20 mg PO BIDAC [facility] Last Admin: 03/26/22 09:03 Dose: 20 mg Documented By: JENNIFER Ondansetron HCl (Ondansetron Hcl 4 Mg/2 Ml Vial) 4 mg IVPUSH Q8H PRN PRN Reason: Nausea and Vomiting Pharmacy Consult (Consult Rx Perform Med Rec) 1 each MISCELLANE ONCE PRN PRN Reason: Consult order Prazosin HCl (Prazosin Hcl 1 Mg Capsule) 1 mg PO BID [facility]; Protocol Last Admin: 03/26/22 09:04 Dose: 1 mg Documented By: JENNIFER Sodium Chloride (0.9 % Sodium Chloride Flush 3 Ml Syringe) 3 ml IVFLUSH QSHICHI [facility] Last Admin: 03/26/22 09:03 Dose: 3 ml Documented By: JENNIFER Spironolactone (Spironolactone 25 Mg Tablet) 25 mg PO DAILY [facility]; Protocol Last Admin: 03/26/22 09:03 Dose: 25 mg Documented By: JENNIFER Thiamine HCl (Thiamine Hcl 100 Mg Tablet) 100 mg PO DAILY [facility] Last Admin: 03/26/22 09:03 Dose: 100 mg Documented By: JENNIFER Labs CBC & Chem 7: 03/25/22 06:49 03/25/22 06:49 Labs: Laboratory Results - last 24 hr 03/25/22 03/25/22 03/25/22 11:29 15:46 16:00 VBG pH VBG pCO2 VBG pO2 VBG HCO3 VBG O2 Saturation VBG Base Excess POC Glucose 268 H 346 H Respiratory Panel Sam See Note Adenovirus (Rapid PCR) Not Detected B.pert (TEM-PCR) Not Detected B.parapertussis DNA PCR Not Detected C. pneumoniae DNA (PCR) Not Detected Coronavirus OC43 (PCR) Not Detected Coronavirus HKU1 (PCR) Not Detected Coronavirus 229E (PCR) Not Detected Coronavirus NL63 (PCR) Not Detected Human Metapneumovir PCR Not Detected Influenza A (RT-PCR) Not Detected Influenza B (RT-PCR) Not Detected M. pneumoniae (PCR) Not Detected Parainfluenza 1 (PCR) Not Detected Parainfluenza 2 (PCR) Not Detected Parainfluenza 3 (PCR) Not Detected Parainfluenza 4 (PCR) Not Detected RSV (PCR) Not Detected Entero/Rhino (PCR) Not Detected SARS-CoV-2 RNA (RT-PCR) Not Detected 03/25/22 03/26/22 03/26/22 19:49 06:24 07:10 VBG pH 7.46 H VBG pCO2 34 VBG pO2 80 VBG HCO3 24 VBG O2 Saturation 95.0 VBG Base Excess 1.5 POC Glucose 423 H* 276 H Respiratory Panel Sam Adenovirus (Rapid PCR) B.pert (TEM-PCR) B.parapertussis DNA PCR C. pneumoniae DNA (PCR) Coronavirus OC43 (PCR) Coronavirus HKU1 (PCR) Coronavirus 229E (PCR) Coronavirus NL63 (PCR) Human Metapneumovir PCR Influenza A (RT-PCR) Influenza B (RT-PCR) M. pneumoniae (PCR) Parainfluenza 1 (PCR) Parainfluenza 2 (PCR) Parainfluenza 3 (PCR) Parainfluenza 4 (PCR) RSV (PCR) Entero/Rhino (PCR) SARS-CoV-2 RNA (RT-PCR) 03/26/22 11:04 VBG pH VBG pCO2 VBG pO2 VBG HCO3 VBG O2 Saturation VBG Base Excess POC Glucose 307 H Respiratory Panel Sam Adenovirus (Rapid PCR) B.pert (TEM-PCR) B.parapertussis DNA PCR C. pneumoniae DNA (PCR) Coronavirus OC43 (PCR) Coronavirus HKU1 (PCR) Coronavirus 229E (PCR) Coronavirus NL63 (PCR) Human Metapneumovir PCR Influenza A (RT-PCR) Influenza B (RT-PCR) M. pneumoniae (PCR) Parainfluenza 1 (PCR) Parainfluenza 2 (PCR) Parainfluenza 3 (PCR) Parainfluenza 4 (PCR) RSV (PCR) Entero/Rhino (PCR) SARS-CoV-2 RNA (RT-PCR) Microbiology Microbiology Results: Microbiology 03/24/22 22:21 Blood Culture - Preliminary Blood - Venous No growth after 24 hours. 03/24/22 21:39 Blood Culture - Preliminary Blood - Venous No growth after 24 hours. Assessment and Plan (1) Acute respiratory failure with hypoxia: Status: Acute (2) Hyperglycemia: Status: Acute (3) Pneumonia: Status: Acute (4) COPD (chronic obstructive pulmonary disease) with acute bronchitis: Status: Acute Plan hospital d#3 57yo F with HTN, HLD, DM2, COPD, EtOH cirrhosis [sober close to 1 yr] presented with dyspnea, admitted for hypoxia due to PNA + COPD exacerbation, hyperglycemia # CA-PNA - PSI 89, continue ceftriaxone + doxycycline d#3, follow PCT + BCx, urinary antigens pending # COPD exacerbation - continue steroids, standing/prn nebs # acute hypoxic resp failure - wean O2 as tolerated, no signs of CO2 retention # hypoMg - repleted # DM2 with hyperglycemia - A1c 8.7; also get steroid injection in shoulder last week. give correction- dose lispro, hold OHGs, add glargine 15 units daily # decompensated EtOH cirrhosis - hx ascites. continue spironolactone + furosemide # HTN - conitnue amlodipine # mood disorder - continue bupropion, prazosin, hydroxyzine, duloxetine, olanzapine # VTE ppx: LMWH In my clinical judgment, the patient requires continued hospitalization for the following reasons: hypoxia, IV ABX Quality Stroke Does the patient have a stroke diagnosis?: No VTE Prior VTE?: No VTE Risk Level:: Medical - moderate - high VTE Device Contraindication: Treatment Not Indicated VTE Drug Contraindication: N/A - Med Ordered
[2022-03-26 15:57] LABS: Glucose, Whole Blood 462 mg/dL (60-115)
[2022-03-26] MEDS: Insulin Glargine,Hum.rec.anlog 100 UNIT/ML 10 ML VIAL SUBCUT (17:49)
[2022-03-26 19:51] LABS: Glucose, Whole Blood 495 mg/dL (60-115)
[2022-03-26] MEDS: Albuterol/Iprat 2.5/0.5MG 3 ML AMPUL.NEB INHALE (20:20)
[2022-03-26] MEDS: Atorvastatin Calcium 40 MG TABLET PO (20:41)
[2022-03-26] MEDS: OLANZapine 10 MG TABLET PO (20:41)
[2022-03-26] MEDS: cefTRIAXone sodium 1 GM in 0.9 % Sodium Chloride 50 ML IV (20:42)
[2022-03-26] MEDS: hydrOXYzine HCL 50 MG TABLET 100 MG PO (20:42)
[2022-03-26 22:20] LABS: Glucose, Whole Blood 426 mg/dL (60-115)
[2022-03-26] MEDS: Enoxaparin Sodium 40 MG/0.4 ML SYRINGE SUBCUT (22:29)
[2022-03-26] MEDS: Insulin Lispro 100 UNIT/ML 3 ML VIAL 15 UNIT SUBCUT (22:29)
[2022-03-27] VITALS (8 sets, daily range): BP systolic 132–159; BP diastolic 64–81; PULSE 87–103; RESP 18–20; TEMP 36.2–36.9; O2SAT 93–96
[2022-03-27 06:38] LABS: Hematocrit 34.8 % (37.0-47.0); Hemoglobin 11.3 g/dl (12.0-16.0); Mean Corpuscular HGB Conc 32.5 g/dl (31.0-35.0); Mean Corpuscular Hemoglobin 26.7 pg (27.0-33.0); Mean Corpuscular Volume 82.3 fL (80.0-98.0); Mean Platelet Volume 9.6 fL (9.4-12.3); Platelet Count 287 X10*3/uL (160-400); Red Blood Count 4.23 X10*6/uL (4.20-5.50); Red Cell Distribution Width 14.7 % (11.0-16.0); White Blood Count 13.9 X10*3/uL (4.8-10.8)
[2022-03-27 07:12] LABS: Procalcitonin 0.02 ng/mL
[2022-03-27 07:26] LABS: Anion Gap 17 (12-20); Blood Urea Nitrogen 16 mg/dL (9-16); Calcium 9.4 mg/dL (8.4-10.2); Carbon Dioxide 23 mmol/L (22-29); Chloride 105 mmol/L (96-108); Creatinine Clr Calc Pharmacy 80.8; Estimated Glomerular Filt Rate > 60; Glucose Random 300 mg/dL (60-115); Potassium 4.8 mmol/L (3.3-5.1); Sodium 140 mmol/L (135-145)
[2022-03-27 07:42] LABS: Glucose, Whole Blood 281 mg/dL (60-115)
[2022-03-27] MEDS: Insulin Lispro 100 UNIT/ML 3 ML VIAL SUBCUT ×4 (08:07→21:18)
[2022-03-27] MEDS: methylPREDNISolone Sod Succ 40 MG/ML VIAL IVPUSH ×2 (08:08→18:43)
[2022-03-27] MEDS: Insulin Glargine,Hum.rec.anlog 100 UNIT/ML 10 ML VIAL 20 UNIT SUBCUT (08:08)
[2022-03-27] MEDS: Thiamine HCL 100 MG TABLET PO (08:09)
[2022-03-27] MEDS: DULoxetine HCl 60 MG CAPSULE.DR PO ×2 (08:09→19:38)
[2022-03-27] MEDS: Prazosin HCL 1 MG CAPSULE PO ×2 (08:09→19:39)
[2022-03-27] MEDS: buPROPion HCl XL 150 MG TAB.ER.24H PO (08:09)
[2022-03-27] MEDS: Folic Acid 1 MG TABLET PO (08:09)
[2022-03-27] MEDS: amLODIPine Besylate 5 MG TABLET PO (08:09)
[2022-03-27] MEDS: Spironolactone 25 MG TABLET PO (08:09)
[2022-03-27] MEDS: Multivitamin TABLET 1 TAB PO (08:09)
[2022-03-27] MEDS: Gabapentin 300 MG CAPSULE PO ×3 (08:09→19:39)
[2022-03-27] MEDS: Omeprazole 20 MG CAPSULE.DR PO ×2 (08:25→16:39)
[2022-03-27] MEDS: 0.9 % Sodium Chloride Flush 3 ML SYRINGE IVFLUSH ×3 (08:26→19:40)
[2022-03-27 11:07] LABS: Glucose, Whole Blood 341 mg/dL (60-115)
[2022-03-27] MEDS: Albuterol/Iprat 2.5/0.5MG 3 ML AMPUL.NEB INHALE ×2 (11:36→15:40)
--- NOTE | 2022-03-27 15:38 | P.PNIM_ITS ---
Subjective Subjective Date of Service: 03/27/22 Interval History: slowly improving; still with O2 requirement Review of Systems denies chest pain Admits to shortness of breath that is improving Denies nausea vomiting diarrhea Denies fever chills Physical Exam Vital Signs: Vital Signs: Last Vital Signs Temp 97.8 F 03/27/22 15:21 Pulse 103 H 03/27/22 15:21 Resp 20 03/27/22 15:21 BP 144/74 H 03/27/22 15:21 Pulse Ox 96 03/27/22 15:21 O2 Del Method 03/27/22 15:21 O2 Flow Rate 2 03/27/22 11:09 BMI result Body Mass Index 26.2 Const: Other: no acute distress. Able to speak in full sentences Resp: Other: diminished at bases; scant crackles heard along with scant expiratory wheezes Cardio: Other: no S4; positive S1-S2; no S3 murmurs rubs or gallops GI: Other: soft nontender nondistended normoactive bowel sounds Extrem: Other: no edema bilaterally Objective Data Active Medications Acetaminophen (Acetaminophen 325 Mg Tablet) 650 mg PO Q6H PRN PRN Reason: Pain, Mild (Pain Scale 1-3) Albuterol Sulfate (Albuterol Sulfate (0.083%) 2.5 Mg/3 Ml Vial.Neb) 2.5 mg INHALE Q2H PRN PRN Reason: Shortness of Breath/Wheezing Albuterol/Ipratropium (Albuterol/Iprat 2.5/0.5mg 3 Ml Ampul.Neb) 3 ml INHALE RQ4H WHILE AWAKE [facility] Last Admin: 03/27/22 11:36 Dose: 3 ml Documented By: NARESH Amlodipine Besylate (Amlodipine Besylate 5 Mg Tablet) 5 mg PO DAILY [facility]; Protocol Last Admin: 03/27/22 08:09 Dose: 5 mg Documented By: KERRY Atorvastatin Calcium (Atorvastatin Calcium 40 Mg Tablet) 40 mg PO BEDTIME [facility] Last Admin: 03/26/22 20:41 Dose: 40 mg Documented By: DELIA Bupropion HCl (Bupropion Hcl Xl 150 Mg Tab.Er.24h) 150 mg PO DAILY [facility] Last Admin: 03/27/22 08:09 Dose: 150 mg Documented By: KERRY Dextrose (Dextrose 50 % 25 Gm/50 Ml Syringe) 25 gm IVPUSH Q15M PRN; Protocol PRN Reason: per Hypoglycemia Standing Ord. Docusate Sodium (Docusate Sodium 100 Mg Capsule) 100 mg PO DAILY PRN PRN Reason: Constipation Doxycycline Hyclate (Doxycycline Hyclate 100 Mg Tablet) 100 mg PO Q12H [facility] Last Admin: 03/27/22 10:41 Dose: 100 mg Documented By: KERRY Duloxetine HCl (Duloxetine Hcl 60 Mg Capsule.Dr) 60 mg PO BID [facility] Last Admin: 03/27/22 08:09 Dose: 60 mg Documented By: KERRY Enoxaparin Sodium (Enoxaparin Sodium 40 Mg/0.4 Ml Syringe) 40 mg SUBCUT Q24H [facility] Last Admin: 03/26/22 22:29 Dose: 40 mg Documented By: DELIA Folic Acid (Folic Acid 1 Mg Tablet) 1 mg PO DAILY [facility] Last Admin: 03/27/22 08:09 Dose: 1 mg Documented By: KERRY Gabapentin (Gabapentin 300 Mg Capsule) 300 mg PO TID [facility] Last Admin: 03/27/22 15:32 Dose: 300 mg Documented By: KERRY Glucose (Glucose Gel 15 Gm Gel..Gram.) 15 gm PO Q15M PRN; Protocol PRN Reason: per Hypoglycemia Standing Ord. Hydroxyzine HCl (Hydroxyzine Hcl 50 Mg Tablet) 100 mg PO BEDTIME [facility] Last Admin: 03/26/22 20:42 Dose: 100 mg Documented By: DELIA Ceftriaxone Sodium 1 gm/ (Sodium Chloride) 50 mls @ 100 mls/hr IV Q24H [facility] Last Infusion: 03/26/22 21:40 Dose: 0 mls/hr Documented By: DELIA Insulin Glargine (Insulin Glargine,Hum.Rec.Anlog 100 Unit/Ml 10 Ml Vial) 20 unit SUBCUT DAILY [facility] Last Admin: 03/27/22 08:08 Dose: 20 unit Documented By: KERRY Insulin Human Lispro (Insulin Lispro 100 Unit/Ml 3 Ml Vial) 0 unit SUBCUT Q IDACHS [facility]; Protocol Last Admin: 03/27/22 12:11 Dose: 14 unit Documented By: KERRY Methylprednisolone Sodium Succinate (Methylprednisolone Sod Succ 40 Mg/Ml Vial) 40 mg IVPUSH Q12H [facility] Last Admin: 03/27/22 08:08 Dose: 40 mg Documented By: KERRY Multivitamins/Vitamin C (Multivitamin Tablet) 1 tab PO DAILY [facility] Last Admin: 03/27/22 08:09 Dose: 1 tab Documented By: KERRY Olanzapine (Olanzapine 10 Mg Tablet) 10 mg PO BEDTIME [facility] Last Admin: 03/26/22 20:41 Dose: 10 mg Documented By: DELIA Omeprazole (Omeprazole 20 Mg Capsule.Dr) 20 mg PO BIDAC [facility] Last Admin: 03/27/22 08:25 Dose: 20 mg Documented By: KERRY Ondansetron HCl (Ondansetron Hcl 4 Mg/2 Ml Vial) 4 mg IVPUSH Q8H PRN PRN Reason: Nausea and Vomiting Pharmacy Consult (Consult Rx Perform Med Rec) 1 each MISCELLANE ONCE PRN PRN Reason: Consult order Prazosin HCl (Prazosin Hcl 1 Mg Capsule) 1 mg PO BID [facility]; Protocol Last Admin: 03/27/22 08:09 Dose: 1 mg Documented By: KERRY Sodium Chloride (0.9 % Sodium Chloride Flush 3 Ml Syringe) [address] [facility] Last Admin: 03/27/22 15:32 Dose: 3 ml Documented By: KERRY Spironolactone (Spironolactone 25 Mg Tablet) 25 mg PO DAILY [facility]; Protocol Last Admin: 03/27/22 08:09 Dose: 25 mg Documented By: KERRY Thiamine HCl (Thiamine Hcl 100 Mg Tablet) 100 mg PO DAILY [facility] Last Admin: 03/27/22 08:09 Dose: 100 mg Documented By: KERRY Labs CBC & Chem 7: 03/27/22 06:02 03/27/22 06:02 Labs: Laboratory Results - last 24 hr 03/26/22 03/26/22 03/26/22 15:54 19:49 22:16 MCV MCH MCHC RDW Plt Count MPV Absolute Nucleated RBC Nucleated RBC % (auto) Anion Gap Estim Creat Clear Calc Estimated GFR POC Glucose 462 H* 495 H* 426 H* Random Glucose Calcium Procalcitonin 03/27/22 03/27/22 03/27/22 06:02 06:02 06:02 MCV 82.3 MCH 26.7 L MCHC 32.5 RDW 14.7 Plt Count 287 MPV 9.6 Absolute Nucleated RBC 0.000 Nucleated RBC % (auto) 0.0 Anion Gap 17 Estim Creat Clear Calc 80.8 Estimated GFR > 60 POC Glucose Random Glucose 300 H Calcium 9.4 D Procalcitonin 0.02 03/27/22 03/27/22 07:32 11:03 MCV MCH MCHC RDW Plt Count MPV Absolute Nucleated RBC Nucleated RBC % (auto) Anion Gap Estim Creat Clear Calc Estimated GFR POC Glucose 281 H 341 H Random Glucose Calcium Procalcitonin Microbiology Microbiology Results: Microbiology 03/24/22 22:21 Blood Culture - Preliminary Blood - Venous No growth after 48 hours. 03/24/22 21:39 Blood Culture - Preliminary Blood - Venous No growth after 48 hours. Assessment and Plan (1) Pneumonia: Status: Acute (2) COPD (chronic obstructive pulmonary disease) with acute bronchitis: Status: Acute (3) Diabetes type 2, controlled: Status: Acute Plan 57yo F with HTN, HLD, DM2, COPD, EtOH cirrhosis [sober close to 1 yr] presented with dyspnea, admitted for hypoxia due to PNA + COPD exacerbation, hyperglycemia 1.Community-acquired pneumonia -Ceftriaxone/Doxycycline (4), - titrate O2; ambulatory sats prior to discharge 2.COPD exacerbation secondary pneumonia - continue steroids, standing/prn nebs 3.DM2 - poor controlled most likely secondary to steroids - correction-dose lispro,add glargine 15 units daily - adjust as indicated 4. EtOH cirrhosis - Continue spironolactone + furosemide 5. HTN - acceptable control - conitnue amlodipine VTE ppx: LMWH requires ongoing hospitalization for IV antibiotics and steroids to treat community-acquired pneumonia Quality Stroke Does the patient have a stroke diagnosis?: No VTE Prior VTE?: No VTE Risk Level:: Medical - moderate - high VTE Device Contraindication: Treatment Not Indicated VTE Drug Contraindication: N/A - Med Ordered
[2022-03-27 16:02] LABS: Glucose, Whole Blood 387 mg/dL (60-115)
[2022-03-27] MEDS: hydrOXYzine HCL 50 MG TABLET 100 MG PO (19:38)
[2022-03-27] MEDS: OLANZapine 10 MG TABLET PO (19:39)
[2022-03-27] MEDS: Atorvastatin Calcium 40 MG TABLET PO (19:39)
[2022-03-27 20:33] LABS: Glucose, Whole Blood 319 mg/dL (60-115)
[2022-03-27] MEDS: cefTRIAXone sodium 1 GM in 0.9 % Sodium Chloride 50 ML IV (21:15)
[2022-03-27 21:20] LABS: Glucose, Whole Blood 341 mg/dL (60-115)
[2022-03-27] MEDS: Enoxaparin Sodium 40 MG/0.4 ML SYRINGE SUBCUT (23:27)
[2022-03-28 03:21] VITALS: BP 147/81; PULSE 72; RESP 18; TEMP 36.5; O2SAT 94
[2022-03-28] MEDS: methylPREDNISolone Sod Succ 40 MG/ML VIAL IVPUSH (06:18)
[2022-03-28 07:35] VITALS: BP 147/71; PULSE 84; RESP 17; TEMP 36.1; O2SAT 96
[2022-03-28 07:41] LABS: Glucose, Whole Blood 289 mg/dL (60-115)
[2022-03-28] MEDS: Insulin Lispro 100 UNIT/ML 3 ML VIAL SUBCUT ×2 (08:33→12:13)
[2022-03-28] MEDS: Insulin Glargine,Hum.rec.anlog 100 UNIT/ML 10 ML VIAL 20 UNIT SUBCUT (08:34)
[2022-03-28] MEDS: Omeprazole 20 MG CAPSULE.DR PO (08:34)
[2022-03-28] MEDS: DULoxetine HCl 60 MG CAPSULE.DR PO (08:34)
[2022-03-28] MEDS: Gabapentin 300 MG CAPSULE PO (08:34)
[2022-03-28] MEDS: amLODIPine Besylate 5 MG TABLET PO (08:35)
[2022-03-28] MEDS: Thiamine HCL 100 MG TABLET PO (08:35)
[2022-03-28] MEDS: Folic Acid 1 MG TABLET PO (08:35)
[2022-03-28] MEDS: Spironolactone 25 MG TABLET PO (08:35)
[2022-03-28] MEDS: buPROPion HCl XL 150 MG TAB.ER.24H PO (08:35)
[2022-03-28] MEDS: Prazosin HCL 1 MG CAPSULE PO (08:35)
[2022-03-28] MEDS: Multivitamin TABLET 1 TAB PO (08:35)
[2022-03-28] MEDS: 0.9 % Sodium Chloride Flush 3 ML SYRINGE IVFLUSH (08:37)
[2022-03-28 11:12] VITALS: BP 127/66; PULSE 94; RESP 17; TEMP 36.2; O2SAT 94
[2022-03-28 11:36] LABS: Glucose, Whole Blood 322 mg/dL (60-115)
[2022-03-28] MEDS: Albuterol/Iprat 2.5/0.5MG 3 ML AMPUL.NEB INHALE (12:00)
[2022-03-28 12:01] VITALS: PULSE 82; PULSE 92; PULSE 98; RESP 20; O2SAT 95; O2SAT 96; O2SAT 97
--- NOTE | 2022-03-28 12:41 | P.DS_ITS ---
DS: Providers Provider Date of Service: 03/28/22 Date of admission: 03/24/22 23:18 Date of discharge: 03/28/22 Primary care physician: Unknown Physician DS: Diagnosis Discharge Diagnosis (1) Pneumonia: Status: Acute (2) COPD (chronic obstructive pulmonary disease) with acute bronchitis: Status: Acute (3) Diabetes type 2, controlled: Status: Acute DS: Summary Hospital Course Hospital Course: 57-year-old female with past medical history of liver cirrhosis, COPD, diabetes, PTSD and anxiety who presents to the hospital from a substance abuse rehab program with complaints of hyperglycemia and hypoxia.? Patient reports that when EMS arrived to the facility she was found hypoxic satting in the 80s, and as well found her glucose to be in 600 and therefore would initially she had refused transfer to the ED she agreed due to hyperglycemia.? When asked her about her breathing she does report that she has been having shortness of breath, as well as coughing for the past 1 day, she denies any phlegm.? No chest pain, no abdominal pain nausea or vomiting, no diarrhea constipation, no urinary symptoms and no lower extremity edema.? No Orthopnea or PND.? No headache or change in vision no numbness tingling.? On arrival to the ED patient found to be 85% on room air Labs are significant for WBC count of 20.4, lactic acid of 2.3, glucose of 426, magnesium of 1.3, UA negative, COVID-19 negative, Chest x-ray showed patchy bilateral opacities concerning for pneumonia.? COVID- 19 negative Hospital Course patient admitted and started on ceftriaxone and doxycycline. She continue to improve over the course of time and her sugars were managed with supplementary insulin. On the day of discharge, respiratory did ambulatory sat for which her sats never <95%. At this time, patient is medically stable for discharge Time Spent with Patient Time attestation: Total time spent providing and/or coordinating discharge services: Discharge coordination time: Greater than 30 minutes Quality: Safe Use of Opioids Does Pt have an Active Cancer Diagnosis on the Problem List?: No Quality: Stroke Does the patient have a stroke diagnosis?: No Physical Exam Vital Signs: Vital Signs: Last Vital Signs Temp 97.1 F 03/28/22 11:12 Pulse 98 03/28/22 12:01 Resp 20 03/28/22 12:01 BP 127/66 03/28/22 11:12 Pulse Ox 94 03/28/22 11:12 O2 Del Method 03/28/22 11:12 O2 Flow Rate 2 03/28/22 07:35 BMI result Body Mass Index 26.2 Const: Other: no acute distress. Able to speak in full sentences Resp: Other: diminished at bases; scant crackles heard along with scant expiratory wheezes Cardio: Other: no S4; positive S1-S2; no S3 murmurs rubs or gallops GI: Other: soft nontender nondistended normoactive bowel sounds Extrem: Other: no edema bilaterally DS: Data Data Completed and Pending Completed studies during hospitalization [Text1]: Procedures Detoxification Services for Substance Abuse Treatment (04/25/21) Drainage of Peritoneal Cavity, Percutaneous Approach (04/25/21) Labs on day of discharge: Laboratory Results - last 24 hr 03/27/22 03/27/22 03/27/22 15:59 20:30 21:16 POC Glucose 387 H* 319 H 341 H 03/28/22 03/28/22 07:37 11:14 POC Glucose 289 H 322 H Preliminary micro results at discharge 03/24/22 22:21 Blood Culture - Preliminary Blood - Venous No growth after 48 hours. 03/24/22 21:39 Blood Culture - Preliminary Blood - Venous No growth after 48 hours. Discharge Plan Discharge Patient Disposition: Home, Self-Care Discharge Diagnosis: acute hypoxic respiratory failure secondary to pneumonia Referrals: Physician,Unknown J [Primary Care Provider] - 1 Week Discharge Medications: New cefuroxime axetil 500 mg tablet 500 mg PO BID 7 Days Qty: 14 0RF doxycycline hyclate 100 mg tablet 100 mg PO BID 7 Days Qty: 14 0RF Continued atorvastatin 40 mg tablet 1 tab PO BEDTIME hydroxyzine HCl 50 mg tablet 2 tab PO BEDTIME amlodipine 5 mg tablet 1 tab PO DAILY pantoprazole 40 mg tablet,delayed release (DR/EC) 1 tab PO BID bupropion HCl 150 mg tablet extended release 24 hr 1 tab PO QAM duloxetine 60 mg capsule,delayed release(DR/EC) 1 cap PO BID folic acid 1 mg Tablet 1 mg PO DAILY Qty: 30 0RF multivitamin [Daily-Davidson] Tablet 1 tab PO DAILY Qty: 30 0RF thiamine mononitrate (vit B1) 100 mg Tablet 100 mg PO DAILY Qty: 30 0RF spironolactone 25 mg tablet 25 mg PO DAILY Protocol: Hold for SBP< HOLD for SBP < : 90 prazosin 1 mg capsule 1 cap PO BID Trulicity 0.75 mg/0.5 mL pen injector 1 ea subcut QWEEK Rx Instructions: weekly on sunday olanzapine 10 mg tablet 1 tab PO BEDTIME gabapentin 600 mg tablet 1 tab PO TID Rx Instructions: take with the 300 mg gabapentin 300 mg capsule 1 cap PO TID Rx Instructions: take with the 600 mg aripiprazole 2 mg tablet 1 tab PO DAILY furosemide 40 mg tablet 1 tab PO DAILY metformin 500 mg tablet extended release 24 hr 2 tab PO BID glipizide 5 mg tablet PO albuterol sulfate 90 mcg/actuation aerosol powdr breath activated 2 inh inhalation Q4H PRN (Reason: shortness of breath or wheezing) Qty: 1 1RF (DME) Aerochamber Plus Z Stat Spacer See Rx Instructions .Route Qty: 50 0RF Rx Instructions: As directed Discharge Orders: Discharge Order (Routine); Ordered 03/28/22 Ordered By: Tommie Draper Diet: Advance to usual diet Activity on Discharge: As tolerated Stand Alone Forms: Patient Portal Discharge page Care Plan Goals: complete course of Ceftin 500 mg twice daily for 7 days along with doxy site clean 100 mg daily for 7 days Health Concerns: follow-up with your primary care in 2 weeks if no better Plan of Treatment: continue all other medications as you did before the hospital Assessment: see discharge summary
--- NOTE | 2022-03-28 13:18 | MHC.CM.PN ---
PT MEDICALLY CLEARED FOR D/C HOME (RECOVERY HOUSE) SELF-CARE, PT WILL ARRANGE TRANSPORT
[2022-03-28 17:52] LABS: Strep Pneumo Ag urine Not Detected (Not Detected)
[2022-03-29 18:01] LABS: Legionella Ag Urine Not Detected (Not Detected)
== END 2022-03-28 13:22 | disposition home or self-care (01) | DRG 193 ==
LOC: HO.ED 20:39 → HO.EDOVER 23:37 → HO.IMC 03-25 01:14 → HO.S3 03-27 18:59
PROVIDERS: Family Medicine; Physician Assistant Medical; Admitting Provider Internal Medicine; Emergency Provider Emergency Medicine Emergency Medical Services; PCP Nurse Practitioner Family; Visit Provider Hospitalist
DX: J18.9 Pneumonia, unspecified organism (principal); J96.01 Acute respiratory failure with hypoxia; J44.0 Chronic obstructive pulmonary disease with (acute) lower respiratory infection; J44.1 Chronic obstructive pulmonary disease with (acute) exacerbation; E83.42 Hypomagnesemia; K70.30 Alcoholic cirrhosis of liver without ascites; E11.65 Type 2 diabetes mellitus with hyperglycemia; F43.10 Post-traumatic stress disorder, unspecified; F41.9 Anxiety disorder, unspecified; F17.210 Nicotine dependence, cigarettes, uncomplicated; Z20.822 Contact with and (suspected) exposure to COVID-19; Z71.6 Tobacco abuse counseling; Z79.84 Long term (current) use of oral hypoglycemic drugs; Z79.899 Other long term (current) drug therapy
CPT/HCPCS: 36415; 71046; 80048; 80053; 81001; 82009; 82803; 82947; 83036; 83605; 83690; 83735; 83880; 84145; 84484; 85025; 85027; 87040; 87449; 87633; 87635; 87899; 93005; 94640; 99285; J0456; J0696; J1650; J2920; J3475